=== PATIENT | female | born 1940 | race Caucasian/White ===

== ENCOUNTER 2019-06-26 13:52 | Outpatient (CLI) | payer MEDICARE, SELFPAY ==
--- NOTE | 2019-06-16 14:58 | CONS_ITS ---
DATE OF CONSULTATION: 06/16/2019 REASON FOR CONSULTATION: Fever. HISTORY OF PRESENT ILLNESS: The patient is a 79-year-old female with rheumatoid arthritis. She is on methotrexate and prednisone with upcoming plans for a biologic, but not currently. She was in her usual state of health until early on the morning of admission when she woke at about 2 a.m. with right scapular chest pain that was persistent and increasing in severity over the course of the day. She then presented to the emergency room in the evening of the and was admitted. She was started on ceftriaxone and azithromycin. Consultation requested. After awakening, she was up in a recliner, but with minimal relief in her pain. There was some radiation into the lower thoracic spine but not elsewhere. Pain was not worse with deep breath. She did have a cough as well that was minimally productive. During the course today, she also had a fever up to 38.3 orally without rigors or sweats. She has been on no recent antibiotics. One day before admission, she did have several skin lesions removed from her face, is applying Vaseline to the same areas. 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 Here she has been continued on her home acyclovir, has been given a single dose methylprednisolone. Her prednisone dose has also been increased from 10 up to 40. She now feels back to normal. She had vomiting on the day of admission, but this has resolved. On arrival here, her saturation was 86% and was 87% the following morning, but now she has been weaned off with normal O2 saturation at 98% on room air. She has no shortness of breath nor did she have any on the day of admission. She has not required any surgical intervention. No events here. ALLERGIES: METRONIDAZOLE. OTHERS NOT PERTINENT. HABITS: No tobacco. No alcohol to excess. PRESENT MEDICATIONS: No other immunosuppressants. PAST MEDICAL AND SURGICAL HISTORY: Anemia, rheumatoid arthritis, B12 deficiency, previous complicated UTI in April/May for which I saw her, degenerative disk disease, CAD with angina, chronic renal insufficiency, T5 compression fracture in the past, esophageal diverticulum, GERD, hypertension, hyperlipidemia, hypothyroidism, nephrolithiasis in the past, osteoarthritis, PAF, peripheral neuropathy, colostomy after diverticulitis, not reversed; lumbar diskectomy, ovary removal, appendectomy, cholecystectomy, tonsillectomy. FAMILY HISTORY: Heart disease, throat cancer. SOCIAL HISTORY: She is . Lives locally. Does not work outside the home. REVIEW OF SYSTEMS: 14-point review otherwise negative. PHYSICAL EXAMINATION: GENERAL: This is an elderly female, who appears her actual age. No distress on room air. VITAL SIGNS: Afebrile since arrival, 82, 20, 119/60. SKIN: Ecchymoses which appear acute and chronic, upper and lower extremities. No rashes. Warm and dry. EENT: Conjunctivae are normal. No petechiae. NECK: Without adenopathy, mass, meningismus. LUNGS: Diminished breath sounds at the right lung base. Breath sounds are vesicular. Otherwise, clear to auscultation and percussion. BACK: She has no CVAT, but there is right mid scapula tenderness. She has no spinal tenderness. She has no skin changes over the thorax such as vesicles. CARDIAC: Soft, S1, S2. Regular rate and rhythm. Pulses 1+. ABDOMEN: Colostomy in place. No organomegaly. No masses. Nontender. EXTREMITIES: Marvin wraps, both legs, which I did not remove. She has no lymphangitis evident. There is 3+ edema. LABORATORY DATA: White count 12.6 down from 16.4, hemoglobin 7.6, platelets are 249, 89% PMNs, 3% bands, 5% lymphocytes. Her prothrombin time 1.2. Electrolytes normal except for CO2 of 31, BUN 20, creatinine 1.1. Her
--- NOTE | ~2019-06-26 | DEXA_ITS ---
Bone Density Report Name: Yamini Muñoz Age: 79 Sex: Female Ethnicity: White Date of : 1940 Indication: postmenopausal; Referring Provider: PHYSICIAN NOT ON STAFF Study: Bone densitometry was performed. Exam Date: June 26, 2019 Accession number: [id number] Bone Density: Region BMD T-score Z-score Classification Total Forearm (Left) 0.256 -6.0 -2.9 1/3 Forearm (Left) 0.345 -5.8 -2.7 UD Forearm (Left) 0.171 -4.7 -2.4 World Health Organization criteria for BMD impression classify patients as: Normal (T-score at or above -1.0), Osteopenia (T-score between -1.0 and -2.5), or Osteoporosis (T-score at or below -2.5). Impression: The patient has osteoporosis, based on the Left Third Radius T-score. Discussion: HIGH RISK OF FRACTURE. BONE DENSITY IS UNDESIRABLY LOW AT ONE OR MORE SKELETAL SITES, CONSISTENT WITH OSTEOPOROSIS. ALSO, BONE DENSITY IS LOWER THAN EXPECTED FOR AGE AND SEX AT ONE OR MORE SKELETAL SITES; RECOMMEND A DILIGENT SEARCH FOR SECONDARY CAUSES OF BONE LOSS. This patient's lowest T-score meets the World Health Organization's (WHO) criteria for osteoporosis at one or more sites (T-score -2.5 or below). In untreated patients, the risk of osteoporotic fracture increases approximately two-fold for each 1.0 SD decrease in T-score. Low bone density is not the only risk factor for fracture; also consider factors such as patient's age, frailty or poor health, risk of falling, risk of injury, previous osteoporotic fracture, family history of osteoporosis, cigarette smoking, low body weight, etc. Not everyone with low bone mineral density has osteoporosis; osteomalacia and other metabolic bone disorders should also be considered. Patients who have osteoporosis should be evaluated for specific diseases and conditions (secondary causes) that may cause or contribute to bone loss. The [place] [employer] Clinical Endocrinologists (AACE) and National Osteoporosis Foundation (NOF) recommend pharmacologic intervention for all postmenopausal women whose T-score is in this range. Also, this patient's bone mineral density is below the range considered normal for healthy age-, sex-, and race-matched controls at least one site (Z-score -2.0 or below). This warrants careful evaluation for diseases and conditions that may contribute to accelerated bone loss. The patient should follow a healthful lifestyle (good nutrition with adequate calcium and vitamin D, and appropriate weight-bearing exercise). Follow-Up: Consider a repeat BMD and Vertebral Fracture Assessment (VFA) exam in 2 years or sooner if medically necessary, to reassess this patient's status. Reported by: DINORAH on 06/26/2019 3:44:00 PM. Reviewed, dictated and finalized at location AJules LEAL
--- NOTE | ~2019-06-26 | DEXA_ITS ---
Bone Density Report Name: Yamini Muñoz Age: 79 Sex: Female Ethnicity: White Date of : 1940 Indication: osteopenia; height loss; inflammatory bowel disease; history of glucocorticoids; prior fracture; rheumatoid arthritis; Referring Provider: PHYSICIAN NOT ON STAFF Study: Bone densitometry was performed. Exam Date: June 26, 2019 Accession number: [id number] Bone Density: Region BMD T-score Z-score Classification AP Spine (L1-L4) 1.036 -0.1 2.5 Normal Femoral Neck (Left) 0.373 -4.3 -2.0 Osteoporosis Total Hip (Left) 0.487 -3.7 -1.7 Osteoporosis Total Hip Bilateral Avg 0.465 -3.9 -1.9 Osteoporosis Femoral Neck (Right) 0.342 -4.6 -2.3 Osteoporosis Total Hip (Right) 0.441 -4.1 -2.1 Osteoporosis World Health Organization criteria for BMD impression classify patients as: Normal (T-score at or above -1.0), Osteopenia (T-score between -1.0 and -2.5), or Osteoporosis (T-score at or below -2.5). 10-year Fracture Risk: FRAX not reported because: Some T-score for Spine Total or Hip Total or Femoral Neck at or below -2.5 Prior hip or vertebral fracture Previous Exams: Region Exam Age BMD T-score BMD Change BMD Change Date g/cm2 vs Baseline vs Previous AP Spine(L1-L4) 06/26/2019 79 1.036 -0.1 0.064(6.6%)# 0.064(6.6%)# 03/01/2005 64 0.972 -0.7 Total Hip(Left) 06/26/2019 79 0.487 -3.7 -0.163(-25.1%) -0.163(-25.1%) 03/01/2005 64 0.650 -2.4 Total Hip(Right) 06/26/2019 79 0.441 -4.1 -0.218(-33.1%) -0.218(-33.1%) 03/01/2005 64 0.659 -2.3 *Denotes significance at 95% confidence level, LSC for AP Spine = 0.022 g/cm2, LSC for Total Hip = 0.027 g/cm2 Clinical Information Provided by Patient: Have had a previous hip or vertebral fracture Has had a low trauma fracture Has taken Glucocorticoids Has rheumatoid arthritis Has the following medical conditions: Inflammatory bowel diseases Patient maximum height was 63 Menopause Age: 45 No regular weight bearing exercise Onset of menses at age 12 Number of children 1 Impression: The patient has established osteoporosis, based on the Right Femoral Neck T-score and the existence of a prior fracture. The patient has risk factors, including: previous fracture, history of glucocorticoid therapy. No significant bone loss was observed. Discussion: HIGH RISK OF FRACTURE. BONE DENSITY IS UNDESIRABLY LOW AT ONE OR MORE SKELETAL SITES, CONSISTENT WITH POSTMENOPAUSAL OSTEOPOROSIS. This patient's lowest T-s
--- NOTE | ~2019-06-26 | DEXA_ITS ---
Bone Density Report Name: Yamini Muñoz Age: 79 Sex: Female Ethnicity: White Date of : 1940 Indication: postmenopausal; Referring Provider: PHYSICIAN NOT ON STAFF Study: Bone densitometry was performed. Exam Date: June 26, 2019 Accession number: [id number] Bone Density: Region BMD T-score Z-score Classification Total Forearm (Left) 0.256 -6.0 -2.9 1/3 Forearm (Left) 0.345 -5.8 -2.7 UD Forearm (Left) 0.171 -4.7 -2.4 World Health Organization criteria for BMD impression classify patients as: Normal (T-score at or above -1.0), Osteopenia (T-score between -1.0 and -2.5), or Osteoporosis (T-score at or below -2.5). Impression: The patient has osteoporosis, based on the Left Third Radius T-score. Discussion: HIGH RISK OF FRACTURE. BONE DENSITY IS UNDESIRABLY LOW AT ONE OR MORE SKELETAL SITES, CONSISTENT WITH OSTEOPOROSIS. ALSO, BONE DENSITY IS LOWER THAN EXPECTED FOR AGE AND SEX AT ONE OR MORE SKELETAL SITES; RECOMMEND A DILIGENT SEARCH FOR SECONDARY CAUSES OF BONE LOSS. This patient's lowest T-score meets the World Health Organization's (WHO) criteria for osteoporosis at one or more sites (T-score -2.5 or below). In untreated patients, the risk of osteoporotic fracture increases approximately two-fold for each 1.0 SD decrease in T-score. Low bone density is not the only risk factor for fracture; also consider factors such as patient's age, frailty or poor health, risk of falling, risk of injury, previous osteoporotic fracture, family history of osteoporosis, cigarette smoking, low body weight, etc. Not everyone with low bone mineral density has osteoporosis; osteomalacia and other metabolic bone disorders should also be considered. Patients who have osteoporosis should be evaluated for specific diseases and conditions (secondary causes) that may cause or contribute to bone loss. The [place] Association of Clinical Endocrinologists (AACE) and National Osteoporosis Foundation (NOF) recommend pharmacologic intervention for all postmenopausal women whose T-score is in this range. Also, this patient's bone mineral density is below the range considered normal for healthy age-, sex-, and race-matched controls at least one site (Z-score -2.0 or below). This warrants careful evaluation for diseases and conditions that may contribute to accelerated bone loss. The patient should follow a healthful lifestyle (good nutrition with adequate calcium and vitamin D, and appropriate weight-bearing exercise). Follow-Up: Consider a repeat BMD and Vertebral Fracture Assessment (VFA) exam in 2 years or sooner if medically necessary, to reassess this patient's status. Reported by: DINORAH on 06/26/2019 3:24:00 PM. Reviewed, dictated and finalized at location A.
== END 2019-06-26 13:53 | disposition home or self-care (01) ==
PROVIDERS: PCP Internal Medicine
DX: M81.0 Age-related osteoporosis without current pathological fracture (principal); M06.9 Rheumatoid arthritis, unspecified; Z51.81 Encounter for therapeutic drug level monitoring; Z79.899 Other long term (current) drug therapy; Z11.59 Encounter for screening for other viral diseases
CPT/HCPCS: 77080; 77081

== ENCOUNTER 2019-12-25 10:39 | Inpatient (IN) | payer MEDICARE, SELFPAY ==
[2019-12-25] VITALS (7 sets, daily range): BP systolic 112–185; BP diastolic 48–89; PULSE 63–75; RESP 13–22; TEMP 36.2–37.2; O2SAT 94–100; BMI 32.3
--- NOTE | ~2019-12-25 | US_ITS ---
EXAMINATION: US venous doppler [facility] DATE: 12/26/2019 10:57 INDICATION: Bilateral lower limb swelling TECHNIQUE: Us scale images without and with compression and Doppler images of the bilateral lower e xtremity veins were obtained. COMPARISON: 02/17/2019 FINDINGS: Evaluation of the calf veins is somewhat limited due to lower limb pain. The right common femoral vein, profunda femoral vein, femoral vein, popliteal vein, peroneal trunk, p osterior tibial veins, and greater saphenous vein are patent. The left common femoral vein, profunda femoral vein, femoral vein, popliteal vein, peroneal trunk, po sterior tibial veins, and greater saphenous vein are patent. IMPRESSION: 1. Patent bilateral lower extremity veins. No evidence of deep venous thrombosis. Reviewed, dictated and finalized at location A. IMPRESSION: 1. Patent bilateral lower extremity veins. No evidence of deep venous thrombosi s.
--- NOTE | ~2019-12-25 | XR_ITS ---
EXAMINATION: XR chest 1V portable DATE: 12/25/2019 11:20 INDICATION: Weakness. TECHNIQUE: A single frontal view of the chest was obtained. COMPARISON: Chest 2 views 06/14/2019, chest CT 06/15/2019, CT abdomen and pelvis 04/25/2019 FINDINGS: Again seen is elevation of right hemidiaphragm. Calcified right lung nodules are consistent with old granulomatous disease. There is chronic collapse of left lower lobe. No pleural effusion or pneumothorax. The heart size is normal. There is a prominent left paracardial fat pad. There are mathew nges of vertebroplasty in the spine. IMPRESSION: 1. 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 Reviewed, dictated and finalized at location A.
--- NOTE | 2019-12-25 10:42 | ECG_ITS ---
Measurements Intervals [place] Rate: 74 P: -23 RI: 311 QRS: 10 QRSD: 86 T: 80 QT: 299 QTc: 332 Interpretive Statements SINUS RHYTHM BORDERLINE ST-T WAVE ABNORMALITY- HIGH LATERAL LEADS BASELINE ARTIFACT- I, II, III, AVR, AVL, AVF, V4-V6 BORDERLINE ECG Electronically Signed On 12-25-2019 11:02:40 CDT by Odilon Swift D.O.
[2019-12-25 10:52] LABS: Glucose Point of Care 129 (65-105)
--- NOTE | 2019-12-25 10:53 | ED.WEAKNESS ---
HPI - Weakness General Chief complaint: Weakness Stated complaint: weakness History of Present Illness HPI Narrative: Patient presents via EMS for generalized weakness. She has severe rheumatoid arthritis, and congestive heart failure, and still lives at home with her . Usually she can get around with a motorized wheelchair, and a walker. Now she is too weak to walk. She complains of pain everywhere . She has a deep cough with productive sputum. She denies fever chills or sweats. MD Complaint: generalized weakness Onset (ago): hour(s) Duration: constant Location: generalized Severity: moderate Relieving factors: none Exacerbating factors: exertion Associated symptoms: easy bruising Related Data Home Medications Medication Instructions Recorded Confirmed Bystolic 10 mg PO DAILY 04/25/19 12/25/19 Pradaxa 150 mg PO BID 04/25/19 12/25/19 fluconazole 150 mg PO [id number] 04/25/19 12/25/19 ipratropium-albuterol 3 ml INHALATION Q4H PRN 04/25/19 12/25/19 mesalamine with cleansing wipe 4 g CO HS 04/25/19 12/25/19 methotrexate sodium 10 mg PO WEEKLY 04/25/19 12/25/19 promethazine 25 mg PO QID PRN 04/25/19 12/25/19 vitamin X50-smfua acid 2 tablet PO DAILY 04/25/19 12/25/19 acetaminophen 500 mg PO TID PRN 04/26/19 12/25/19 acyclovir 400 mg PO DAILY 04/26/19 12/25/19 folic acid 1 mg PO BID 04/26/19 12/25/19 gabapentin 100 mg PO BID 04/26/19 12/25/19 pantoprazole 40 mg PO QAM 04/26/19 12/25/19 prednisone 10 mg PO DAILY 04/26/19 12/25/19 bumetanide 0.5 mg PO DAILY 05/02/19 12/25/19 Xtampza ER 18 mg PO Q12H 06/14/19 12/25/19 lidocaine [Lidoderm] 1 patch TRANSDERMAL DAILY 06/14/19 12/25/19 duloxetine 30 mg PO DAILY 12/25/19 12/25/19 Allergies Allergy/AdvReac Type Severity Reaction Status Date / Time codeine Allergy Unknown Nausea Verified 12/25/19 13:11 enalapril Allergy Unknown Nausea Verified 12/25/19 13:11 ezetimibe Allergy Unknown Dizziness Verified 12/25/19 13:11 metronidazole Allergy Unknown Unknown Verified 12/25/19 11:08 Iimjyhq-Wrw-Ndd Reductase Allergy Unknown Nausea Verified 12/25/19 13:11 Inhibitor Review of Systems Review of Systems: Narrative: CONSTITUTIONAL: Denies fever, chills, or sweats. EYES: Denies visual changes, redness, or discharge. ENT: Denies rhinorrhea, congestion, sore throat, or otalgia. CARDIOVASCULAR: Denies chest pain, palpitations, or edema. RESPIRATORY: She has a deep cough. GASTROINTESTINAL: Denies abdominal pain, nausea, vomiting, or diarrhea. GENITOURINARY: Denies dysuria or hematuria. SKIN: Denies rash or itching. MUSCULOSKELETAL: She has chronic back pain, joint pain, and myalgia. NEUROLOGIC: Denies headache, numbness, but presents for generalized weakness. [facility] Past Medical History Medical History (Updated 12/25/19 @ 17:03 by Sandi Macedo PA-C) Arthritis B12 deficiency Bacteremia Citrobacter and Enterococcus bacteremia in April 2019. Bulging disc Chronic anemia Chronic kidney disease, stage 3 Baseline creatinine between 1.0 and 1.20. Chronic pain syndrome Secondary to rheumatoid arthritis. 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 Coronary artery disease Diverticulitis Perforated diverticulitis status post colostomy in 2014. Esophageal diverticulum Essential hypertension Gastroesophageal reflux disease Hyperlipidemia Hypothyroidism Immunosuppression due to drug therapy Kidney stones Osteoarthritis Osteoporosis Paroxysmal atrial fibrillation Rheumatoid arthritis Seasonal allergies Vertebral compression fracture T5 and lumbar vertebral compression fractures. Surgical History Surgical History (Updated 12/25/19 @ 16:48 by Sandi Macedo PA-C) History of appendectomy History of bowel resection (~2014) With colostomy, secondary to perforated diverticulitis. History of cardiac catheterization History of cataract extraction History of cholecystectomy History of lumbar discectomy (~10/2003) L3-L4 microdiskectomy with decom
[2019-12-25 11:02] LABS: Basophils Percent Auto 0.1 % (0.2-1.2); Eosinophils Percent Auto 0.4 % (0-4.4); Hematocrit 34.1 % (37.0-47.0); Immature Granulocyte Absolute 0.07 K/mm3 (0.00-0.031); Immature Granulocyte Percent A 0.8 % (0-0.5); Lymphocytes Absolute Auto 1.64 K/mm3 (0.9-3.2); Lymphocytes Percent Auto 19.7 % (18.3-44.2); Mean Corpuscular HGB Conc 29.3 g/dl (32-36); Mean Corpuscular Hemoglobin 28.2 pg (26-34); Mean Corpuscular Volume 96.1 fl (80-100); Mean Platelet Volume 10.6 fl (7.4-10.4); Monocytes Absolute Auto 0.6 K/mm3 (0.1-0.6); Monocytes Percent Auto 6.7 % (2.6-8.5); Neutrophils Percent Auto 72.3 % (45.5-73.1); Nucleated Red Blood Cells Perc 0.4 % (0.0-0.2); Platelet Count Result 264 k/mm3 (150-375); Red Blood Count 3.55 M/mm3 (4.2-5.4); Red Cell Distribution Width 20.6 % (11.5-14.5); White Blood Count 8.3 K/mm3 (4.5-10.0)
[2019-12-25 11:11] LABS: Anisocytosis 1+ (NORMAL); Hypochromasia 1+ (NORMAL); Platelet Estimate Adequate (Adequate)
[2019-12-25 11:17] LABS: Add Urine Microscopic? YES; Appearance Urine Turbid (Clear); Bacteria Urine Trace /hpf; Bilirubin Urine Negative (Negative); Blood Urine 1+ (Negative); Budding Yeast Urine Present /hpf; Color Urine Yellow (Yellow); Glucose Urine UA Negative (Negative); Ketones Urine Negative (Negative); Leukocyte Esterase Ur 3+ LEU/UL (Negative); Nitrate Urine Negative (Negative); Protein Urine 2+ mg/dL (Negative); RBC Urine 21-50 /hpf (0-2); Specific Grav Ur 1.014 (1.001-1.035); Urobilinogen Urine Negative mg/dL (<2.0); WBC Urine >75 /hpf
[2019-12-25 11:26] LABS: Alanine Aminotransferase 30 U/L (4-35); Albumin Level 3.5 g/dL (3.5-5.1); Alkaline Phosphatase 77 U/L (38-126); Anion Gap 8.9 mmol/L (7-16); Aspartate Amino Transferase 39 U/L (14-36); Bilirubin,Total 0.9 mg/dL (0.2-1.3); Blood Urea Nitrogen 26 mg/dL (7-17); Calcium 8.8 mg/dL (8.4-10.2); Carbon Dioxide 36 mmol/L (22-30); Chloride 95 mmol/L (98-107); Estimated Glomerular Filt Rate 43; Glucose 120 mg/dL (65-105); Potassium 3.9 mmol/L (3.4-5.0); Sodium 136 mmol/L (137-145)
[2019-12-25 11:30] LABS: NT Pro B Type Natriuretic Pept 671 PG/ML (5-100); Troponin I < 0.012 ng/mL (0.000-0.034)
[2019-12-25 11:33] LABS: Amphetamine Screen Urine Negative (Negative); Barbiturate Screen Urine Negative (Negative); Benzodiazepines Screen Urine Negative (Negative); Cannabinoid Screen Urine Negative (Negative); Cocaine Screen Urine Negative (Negative); Methadone Screen Urine Negative (Negative); Opiate Screen Urine Negative (Negative); Phencyclidine Screen Urine Negative (Negative)
--- NOTE | 2019-12-25 12:49 | ADMGEN ---
This patient, Yamini Muñoz, was admitted to 2 Medical Room 252-01. Patient/family oriented to hospital policies and general routines including ID bracelet, bed and alarms, visiting hours, pain management, procedures, bathroom and other care routines, personal items, smoking policy, room service/diet, and visiting hours. Valuables list has been completed. Information on how to activate the Rapid Response Team has been discussed. Patient/Family are encouraged to report perceived risks to care and to ask questions if they do not understand what they are told or what they should do. Report received from MISSY Martin.
--- NOTE | 2019-12-25 16:00 | PM.IMHP ---
H&P: HPI History of Present Illness Chief complaint: Generalized weakness. Narrative: Yamini Muñoz is a 79-year-old female with rheumatoid arthritis on immunosuppressants, chronic partial collapse of the left lower lobe, chronic kidney disease stage 3, chronic anemia, hypertension, hyperlipidemia, and chronic pain syndrome secondary to RA who presented to the emergency department earlier today via EMS from home for evaluation of generalized weakness. Her chronic lower extremity edema has been worse recently, and in fact she has been doubling up on her diuretic for the last 2 weeks, at the direction of her primary care provider. The edema is much improved and she has lost about 10 pounds, however she has felt dry over the past 4 days or so. Over the past 3 or 4 days, she has noticed a decrease in appetite with poor oral intake, lightheadedness/dizziness, and progressive weakness. She also reports dysuria and a change in sputum production. With further questioning, she reports a chronic cough that is occasionally productive, however over the past several days she has been coughing up light green phlegm. She denies fever, chills, sweats, dysphagia, recent travel, sick contacts, and exposure to those positive for COVID-19. Review of Systems Review of Systems: Narrative: Twelve systems were reviewed with pertinent positives and negatives as per HPI. No headache. She has slight sinus congestion and rhinorrhea. No otalgia or odynophagia. She denies dysphagia and concerns for aspiration. No chest pain, pleuritic pain, or shortness of breath. She denies overt calf pain. Reportedly she had a DVT many years ago. Except as documented, all other systems were reviewed and are negative. [facility] Past Medical History Medical History (Updated 12/25/19 @ 17:03 by Sandi Macedo PA-C) Arthritis B12 deficiency Bacteremia Citrobacter and Enterococcus bacteremia in April 2019. Bulging disc Chronic anemia Chronic kidney disease, stage 3 Baseline creatinine between 1.0 and 1.20. Chronic pain syndrome Secondary to rheumatoid arthritis. 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 Coronary artery disease Diverticulitis Perforated diverticulitis status post colostomy in 2014. Esophageal diverticulum Essential hypertension Gastroesophageal reflux disease Hyperlipidemia Hypothyroidism Immunosuppression due to drug therapy Kidney stones Osteoarthritis Osteoporosis Paroxysmal atrial fibrillation Rheumatoid arthritis Seasonal allergies Vertebral compression fracture T5 and lumbar vertebral compression fractures. Surgical History Surgical History (Updated 12/25/19 @ 16:48 by Sandi Macedo PA-C) History of appendectomy History of bowel resection (~2014) With colostomy, secondary to perforated diverticulitis. History of cardiac catheterization History of cataract extraction History of cholecystectomy History of lumbar discectomy (~10/2003) L3-L4 microdiskectomy with decompression of L4-L5. History of oophorectomy (~1963) History of sinus surgery X2 History of tonsillectomy Family History Family History Father Family history of throat cancer Heart disease Sibling Kidney stones High cholesterol Sibling High cholesterol Kidney stones Sibling High cholesterol Kidney stones Social History Social History (Updated 12/25/19 @ 16:49 by Sandi Macedo PA-C) Social History: The patient lives in [place] with her . She is a lifelong nonsmoker and denies alcohol and illicit substance use. She designates her son Alex as her surrogate decision maker and she wishes to be a do not resuscitate. Spiritual care concerns: No Agree to blood products: Yes Meds Home Medications and Allergies Home Medications Medication Instructions Recorded Confirmed Type Bystolic 10 mg PO DAILY 04/25/19 12/25/19 History Pradaxa 150 mg PO
[2019-12-25] MEDS: SODIUM CHLORIDE 0.9% IV 1,000 ML 100 ML IV CONT (17:35)
[2019-12-25] MEDS: guaiFENesin 12 HR 600 MG TABCR PO (20:57)
[2019-12-25] MEDS: ACETAMINOPHEN 325 MG TABLET 650 MG PO (20:59)
[2019-12-26 05:28] VITALS: BP 146/55; PULSE 66; RESP 20; TEMP 36.3; O2SAT 96
[2019-12-26] MEDS: ACETAMINOPHEN 325 MG TABLET 650 MG PO ×2 (05:36→18:33)
[2019-12-26 05:53] LABS: Hematocrit 31.4 % (37.0-47.0); Hemoglobin 9.1 g/dL (12.0-15.0); Mean Corpuscular Hemoglobin 27.6 pg (26-34); Mean Corpuscular Volume 95.2 fl (80-100); Mean Platelet Volume 9.4 fl (7.4-10.4); Platelet Count Result 263 k/mm3 (150-375); Red Cell Distribution Width 20.5 % (11.5-14.5); White Blood Count 7.3 K/mm3 (4.5-10.0)
[2019-12-26 06:10] LABS: Anion Gap 7.2 mmol/L (7-16); Blood Urea Nitrogen 20 mg/dL (7-17); Calcium 7.8 mg/dL (8.4-10.2); Carbon Dioxide 33 mmol/L (22-30); Chloride 100 mmol/L (98-107); Estimated Glomerular Filt Rate 43; Glucose 89 mg/dL (65-105); Magnesium 2.1 mg/dL (1.6-2.3); Phosphorus 3.2 mg/dL (2.5-4.5); Potassium 3.2 mmol/L (3.4-5.0); Sodium 137 mmol/L (137-145)
[2019-12-26] MEDS: LIDOCAINE 5% PATCH 1 PATCH TRANSDERM (08:34)
[2019-12-26] MEDS: BUMETANIDE 0.5 MG TABLET PO (09:13)
[2019-12-26] MEDS: FOLIC ACID 1 MG TABLET PO ×2 (09:13→16:20)
[2019-12-26] MEDS: CYANOCOBALAMIN 1,000 MCG TABLET 1000 MCG PO (09:13)
[2019-12-26] MEDS: DULoxetine HCL 30 MG CAPSULE.DR PO (09:13)
[2019-12-26] MEDS: PANTOPRAZOLE 40 MG TABLET PO (09:13)
[2019-12-26] MEDS: predniSONE 10 MG TABLET PO (09:13)
[2019-12-26 09:14] VITALS: PULSE 80
[2019-12-26] MEDS: POTASSIUM CHLORIDE 20 MEQ TABLET 40 MEQ PO (09:14)
[2019-12-26] MEDS: GABAPENTIN 100 MG CAPSULE PO ×2 (09:14→16:20)
[2019-12-26] MEDS: guaiFENesin 12 HR 600 MG TABCR PO ×2 (09:14→21:25)
[2019-12-26] MEDS: ACYCLOVIR 400 MG TABLET PO (09:14)
[2019-12-26] MEDS: DABIGATRAN ETEXILATE 150 MG CAPSULE PO ×2 (09:14→16:20)
[2019-12-26] MEDS: NEBIVOLOL HCL 5 MG TABLET 10 MG PO (09:14)
--- NOTE | 2019-12-26 09:57 | PHAR ---
Home med verified: Xtampza ER 18mg take 1 capsule PO Q12h with food
--- NOTE | 2019-12-26 13:09 | P.PNIM_ITS ---
Progress Note: A&P Assessment and Plan (1) Urinary tract infection: Code(s): N39.0 - Urinary tract infection, site not specified Status: Acute Assessment and Plan: With history of asymptomatic bacteriuria, however she has had dysuria for the past several days. * She has been started on empiric ceftriaxone, pending urine culture. * Patient says her dysuria is much improved today she is not having any fevers or chills. continue monitoring symptoms and given IV ceftriaxone. Still pending urine culture results. (2) Generalized weakness: Code(s): R53.1 - Weakness Status: Acute Assessment and Plan: Likely multifactorial in etiology to include mild dehydration due to over diuresis in addition to possible underlying urinary tract infection +/- bronchitis in the setting of chronic medical conditions. * Fall precautions initiated. PT / OT consulted. * She is feeling better today and walked well with therapy in the room. * It is recommended that she go home with home health after discharge. (3) Collapse of left lung: Code(s): J98.11 - Atelectasis Status: Acute Assessment and Plan: With increase in sputum production and change in sputum color, thus will add azithromycin to the ceftriaxone to cover possible underlying bronchitis. * Mucinex and Cornet to help mobilize secretions. * She reports her sputum is getting better today. will continue monitoring her symptoms and continue azithromycin and ceftriaxone. (4) Immunosuppression due to drug therapy: Code(s): Z79.899 - Other detention (current) drug therapy Status: Acute Assessment and Plan: * On methotrexate and prednisone. (5) Rheumatoid arthritis: Qualifiers: Rheumatoid arthritis location: unspecified site Rheumatoid factor presence: unspecified presence Qualified Code(s): M06.9 - Rheumatoid arthritis, unspecified Code(s): M06.9 - Rheumatoid arthritis, unspecified Status: Acute Assessment and Plan: * On immunosuppressants including methotrexate and prednisone as detailed above. * No acute issues. (6) Chronic kidney disease, stage 3: Code(s): N18.3 - Chronic kidney disease, stage 3 (moderate) Status: Acute Assessment and Plan: * Creatinine is stable on review of previous labs, however she Did look a bit dry and received 1 L of IV fluids overnight. * Creatinine is stable at 1.2. Which is her baseline. Will continue monitoring creatinine, I&Os and fluid status. (7) Chronic anemia: Code(s): D64.9 - Anemia, unspecified Status: Acute Assessment and Plan: * Hemoglobin and hematocrit are stable on review of previous labs. (8) Lower extremity edema: Code(s): R60.0 - Localized edema Status: Acute Assessment and Plan: Patient has chronic lymphedema of her legs and states they are slightly more swollen than normal. She does normally wear compression stockings daily. * Venous Doppler ultrasounds Was negative for DVT. * Encourage elevation of lower extremities as much as possible. * Will order compression stockings to be placed. * Otherwise will olivier
--- NOTE | 2019-12-26 13:09 | PM.IMPN ---
Progress Note: A&P Assessment and Plan (1) Urinary tract infection: Code(s): N39.0 - Urinary tract infection, site not specified Status: Acute Assessment and Plan: With history of asymptomatic bacteriuria, however she has had dysuria for the past several days. She has been started on empiric ceftriaxone, pending urine culture. Patient says her dysuria is much improved today she is not having any fevers or chills. continue monitoring symptoms and given IV ceftriaxone. Still pending urine culture results. (2) Generalized weakness: Code(s): R53.1 - Weakness Status: Acute Assessment and Plan: Likely multifactorial in etiology to include mild dehydration due to over diuresis in addition to possible underlying urinary tract infection +/- bronchitis in the setting of chronic medical conditions. Fall precautions initiated. PT / OT consulted. She is feeling better today and walked well with therapy in the room. It is recommended that she go home with home health after discharge. (3) Collapse of left lung: Code(s): J98.11 - Atelectasis Status: Acute Assessment and Plan: With increase in sputum production and change in sputum color, thus will add azithromycin to the ceftriaxone to cover possible underlying bronchitis. Mucinex and Cornet to help mobilize secretions. She reports her sputum is getting better today. will continue monitoring her symptoms and continue azithromycin and ceftriaxone. (4) Immunosuppression due to drug therapy: Code(s): Z79.899 - Other care home (current) drug therapy Status: Acute Assessment and Plan: On methotrexate and prednisone. (5) Rheumatoid arthritis: Qualifiers: Rheumatoid arthritis location: unspecified site Rheumatoid factor presence: unspecified presence Qualified Code(s): M06.9 - Rheumatoid arthritis, unspecified Code(s): M06.9 - Rheumatoid arthritis, unspecified Status: Acute Assessment and Plan: On immunosuppressants including methotrexate and prednisone as detailed above. No acute issues. (6) Chronic kidney disease, stage 3: Code(s): N18.3 - Chronic kidney disease, stage 3 (moderate) Status: Acute Assessment and Plan: Creatinine is stable on review of previous labs, however she Did look a bit dry and received 1 L of IV fluids overnight. Creatinine is stable at 1.2. Which is her baseline. Will continue monitoring creatinine, I&Os and fluid status. (7) Chronic anemia: Code(s): D64.9 - Anemia, unspecified Status: Acute Assessment and Plan: Hemoglobin and hematocrit are stable on review of previous labs. (8) Lower extremity edema: Code(s): R60.0 - Localized edema Status: Acute Assessment and Plan: Patient has chronic lymphedema of her legs and states they are slightly more swollen than normal. She does normally wear compression stockings daily. Venous Doppler ultrasounds Was negative for DVT. Encourage elevation of lower extremities as much as possible. Will order compression stockings to be placed. Otherwise will keep her on her home dose of diuretics there is no need for further diuresis at this time continue monitoring. (9) Essential hypertension: Code(s): I10 - Essential (primary) hypertension Status: Acute Assessment and Plan: Blood pressure was 185/89 on arrival to the emergency department but has improved. Blood pressure
[2019-12-26 14:00] VITALS: BP 120/57; PULSE 70; RESP 16; TEMP 36.7; O2SAT 100
[2019-12-26] MEDS: SACCHAROMYCES BOULARDII 250 MG CAPSULE PO (16:20)
[2019-12-26 20:00] VITALS: BP 136/73; PULSE 74; RESP 20; TEMP 36; O2SAT 97
[2019-12-26] MEDS: MESALAMINE ENEMA 4 GM/60 ML BOTTLE RECTAL (21:25)
[2019-12-27 05:21] LABS: Hematocrit 30.8 % (37.0-47.0); Hemoglobin 9.1 g/dL (12.0-15.0)
[2019-12-27 06:00] VITALS: BP 153/88; PULSE 67; RESP 20; TEMP 36; O2SAT 99
[2019-12-27 07:11] LABS: Anion Gap 5.9 mmol/L (7-16); Blood Urea Nitrogen 15 mg/dL (7-17); Calcium 8.2 mg/dL (8.4-10.2); Carbon Dioxide 32 mmol/L (22-30); Chloride 99 mmol/L (98-107); Estimated Glomerular Filt Rate 48; Glucose 87 mg/dL (65-105); Magnesium 2.1 mg/dL (1.6-2.3); Potassium 3.9 mmol/L (3.4-5.0); Sodium 133 mmol/L (137-145)
[2019-12-27 08:40] VITALS: PULSE 80
[2019-12-27] MEDS: predniSONE 10 MG TABLET PO (08:40)
[2019-12-27] MEDS: FOLIC ACID 1 MG TABLET PO ×2 (08:40→17:53)
[2019-12-27] MEDS: NEBIVOLOL HCL 5 MG TABLET 10 MG PO (08:40)
[2019-12-27] MEDS: guaiFENesin 12 HR 600 MG TABCR PO ×2 (08:40→20:48)
[2019-12-27] MEDS: DABIGATRAN ETEXILATE 150 MG CAPSULE PO ×2 (08:40→17:53)
[2019-12-27] MEDS: SACCHAROMYCES BOULARDII 250 MG CAPSULE PO ×2 (08:40→17:54)
[2019-12-27] MEDS: GABAPENTIN 100 MG CAPSULE PO ×2 (08:40→17:53)
[2019-12-27] MEDS: ACYCLOVIR 400 MG TABLET PO (08:42)
[2019-12-27] MEDS: LIDOCAINE 5% PATCH 1 PATCH TRANSDERM (08:42)
[2019-12-27] MEDS: BUMETANIDE 0.5 MG TABLET PO (08:42)
[2019-12-27] MEDS: DULoxetine HCL 30 MG CAPSULE.DR PO (08:42)
[2019-12-27] MEDS: CYANOCOBALAMIN 1,000 MCG TABLET 1000 MCG PO (08:42)
[2019-12-27] MEDS: PANTOPRAZOLE 40 MG TABLET PO (08:42)
--- NOTE | 2019-12-27 10:12 | PM.IMPN ---
Progress Note: A&P Assessment and Plan (1) Urinary tract infection: Code(s): N39.0 - Urinary tract infection, site not specified Status: Acute Assessment and Plan: With history of asymptomatic bacteriuria, however she has had dysuria for the past several days. Patient was on empiric ceftriaxone for the last few days but her culture came back positive for ESBL which is only sensitive to ertapenem, imipenem and gentamicin. Last time she was here in June she had similar results and at that time Dr. miller did not treat her for ESBL UTI because he believed was a colonization. During this admission she was having urinary symptoms of dysuria and frequent urination so I will start IV ertapenem and will consult Dr. miller for further evaluation and treatment. continue monitoring symptoms. I appreciate ID input. (2) Generalized weakness: Code(s): R53.1 - Weakness Status: Acute Assessment and Plan: Likely multifactorial in etiology to include mild dehydration due to over diuresis in addition to possible underlying urinary tract infection +/- bronchitis in the setting of chronic medical conditions. Fall precautions initiated. PT / OT consulted. She is feeling better today and walked well with therapy [place]. It is recommended that she go home with home health after discharge. The patient states that she was possibly exposed to COVID on 12/17/2019 by her family. I talked to the patient's son Cristhian who is a neurologist at [facility] and inform me of his concerns. I informed him that he she does not have any acute symptoms that I believe is related to COVID virus, no fevers, tachycardia, normal oxygenation, improving symptoms with her current treatment of her underlying infection. He would like the patient tested if possible. (3) Collapse of left lung: Code(s): J98.11 - Atelectasis Status: Acute Assessment and Plan: With increase in sputum production and change in sputum color, thus will add azithromycin to the ceftriaxone to cover possible underlying bronchitis. Mucinex and Cornet to help mobilize secretions. She reports her sputum is getting better today Denies any shortness of breath or dyspnea on exertion will continue monitoring her symptoms and continue azithromycin. (4) Immunosuppression due to drug therapy: Code(s): Z79.899 - Other residential (current) drug therapy Status: Acute Assessment and Plan: On methotrexate and prednisone. (5) Rheumatoid arthritis: Qualifiers: Rheumatoid arthritis location: unspecified site Rheumatoid factor presence: unspecified presence Qualified Code(s): M06.9 - Rheumatoid arthritis, unspecified Code(s): M06.9 - Rheumatoid arthritis, unspecified Status: Acute Assessment and Plan: On immunosuppressants including methotrexate and prednisone as detailed above. No acute issues. (6) Chronic kidney disease, stage 3: Code(s): N18.3 - Chronic kidney disease, stage 3 (moderate) Status: Acute Assessment and Plan: Creatinine is stable on review of previous labs, however she Did look a bit dry and received 1 L of IV fluids overnight. Creatinine is stable at 1.1. Which is her baseline. Will continue monitoring creatinine, I&Os and fluid status. (7) Chronic anemia: Code(s): D64.9 - Anemia, unspecified Status: Acute Assessment and Plan: Hemoglobin and hematocrit are stable on review of previous labs. (8) Lower extremity edema: CodeLouies
--- NOTE | 2019-12-27 10:59 | PC.NURSE ---
I left a message for pharmacy that I am still missing the 0950 dose of Invanz. I will call again if the medication is not sent up or I do not hear from pharmacy.
[2019-12-27] MEDS: ERTAPENEM 1 GM/NS 50 ML 1 GM/50 ML BAG IVPB (11:17)
[2019-12-27 14:00] VITALS: BP 137/74; PULSE 68; RESP 16; TEMP 36.4; O2SAT 96
[2019-12-27] MEDS: MESALAMINE ENEMA 4 GM/60 ML BOTTLE RECTAL (20:50)
[2019-12-27 22:00] VITALS: BP 133/69; PULSE 69; RESP 20; TEMP 36.2; O2SAT 97
[2019-12-28 06:00] VITALS: BP 157/63; PULSE 63; RESP 20; TEMP 36.3; O2SAT 92
[2019-12-28 06:14] LABS: Blood Urea Nitrogen 16 mg/dL (7-17); Carbon Dioxide 28 mmol/L (22-30); Chloride 101 mmol/L (98-107); Estimated Glomerular Filt Rate 48; Glucose 83 mg/dL (65-105); Sodium 134 mmol/L (137-145)
[2019-12-28] MEDS: BUMETANIDE 0.5 MG TABLET PO (09:01)
[2019-12-28] MEDS: guaiFENesin 12 HR 600 MG TABCR PO ×2 (09:01→20:53)
[2019-12-28] MEDS: DABIGATRAN ETEXILATE 150 MG CAPSULE PO ×2 (09:01→16:42)
[2019-12-28] MEDS: FOLIC ACID 1 MG TABLET PO ×2 (09:01→16:42)
[2019-12-28] MEDS: CYANOCOBALAMIN 1,000 MCG TABLET 1000 MCG PO (09:01)
[2019-12-28 09:04] VITALS: PULSE 68
[2019-12-28] MEDS: DULoxetine HCL 30 MG CAPSULE.DR PO (09:04)
[2019-12-28] MEDS: PANTOPRAZOLE 40 MG TABLET PO (09:04)
[2019-12-28] MEDS: predniSONE 10 MG TABLET PO (09:04)
[2019-12-28] MEDS: ERTAPENEM 1 GM/NS 50 ML 1 GM/50 ML BAG IVPB (09:04)
[2019-12-28] MEDS: NEBIVOLOL HCL 5 MG TABLET 10 MG PO (09:04)
[2019-12-28] MEDS: ACYCLOVIR 400 MG TABLET PO (09:04)
[2019-12-28] MEDS: LIDOCAINE 5% PATCH 1 PATCH TRANSDERM (09:05)
[2019-12-28] MEDS: GABAPENTIN 100 MG CAPSULE PO ×2 (09:05→16:42)
[2019-12-28] MEDS: SACCHAROMYCES BOULARDII 250 MG CAPSULE PO ×2 (09:06→16:42)
--- NOTE | 2019-12-28 10:20 | PC.NURSE ---
I informed ANKIT Quinteros that the machine that they use to test Covid swabs is out of commission. I notified her that the Nursing supervisor production will test the patient tonight in preparation for the machine to be fixed tomorrow.
--- NOTE | 2019-12-28 14:07 | PM.IMPN ---
Progress Note: A&P Assessment and Plan (1) Urinary tract infection: Code(s): N39.0 - Urinary tract infection, site not specified Status: Acute Assessment and Plan: With history of asymptomatic bacteriuria, however she has had dysuria for the past several days. Patient was on empiric ceftriaxone for the last few days but her culture came back positive for ESBL which is only sensitive to ertapenem, imipenem and gentamicin. Last time she was here in June she had similar results and at that time Dr. juan did not treat her for ESBL UTI because he believed was a colonization. During this admission she was having urinary symptoms of dysuria and frequent urination so I will start IV ertapenem (Day #2) and will consult Dr. Juan for further evaluation and treatment. continue monitoring symptoms. I appreciate ID input. (2) Generalized weakness: Code(s): R53.1 - Weakness Status: Acute Assessment and Plan: Likely multifactorial in etiology to include mild dehydration due to over diuresis in addition to possible underlying urinary tract infection +/- bronchitis in the setting of chronic medical conditions. Fall precautions initiated. PT / OT consulted. She is feeling better today and walked well with therapy [place]. It is recommended that she go home with home health after discharge. The patient states that she was possibly exposed to COVID on 12/17/2019 by her family. I talked to the patient's son Cristhian who is a neurologist at [facility] [employer] and inform me of his concerns. I informed him that he she does not have any acute symptoms that I believe is related to COVID virus, no fevers, tachycardia, normal oxygenation, improving symptoms with her current treatment of her underlying infection. He would like the patient tested if possible. (3) Collapse of left lung: Code(s): J98.11 - Atelectasis Status: Acute Assessment and Plan: With increase in sputum production and change in sputum color, thus will add azithromycin to the ceftriaxone to cover possible underlying bronchitis. Mucinex and Cornet to help mobilize secretions. She reports her sputum is getting better today Denies any shortness of breath or dyspnea on exertion will continue monitoring her symptoms and continue azithromycin. (4) Immunosuppression due to drug therapy: Code(s): Z79.899 - Other intermediate (current) drug therapy Status: Acute Assessment and Plan: On methotrexate and prednisone. (5) Rheumatoid arthritis: Qualifiers: Rheumatoid arthritis location: unspecified site Rheumatoid factor presence: unspecified presence Qualified Code(s): M06.9 - Rheumatoid arthritis, unspecified Code(s): M06.9 - Rheumatoid arthritis, unspecified Status: Acute Assessment and Plan: On immunosuppressants including methotrexate and prednisone as detailed above. No acute issues. (6) Chronic kidney disease, stage 3: Code(s): N18.3 - Chronic kidney disease, stage 3 (moderate) Status: Acute Assessment and Plan: Creatinine is stable on review of previous labs. On admission she did look a bit dry and received 1 L of IV fluids overnight. Creatinine is stable at 1.1. Which is her baseline. Will continue monitoring creatinine, I&Os and fluid status. (7) Chronic anemia: Code(s): D64.9 - Anemia, unspecified Status: Acute Assessment and Plan: Hemoglobin and hematocrit are stable on review of previous labs. (8) Lower extremity edema:
[2019-12-28 14:17] VITALS: BP 141/79; PULSE 66; RESP 18; TEMP 35.8; O2SAT 97
--- NOTE | 2019-12-28 20:57 | PC.NURSE ---
patient refuses rowasa enema, states she does not take it daily at home. dr. groves aware.
[2019-12-28 22:00] VITALS: BP 126/71; PULSE 72; RESP 16; TEMP 36.4; O2SAT 95
[2019-12-29 06:00] VITALS: BP 144/69; PULSE 69; RESP 20; TEMP 36; O2SAT 98
[2019-12-29 06:10] LABS: Anion Gap 8.3 mmol/L (7-16); Blood Urea Nitrogen 17 mg/dL (7-17); Calcium 8.2 mg/dL (8.4-10.2); Carbon Dioxide 33 mmol/L (22-30); Chloride 97 mmol/L (98-107); Estimated Glomerular Filt Rate 48; Glucose 86 mg/dL (65-105); Potassium 4.3 mmol/L (3.4-5.0); Sodium 134 mmol/L (137-145)
--- NOTE | 2019-12-29 07:50 | WPDINFPN2 ---
Progress Note: A&P Assessment and Plan (1) Urinary tract infection: Code(s): N39.0 - Urinary tract infection, site not specified Status: Acute Assessment and Plan: UTI REC Ertapenem through 01/01. She is not a candidate for home IV therapy due to RA / very limited use of hands and arms. Subjective Date/time seen: 12/29/19 07:50 Objective Data Vital Signs Vital Signs: Vital Signs - 24 hr 12/28/19 09:04 12/28/19 14:17 12/28/19 22:00 Temperature 35.8 C L 36.4 C L Pulse Rate 68 66 72 Respiratory Rate 18 16 Blood Pressure 141/79 H 126/71 Pulse Oximetry 97 95 12/29/19 06:00 Temperature 36.0 C L Pulse Rate 69 Respiratory Rate 20 Blood Pressure 144/69 H Pulse Oximetry 98 Intake/Output Intake/Output: Intake & Output 12/26/19 12/27/19 12/28/19 12/29/19 23:59 23:59 23:59 23:59 Intake Total 2140 2270 1330 500 Output Total 450 525 175 Balance 1690 1745 1155 500 Meds/Results Medications: Active Medications Generic Name Dose Route Start Last Admin Trade Name Freq PRN Reason Stop Dose Admin Acetaminophen 650 mg 12/25/19 11:42 12/26/19 18:33 Tylenol Tablet PO 650 mg Q4H PRN Administration Mild Pain (1-3) or Fever Acetaminophen 500 mg 12/25/19 23:26 Tylenol Tablet PO TID PRN Pain Rated 1-3 Acyclovir 400 mg 12/26/19 09:00 12/28/19 09:04 Zovirax Po PO 400 mg DAILY ANNA Administration Albuterol 2.5 mg 12/26/19 00:23 Albuterol Sulf Neb 2.5mg/0.5ml INHALATION Q4H PRN Shortness Of Breath Bumetanide 0.5 mg 12/26/19 09:00 12/28/19 09:01 Bumex Po PO 0.5 mg DAILY ANNA Administration Cyanocobalamin 1,000 mcg 12/26/19 09:00 12/28/19 09:01 Vitamin B-12 Tab PO 1,000 mcg QAM ANNA Administration Dabigatran 150 mg 12/26/19 09:00 12/28/19 16:42 Pradaxa PO 150 mg BID ANNA Administration Duloxetine HCl 30 mg 12/26/19 09:00 12/28/19 09:04 Cymbalta PO 30 mg DAILY ANNA Administration Fluconazole 150 mg 12/31/19 09:00 Fluconazole Tablet PO [id number] ANNA Folic Acid 1 mg 12/26/19 09:00 12/28/19 16:42 Folic Acid PO 1 mg BID ANNA Administration Gabapentin 100 mg 12/26/19 09:00 12/28/19 16:42 Neurontin PO 100 mg BID ANNA Administration Guaifenesin 600 mg 12/25/19 21:00 12/28/19 20:53 Mucinex 12 Hr Tab PO 600 mg Q12HR ANNA Administration Ertapenem 1 gm in 50 mls @ 100 mls/hr 12/27/19 09:50 12/28/19 10:49 Invanz 1 Gm/Ns 50 Ml IVPB 01/02/20 09:51 Infused DAILY [facility] Infusion Ipratropium [place] 0.5 mg 12/25/19 23:26 Atrovent Neb INHALATION Q4H PRN Shortness Of Breath Lidocaine 1 patch 12/26/19 09:00 12/28/19 09:05 Lidoderm TRANSDERM 1 patch DAILY [facility] Administration Meclizine HCl 12.5 mg 12/26/19 14:11 Antivert PO QID PRN dizziness Mesalamine 4 gm 12/26/19 21:00 12/28/19 20:55 Rowasa RECTAL Not Given HS [facility] Nebivolol 10 mg 12/26/19 09:00 12/28/19 09:04 Bystolic PO 10 mg DAILY [facility] Administration Ondansetron HCl 4 mg 12/25/19 11:42 Zofran Inj IV PUSH Q4H PRN Nausea Pantoprazole Sodium 40 mg 12/26/19 09:00 12/28/19 09:04 Protonix PO 40 mg QAM [facility] Administration Prednisone 10 mg 12/26/19 08:00 12/28/19 09:04 Prednisone PO 10 mg DAILY@0800 [facility] Administration Saccharomyces Boulardii 250 mg 12/26/19 17:00 12/28/19 16:42 Florastor PO 250 mg BID ANNA Administration Radiology Results: ITS Impressions Chest X-Ray 12/25/19 11:20 IMPRESSION: 1. 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 Venous Doppler Study 12/26/19 11:03 IMPRESSION: 1. Patent bilateral lower extremity veins. No evidence of deep venous thrombosis. Labs Labs: Laboratory Results - last 24 hr 12/29/19 05:16 Sodium 134 L Potassium 4.3 Chloride 97 L Carbon Dioxide 33 H Anion Gap 8.3 BUN 17 Creatinine 1.10 H Estim Creat Clear Ca
[2019-12-29 08:00] VITALS: PULSE 69; RESP 20; O2SAT 98
[2019-12-29] MEDS: LIDOCAINE 5% PATCH 1 PATCH TRANSDERM (08:52)
[2019-12-29] MEDS: BUMETANIDE 0.5 MG TABLET PO (08:56)
[2019-12-29] MEDS: SACCHAROMYCES BOULARDII 250 MG CAPSULE PO ×2 (08:56→17:18)
[2019-12-29] MEDS: DABIGATRAN ETEXILATE 150 MG CAPSULE PO ×2 (08:56→17:18)
[2019-12-29] MEDS: DULoxetine HCL 30 MG CAPSULE.DR PO (08:57)
[2019-12-29] MEDS: FOLIC ACID 1 MG TABLET PO ×2 (08:57→17:18)
[2019-12-29] MEDS: GABAPENTIN 100 MG CAPSULE PO ×2 (08:57→17:18)
[2019-12-29] MEDS: CYANOCOBALAMIN 1,000 MCG TABLET 1000 MCG PO (08:57)
[2019-12-29] MEDS: ACYCLOVIR 400 MG TABLET PO (08:57)
[2019-12-29] MEDS: NEBIVOLOL HCL 5 MG TABLET 10 MG PO (08:57)
[2019-12-29] MEDS: guaiFENesin 12 HR 600 MG TABCR PO ×2 (08:57→20:43)
[2019-12-29] MEDS: PANTOPRAZOLE 40 MG TABLET PO (08:57)
[2019-12-29] MEDS: predniSONE 10 MG TABLET PO (08:58)
[2019-12-29] MEDS: ERTAPENEM 1 GM/NS 50 ML 1 GM/50 ML BAG IVPB (08:58)
--- NOTE | 2019-12-29 11:34 | CONS_ITS ---
DATE OF CONSULTATION: 12/29/2019 REASON FOR CONSULTATION: UTI. HISTORY OF PRESENT ILLNESS: The patient is a 79-year-old female who is known to me from June of this year. She had asymptomatic bacteriuria at this time. She was admitted to the hospital on December 24 with generalized weakness. She also had noted about a week of urinary incontinence, urethral burning, vaginal burning with initial urination. She had an abnormal UA when she arrived. She has been on ertapenem since December 26. Consultation requested. The patient is on Orencia at home for some 6 months with satisfactory results so far by her description. She also is on prednisone 10 mg daily and methotrexate. She has had no fever or chills, sweats, abdominal pain, nausea, or vomiting. She has had some back pain in the CVA region. HABITS: No tobacco. No alcohol. PRESENT MEDICATIONS: List reviewed, above immunosuppressants. ALLERGIES: METRONIDAZOLE, UNKNOWN REACTION. OTHERS NOT PERTINENT. PAST MEDICAL HISTORY: In addition to the above, oophorectomy, sinus surgery, tonsillectomy, lumbar diskectomy, cholecystectomy, cataract extractions, colostomy chronically for diverticulitis in 2014, appendectomy, compression fractures, PAF, osteoporosis, kidney stones, hypothyroidism, hyperlipidemia, GERD, hypertension, left lower lobe collapse, stage 3 chronic renal insufficiency, B12 deficiency, disk disease. REVIEW OF SYSTEMS: Chronic obesity. She denies any weight loss to me. 14-point review otherwise negative. FAMILY HISTORY: Not pertinent to her present illness. SOCIAL HISTORY: Retired, , lives locally. PHYSICAL EXAMINATION: GENERAL: This is an elderly female, appears her actual age. No acute distress. VITAL SIGNS: She has been afebrile since arrival 144/69, 69, 20, 98% on room air. SKIN: No generalized rashes. Warm and dry. NODES: No cervical adenopathy. EENT: The pupils are miotic. No conjunctival injection. No petechiae. Oropharynx, oral mucosa normal. No thrush. No paranasal sinus inflammation. NECK: Without meningismus, tenderness, thyromegaly, mass. LUNGS: Clear to auscultation and percussion. BACK: She has mild left CVAT. CARDIAC: Regular rate and rhythm. No murmurs or gallops. Pulses are 2+. ABDOMEN: Morbidly obese, nontender. No mass. No organomegaly. Left lower quadrant ostomy bag with light brown stool. Bowel sounds are normal. She has no hernias. EXTREMITIES: 2+ nonpitting edema, both lower extremities distally. No evidence of cellulitis. LABORATORY DATA: Urine culture, ESBL-producing Klebsiella. No blood cultures collected. Her white blood cell count 7.3, hemoglobin 9.1, platelets are 263. Differential with no left shift. Her chemistry panel with mild hyponatremia, hypochloremia, CO2 33, BUN 17, creatinine 1.1, estimated GFR 48. Her AST 39. Liver function tests otherwise normal. Urinalysis: Yellow, turbid, 6.0, 1.014, positive for protein, blood, leukocyte esterase, 21 to 50 red cells, greater than 75 white cells. Drug screen negative. RADIOLOGY: Abdomen and pelvic CT performed 04/25/2019 without urinary abnormalities. Current chest x-ray on 12/24, chronic lung collapse, otherwise normal. ASSESSMENT: 1. Symptomatic urinary tract infection, improved on therapy. She is on ertapenem, now day #3. 2. Generalized weakness. 3. Rheumatoid arthritis and immunocompromised, also immunosuppressed. 4. Metronidazole intolerance or allergy. RECOMMENDATIONS: 1. From my standpoint, no need to adjust her immunosuppressants. 2. Ertapenem appropriate. She will need a therapy until her a.m. dose 01/01. 3. She is a poor candidate for home IV antibiotics due to her rheumatoid arthritis and very limited use of her upper extremities. 4. She decline
--- NOTE | 2019-12-29 11:53 | PM.IMPN ---
Progress Note: A&P Assessment and Plan (1) Urinary tract infection: Code(s): N39.0 - Urinary tract infection, site not specified Status: Acute Assessment and Plan: With history of asymptomatic bacteriuria, however she has had dysuria for the past several days. Patient was on empiric ceftriaxone for the last few days but her culture came back positive for ESBL which is only sensitive to ertapenem, imipenem and gentamicin. Last time she was here in June she had similar results and at that time Dr. juan did not treat her for ESBL UTI because he believed was a colonization. During this admission she was having urinary symptoms of dysuria and frequent urination so I will start IV ertapenem (Day #3) Dr. Juan was consulted for further evaluation and treatment and recommended IV Ertapemen until 01/02/2020 and recommended her continue to be hospitalizated due to her chronic RA. Discussed with the patient about hospitalization and she is not happy she has to be here until Sunday continue monitoring symptoms. I appreciate ID input. (2) Generalized weakness: Code(s): R53.1 - Weakness Status: Acute Assessment and Plan: Likely multifactorial in etiology to include mild dehydration due to over diuresis in addition to possible underlying urinary tract infection +/- bronchitis in the setting of chronic medical conditions. Fall precautions initiated. PT / OT consulted. She is feeling better today and continuing to work well with therapy It is recommended that she go home with home health after discharge. The patient states that she was possibly exposed to COVID on 12/17/2019 by her family. I talked to the patient's son Cristhian who is a neurologist at [facility] [employer] and inform me of his concerns. I informed him that he she does not have any acute symptoms that I believe is related to COVID virus, no fevers, tachycardia, normal oxygenation, improving symptoms with her current treatment of her underlying infection. He would like the patient tested if possible. (3) Collapse of left lung: Code(s): J98.11 - Atelectasis Status: Acute Assessment and Plan: With increase in sputum production and change in sputum color, thus will add azithromycin to the ceftriaxone to cover possible underlying bronchitis. Mucinex and [place] to help mobilize secretions. She was continued on Azithromycin for 5 doses and it was discontinued today. She reports her sputum is getting better today. Denies any shortness of breath or dyspnea on exertion will continue monitoring her symptoms and continue azithromycin. (4) Immunosuppression due to drug therapy: Code(s): Z79.899 - Other senior care (current) drug therapy Status: Acute Assessment and Plan: On methotrexate, Orencia and prednisone. Methotrexate and Orencia is on hold. Continuing Prednisone. (5) Rheumatoid arthritis: Qualifiers: Rheumatoid arthritis location: unspecified site Rheumatoid factor presence: unspecified presence Qualified Code(s): M06.9 - Rheumatoid arthritis, unspecified Code(s): M06.9 - Rheumatoid arthritis, unspecified Status: Acute Assessment and Plan: On immunosuppressants including methotrexate and prednisone as detailed above. No acute issues. (6) Chronic kidney disease, stage 3: Code(s): N18.3 - Chronic kidney disease, stage 3 (moderate) Status: Acute Assessment and Plan: Creatinine is stable on review of previous labs. On admission she did look a bit dry and received 1 L of IV fluids overnight. Creatinine is stable at 1.1 which is her baseline. Will continue
[2019-12-29 14:00] VITALS: BP 148/89; PULSE 71; RESP 20; TEMP 35.8; O2SAT 98
--- NOTE | 2019-12-29 20:44 | PC.NURSE ---
pt. refuses rowasa enema, states she does not take them daily at home. dr. groves aware of refusal.+
[2019-12-29 22:00] VITALS: BP 147/90; PULSE 65; RESP 21; TEMP 36.6; O2SAT 100
[2019-12-30 05:41] LABS: Hematocrit 31.2 % (37.0-47.0); Hemoglobin 9.1 g/dL (12.0-15.0); Mean Corpuscular HGB Conc 29.2 g/dl (32-36); Mean Corpuscular Hemoglobin 27.9 pg (26-34); Mean Corpuscular Volume 95.7 fl (80-100); Mean Platelet Volume 10.2 fl (7.4-10.4); Platelet Count Result 264 k/mm3 (150-375); Red Blood Count 3.26 M/mm3 (4.2-5.4); Red Cell Distribution Width 19.6 % (11.5-14.5); White Blood Count 11.3 K/mm3 (4.5-10.0)
[2019-12-30 06:00] VITALS: BP 154/89; PULSE 67; RESP 18; TEMP 36.7; O2SAT 97
[2019-12-30 06:02] LABS: Blood Urea Nitrogen 22 mg/dL (7-17); Calcium 8.2 mg/dL (8.4-10.2); Carbon Dioxide 30 mmol/L (22-30); Chloride 98 mmol/L (98-107); Estimated Glomerular Filt Rate 43; Glucose 85 mg/dL (65-105); Sodium 134 mmol/L (137-145)
[2019-12-30 08:00] VITALS: PULSE 67; RESP 18; O2SAT 97
[2019-12-30] MEDS: CYANOCOBALAMIN 1,000 MCG TABLET 1000 MCG PO (08:40)
[2019-12-30] MEDS: guaiFENesin 12 HR 600 MG TABCR PO ×2 (08:40→21:16)
[2019-12-30] MEDS: LIDOCAINE 5% PATCH 1 PATCH TRANSDERM (08:40)
[2019-12-30] MEDS: NEBIVOLOL HCL 5 MG TABLET 10 MG PO (08:40)
[2019-12-30] MEDS: FOLIC ACID 1 MG TABLET PO ×2 (08:41→16:42)
[2019-12-30] MEDS: GABAPENTIN 100 MG CAPSULE PO ×2 (08:41→16:42)
[2019-12-30] MEDS: BUMETANIDE 0.5 MG TABLET PO (08:41)
[2019-12-30] MEDS: DABIGATRAN ETEXILATE 150 MG CAPSULE PO ×2 (08:41→16:42)
[2019-12-30] MEDS: predniSONE 10 MG TABLET PO (08:41)
[2019-12-30] MEDS: SACCHAROMYCES BOULARDII 250 MG CAPSULE PO ×2 (08:41→16:42)
[2019-12-30] MEDS: PANTOPRAZOLE 40 MG TABLET PO (08:41)
[2019-12-30] MEDS: ERTAPENEM 1 GM/NS 50 ML 1 GM/50 ML BAG IVPB (08:41)
[2019-12-30] MEDS: DULoxetine HCL 30 MG CAPSULE.DR PO (08:41)
[2019-12-30] MEDS: ACYCLOVIR 400 MG TABLET PO (08:41)
--- NOTE | 2019-12-30 10:44 | PM.IMPN ---
Progress Note: A&P Assessment and Plan (1) Urinary tract infection: Code(s): N39.0 - Urinary tract infection, site not specified Status: Acute Assessment and Plan: pt not having any symptoms presently Dr. Juan was consulted for further evaluation and treatment and recommended IV Ertapemen until 01/02/2020 and recommended her continue to be hospitalizated due to her chronic RA. (2) Generalized weakness: Code(s): R53.1 - Weakness Status: Acute Assessment and Plan: Likely multifactorial likley secondary to urinary tract infection +/- bronchitis in the setting of chronic medical conditions. (3) Collapse of left lung: Code(s): J98.11 - Atelectasis Status: Acute Assessment and Plan: With increase in sputum production and change in sputum color, thus will add azithromycin to the ceftriaxone to cover possible underlying bronchitis. (4) Immunosuppression due to drug therapy: Code(s): Z79.899 - Other middle or intermediate school principal (current) drug therapy Status: Acute Assessment and Plan: On methotrexate, Orencia and prednisone. Methotrexate and Orencia is on hold. Continuing Prednisone. (5) Rheumatoid arthritis: Qualifiers: Rheumatoid arthritis location: unspecified site Rheumatoid factor presence: unspecified presence Qualified Code(s): M06.9 - Rheumatoid arthritis, unspecified Code(s): M06.9 - Rheumatoid arthritis, unspecified Status: Acute Assessment and Plan: On immunosuppressants including methotrexate and prednisone as detailed above. No acute issues. (6) Chronic kidney disease, stage 3: Code(s): N18.3 - Chronic kidney disease, stage 3 (moderate) Status: Acute Assessment and Plan: Creatinine is stable on review of previous labs. creat is 1.2 (7) Chronic anemia: Code(s): D64.9 - Anemia, unspecified Status: Acute Assessment and Plan: Hemoglobin and hematocrit are stable on review of previous labs. (8) Lower extremity edema: Code(s): R60.0 - Localized edema Status: Acute Assessment and Plan: Patient has chronic lymphedema of her legs and states they are slightly more swollen than normal. She does normally wear compression stockings daily. (9) Essential hypertension: Code(s): I10 - Essential (primary) hypertension Status: Acute Assessment and Plan: Stable. Continue antihypertensives and monitor daily. 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 pt is doing better states she has some pain in her joints otherwise is well. Review of Systems Review of Systems: All systems reviewed & are unremarkable except as noted in HPI and below Exam Const: General: cooperative and healthy appearing; No in distress Nutritional Appearance: overweight Orientation/consciousness: oriented to person HENMT: Head: normal to inspection Resp: Effort & Inspection: no respiratory distress Auscultation: no rhonchi and no wheezes
--- NOTE | 2019-12-30 13:18 | WPDINFPN2 ---
Progress Note: A&P Assessment and Plan (1) Urinary tract infection: Code(s): N39.0 - Urinary tract infection, site not specified Status: Acute Assessment and Plan: 1. UTI, stable. 2. RA and immunosuppressed REC Ertapenem #4, through 01/01. She is not a candidate for home IV therapy due to RA / very limited use of hands and arms. Subjective Date/time seen: 12/30/19 13:18 Interval history: no complaints Exam Narrative: Exam Narrative: afebrile, temps on low side Const: General: no acute distress Resp: Effort & Inspection: normal respiratory effort Auscultation: clear to auscultation bilaterally Cardio: Rate: regular rate Rhythm: regular rhythm Heart sounds: no gallops and no murmurs GI: GI Palp: Yes Soft to palpation and No Tenderness to palpation present (GI) Objective Data Vital Signs Vital Signs: Vital Signs - 24 hr 12/29/19 14:00 12/29/19 22:00 12/30/19 06:00 Temperature 35.8 C L 36.6 C 36.7 C Pulse Rate 71 65 67 Respiratory Rate 20 21 H 18 Blood Pressure 148/89 H 147/90 H 154/89 H Pulse Oximetry 98 100 97 12/30/19 08:00 Temperature Pulse Rate 67 Respiratory Rate 18 Blood Pressure Pulse Oximetry 97 Intake/Output Intake/Output: Intake & Output 12/27/19 12/28/19 12/29/19 12/30/19 23:59 23:59 23:59 23:59 Intake Total 2270 1330 1770 660 Output Total 525 175 325 Balance 1745 1155 1445 660 Meds/Results Medications: Active Medications Generic Name Dose Route Start Last Admin Trade Name Freq PRN Reason Stop Dose Admin Acetaminophen 650 mg 12/25/19 11:42 12/26/19 18:33 Tylenol Tablet PO 650 mg Q4H PRN Administration Mild Pain (1-3) or Fever Acetaminophen 500 mg 12/25/19 23:26 Tylenol Tablet PO TID PRN Pain Rated 1-3 Acyclovir 400 mg 12/26/19 09:00 12/30/19 08:41 Zovirax Po PO 400 mg DAILY ANNA Administration Albuterol 2.5 mg 12/26/19 00:23 Albuterol Sulf Neb 2.5mg/0.5ml INHALATION Q4H PRN Shortness Of Breath Bumetanide 0.5 mg 12/26/19 09:00 12/30/19 08:41 Bumex Po PO 0.5 mg DAILY [facility] Administration Cyanocobalamin 1,000 mcg 12/26/19 09:00 12/30/19 08:40 Vitamin B-12 Tab PO 1,000 mcg QAM ANNA Administration Dabigatran 150 mg 12/26/19 09:00 12/30/19 08:41 Pradaxa PO 150 mg BID [facility] Administration Duloxetine HCl 30 mg 12/26/19 09:00 12/30/19 08:41 Cymbalta PO 30 mg DAILY [facility] Administration Fluconazole 150 mg 12/31/19 09:00 Fluconazole Tablet PO [id number] [facility] Folic Acid 1 mg 12/26/19 09:00 12/30/19 08:41 Folic Acid PO 1 mg BID [facility] Administration Gabapentin 100 mg 12/26/19 09:00 12/30/19 08:41 Neurontin PO 100 mg BID [facility] Administration Guaifenesin 600 mg 12/25/19 21:00 12/30/19 08:40 Mucinex 12 Hr Tab PO 600 mg Q12HR [facility] Administration Ertapenem 1 gm in 50 mls @ 100 mls/hr 12/27/19 09:50 12/30/19 08:41 Invanz 1 Gm/Ns 50 Ml IVPB 01/02/20 09:51 100 mls/hr DAILY [facility] Administration Ipratropium [place] 0.5 mg 12/25/19 23:26 Atrovent Neb INHALATION Q4H PRN Shortness Of Breath Lidocaine 1 patch 12/26/19 09:00 12/30/19 08:40 Lidoderm TRANSDERM 1 patch DAILY [facility] Administration Meclizine HCl 12.5 mg 12/26/19 14:11 Antivert PO QID PRN dizziness Mesalamine 4 gm 12/26/19 21:00 12/29/19 20:43 Rowasa RECTAL Not Given HS [facility] Nebivolol 10 mg 12/26/19 09:00 12/30/19 08:40 Bystolic PO 10 mg DAILY [facility] Administration Ondansetron HCl 4 mg 12/25/19 11:42 Zofran Inj IV PUSH Q4H PRN Nausea Pantoprazole Sodium 40 mg 12/26/19 09:00 12/30/19 08:41 Protonix PO 40 mg QAM ANNA Administration Prednisone 10 mg 12/26/19 08:00 12/30/19 08:41 Prednisone PO 10 mg DAILY@0800 ANNA Administration Saccharomyces Boulardii 250 mg 12/26/19 17:00 12/30/19 08:41 Florastor PO 250 mg BID ANNA Administration Radiology Re
[2019-12-30 14:00] VITALS: BP 165/93; PULSE 72; RESP 20; TEMP 36.3; O2SAT 100
[2019-12-30 20:00] VITALS: PULSE 70; RESP 20; O2SAT 97
[2019-12-30 21:47] VITALS: BP 174/99; PULSE 70; RESP 20; TEMP 35.6; O2SAT 97
[2019-12-31 03:14] LABS: SARS-CoV-2 RNA PCR Negative
[2019-12-31 06:00] VITALS: BP 170/90; PULSE 66; RESP 18; TEMP 36.4; O2SAT 94
[2019-12-31 06:29] LABS: Hematocrit 31.1 % (37.0-47.0); Mean Corpuscular HGB Conc 28.9 g/dl (32-36); Mean Corpuscular Hemoglobin 27.5 pg (26-34); Mean Corpuscular Volume 95.1 fl (80-100); Mean Platelet Volume 10.4 fl (7.4-10.4); Platelet Count Result 277 k/mm3 (150-375); Red Blood Count 3.27 M/mm3 (4.2-5.4); Red Cell Distribution Width 19.5 % (11.5-14.5); White Blood Count 10.4 K/mm3 (4.5-10.0)
[2019-12-31 06:51] LABS: Anion Gap 10.1 mmol/L (7-16); Blood Urea Nitrogen 26 mg/dL (7-17); Calcium 8.2 mg/dL (8.4-10.2); Carbon Dioxide 32 mmol/L (22-30); Chloride 98 mmol/L (98-107); Estimated Glomerular Filt Rate 36; Glucose 80 mg/dL (65-105); Potassium 4.1 mmol/L (3.4-5.0); Sodium 136 mmol/L (137-145)
--- NOTE | 2019-12-31 08:20 | PCOTNOTE ---
Attempted to see patient this AM, patient declined as patient is having pain from fall overnight. Patient asked therapist to attempt later, will if time permits.
[2019-12-31] MEDS: GABAPENTIN 100 MG CAPSULE PO ×2 (08:32→16:11)
[2019-12-31] MEDS: BUMETANIDE 0.5 MG TABLET PO (08:32)
[2019-12-31] MEDS: PANTOPRAZOLE 40 MG TABLET PO (08:32)
[2019-12-31] MEDS: guaiFENesin 12 HR 600 MG TABCR PO ×2 (08:32→21:11)
[2019-12-31 08:33] VITALS: PULSE 64
[2019-12-31] MEDS: DABIGATRAN ETEXILATE 150 MG CAPSULE PO ×2 (08:33→16:11)
[2019-12-31] MEDS: NEBIVOLOL HCL 5 MG TABLET 10 MG PO (08:33)
[2019-12-31] MEDS: FOLIC ACID 1 MG TABLET PO ×2 (08:33→16:11)
[2019-12-31] MEDS: DULoxetine HCL 30 MG CAPSULE.DR PO (08:34)
[2019-12-31] MEDS: LIDOCAINE 5% PATCH 1 PATCH TRANSDERM (08:34)
[2019-12-31] MEDS: ACYCLOVIR 400 MG TABLET PO (08:34)
[2019-12-31] MEDS: SACCHAROMYCES BOULARDII 250 MG CAPSULE PO ×2 (08:34→16:11)
[2019-12-31] MEDS: ERTAPENEM 1 GM/NS 50 ML 1 GM/50 ML BAG IVPB (08:34)
[2019-12-31] MEDS: predniSONE 10 MG TABLET PO (08:34)
[2019-12-31] MEDS: CYANOCOBALAMIN 1,000 MCG TABLET 1000 MCG PO (08:34)
[2019-12-31] MEDS: FLUCONAZOLE 150 MG TABLET PO (08:35)
--- NOTE | 2019-12-31 11:06 | PM.IMPN ---
Progress Note: A&P Assessment and Plan (1) Urinary tract infection: Code(s): N39.0 - Urinary tract infection, site not specified Status: Acute Assessment and Plan: pt not having any symptoms presently Dr. Juan was consulted for further evaluation and treatment and recommended IV Ertapemen until 01/02/2020 and recommended her continue to be hospitalizated due to her chronic RA. wcc is 10, 000 today (2) Generalized weakness: Code(s): R53.1 - Weakness Status: Acute Assessment and Plan: Likely multifactorial likley secondary to urinary tract infection +/- bronchitis in the setting of chronic medical conditions. (3) Collapse of left lung: Code(s): J98.11 - Atelectasis Status: Resolved Assessment and Plan: (4) Immunosuppression due to drug therapy: Code(s): Z79.899 - Other skilled nursing (current) drug therapy Status: Acute Assessment and Plan: On methotrexate, Orencia and prednisone. Methotrexate and Orencia is on hold. Continuing Prednisone. (5) Rheumatoid arthritis: Qualifiers: Rheumatoid arthritis location: unspecified site Rheumatoid factor presence: unspecified presence Qualified Code(s): M06.9 - Rheumatoid arthritis, unspecified Code(s): M06.9 - Rheumatoid arthritis, unspecified Status: Acute Assessment and Plan: On immunosuppressants including methotrexate and prednisone as detailed above. No acute issues. (6) Chronic kidney disease, stage 3: Code(s): N18.3 - Chronic kidney disease, stage 3 (moderate) Status: Acute Assessment and Plan: Creatinine is stable on review of previous labs. creat is 1.2 (7) Chronic anemia: Code(s): D64.9 - Anemia, unspecified Status: Acute Assessment and Plan: Hemoglobin and hematocrit are stable on review of previous labs. (8) Lower extremity edema: Code(s): R60.0 - Localized edema Status: Acute Assessment and Plan: Patient has chronic lymphedema of her legs and states they are slightly more swollen than normal. She does normally wear compression stockings daily. (9) Essential hypertension: Code(s): I10 - Essential (primary) hypertension Status: Acute Assessment and Plan: Stable. Continue antihypertensives and monitor daily. 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 pt is doing better states she has some pain in her joints otherwise is well. pt had a fall today grazed her left arm and has a small hematoma on her left foot Review of Systems Review of Systems: All systems reviewed & are unremarkable except as noted in HPI and below Exam Const: General: cooperative and healthy appearing; No in distress Nutritional Appearance: overweight Orientation/consciousness: oriented to person Resp: Effort & Inspection: no respiratory distress Auscultation: no rhonchi and no wheezes Cardio: Rate: regular rate Rhythm: regular rhythm GI: Inspection: normal
--- NOTE | 2019-12-31 12:20 | PC.NURSE ---
I notified Dr. Belcher that the patient's IV access was lost due to the IV infiltrating. We had [facility] attempt to place an IV, but he was unsuccessful. I called and left a message for Myla Otto to request she place an IV in the morning for the patient's antibiotics. Dr. Belcher is aware that the patient does not currently have an IV access.
[2019-12-31 13:30] VITALS: BP 126/60; PULSE 71; RESP 16; TEMP 36.1; O2SAT 95
[2019-12-31 14:00] VITALS: BP 133/71; PULSE 70; RESP 20; TEMP 36; O2SAT 98
--- NOTE | 2019-12-31 15:37 | WPDINFPN2 ---
Progress Note: A&P Assessment and Plan (1) Urinary tract infection: Code(s): N39.0 - Urinary tract infection, site not specified Status: Acute Assessment and Plan: 1. UTI, stable. 2. RA and immunosuppressed 3. Mild leukocytosis, physiologic and due to steroid 4. Poor IV access REC Ertapenem #5 / , through 01/01. She is not a candidate for home IV therapy due to RA / very limited use of hands and arms. Ok to leave IV out for today, retry peripheral tomorrow. Subjective Date/time seen: 12/31/19 15:37 Interval history: lost iV access. Discussed with RN. Patient had weakness this am when up to [facility], aide helped slide to floor thus no fall. Exam Narrative: Exam Narrative: afebrile Const: General: no acute distress Resp: Effort & Inspection: normal respiratory effort Auscultation: clear to auscultation bilaterally Cardio: Rate: regular rate Rhythm: regular rhythm Heart sounds: no gallops and no murmurs GI: Inspection: non-distended GI Palp: Yes Soft to palpation and No Tenderness to palpation present (GI) Objective Data Vital Signs Vital Signs: Vital Signs - 24 hr 12/30/19 20:00 12/30/19 21:47 12/31/19 06:00 Temperature 35.6 C L 36.4 C Pulse Rate 70 70 66 Respiratory Rate 20 20 18 Blood Pressure 174/99 H 170/90 H Pulse Oximetry 97 97 94 12/31/19 08:33 Temperature Pulse Rate 64 Respiratory Rate Blood Pressure Pulse Oximetry Intake/Output Intake/Output: Intake & Output 12/28/19 12/29/19 12/30/19 12/31/19 23:59 23:59 23:59 23:59 Intake Total 1330 1770 1310 680 Output Total 175 325 500 Balance 1155 1445 810 680 Meds/Results Medications: Active Medications Generic Name Dose Route Start Last Admin Trade Name Freq PRN Reason Stop Dose Admin Acetaminophen 650 mg 12/25/19 11:42 12/26/19 18:33 Tylenol Tablet PO 650 mg Q4H PRN Administration Mild Pain (1-3) or Fever Acetaminophen 500 mg 12/25/19 23:26 Tylenol Tablet PO TID PRN Pain Rated 1-3 Acyclovir 400 mg 12/26/19 09:00 12/31/19 08:34 Zovirax Po PO 400 mg DAILY ANNA Administration Albuterol 2.5 mg 12/26/19 00:23 Albuterol Sulf Neb 2.5mg/0.5ml INHALATION Q4H PRN Shortness Of Breath Bumetanide 0.5 mg 12/26/19 09:00 12/31/19 08:32 Bumex Po PO 0.5 mg DAILY ANNA Administration Cyanocobalamin 1,000 mcg 12/26/19 09:00 12/31/19 08:34 Vitamin B-12 Tab PO 1,000 mcg QAM ANNA Administration Dabigatran 150 mg 12/26/19 09:00 12/31/19 08:33 Pradaxa PO 150 mg BID ANNA Administration Duloxetine HCl 30 mg 12/26/19 09:00 12/31/19 08:34 Cymbalta PO 30 mg DAILY ANNA Administration Fluconazole 150 mg 12/31/19 09:00 12/31/19 08:35 Fluconazole Tablet PO 150 mg [id number] ANNA Administration Folic Acid 1 mg 12/26/19 09:00 12/31/19 08:33 Folic Acid PO 1 mg BID ANNA Administration Gabapentin 100 mg 12/26/19 09:00 12/31/19 08:32 Neurontin PO 100 mg BID ANNA Administration Guaifenesin 600 mg 12/25/19 21:00 12/31/19 08:32 Mucinex 12 Hr Tab PO 600 mg Q12HR ANNA Administration Ertapenem 1 gm in 50 mls @ 100 mls/hr 12/27/19 09:50 12/31/19 09:04 Invanz 1 Gm/Ns 50 Ml IVPB 01/02/20 09:51 Infused DAILY [facility] Infusion Ipratropium [place] 0.5 mg 12/25/19 23:26 Atrovent Neb INHALATION Q4H PRN Shortness Of Breath Lidocaine 1 patch 12/26/19 09:00 12/31/19 08:34 Lidoderm TRANSDERM 1 patch DAILY ANNA Administration Meclizine HCl 12.5 mg 12/26/19 14:11 Antivert PO QID PRN dizziness Mesalamine 4 gm 12/26/19 21:00 12/30/19 21:17 Rowasa RECTAL Not Given HS ANNA Nebivolol 10 mg 12/26/19 09:00 12/31/19 08:33 Bystolic PO 10 mg DAILY ANNA Administration Ondansetron HCl 4 mg 12/25/19 11:42 Zofran Inj IV PUSH Q4H PRN Nausea Pantoprazole Sodium 40 mg 12/26/19 09:00 12/31/19 08:32 Protonix PO 40 mg QAM ANNA Adminis
[2019-12-31 20:00] VITALS: BP 158/83; PULSE 73; RESP 20; TEMP 36.5; O2SAT 96
[2020-01-01 05:51] LABS: Hematocrit 32.6 % (37.0-47.0); Hemoglobin 9.2 g/dL (12.0-15.0); Mean Corpuscular HGB Conc 28.2 g/dl (32-36); Mean Corpuscular Hemoglobin 27.3 pg (26-34); Mean Corpuscular Volume 96.7 fl (80-100); Mean Platelet Volume 10.3 fl (7.4-10.4); Platelet Count Result 288 k/mm3 (150-375); Red Blood Count 3.37 M/mm3 (4.2-5.4); Red Cell Distribution Width 19.6 % (11.5-14.5); White Blood Count 11.6 K/mm3 (4.5-10.0)
[2020-01-01 06:00] VITALS: BP 157/82; PULSE 66; RESP 12; TEMP 36.4; O2SAT 98
[2020-01-01 06:07] LABS: Anion Gap 8.7 mmol/L (7-16); Blood Urea Nitrogen 25 mg/dL (7-17); Calcium 8.3 mg/dL (8.4-10.2); Carbon Dioxide 34 mmol/L (22-30); Chloride 97 mmol/L (98-107); Estimated Glomerular Filt Rate 48; Glucose 83 mg/dL (65-105); Potassium 4.7 mmol/L (3.4-5.0); Sodium 135 mmol/L (137-145)
[2020-01-01] MEDS: predniSONE 10 MG TABLET PO (09:06)
[2020-01-01 09:07] VITALS: PULSE 86
[2020-01-01] MEDS: BUMETANIDE 0.5 MG TABLET PO (09:07)
[2020-01-01] MEDS: CYANOCOBALAMIN 1,000 MCG TABLET 1000 MCG PO (09:07)
[2020-01-01] MEDS: PANTOPRAZOLE 40 MG TABLET PO (09:07)
[2020-01-01] MEDS: guaiFENesin 12 HR 600 MG TABCR PO ×2 (09:07→21:12)
[2020-01-01] MEDS: ACYCLOVIR 400 MG TABLET PO (09:07)
[2020-01-01] MEDS: DULoxetine HCL 30 MG CAPSULE.DR PO (09:07)
[2020-01-01] MEDS: FOLIC ACID 1 MG TABLET PO ×2 (09:07→17:48)
[2020-01-01] MEDS: LIDOCAINE 5% PATCH 1 PATCH TRANSDERM (09:07)
[2020-01-01] MEDS: GABAPENTIN 100 MG CAPSULE PO ×2 (09:07→17:48)
[2020-01-01] MEDS: NEBIVOLOL HCL 5 MG TABLET 10 MG PO (09:07)
[2020-01-01] MEDS: SACCHAROMYCES BOULARDII 250 MG CAPSULE PO ×2 (09:07→17:48)
[2020-01-01] MEDS: DABIGATRAN ETEXILATE 150 MG CAPSULE PO ×2 (09:07→17:48)
[2020-01-01] MEDS: ERTAPENEM 1 GM/NS 50 ML 1 GM/50 ML BAG IVPB (10:34)
[2020-01-01 13:57] VITALS: BP 151/87; PULSE 66; RESP 20; TEMP 36; O2SAT 95
--- NOTE | 2020-01-01 14:06 | WPDINFPN2 ---
Progress Note: A&P Assessment and Plan (1) Urinary tract infection: Code(s): N39.0 - Urinary tract infection, site not specified Status: Acute Assessment and Plan: 1. UTI, stable. 2. RA and immunosuppressed 3. Mild leukocytosis, physiologic and due to steroid 4. Poor IV access, peripheral iV back in REC Ertapenem #6 / 7, through 01/01 dose, then stop, no oral. Ok home thereafter. Will sign off. Subjective Date/time seen: 01/01/20 14:06 Interval history: iv back in Exam Narrative: Exam Narrative: afebrile Const: General: no acute distress GI: Inspection: non-distended GI Palp: Yes Soft to palpation and No Tenderness to palpation present (GI) Objective Data Vital Signs Vital Signs: Vital Signs - 24 hr 12/31/19 20:00 01/01/20 06:00 01/01/20 09:07 Temperature 36.5 C 36.4 C Pulse Rate 73 66 86 Respiratory Rate 20 12 Blood Pressure 158/83 H 157/82 H Pulse Oximetry 96 98 01/01/20 13:57 Temperature 36.0 C L Pulse Rate 66 Respiratory Rate 20 Blood Pressure 151/87 H Pulse Oximetry 95 Intake/Output Intake/Output: Intake & Output 12/29/19 12/30/19 12/31/19 01/01/20 23:59 23:59 23:59 23:59 Intake Total 1770 1310 1520 490 Output Total 325 500 500 Balance 2708 758 5284 490 Meds/Results Medications: Active Medications Generic Name Dose Route Start Last Admin Trade Name Freq PRN Reason Stop Dose Admin Acetaminophen 650 mg 12/25/19 11:42 12/26/19 18:33 Tylenol Tablet PO 650 mg Q4H PRN Administration Mild Pain (1-3) or Fever Acetaminophen 500 mg 12/25/19 23:26 Tylenol Tablet PO TID PRN Pain Rated 1-3 Acyclovir 400 mg 12/26/19 09:00 01/01/20 09:07 Zovirax Po PO 400 mg DAILY ANNA Administration Albuterol 2.5 mg 12/26/19 00:23 Albuterol Sulf Neb 2.5mg/0.5ml INHALATION Q4H PRN Shortness Of Breath Bumetanide 0.5 mg 12/26/19 09:00 01/01/20 09:07 Bumex Po PO 0.5 mg DAILY ANNA Administration Cyanocobalamin 1,000 mcg 12/26/19 09:00 01/01/20 09:07 Vitamin B-12 Tab PO 1,000 mcg QAM ANNA Administration Dabigatran 150 mg 12/26/19 09:00 01/01/20 09:07 Pradaxa PO 150 mg BID ANNA Administration Duloxetine HCl 30 mg 12/26/19 09:00 01/01/20 09:07 Cymbalta PO 30 mg DAILY ANNA Administration Fluconazole 150 mg 12/31/19 09:00 12/31/19 08:35 Fluconazole Tablet PO 150 mg [id number] ANNA Administration Folic Acid 1 mg 12/26/19 09:00 01/01/20 09:07 Folic Acid PO 1 mg BID ANNA Administration Gabapentin 100 mg 12/26/19 09:00 01/01/20 09:07 Neurontin PO 100 mg BID ANNA Administration Guaifenesin 600 mg 12/25/19 21:00 01/01/20 09:07 Mucinex 12 Hr Tab PO 600 mg Q12HR ANNA Administration Ertapenem 1 gm in 50 mls @ 100 mls/hr 12/27/19 09:50 01/01/20 11:33 Invanz 1 Gm/Ns 50 Ml IVPB 01/02/20 09:51 Infused DAILY ANNA Infusion Ipratropium [place] 0.5 mg 12/25/19 23:26 Atrovent Neb INHALATION Q4H PRN Shortness Of Breath Lidocaine 1 patch 12/26/19 09:00 01/01/20 09:07 Lidoderm TRANSDERM 1 patch DAILY ANNA Administration Meclizine HCl 12.5 mg 12/26/19 14:11 Antivert PO QID PRN dizziness Mesalamine 4 gm 12/26/19 21:00 12/31/19 21:18 Rowasa RECTAL Not Given HS ANNA Nebivolol 10 mg 12/26/19 09:00 01/01/20 09:07 Bystolic PO 10 mg DAILY ANNA Administration Ondansetron HCl 4 mg 12/25/19 11:42 Zofran Inj IV PUSH Q4H PRN Nausea Pantoprazole Sodium 40 mg 12/26/19 09:00 01/01/20 09:07 Protonix PO 40 mg QAM ANNA Administration Prednisone 10 mg 12/26/19 08:00 01/01/20 09:06 Prednisone PO 10 mg DAILY@[facility]00 [facility] Administration Saccharomyces Boulardii 250 mg 12/26/19 17:00 01/01/20 09:07 Florastor PO 250 mg BID [facility] Administration Radiology Results: ITS Impressions Chest X-Ray 12/25/19 11:20 IMPRESSION: 1. Chronic collapse of left lung lower
--- NOTE | 2020-01-01 16:46 | PM.IMPN ---
Progress Note: A&P Assessment and Plan (1) Urinary tract infection: Code(s): N39.0 - Urinary tract infection, site not specified Status: Acute Assessment and Plan: pt not having any symptoms presently Dr. Juan was consulted for further evaluation and treatment and recommended IV Ertapemen until 01/02/2020 and recommended her continue to be hospitalizated due to her chronic RA. [facility] is 11, 000 today (2) Generalized weakness: Code(s): R53.1 - Weakness Status: Acute Assessment and Plan: Likely multifactorial likley secondary to urinary tract infection +/- bronchitis in the setting of chronic medical conditions. (3) Collapse of left lung: Code(s): J98.11 - Atelectasis Status: Resolved Assessment and Plan: (4) Immunosuppression due to drug therapy: Code(s): Z79.899 - Other correction (current) drug therapy Status: Acute Assessment and Plan: On methotrexate, Orencia and prednisone. Methotrexate and Orencia is on hold. Continuing Prednisone. (5) Rheumatoid arthritis: Qualifiers: Rheumatoid arthritis location: unspecified site Rheumatoid factor presence: unspecified presence Qualified Code(s): M06.9 - Rheumatoid arthritis, unspecified Code(s): M06.9 - Rheumatoid arthritis, unspecified Status: Acute Assessment and Plan: On immunosuppressants including methotrexate and prednisone as detailed above. No acute issues. (6) Chronic kidney disease, stage 3: Code(s): N18.3 - Chronic kidney disease, stage 3 (moderate) Status: Chronic Assessment and Plan: Creat is 1.1 (7) Chronic anemia: Code(s): D64.9 - Anemia, unspecified Status: Acute Assessment and Plan: Hemoglobin and hematocrit are stable on review of previous labs. (8) Lower extremity edema: Code(s): R60.0 - Localized edema Status: Acute Assessment and Plan: Patient has chronic lymphedema of her legs and states they are slightly more swollen than normal. She does normally wear compression stockings daily. (9) Essential hypertension: Code(s): I10 - Essential (primary) hypertension Status: Acute Assessment and Plan: Stable. Continue antihypertensives and monitor daily. 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 pt is doing better states she has some pain in her joints otherwise is well. Pt to continue ertepanam for more day and then can be discharged Review of Systems Review of Systems: All systems reviewed & are unremarkable except as noted in HPI and below Exam Const: General: cooperative and healthy appearing; No in distress Nutritional Appearance: overweight Orientation/consciousness: oriented to person Resp: Effort & Inspection: no respiratory distress Auscultation: no rhonchi and no wheezes Cardio: Rate: regular rate Rhythm: regular rhythm GI: Inspection: normal to inspection Auscultation: normal bowel sounds Neuro: Gene
--- NOTE | 2020-01-01 18:12 | PC.NURSE ---
Spoke with pharmacy regarding patient home medication xtampza. Patient has one pill left in bottle that will be administered tonight. Patient states that she will need to take a pill in the AM before DC. Patient informs nurse that she may have a pill in her daily separation pack in her belongings. Nurse found 1 pill in belongings. Called pharmacy to clarify procedure for sending medication to pharmacy for verification and/or adding to the count. Per Amanda in pharmacy, because medication has already been verified by pharmacy, there is no need to send pill down just administer medication on AUG in the AM. Verified with miguelangel Cobos RN that pill from belongings was xtampza and added 1 pill to counter sheet totaling to 2 pills left in bottle at this time.
--- NOTE | 2020-01-01 18:37 | PC.NURSE ---
On 01/01/20, the license-pending RN, Catherine Blankenship, provided care and completed [employer] documentation on this patient. I have reviewed the license-pending RN's documentation and agree with the findings.
[2020-01-01 21:46] VITALS: BP 148/82; PULSE 70; RESP 20; TEMP 36.2; O2SAT 95
[2020-01-02 05:24] LABS: Hematocrit 31.1 % (37.0-47.0); Hemoglobin 9.1 g/dL (12.0-15.0); Mean Corpuscular HGB Conc 29.3 g/dl (32-36); Mean Corpuscular Hemoglobin 27.6 pg (26-34); Mean Corpuscular Volume 94.2 fl (80-100); Mean Platelet Volume 9.9 fl (7.4-10.4); Platelet Count Result 309 k/mm3 (150-375); Red Cell Distribution Width 19.5 % (11.5-14.5); White Blood Count 10.9 K/mm3 (4.5-10.0)
[2020-01-02 06:00] VITALS: BP 160/90; PULSE 68; RESP 20; TEMP 36.1; O2SAT 94
[2020-01-02] MEDS: ACETAMINOPHEN 325 MG TABLET 650 MG PO (06:28)
[2020-01-02 08:16] VITALS: PULSE 72
[2020-01-02] MEDS: NEBIVOLOL HCL 5 MG TABLET 10 MG PO (08:16)
[2020-01-02] MEDS: DULoxetine HCL 30 MG CAPSULE.DR PO (08:16)
[2020-01-02] MEDS: FOLIC ACID 1 MG TABLET PO (08:17)
[2020-01-02] MEDS: DABIGATRAN ETEXILATE 150 MG CAPSULE PO (08:17)
[2020-01-02] MEDS: PANTOPRAZOLE 40 MG TABLET PO (08:17)
[2020-01-02] MEDS: LIDOCAINE 5% PATCH 1 PATCH TRANSDERM (08:17)
[2020-01-02] MEDS: GABAPENTIN 100 MG CAPSULE PO (08:17)
[2020-01-02] MEDS: guaiFENesin 12 HR 600 MG TABCR PO (08:17)
[2020-01-02] MEDS: predniSONE 10 MG TABLET PO (08:17)
[2020-01-02] MEDS: CYANOCOBALAMIN 1,000 MCG TABLET 1000 MCG PO (08:17)
[2020-01-02] MEDS: BUMETANIDE 0.5 MG TABLET PO (08:17)
[2020-01-02] MEDS: SACCHAROMYCES BOULARDII 250 MG CAPSULE PO (08:17)
[2020-01-02] MEDS: ACYCLOVIR 400 MG TABLET PO (08:17)
[2020-01-02] MEDS: ERTAPENEM 1 GM/NS 50 ML 1 GM/50 ML BAG IVPB (08:21)
--- NOTE | 2020-01-02 09:27 | PC.NURSE ---
Administered patients last dose of home medication Xt[place] this morning. Patient notified of zero capsules left and verbalized understanding.
--- NOTE | 2020-01-02 12:50 | PM.DS ---
DS: Admitting Diagnosis Admitting Diagnosis Admitting Diagnosis: Weakness DS: Discharge Diagnosis Discharge Diagnosis (1) Urinary tract infection: Code(s): N39.0 - Urinary tract infection, site not specified Status: Acute Assessment and Plan: Pt not having any symptoms presently pt has completed her ertapemen as recommended. Stable for discharge today no urinary symptoms. Dr. Juan was consulted for treatment and recommended IV Ertapemen until 01/02/2020 and recommended her continue to be hospitalizated due to her chronic RA. Pt treated for ESBL UTI in the hospital (2) Generalized weakness: Code(s): R53.1 - Weakness Status: Acute Assessment and Plan: Likely multifactorial likley secondary to urinary tract infection +/- bronchitis in the setting of Ra. pt had a small fall while she was in the hospital, knocked her left foot and left arm (3) Collapse of left lung: Code(s): J98.11 - Atelectasis Status: Resolved Assessment and Plan: (4) Immunosuppression due to drug therapy: Code(s): Z79.899 - Other manager long term care (current) drug therapy Status: Acute Assessment and Plan: On methotrexate, Orencia and prednisone. Methotrexate and Orencia is on hold. Continuing Prednisone. (5) Rheumatoid arthritis: Qualifiers: Rheumatoid arthritis location: unspecified site Rheumatoid factor presence: unspecified presence Qualified Code(s): M06.9 - Rheumatoid arthritis, unspecified Code(s): M06.9 - Rheumatoid arthritis, unspecified Status: Acute Assessment and Plan: On immunosuppressants including methotrexate and prednisone as detailed above. No acute issues. (6) Chronic kidney disease, stage 3: Code(s): N18.3 - Chronic kidney disease, stage 3 (moderate) Status: Chronic Assessment and Plan: Creat is 1.1 (7) Chronic anemia: Code(s): D64.9 - Anemia, unspecified Status: Acute Assessment and Plan: Hemoglobin and hematocrit are stable on review of previous labs. (8) Lower extremity edema: Code(s): R60.0 - Localized edema Status: Acute Assessment and Plan: Patient has chronic lymphedema of her legs and states they are slightly more swollen than normal. She does normally wear compression stockings daily. (9) Essential hypertension: Code(s): I10 - Essential (primary) hypertension Status: Acute Assessment and Plan: Stable. Continue antihypertensives and monitor daily. (10) Hypokalemia: Code(s): E87.6 - Hypokalemia Status: Resolved Assessment and Plan: Potassium is nl now Resolved now DS: Summary Time Spent with Patient Time attestation: Total time spent providing and/or coordinating discharge services:40 minutes on the day of discharge Exam Const: General: cooperative and healthy appearing; No in distress Nutritional Appearance: overweight Orientation/consciousness: oriented to person HENMT: Head: normal to inspection Resp: Effort & Inspection: no respiratory distress Auscultation: no rhonchi and no wheezes Cardio: Rate: regular rate Rhythm: regular rhythm GI: Inspection: normal to inspection Auscultation: normal bowel sounds Neuro: General: oriented to person Extrem: Other: decreased mobility in arms ra in hands DS: Data Data Completed and Pending
== END 2020-01-02 14:15 | disposition home health service (06) | DRG 690 ==
LOC: ANHED 11:44 → ANH2MED 12:27
PROVIDERS: Physician Assistant; Admitting Provider Family Medicine; Emergency Provider Emergency Medicine; PCP Internal Medicine; Visit Provider Family Medicine
DX: N39.0 Urinary tract infection, site not specified (principal); J98.11 Atelectasis; B96.89 Other specified bacterial agents as the cause of diseases classified elsewhere; N18.3 Chronic kidney disease, stage 3 (moderate); I12.9 Hypertensive chronic kidney disease with stage 1 through stage 4 chronic kidney disease, or unspecified chronic kidney disease; R53.1 Weakness; S90.32XA Contusion of left foot, initial encounter; W19.XXXA Unspecified fall, initial encounter; Z11.59 Encounter for screening for other viral diseases; M06.9 Rheumatoid arthritis, unspecified; G89.4 Chronic pain syndrome; I25.10 Atherosclerotic heart disease of native coronary artery without angina pectoris; E78.5 Hyperlipidemia, unspecified; D64.9 Anemia, unspecified; R60.0 Localized edema; I89.0 Lymphedema, not elsewhere classified; E87.6 Hypokalemia; Z79.899 Other long term (current) drug therapy; Z93.3 Colostomy status
CPT/HCPCS: 36415; 51701; 71045; 80048; 80053; 80307; 81001; 82948; 83735; 83880; 84100; 84443; 84484; 85014; 85018; 85025; 85027; 87077; 87086; 87088; 87186; 87635; 93005; 93970; 94667; 94668; 96361; 96365; 96367; 97110; 97116; 97161; 97165; 97530; 97535; 99285; A9270; C9803; G0378; J0456; J0696; J1335; J7030; J7512; U0003

== ENCOUNTER 2020-01-04 16:57 | Emergency (ER) | payer MEDICARE, SELFPAY ==
--- NOTE | ~2020-01-04 | CT_ITS ---
EXAMINATION: CT cervical spine wo con DATE: 01/04/2020 18:15 INDICATION: Neck pain after fall TECHNIQUE: Computed tomography (CT) of the cervical spine was performed without intravenous contrast. The dose-length product was 257 mGy-cm. Automated exposure control and iterative reconstruction technique were employed. COMPARISON: MRI dated 10/07/2007 and 12/17/2015 FINDINGS: There is anterolisthesis at C4-5, C5-6 with no significant change to alignment compared wit h MRI dated 12/17/2015. There is disc narrowing and endplate degenerative change at all cervical spine levels. There is advanced multilevel facet and uncinate degenerative change. Odontoid process within normal limits. No acute fracture or traumatic malalignment is seen. IMPRESSION: 1. No acute fracture. Severe cervical spondylosis. Reviewed, dictated and finalized at location A.
--- NOTE | ~2020-01-04 | XR_ITS ---
XR lumbar spine 2-3V 01/04/2020 18:57 Indication: Status post fall. Back pain. Procedure: 3 views lumbar spine Comparison: CT abdomen dated 04/25/2019 Findings: There is a chronic burst fracture of T12. Chronic endplate compression fractures of T10 and T11. There are vertebroplasty changes at T12. There is dextroscoliosis of the lumbar spine. There is an L2 hemangioma. There is severe disc narrowing and endplate degenerative change at most lumbar lev els. There is multilevel facet hypertrophy. No acute fracture or traumatic malalignment is identified . Impression: 1: No acute abnormality of the lumbar spine. Reviewed, dictated and finalized at location A. Impression: 1: No acute abnormality of the lumbar spine.
--- NOTE | ~2020-01-04 | CT_ITS ---
EXAMINATION: CT brain wo con DATE: 01/04/2020 18:15 INDICATION: Status post fall. Mental status changes. TECHNIQUE: Computed tomography (CT) of the head was performed without intravenous contrast. The dose- length product was 605.33 mGy-cm. The mA was adjusted according to patient size. Iterative reconstruc tion technique was employed. COMPARISON: CT dated 02/17/2019 FINDINGS: Chronic left occipital lobe infarction. Generalized atrophy. There are scattered moderate p eriventricular and subcortical white matter changes, most likely related to small vessel ischemic dis ease (microangiopathy). No ventriculomegaly or midline shift. Basilar cisterns are patent. There is i ntracranial atherosclerosis. Midline sagittal images demonstrate a normal corpus callosum. There is m ucosal thickening of the paranasal sinuses with mucoperiosteal reaction, consistent with chronic sinu sitis. Mastoids are pneumatized. No depressed skull fractures. There is a small calcified extra-axial mass left frontal lobe measuring 7 mm, compatible with meningioma. IMPRESSION: 1. No acute intracranial abnormality. Reviewed, dictated and finalized at location A.
--- NOTE | ~2020-01-04 | XR_ITS ---
XR thoracic spine 3V 01/04/2020 18:57 Indication: Back pain after fall Procedure: 3 views thoracic spine Comparison: 12/10/2015 Findings: There are multiple compression fractures of the thoracic spine including burst fractures at T5 and T12. There are additional compression fractures of T7, T10 and T11. No acute fracture is iden tified. No paraspinal soft tissue abnormality. Osteopenia. Impression: 1: No acute abnormality of the thoracic spine. No significant change. Reviewed, dictated and finalized at location A. Impression: 1: No acute abnormality of the thoracic spine. No significant change.
[2020-01-04 16:55] VITALS: BP 159/82; PULSE 90; RESP 20; TEMP 36.8; O2SAT 92
[2020-01-04 17:13] VITALS: BP 159/82; PULSE 87; RESP 18; O2SAT 96
[2020-01-04 19:20] LABS: Basophils Percent Auto 0.3 % (0.2-1.2); Hematocrit 33.8 % (37.0-47.0); Hemoglobin 9.8 g/dL (12.0-15.0); Immature Granulocyte Absolute 0.13 K/mm3 (0.00-0.031); Immature Granulocyte Percent A 1.1 % (0-0.5); Lymphocytes Absolute Auto 1.68 K/mm3 (0.9-3.2); Lymphocytes Percent Auto 13.6 % (18.3-44.2); Mean Corpuscular Hemoglobin 27.2 pg (26-34); Mean Corpuscular Volume 93.9 fl (80-100); Mean Platelet Volume 9.8 fl (7.4-10.4); Monocytes Absolute Auto 0.6 K/mm3 (0.1-0.6); Monocytes Percent Auto 5.1 % (2.6-8.5); Neutrophils Absolute Auto 9.9 K/mm3 (1.3-6.7); Neutrophils Percent Auto 79.9 % (45.5-73.1); Nucleated Red Blood Cells Perc 0.2 % (0.0-0.2); Platelet Count Result 346 k/mm3 (150-375); Red Cell Distribution Width 19.6 % (11.5-14.5); White Blood Count 12.3 K/mm3 (4.5-10.0)
[2020-01-04 19:32] LABS: Alanine Aminotransferase 35 U/L (4-35); Albumin Level 3.7 g/dL (3.5-5.1); Alkaline Phosphatase 113 U/L (38-126); Anion Gap 9.3 mmol/L (7-16); Aspartate Amino Transferase 29 U/L (14-36); Bilirubin,Total 0.9 mg/dL (0.2-1.3); Blood Urea Nitrogen 23 mg/dL (7-17); Calcium 8.7 mg/dL (8.4-10.2); Carbon Dioxide 36 mmol/L (22-30); Chloride 96 mmol/L (98-107); Estimated Glomerular Filt Rate 40; Glucose 127 mg/dL (65-105); Potassium 4.3 mmol/L (3.4-5.0); Sodium 137 mmol/L (137-145)
[2020-01-04 19:37] LABS: Anisocytosis 1+ (NORMAL); Hypochromasia 1+ (NORMAL); Platelet Estimate Adequate (Adequate)
[2020-01-04 19:59] VITALS: BP 117/78; PULSE 81; RESP 9; TEMP 36.7; O2SAT 99
[2020-01-04 20:07] LABS: Add Urine Microscopic? NO; Appearance Urine Clear (Clear); Bilirubin Urine Negative (Negative); Blood Urine Negative (Negative); Color Urine Colorless (Yellow); Glucose Urine UA Negative (Negative); Ketones Urine Negative (Negative); Leukocyte Esterase Ur Negative LEU/UL (Negative); Nitrate Urine Negative (Negative); Protein Urine Negative (Negative); Specific Grav Ur 1.009 (1.001-1.035); Urobilinogen Urine Negative mg/dL (<2.0)
--- NOTE | 2020-01-04 20:46 | ED.FALL ---
HPI - Fall General Chief Complaint: Fall Stated Complaint: fall Time Seen by Provider: 01/04/20 17:35 Source: patient and family Mode of arrival: wheelchair Limitations: no limitations History of Present Illness HPI Narrative: Patient presents for evaluation after falling and hitting the posterior aspect of her head while trying to walk to the kitchen. Patient states that she has pain to the posterior head, neck, thoracic and low back. Patient reports that she already has a skin tear to her left arm but feels that it may have torn a bit more while they were trying to get her up. Patient has been states that she has not been as strong with ambulating since being discharged from the hospital last week. Patient states that she was treated for urinary tract infection and received IV antibiotics in the hospital. Patient denies any fevers, chills, nausea, vomiting, worsening confusion, urinary symptoms. Patient denies any loss of consciousness, changes in vision or hearing, chest pain or shortness of breath. Related Data Home Medications Medication Instructions Recorded Confirmed Bystolic 10 mg PO DAILY 04/25/19 12/25/19 Pradaxa 150 mg PO BID 04/25/19 12/25/19 fluconazole 150 mg PO [id number] 04/25/19 12/25/19 ipratropium-albuterol 3 ml INHALATION Q4H PRN 04/25/19 12/25/19 mesalamine with cleansing wipe 4 g [place] HS 04/25/19 12/25/19 methotrexate sodium 10 mg PO WEEKLY 04/25/19 12/25/19 promethazine 25 mg PO QID PRN 04/25/19 12/25/19 vitamin [id number] acid 2 tablet PO DAILY 04/25/19 12/25/19 acetaminophen 500 mg PO TID PRN 04/26/19 12/25/19 acyclovir 400 mg PO DAILY 04/26/19 12/25/19 folic acid 1 mg PO BID 04/26/19 12/25/19 gabapentin 100 mg PO BID 04/26/19 12/25/19 pantoprazole 40 mg PO QAM 04/26/19 12/25/19 prednisone 10 mg PO DAILY 04/26/19 12/25/19 bumetanide 0.5 mg PO DAILY 05/02/19 12/25/19 Xtampza ER 18 mg PO Q12H 06/14/19 12/25/19 lidocaine [Lidoderm] 1 patch TRANSDERMAL DAILY 06/14/19 12/25/19 duloxetine 30 mg PO DAILY 12/25/19 12/25/19 Orencia ClickJect 125 mg SUBCUT WEEKLY 12/26/19 12/26/19 Allergies Allergy/AdvReac Type Severity Reaction Status Date / Time codeine Allergy Unknown Nausea Verified 01/04/20 17:10 enalapril Allergy Unknown Nausea Verified 01/04/20 17:10 ezetimibe Allergy Unknown Dizziness Verified 01/04/20 17:10 metronidazole Allergy Unknown Unknown Verified 01/04/20 17:10 Iljfary-Cju-Pso Reductase Allergy Unknown Nausea Verified 01/04/20 17:10 Inhibitor Review of Systems Review of Systems: Narrative: CONSTITUTIONAL: Denies fever, chills, or sweats. EYES: Denies visual changes, redness, or discharge. ENT: Denies rhinorrhea, congestion, sore throat, or otalgia. CARDIOVASCULAR: Denies chest pain, palpitations, or edema. RESPIRATORY: Denies cough or dyspnea. GASTROINTESTINAL: Denies abdominal pain, nausea, vomiting, or diarrhea. GENITOURINARY: Denies dysuria or hematuria. SKIN: Denies rash or itching. MUSCULOSKELETAL: Reports neck and back pain, denies joint pain, or myalgia. NEUROLOGIC: Reports headache, denies numbness, dizziness, or weakness. PSYCHIATRIC: Denies anxiety or depression. [facility] Past Medical History Medical History (Updated 01/04/20 @ 20:54 by Eduardo Rivera PA-C) Arthritis B12 deficiency Bacteremia Citrobacter and Enterococcus bacteremia in April 2019. Bulging disc Chronic anemia Chronic kidney disease, stage 3 Baseline creatinine between 1.0 and 1.20. Chronic pain syndrome Secondary to rheumatoid arthritis. 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 Coronary artery disease Diverticulitis Perforated diverticulitis status post colostomy in 2014. Esophageal diverticulum Essential hypertension Gastroesophageal reflux disease Hyperlipidemia Hypothyroidism Immunosuppression due to drug therapy Kidney stones Osteoarthritis Osteoporosis Paroxysmal atrial fibrillation Rheumatoid arthritis Seasonal allergies Vertebral compression fracture T5 and lumbar verte
[2020-01-04 21:00] VITALS: BP 132/70; PULSE 81; RESP 15; O2SAT 96
[2020-01-04 21:59] VITALS: BP 147/98; PULSE 86; RESP 22; TEMP 37.3; O2SAT 97
== END 2020-01-04 22:15 | disposition home or self-care (01) ==
PROVIDERS: Physician Assistant; Emergency Provider Family Medicine; PCP Internal Medicine
DX: S09.90XA Unspecified injury of head, initial encounter (principal); S51.812A Laceration without foreign body of left forearm, initial encounter; M19.90 Unspecified osteoarthritis, unspecified site; I12.9 Hypertensive chronic kidney disease with stage 1 through stage 4 chronic kidney disease, or unspecified chronic kidney disease; N18.3 Chronic kidney disease, stage 3 (moderate); D63.1 Anemia in chronic kidney disease; M06.9 Rheumatoid arthritis, unspecified; K21.9 Gastro-esophageal reflux disease without esophagitis; E03.9 Hypothyroidism, unspecified; Z87.442 Personal history of urinary calculi; M81.0 Age-related osteoporosis without current pathological fracture; I48.0 Paroxysmal atrial fibrillation; Z98.49 Cataract extraction status, unspecified eye; W01.0XXA Fall on same level from slipping, tripping and stumbling without subsequent striking against object, initial encounter
CPT/HCPCS: 36415; 70450; 72072; 72100; 72125; 80053; 81003; 85025; 99284

== ENCOUNTER 2020-01-06 09:54 | Inpatient (IN) | payer MEDICARE, SELFPAY ==
[2020-01-06] VITALS (9 sets, daily range): BP systolic 106–157; BP diastolic 57–97; PULSE 69–89; RESP 18–22; TEMP 36.4–36.9; O2SAT 93–100
--- NOTE | ~2020-01-06 | XR_ITS ---
EXAMINATION: XR chest 1V portable DATE: 01/10/2020 08:26 INDICATION: Left lung collapse TECHNIQUE: frontal view of the chest was obtained. COMPARISON: Chest radiograph and CT dated 01/09/2020 FINDINGS: Reexpansion of the left lung with some residual airspace opacities in the left mid and lower lung zon es. Unchanged linear discoid atelectasis/scarring in the right mid to lower lung zone. No pneumothora x or right pleural effusion. Possible small left pleural effusion. Central venous catheter extending cephalad along the inferior vena cava with distal tip at the inferior cavoatrial junction. The cardio mediastinal silhouette is normal. Partially visualized lumbar dextroscoliosis with severe spondylosis . Bilateral rotator cuff arthropathy. IMPRESSION: 1. Reexpansion of the left lung with residual opacities in the mid and lower lung zones which could r epresent atelectasis and/or pneumonia. Reviewed, dictated and finalized at location A. IMPRESSION: 1. Reexpansion of the left lung with residual opacities in the mid and lower guero ng zones which could represent atelectasis and/or pneumonia.
--- NOTE | ~2020-01-06 | XR_ITS ---
EXAMINATION: XR chest 1V portable INDICATION: Shortness of breath and weakness TECHNIQUE: Portable AP chest at 01/07/2020 COMPARISON: 01/07/2020 FINDINGS: There are airspace opacities of the lung bases with slight worsening on the right. No pleur al effusion or pneumothorax is identified. The cardiomediastinal silhouette is stable. There is chron ic elevation of the right hemidiaphragm. Cranial migration of the humeral heads with respect to the g lenoids suggests chronic rotator cuff tears. There is lumbar dextroscoliosis. IMPRESSION: 1. Bibasilar airspace opacities, with slight worsening on the right, consistent with atelectasis vers us pneumonia. Reviewed, dictated and finalized at location B. IMPRESSION: 1. Bibasilar airspace opacities, with slight worsening on the right, consistent with atelectasis versus pneumonia.
--- NOTE | ~2020-01-06 | CT_ITS ---
EXAMINATION: CT cervical spine wo con DATE: 01/06/2020 11:04 INDICATION: Neck pain and increasing confusion post fall TECHNIQUE: Computed tomography (CT) of the cervical spine was performed without intravenous contrast. Automated exposure control and iterative reconstruction technique were employed. The dose-length pro duct was 201.77 mGy-cm. COMPARISON: 01/04/2020 FINDINGS: 3-4 mm chronic anterolisthesis of C4 on C5 and C5 on C6 was without significant change dating back to thoracic spine MRI dated 12/17/2015. Segmentation anomalies in the upper cervical spine with the righ t lateral masses C2 articulating with the right lateral mass of C3 and intervening hypoplastic C3 rig ht lateral mass. Lower cervical dextrocurvature. Vertebral body heights are normal. No fracture. Ashleigh re cervical spondylosis with moderate to severe disc height loss with degenerative endplate changes a nd severe bilateral uncovertebral osteoarthritis as well as severe bilateral facet osteoarthritis thr oughout the cervical spine. There is ankylosis across the left C5-C6 facet joint. This results in mod erate multilevel bilateral neural foraminal stenosis throughout the cervical spine. Posterior disc os teophyte complex resulting in mild central canal stenosis at multiple levels throughout the cervical spine. Prominent atherosclerotic calcification at the bilateral carotid bulbs. Cervical soft tissues are otherwise unremarkable. Visualized apices of the lungs are clear. IMPRESSION: 1. Severe cervical spondylosis with likely segmental segmentation abnormality in the upper cervical s pine. No evident acute osseous abnormality. Reviewed, dictated and finalized at location A. IMPRESSION: 1. Severe cervical spondylosis with likely segmental segmentation abnormality i n the upper cervical spine. No evident acute osseous abnormality.
--- NOTE | ~2020-01-06 | CT_ITS ---
EXAMINATION: CT brain wo con INDICATION: Transient alteration of awareness, hallucinations COMPARISON: 01/06/2020 TECHNIQUE: Standard unenhanced head CT. The dose-length product (DLP) was 681.00 mGy-cm. The mA was a djusted according to patient size. Iterative reconstruction technique was employed. FINDINGS: There is no acute intraparenchymal hemorrhage. Extra-axial calcification adjacent to the le ft frontal lobe could reflect a meningioma. No intraparenchymal mass is identified.. No evidence of a cute infarction. 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 There is mild periventricular and s ubcortical hypodensity probably related to small vessel ischemic disease. There is mild prominence of the sulci and ventricles related to cerebral atrophy. Intracranial calcified cerebral atherosclerosi s is noted. There are no extra-axial collections. There is no mass effect or midline shift. Changes i n the globes are likely from ocular lens surgery. There is mild mucosal thickening of the paranasal sinuses. IMPRESSION: 1. Prior left occipital infarction without acute intracranial abnormality. 2. Age related findings. Reviewed, dictated and finalized at location A.
--- NOTE | ~2020-01-06 | US_ITS ---
EXAMINATION: US abdomen complete DATE: 01/09/2020 10:11 INDICATION: Acute kidney disease, diffuse abdominal pain TECHNIQUE: Multiple grayscale and Doppler ultrasound images of the abdomen were obtained. COMPARISON: 04/26/2019 FINDINGS: The head, body, and tail of the pancreas are normal. The liver demonstrates increased echog enicity, heterogenous echotexture, and decreased through transmission. No surface nodularity. Normal hepatopetal flow in the main portal vein. There are stones or sludge in the gallbladder. There is no gallbladder wall thickening or pericholecystic fluid. The normal common bile duct measures 5 mm. Ther e was no sonographic Knapp sign. The visualized portions of the aorta and inferior vena cava are nor mal. The right kidney measures 9.8 x 4.0 x 3.6 cm. The left kidney measures 8.8 x 3.9 x 4.7 cm. The kidney s demonstrate increased parenchymal echogenicity. There is no hydronephrosis. The spleen is not well visualized. IMPRESSION: 1. No sonographic correlate for the patient's symptoms. 2. Medical renal disease with bilateral renal atrophy. 3. Stones or sludge of the gallbladder without findings of cholecystitis. Reviewed, dictated and finalized at location B.
--- NOTE | ~2020-01-06 | CT_ITS ---
EXAMINATION: CT brain wo con DATE: 01/06/2020 11:04 INDICATION: Fall. Increased confusion for several days. TECHNIQUE: Computed tomography (CT) of the head was performed without intravenous contrast. The mA wa s adjusted according to patient size. Iterative reconstruction technique was employed. Exam dose: 60 5.33 mGy-cm total exam DLP. COMPARISON: 01/04/2020 CT brain FINDINGS: There is prominent patchy diminished attenuation of the subcortical and periventricular cer ebral white matter, likely due to chronic small vessel ischemic changes. Prominent cerebral atheroscl erotic calcification is noted. Small probable calcified left frontal meningioma; otherwise no intracranial mass lesion or hemorrhage or recent cerebrovascular accident is evident. No subdural or epidural hematoma is detected. No fracture or bone destruction of the cranial vault. There is mild mucosal periosteal thickening of the sphenoid sinuses, left greater than right, as well as some soft tissue thickening of the ethmoid air cells. There is evidence of bilateral nasal antral windows. The mastoid air cells are normally de veloped and aerated. IMPRESSION: Cerebral atherosclerosis and chronic small vessel ischemic changes of cerebral white mat ter No acute intracranial finding or significant change since 01/04/2020 Reviewed, dictated and finalized at Location A. Reviewed, dictated and finalized at location B. IMPRESSION: Cerebral atherosclerosis and chronic small vessel ischemic changes of cerebral white matter No acute intracranial finding or significant change since 01/04/2020
--- NOTE | ~2020-01-06 | XR_ITS ---
EXAMINATION: XR chest 1V INDICATION: Shortness of breath TECHNIQUE: AP view of the chest is obtained. COMPARISON: 12/25/2019 FINDINGS: The lungs are free of acute opacities. There is chronic elevation of the right hemidiaphrag m. No pleural effusion or pneumothorax is identified. The heart size is normal. Vertebroplasty change s are noted. Findings in the left shoulder suggests chronic rotator cuff tears. IMPRESSION: 1. Minimal airspace opacities of the lung bases, likely atelectasis. Reviewed, dictated and finalized at location A.
--- NOTE | ~2020-01-06 | CT_ITS ---
EXAMINATION: CT lumbar spine wo con DATE: 01/06/2020 11:04 INDICATION: Back pain post fall TECHNIQUE: Computed tomography (CT) of the lumbar spine was performed without intravenous contrast. A utomated exposure control and iterative reconstruction technique were employed. The dose-length produ ct was 1129.25 mGy-cm. COMPARISON: Lumbar spine radiographs dated 01/04/2020 and MRI dated 11/30/2011 FINDINGS: 30 degrees lumbar dextroscoliosis. A millimeter anterolisthesis L4 on L5. Chronic T12 compression fra cture with 60% anterior and central vertebral body height loss and changes of prior vertebroplasty. L eft-sided L4 hemilaminectomy. There is linear sclerosis underlying the left side of the superior endp late of L1 consistent with a likely relatively recent compression fracture line but without associate d vertebral body height loss. No other lesions suspicious for fracture identified. Hemangioma with co arsened trabecular pattern throughout the L2 vertebral body. Severe disc height loss with degenerativ e endplate changes at L1-L2 through L4-L5. Diffuse hepatic steatosis. There is calcified atherosclero sis of the aorta and many of the other arteries. The following disc levels are specifically discussed : T11-T12: Disc is bulging. There is mild bilateral facet joint osteoarthritis. There is mild bilateral neural foraminal stenosis. There is mild central canal stenosis. T12-L1: Disc is mildly bulging. There is mild bilateral facet joint osteoarthritis. There is mild lef t and moderate right neural foraminal stenosis. There is mild central canal stenosis. L1-L2: No stricture disc osteophyte complex. There is mild bilateral facet joint osteoarthritis. Ther e is mild right neural foraminal stenosis. There is mild central canal stenosis. L2-L3: Posterior disc osteophyte complex. There is severe left and mild right facet joint osteoarthri tis. There is moderate left and mild right neural foraminal stenosis. There is moderate to severe natalie tral canal stenosis. L3-L4: Posterior disc osteophyte complex. There is severe left and mild right facet joint osteoarthri tis. There is moderate left and mild right neural foraminal stenosis. There is mild to moderate centr al canal stenosis. L4-L5: Disc is bulging eccentric to the left. There is severe left and moderate right facet joint ost eoarthritis. There is moderate left and mild right neural foraminal stenosis. There is mild central c anal stenosis with left-sided posterior decompression. L5-S1: Disc is bulging with vacuum phenomena within a superimposed right foraminal zone disc extrusio n. There is severe bilateral facet joint osteoarthritis. There is mild left and moderate to severe ri ght neural foraminal stenosis. There is moderate central canal stenosis. IMPRESSION: 1. Linear sclerosis underlying the left-sided the superior endplate of L1 suspicious for a relatively recent compression fracture without appreciable vertebral body height loss. 2. Chronic T12 compression fracture post vertebroplasty with 60% vertebral body height loss. 3. Moderate lumbar dextroscoliosis with severe spondylosis. 4. Diffuse hepatic steatosis. Reviewed, dictated and finalized at location A. IMPRESSION: 1. Linear sclerosis underlying the left-sided the superior endplate of L1 suspi cious for a relatively recent compression fracture without appreciable vertebra l body height loss. 2. Chronic T12 compression fracture post vertebroplasty with 60% vertebral body height loss. 3. Moderate lumbar dextroscoliosis with severe spondylosis. 4. Diffuse hepatic steatosis.
--- NOTE | ~2020-01-06 | XR_ITS ---
XR chest 1V portable DATE: 01/07/2020 11:28 INDICATION: Hypoxia TECHNIQUE: Portable AP chest on 01/07/2020 at 1130 hours COMPARISON: 01/06/2020 AP chest 06/15/2019 CT chest high resolution scan FINDINGS: There is left lower lobe atelectasis, with suggestion of occlusion of the left lower lobe b ronchus. There is leftward shift of the heart mediastinum. Obstructing left lower lobe mass cannot be excluded. There is infiltrate and/atelectasis in the medial right lower lung as well. Borderline heart size. Aortic calcification. Prominent diffuse osteopenia. There is vertebroplasty of the lower thoracic vertebra. Thoracic and pa rticularly lumbar scoliosis and degenerative change. Bilateral rotator cuff atrophy. Degenerative change at the glenohumeral joints. IMPRESSION: Prominent left lower lobe atelectasis; malignant obstruction of the left lower lobe bronc hus is not excluded. Patchy infiltrate or atelectasis, right lower lung Reviewed, dictated and finalized at location B. IMPRESSION: Prominent left lower lobe atelectasis; malignant obstruction of the left lower lobe bronchus is not excluded. Patchy infiltrate or atelectasis, right lower lung
--- NOTE | ~2020-01-06 | CT_ITS ---
EXAMINATION: CT chest abdomen pelvis wo con EXAM DATE: 01/09/2020 20:57 INDICATION: Abdominal pain. Abnormal chest x-ray. TECHNIQUE: Spiral CT of the chest, abdomen and pelvis was performed without contrast. Axial, page l and sagittal images were reviewed. Coronal maximum intensity pixel images of chest reviewed. The dose-length product (DLP) for this examination was 844.06 mGy-cm. The exposure was tailored accordin g to patient size (auto mA exposure control), and iterative reconstruction (ASIR) was used as additio nal dose reduction technique. Comparison is made to prior examination from 05/02/2019. FINDINGS: CHEST: Mid esophageal large diverticulum, traction diverticulum. There is mucus plugging, endobronchi al debris in the left mainstem bronchus, with nearly completely collapsed left lung, just lateral vol ume loss. Can't exclude solid endobronchial lesion as underlying etiology (there was no evidence of e ndobronchial lesion on the prior study). Can't exclude superimposed postobstructive pneumonia. There is also right basilar segmental atelectasis with volume loss. Trace bilateral pleural effusions. Tra cheobronchial tree is patent. There is no mediastinal, hilar or axillary lymphadenopathy. There i s no pneumothorax. The interventricular septum is perceptible, suggesting patient is anemic. Ther e is mild to moderate coronary arterial calcification, arterial sclerosis. ABDOMEN PELVIS: There is hepatic steatosis without suspicious focal lesion identified. Spleen, adrena l glands, pancreas are unremarkable. Gallbladder is unremarkable. No biliary obstruction. There is no nephrolithiasis or hydronephrosis. There is bilateral renal cortical thinning, atrophy. Possible punctate bilateral nephrolithiasis. The uterus is unremarkable. The bladder is collapsed with Fole y catheter balloon anchor inside. There is no retroperitoneal or pelvic lymphadenopathy. There is mild to moderate scattered arteriosclerotic disease. There is a right common femoral venous line. The appendix is normal. There is lipomatous hypertrophy of the ileocecal valve. There is intact small bowel anastomosis site. The stomach and small bowel are unremarkable. Surgical changes with Baldwin 's pouch, left lower quadrant colostomy. There is a parastomal hernia with loop of nonobstructed smal l bowel extending through. No free intraperitoneal gas. There are no osteoblastic or osteolytic l esions identified. Thoracolumbar spondylosis, mid thoracic compression fractures. L2 hemangioma. Old bilateral rib fractures. IMPRESSION: 1. Large diverticulum along the mid esophagus. 2. Extensive mucus impacted left tracheobronchial system with nearly complete left lung collapse. Ca n't exclude obstructing lesion or superimposed pneumonia. 3. Segmental right basilar atelectasis. 4. Parastomal hernia. 5. Hepatic steatosis. 6. No acute intra-abdominal findings. Reviewed, dictated and finalized at location A. IMPRESSION: 1. Large diverticulum along the mid esophagus. 2. Extensive mucus impacted left tracheobronchial system with nearly complete left lung collapse. Can't exclude obstructing lesion or superimposed pneumonia. 3. Segmental right basilar atelectasis. 4. Parastomal hernia. 5. Hepatic steatosis. 6. No acute intra-abdominal findings.
--- NOTE | ~2020-01-06 | XR_ITS ---
EXAMINATION: XR Abdomen PICC INDICATION: Right femoral vein PICC insertion TECHNIQUE: Supine view of the abdomen is obtained. COMPARISON: None available FINDINGS: There is a right-sided catheter following the expected course of the common iliac vein and inferior vena cava with its tip presumed to be in the intrahepatic portion of the inferior vena cava. The bowel gas pattern is normal. There is atelectasis of the left lower lobe. There is dextroscolios is and severe spondylosis of the lumbar spine. IMPRESSION: 1. Right-sided PICC with its tip presumed to be in the intrahepatic portion of the inferior vena cava . Reviewed, dictated and finalized at location A. IMPRESSION: 1. Right-sided PICC with its tip presumed to be in the intrahepatic portion of the inferior vena cava.
--- NOTE | 2020-01-06 10:25 | ECG_ITS ---
Measurements Intervals [place] Rate: 70 P: 31 FL: 138 QRS: 0 QRSD: 97 T: 142 QT: 379 QTc: 411 Interpretive Statements SINUS RHYTHM MINIMAL Q WAVES- INFERIOR LEADS ST-T WAVE ABNORMALITY IN HIGH LATERAL LEADS- CONSIDER ISCHEMIA BASELINE ARTIFACT- V2, V5 ABNORMAL ECG Electronically Signed On 01-06-2020 13:27:45 CDT by Odilon Swift D.O.
--- NOTE | 2020-01-06 10:33 | ED.AMS ---
HPI - Altered Mental Status General Chief Complaint: Altered Mental Status <Marito ChristieSIN - Last Filed: 01/06/20 13:51> Stated Complaint: AMS <Marito ChristieSIN Last Filed: 01/06/20 13:51> Time Seen by Provider: 01/06/20 10:12 <Marito ChristieSIN Last Filed: 01/06/20 13:51> Source: patient <Marito ChristieSIN Last Filed: 01/06/20 13:51> Mode of arrival: ambulatory <Marito ChristieSIN Last Filed: 01/06/20 13:51> Limitations: no limitations <Marito Salcido SIN Christie Ashutosh Last Filed: 01/06/20 13:51> History of Present Illness HPI narrative: Patient is a 79-year-old female who presents to emergency department per EMS for evaluation of weakness patient noting over the last 4 to 5 days has not felt well with fatigue no energy and is also had difficulty sleeping. Patient notes cough that is minimally productive with shortness of breath that is minimal at this time per patient. Patient notes that every once a while she can cough up some phlegm. Patient does note congestion and drainage. Patient denies any fever vomiting diarrhea melena or rectal bleeding. Patient notes she does have family members that were positive for COVID that she was around prior week. Patient lives at home with her . Patient fell twice over the last weekend and presents with bruising to the left neck right arm skin tear to the left deltoid bicep region. Patient notes cervical thoracic and lumbar back pain. Patient denies syncope loss of consciousness lightheadedness dizziness at this time. Patient notes that she is a DNR. Patient has not taken anything for her symptoms has not been seen for her falls <Marito ChristieSIN Ashutosh Last Filed: 01/06/20 13:51> Related Data Home Medications: Home Medications Medication Instructions Recorded Confirmed Bystolic 10 mg PO DAILY 04/25/19 01/06/20 Pradaxa 150 mg PO BID 04/25/19 01/06/20 fluconazole 150 mg PO [id number] 04/25/19 01/06/20 ipratropium-albuterol 3 ml INHALATION Q4H PRN 04/25/19 01/06/20 mesalamine with cleansing wipe 4 g [place] HS PRN 04/25/19 01/06/20 methotrexate sodium 5 mg PO WEEKLY 04/25/19 01/06/20 promethazine 25 mg PO QID PRN 04/25/19 01/06/20 vitamin V25-zdtte acid 2 tablet PO DAILY 04/25/19 01/06/20 acetaminophen 500 mg PO TID PRN 04/26/19 01/06/20 acyclovir 400 mg PO DAILY 04/26/19 01/06/20 folic acid 1 mg PO BID 04/26/19 01/06/20 gabapentin 100 mg PO BID 04/26/19 01/06/20 pantoprazole 40 mg PO QAM 04/26/19 01/06/20 prednisone 10 mg PO DAILY 04/26/19 01/06/20 bumetanide 0.5 mg PO DAILY 05/02/19 01/06/20 Xtampza ER 18 mg PO Q12H 06/14/19 01/06/20 lidocaine [Lidoderm] 1 patch TRANSDERMAL DAILY PRN 06/14/19 01/06/20 duloxetine 30 mg PO DAILY 12/25/19 01/06/20 Orencia ClickJect 125 mg SUBCUT WEEKLY 12/26/19 01/06/20 <Marito Christie PA-C - Last Filed: 01/06/20 13:51> Allergies/Adverse Reactions: Allergies Allergy/AdvReac Type Severity Reaction Status Date / Time codeine Allergy Unknown Nausea Verified 01/06/20 11:26 enalapril Allergy Unknown Nausea Verified 01/06/20 11:26 ezetimibe Allergy Unknown Dizziness Verified 01/06/20 11:26 metronidazole Allergy Unknown Unknown Verified 01/06/20 11:26 Jznlist-Lza-Wjz Reductase Allergy Unknown Nausea Verified 01/06/20 11:26 Inhibitor <Marito Christie PA-C - Last Filed: 01/06/20 13:51> Review of Systems Review of Systems: All systems reviewed & are unremarkable except as noted in HPI and below <Marito Christie PA-C - Last Filed: 01/06/20 13:51> PMFSH Past Medical History Medical History: Medical History Arthritis B12 deficiency Bacteremia Citrobacter and Enterococcus bacteremia in April 2019. Bulging disc Chronic anemia Chronic kidney disease, stage 3 Baseline creatinine between 1.0 and 1.20. Chronic pain syndrome Secondary to rheumatoid arthritis. Collapse of left lung Chronic collapse o
[2020-01-06 10:49] LABS: Alveolar/Arterial O2 Gradient 95.3 mmHg; Base Excess ABG 8.4 mEq/l (+/-2.0); Carboxyhemoglobin 0.5 % THb (0-2.0); Device NASAL CANNULA; Fractional Inspired Oxygen 28 %; HCO3 ABG 32.4 mEq/l (22.0-26.0); Modified Allen's Test Pass; Oxygen Content ABG 12.5 %vol (16.0-22.0); Oxygen Saturation ABG 90.4 % (95.0-100.0); Oxyhemoglobin 85.9 % THb (90.0-100.0); PCO2 ABG 42.8 mmHg (35.0-45.0); PO2 ABG 53.8 mmHg (80.0-100.0); PO2 FiO2 Ratio Arterial Blood 1.92 %; Reduced Hemoglobin 13.6 %THb (0-5.0); Site Drawn RIGHT RADIAL; Total Hemoglobin 10.3 g/dL (12.0-18.0); pH ABG 7.497 (7.350-7.450)
[2020-01-06 11:01] LABS: Basophils Absolute Auto 0.1 K/mm3 (0.0-0.1); Basophils Percent Auto 0.4 % (0.2-1.2); Eosinophils Absolute Auto 0.1 K/mm3 (0-0.3); Eosinophils Percent Auto 0.7 % (0-4.4); Hematocrit 32.7 % (37.0-47.0); Hemoglobin 9.5 g/dL (12.0-15.0); Immature Granulocyte Absolute 0.08 K/mm3 (0.00-0.031); Immature Granulocyte Percent A 0.6 % (0-0.5); Lymphocytes Absolute Auto 4.71 K/mm3 (0.9-3.2); Lymphocytes Percent Auto 33.5 % (18.3-44.2); Mean Corpuscular HGB Conc 29.1 g/dl (32-36); Mean Corpuscular Hemoglobin 27.3 pg (26-34); Mean Platelet Volume 10.7 fl (7.4-10.4); Monocytes Absolute Auto 1.1 K/mm3 (0.1-0.6); Monocytes Percent Auto 7.6 % (2.6-8.5); Neutrophils Absolute Auto 8.1 K/mm3 (1.3-6.7); Neutrophils Percent Auto 57.2 % (45.5-73.1); Nucleated Red Blood Cells Perc 0.2 % (0.0-0.2); Platelet Count Result 366 k/mm3 (150-375); Red Blood Count 3.48 M/mm3 (4.2-5.4); Red Cell Distribution Width 20.2 % (11.5-14.5); White Blood Count 14.1 K/mm3 (4.5-10.0)
[2020-01-06 11:13] LABS: INR 1.4; Prothrombin Time 16.9 Seconds (11.1-14.7)
[2020-01-06 11:14] LABS: Partial Thromboplastin Time 43.6 SECONDS (22.3-36.8)
[2020-01-06 11:16] LABS: Alanine Aminotransferase 36 U/L (4-35); Albumin Level 3.8 g/dL (3.5-5.1); Alkaline Phosphatase 99 U/L (38-126); Anion Gap 9.7 mmol/L (7-16); Aspartate Amino Transferase 33 U/L (14-36); Bilirubin,Total 1.4 mg/dL (0.2-1.3); Blood Urea Nitrogen 32 mg/dL (7-17); CRP 8.1 mg/dL (<1.0); Calcium 8.6 mg/dL (8.4-10.2); Carbon Dioxide 37 mmol/L (22-30); Chloride 96 mmol/L (98-107); Estimated Glomerular Filt Rate 29; Glucose 92 mg/dL (65-105); Lactic Acid Reflex 1.8 mmol/L (0.7-2.1); Lipase 103 U/L (23-300); Potassium 3.7 mmol/L (3.4-5.0); Sodium 139 mmol/L (137-145)
[2020-01-06] MEDS: SODIUM CHLORIDE 0.9% IV 500 ML 999 ML IV CONT (11:23)
[2020-01-06 12:47] LABS: Add Urine Microscopic? YES; Appearance Urine Clear (Clear); Bilirubin Urine Negative (Negative); Blood Urine 1+ (Negative); Color Urine Yellow (Yellow); Glucose Urine UA Negative (Negative); Ketones Urine Negative (Negative); Leukocyte Esterase Ur Negative LEU/UL (Negative); Mucus Urine Rare /lpf; Nitrate Urine Negative (Negative); Protein Urine Negative (Negative); Specific Grav Ur 1.014 (1.001-1.035); Transitional Epi Cells Urine Rare /hpf (None Seen); Urobilinogen Urine Negative mg/dL (<2.0); WBC Urine 0-3 /hpf
--- NOTE | 2020-01-06 14:48 | PC.NURSE ---
iv access infilitrated. multiple attempts at reestablishing access made. vascular access nurse called who stated she was unable to come down to reattempt access. patient refusing anymore attempts to get iv access
--- NOTE | 2020-01-06 15:06 | PC.NURSE ---
This patient, Yamini Muñoz, was admitted to [facility] Surg Room 329-01 on 01/06/2020 @ 5713. Patient/family oriented to hospital policies and general routines including ID bracelet, bed and alarms, visiting hours, pain management, procedures, bathroom and other care routines, personal items, smoking policy, room service/diet, and visiting hours. Valuables list has been completed. Information on how to activate the Rapid Response Team has been discussed. Patient/Family are encouraged to report perceived risks to care and to ask questions if they do not understand what they are told or what they should do.
[2020-01-06] MEDS: FAMOTIDINE 20 MG/2 ML VIAL IV PUSH (22:06)
[2020-01-06] MEDS: FUROSEMIDE INJ 40 MG/4 ML VIAL 20 MG IV PUSH (22:39)
[2020-01-07] VITALS (19 sets, daily range): BP systolic 130–144; BP diastolic 58–89; PULSE 95–111; RESP 18–28; TEMP 36.5–36.9; O2SAT 91–99; BMI 31.0; BMI 31.7
--- NOTE | 2020-01-07 | ECHO_ITS ---
Patient Info Name: Yamini Muñoz Age: 79 years : 1940 Gender: Female Ht: 57 in Wt: 143 lbs BSA: 1.64 m2 HR: 110 bpm BP: 143 / 58 mmHg Heart Rhythm: Tachycardia, Sinus Rhythm Technical Quality: Fair Exam Date: 01/07/2020 2:34 PM Exam Location: [facility] Patient Status: Inpatient Admit Date: 01/07/2020 Staff Ordering Physician: Santiago Nevarez MD Apprentice Cook: Sammy Ramachandran RDCS Attending Provider: Santiago Nevarez MD Exam Type: CA echo doppler color flow Study Info Indications R06.00 - Dyspnea, unspecified Complete two-dimensional, color flow and Doppler transthoracic echocardiogram is performed. History/Risk Factors Dyspnea, CKD3, CAD, HTN, pAfib. Summary 1. Left ventricular chamber size is normal with overall hyperdynamic function, with an estimated ejection fraction of >70%. Possible basal inferior wall hypokinesis (technically difficult study). Mild left ventricular hypertrophy. Grade 1 diastolic dysfunction. 2. There is mild tricuspid valve regurgitation. 3. No pulmonary hypertension, estimated pulmonary arterial systolic pressure is 35 mmHg. 4. Technically difficult study with limited views. No IV access for Definity Echo imaging at the time. 5. Rhythm appears to be sinus tachycardia. Left Ventricle Left ventricular chamber dimension is normal. Left ventricular systolic function is hyperdynamic, estimated at >70%. There is mildly increased left ventricular wall thickness. Left ventricular septal wall motion is normal. The left ventricular diastolic function is grade I diastolic dysfunction. Left ventricular chamber size is normal with overall hyperdynamic function, with an estimated ejection fraction of >70%. Possible basal inferior wall hypokinesis (technically difficult study). Mild left ventricular hypertrophy. Grade 1 diastolic dysfunction. Right Ventricle Right ventricular chamber dimension is normal. Right ventricular systolic function is normal. Left Atria Left atrial chamber dimension is normal. Right Atria Right atrial chamber dimension is normal. Aortic Valve The aortic valve is trileaflet. There is no aortic valve sclerosis. There is no aortic valve stenosis. There is no aortic valve regurgitation. Pulmonic Valve The pulmonic valve is normal. There is no pulmonic valve stenosis. There is no pulmonic regurgitation. Mitral Valve The mitral valve has normal leaflets. There is no mitral valve stenosis. There is trace mitral valve regurgitation. Tricuspid Valve The tricuspid valve leaflets are normal. There is no significant tricuspid valve stenosis. There is mild tricuspid valve regurgitation. No pulmonary hypertension, estimated pulmonary arterial systolic pressure is 35 mmHg. Pericardium/Pleural The pericardium appears normal. There is no pericardial effusion. Inferior Vena Cava Normal inferior vena cava with >50% collapse upon inspiration consistent with Empty right atrial pressure, 5 mmHg. Aorta The aortic root size at the sinus of Valsalva is normal. The prox ascending aorta size is normal. Left Ventricular Outflow Tract Name Value Normal LVOT 2D LVOT Diameter 1.9 cm LVOT Do
[2020-01-07 00:24] LABS: SARS-CoV-2 RNA PCR Negative
--- NOTE | 2020-01-07 07:40 | PC.NURSE ---
Called and notified Dr. Nevarez that patient COVID was negative.
--- NOTE | 2020-01-07 08:24 | PM.IMHP ---
H&P: HPI History of Present Illness Date/Time: 01/07/20 08:24 Chief complaint: PNEUMONIA,HYPOXEMIA,HALLUCINATIONS Narrative: Yamini Muñoz is a 79 year old female with RA on immunosuppressive agents, pAFib and CKD here for SOB and altered mental status. Patient awakens but is confused and unable to provide hx. Most of the hx obtained from the chart and from . Patient was hospitalized here from 12/24-01/02/20 for ESBL UTI. Patient worked with PT/OT. She was discharged home with HH. Patient returned to ER on 01/04/20 after a fall. Fell on buttock and hit the back of her head and came into the ER on 01/04/20. No LOC. Head CT, c-spine CT, lumbar+thoracic spine xray all shoed no acute findings. She was discharged back home. According to her : She has chronic weakness like she is going to fall when she walks but this is long standing (worse since last admission). Patient is hallucinating with confusion past 2-3 days. Dtrs are managing the patient's medications and place them in a pill box. states patient has been missing some medication past few days. Patient has pain all over from fall and from RA. Patient has trouble getting out of chair. has to walk her to the BR. She has incontinence as well as most of the time does not make it to the BR. states 'I can't leave her'. She can only feed herself. She uses walker or WC mostly. Complained of chest pain yesterday but felt related to fall. has to wrap her legs daily due to the edema. Patient has been eating okay. Eats small amounts but able to tolerate without n/v. No increase stool output. Not on O2 at home but was at one time (3-4yrs ago) but insurance company took it away since patient not willing to do the sleep study. Patient snoring but no evidence of apnea. Has chronic cough. No fevers or chills but always cold. Per ER notes: To ER for evaluation of weakness. Patient noting over the last 4 to 5 days has not felt well with fatigue no energy and is also had difficulty sleeping. Patient notes cough that is minimally productive with shortness of breath that is minimal at this time per patient. Patient notes that every once a while she can cough up some phlegm. Patient does note congestion and drainage. Patient denies any fever vomiting diarrhea melena or rectal bleeding. Patient notes she does have family members that were positive for COVID that she was around prior week. Patient lives at home with her . Patient fell twice over the last weekend and presents with bruising to the left neck right arm skin tear to the left deltoid bicep region. Patient notes cervical thoracic and lumbar back pain. Patient denies syncope loss of consciousness lightheadedness dizziness at this time. Patient notes that she is a DNR. Patient has not taken anything for her symptoms has not been seen for her falls Review of Systems Review of Systems: ROS unobtainable: Yes unobtainable due to mental status PMFSH Past Medical History Medical History Arthritis B12 deficiency Bacteremia Citrobacter and Enterococcus bacteremia in April 2019. Bulging disc Chronic anemia Chronic kidney disease, stage 3 Baseline creatinine between 1.0 and 1.20. Chronic pain syndrome Secondary to rheumatoid arthritis. 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 Coronary artery disease Diverticulitis Perforated diverticulitis status post colostomy in 2014. Esophageal diverticulum Essential hypertension Gastroesophageal reflux disease Hyperlipidemia Hypothyroidism Immunosuppression due to drug therapy Kidney stones Osteoarthritis Osteoporosis Paroxysmal atrial fibrillation Rheumatoid arthritis Seasonal allergies Vertebral compression fracture T5 and lumbar vertebral compression fractures. Surgical History Surgical History Hi
[2020-01-07] MEDS: FAMOTIDINE 20 MG/2 ML VIAL IV PUSH (09:27)
[2020-01-07 09:50] LABS: Alveolar/Arterial O2 Gradient 98.5 mmHg; Base Excess ABG 6.2 mEq/l (+/-2.0); Fractional Inspired Oxygen 26 %; HCO3 ABG 29.1 mEq/l (22.0-26.0); Oxygen Content ABG 12.7 %vol (16.0-22.0); PCO2 ABG 35.6 mmHg (35.0-45.0); PO2 FiO2 Ratio Arterial Blood 1.72 %
[2020-01-07 09:52] LABS: PO2 ABG 44.7 mmHg (80.0-100.0)
[2020-01-07 09:53] LABS: Device NASAL CANNULA; Liters per Minute 1.5 LPM; Modified Allen's Test Pass; Oxygen Saturation ABG 85.9 % (95.0-100.0); Site Drawn LEFT RADIAL
[2020-01-07 09:57] LABS: Basophils Absolute Auto 0.1 K/mm3 (0.0-0.1); Basophils Percent Auto 0.4 % (0.2-1.2); Eosinophils Percent Auto 0.1 % (0-4.4); Hematocrit 35.1 % (37.0-47.0); Hemoglobin 10.1 g/dL (12.0-15.0); Immature Granulocyte Absolute 0.21 K/mm3 (0.00-0.031); Immature Granulocyte Percent A 0.7 % (0-0.5); Lymphocytes Absolute Auto 4.48 K/mm3 (0.9-3.2); Mean Corpuscular HGB Conc 28.8 g/dl (32-36); Mean Corpuscular Hemoglobin 26.9 pg (26-34); Mean Corpuscular Volume 93.6 fl (80-100); Mean Platelet Volume 10.6 fl (7.4-10.4); Monocytes Absolute Auto 1.1 K/mm3 (0.1-0.6); Monocytes Percent Auto 3.7 % (2.6-8.5); Neutrophils Percent Auto 80.1 % (45.5-73.1); Nucleated Red Blood Cells Perc 0.1 % (0.0-0.2); Platelet Count Result 373 k/mm3 (150-375); Red Blood Count 3.75 M/mm3 (4.2-5.4); Red Cell Distribution Width 20.2 % (11.5-14.5); White Blood Count 29.9 K/mm3 (4.5-10.0)
[2020-01-07 10:04] LABS: Alanine Aminotransferase 32 U/L (4-35); Albumin Level 3.7 g/dL (3.5-5.1); Alkaline Phosphatase 112 U/L (38-126); Aspartate Amino Transferase 31 U/L (14-36); Bilirubin,Total 1.5 mg/dL (0.2-1.3); Blood Urea Nitrogen 29 mg/dL (7-17); Calcium 8.5 mg/dL (8.4-10.2); Carbon Dioxide 32 mmol/L (22-30); Chloride 97 mmol/L (98-107); Estimated Glomerular Filt Rate 31; Glucose 115 mg/dL (65-105); Magnesium 2.1 mg/dL (1.6-2.3); Phosphorus 4.5 mg/dL (2.5-4.5); Sodium 139 mmol/L (137-145)
[2020-01-07 10:08] LABS: Anisocytosis 2+ (NORMAL); Platelet Estimate Adequate (Adequate); Stomatocytes 1+ (NORMAL)
[2020-01-07 10:15] LABS: Troponin I 0.023 ng/mL (0.000-0.034)
[2020-01-07 11:10] LABS: Folic Acid > 20.0 ng/mL (2.76->20)
[2020-01-07 12:32] LABS: Lactic Acid Reflex 2.1 mmol/L (0.7-2.1)
[2020-01-07 12:44] LABS: Troponin I 0.028 ng/mL (0.000-0.034)
[2020-01-07] MEDS: WATER FOR IRRIGATION, STERILE 1,000 ML BOTTLE 1000 ML (13:43)
[2020-01-07] MEDS: ALBUTEROL SULFATE NEB 2.5 MG/0.5 ML INH 5 MG INHALATION ×2 (14:23→20:13)
[2020-01-07 15:16] LABS: Reflex Lactic Acid Yes or No Add Lactic
[2020-01-07 16:12] LABS: Troponin I 0.042 ng/mL (0.000-0.034)
[2020-01-07 16:18] LABS: Lactic Acid 1.9 mmol/L (0.7-2.1)
[2020-01-07] MEDS: LIDOCAINE 5% PATCH 1 PATCH TRANSDERM (19:29)
[2020-01-08] VITALS (26 sets, daily range): BP systolic 103–121; BP diastolic 56–87; PULSE 80–108; RESP 16–28; TEMP 36.1–36.5; O2SAT 91–100
[2020-01-08] MEDS: ALBUTEROL SULFATE NEB 2.5 MG/0.5 ML INH 5 MG INHALATION ×4 (02:33→21:05)
[2020-01-08 09:38] LABS: Alveolar/Arterial O2 Gradient 597.9 mmHg; Base Excess ABG 3.3 mEq/l (+/-2.0); Fractional Inspired Oxygen 100 %; HCO3 ABG 26.9 mEq/l (22.0-26.0); Oxygen Content ABG 13.4 %vol (16.0-22.0); Oxygen Saturation ABG 96.4 % (95.0-100.0); PO2 ABG 78.1 mmHg (80.0-100.0); PO2 FiO2 Ratio Arterial Blood 0.78 %; Total Hemoglobin 10.1 g/dL (12.0-18.0); pH ABG 7.479 (7.350-7.450)
[2020-01-08 09:39] LABS: Device BIPAP; Expiratory Pressure 6 cmH2O; Inspiratory Pressure 12 cmH2O; Modified Allen's Test Pass; Site Drawn LEFT RADIAL
[2020-01-08] MEDS: LIDOCAINE HCL 1% PF INJ 5 ML VIAL INFILTRATE (11:45)
--- NOTE | 2020-01-08 13:14 | PM.IMPN ---
Progress Note: A&P Assessment and Plan (1) Severe sepsis: Code(s): A41.9 - Sepsis, unspecified organism; R65.20 - Severe sepsis without septic shock Status: Acute Assessment and Plan: Patient with severe sepsis with acute kidney injury, altered mental status and leukocytosis. White count increased at 38,000. hemoglobin has dropped to 8.2 but no evidence of acute blood loss. 40 minutes spent on critical care time (2) Acute respiratory failure with hypoxia: Code(s): J96.01 - Acute respiratory failure with hypoxia Status: Acute Assessment and Plan: Patient states that she was minimally short of breath on admissin. She is not on oxygen chronically but has a history of requiring oxygen few years ago. Unclear if this is still an issue; may have undiagnosed sleep apnea. Currently on BiPAP and had difficulty weaning to room air. ABG stable on BiPAP. Needs CT of the chest/abd/pelvis when able given the CXR findings and due to the abd pain. CT scan when patient more stable. Patient does have immune deficiency a very low IgG and IgM levels in February 2019. Will repeat the lab values. She may benefit from immunoglobulin therapy. Pulmonary consult. (3) Pneumonia: Code(s): J18.9 - Pneumonia, unspecified organism Status: Acute Assessment and Plan: CXR on admission showing minimal airspace opacities of the lung bases, likely atelectasis. CXR repeated yesterday and showing patchy RLL airspace disease and prominent LLL findings concerning for possible obstructive lesion. Abx started yesterday with Cefepime and Vanco. Was going to change to promaxin today given her hx of ESBL UTI but renal function too poor for the use of Primaxin. COVID negative. BCx NGTD. Consider aspiration. EKG reviewed showing T-wave inversions in the lateral and high lateral leads but Trop essentially negative. Echo showing possible basal inferior wall HK with EF 70% and Grade I diastolic dysfunction. Move to IMU. continue albuterol nebs. Continue IV abx. (4) Hallucination: Code(s): R44.3 - Hallucinations, unspecified Status: Acute Assessment and Plan: Symptoms present prior to admission. Etiology unclear. CT brain showing no acute findings. Patient has tenderness to her neck but felt is more musculoskeletal. She has been off her narcotics which could also result in hallucinations. More likely this is related to infectious process from PNA. (5) MAGGIE (acute kidney injury): Code(s): N17.9 - Acute kidney failure, unspecified Status: Acute Assessment and Plan: Cr 1.7 on admission but improved to 1.6 yestreday. Suspect intially related to Bumex and poor oral intake. Cr today however now 3.5 (unclear if the 2.8 is accurate). Do not feel she has UTI given the relatively normal UA on admission. Probably related to ATN from the severe sepsis. Contineu IV fluids. IV fluids started. Continue to monitor. Renal consult. Spears secured but with poor UOP. Check renal US. Check urine eos. (6) Rheumatoid arthritis: Qualifiers: Rheumatoid arthritis location: unspecified site Rheumatoid factor presence: unspecified presence Qualified Code(s): M06.9 - Rheumatoid arthritis, unspecified Code(s): M06.9 - Rheumatoid arthritis, unspecified Status: Acute Assessment and Plan: Patient on immunosuppressive agents with Orencia, methotrexate and prednisone. Blood pressure stable. Resume Predinose today if possible. (7) Closed L1 vertebral fracture: Code(s): S32.019A - Unspecified fracture of first lumbar vertebra, initial encounter for closed fracture Status: Acute Assessment and Plan: Lumbar CT showing linear sclerosis underlying the left-sided the superior endplate of L1 suspicious for a relatively recent compression fracture without appreciable vertebral body height loss. this could be related to her recent fall
[2020-01-08] MEDS: SODIUM CHLORIDE 0.9% IV 1,000 ML 100 ML IV CONT ×2 (13:24→23:07)
[2020-01-08] MEDS: LIDOCAINE 5% PATCH 1 PATCH TRANSDERM (13:25)
[2020-01-08] MEDS: FAMOTIDINE 20 MG/2 ML VIAL IV PUSH ×2 (13:27→19:52)
[2020-01-08 14:42] LABS: Hematocrit 24.8 % (37.0-47.0); Hemoglobin 7.2 g/dL (12.0-15.0); Mean Corpuscular Hemoglobin 27.6 pg (26-34); Mean Platelet Volume 11.3 fl (7.4-10.4); Platelet Count Result 271 k/mm3 (150-375); Red Blood Count 2.61 M/mm3 (4.2-5.4); Red Cell Distribution Width 20.7 % (11.5-14.5); White Blood Count 32.7 K/mm3 (4.5-10.0)
[2020-01-08 14:53] LABS: Lipase 42 U/L (23-300)
[2020-01-08 15:08] LABS: Albumin Level 2.5 g/dL (3.5-5.1); Anion Gap 15.3 mmol/L (7-16); Blood Urea Nitrogen 42 mg/dL (7-17); Calcium 6.5 mg/dL (8.4-10.2); Carbon Dioxide 25 mmol/L (22-30); Chloride 83 mmol/L (98-107); Estimated Glomerular Filt Rate 16; Magnesium 1.8 mg/dL (1.6-2.3); Phosphorus 4.7 mg/dL (2.5-4.5); Potassium 3.3 mmol/L (3.4-5.0); Sodium 120 mmol/L (137-145)
[2020-01-08 15:15] LABS: Glucose 734 mg/dL (65-105)
[2020-01-08 15:26] LABS: Band Neutrophils Percent 3 % (0-6); Hypochromasia 1+ (NORMAL); Lymphocytes Absolute Manual 2.61 K/mm3 (1.1-4.5); Monocytes Absolute Manual 0.32 K/mm3 (0.1-0.90); Monocytes Percent Manual 1 % (3-9); Neutrophils Absolute Manual 29.75 K/mm3 (1.7-7.2); Neutrophils Percent Manual 88 % (46-73); Platelet Estimate Adequate (Adequate); Polychromasia 1+ (NORMAL); Total Cells Counted 100
[2020-01-08 15:42] LABS: Glucose Point of Care 143 (65-105)
[2020-01-08 15:58] LABS: Hematocrit 27.6 % (37.0-47.0); Hemoglobin 8.2 g/dL (12.0-15.0); Mean Corpuscular HGB Conc 29.7 g/dl (32-36); Mean Corpuscular Hemoglobin 27.6 pg (26-34); Mean Corpuscular Volume 92.9 fl (80-100); Mean Platelet Volume 10.9 fl (7.4-10.4); Platelet Count Result 309 k/mm3 (150-375); Red Blood Count 2.97 M/mm3 (4.2-5.4); Red Cell Distribution Width 20.4 % (11.5-14.5); White Blood Count 38.7 K/mm3 (4.5-10.0)
[2020-01-08 16:18] LABS: Anion Gap 11.6 mmol/L (7-16); Blood Urea Nitrogen 50 mg/dL (7-17); Calcium 7.8 mg/dL (8.4-10.2); Carbon Dioxide 32 mmol/L (22-30); Chloride 97 mmol/L (98-107); Estimated Glomerular Filt Rate 13; Glucose 173 mg/dL (65-105); Potassium 3.6 mmol/L (3.4-5.0); Sodium 137 mmol/L (137-145)
--- NOTE | 2020-01-08 18:58 | PC.NURSE ---
This patient, Yamini Muñoz, was received from [3rd medical room 313 ] on 01/08/20 at 1859. Personal belongings list checked and signed. Patient/family oriented to unit policies and routines. Patient alert and oriented X3. Vital signs stable. Received report from Sarah
[2020-01-08] MEDS: CENTRAL LINE FLUSH 10 ML IV PUSH (19:52)
--- NOTE | 2020-01-08 19:53 | PC.NURSE ---
This patient, Yamini Muñoz, was transferred to [[facility] ] on 01/08/20 at 1954. Personal belongings sent with patient. Belongings list checked and signed with receiving [ ]. Report given to [ shekhar]. Appropriate documentation sent with patient. [facility]
[2020-01-08] MEDS: SODIUM CHLORIDE 0.9% IV 250 ML 999 ML IV CONT (20:22)
[2020-01-09] VITALS (31 sets, daily range): BP systolic 112–147; BP diastolic 52–73; PULSE 56–116; RESP 14–32; TEMP 36–37.3; O2SAT 92–100
[2020-01-09] MEDS: ALBUTEROL SULFATE NEB 2.5 MG/0.5 ML INH 5 MG INHALATION ×4 (02:10→20:49)
[2020-01-09] MEDS: CENTRAL LINE FLUSH 10 ML IV PUSH ×3 (05:09→21:08)
[2020-01-09 05:38] LABS: Alveolar/Arterial O2 Gradient 503.4 mmHg; Base Excess ABG 0.3 mEq/l (+/-2.0); Fractional Inspired Oxygen 90 %; HCO3 ABG 24.5 mEq/l (22.0-26.0); Oxygen Content ABG 12.3 %vol (16.0-22.0); Oxygen Saturation ABG 97.7 % (95.0-100.0); PCO2 ABG 37.8 mmHg (35.0-45.0); PO2 ABG 99.6 mmHg (80.0-100.0); PO2 FiO2 Ratio Arterial Blood 1.11 %
[2020-01-09 05:39] LABS: Device NON-INVASIVE VENT; Modified Allen's Test Pass; Non-Invasive Expiratory Pressure 6 CMH2O; Non-Invasive Inspiratory Pressure 12 CMH2O; Non-Invasive Vent Rate 10 /MIN; Site Drawn RIGHT RADIAL
[2020-01-09 08:23] LABS: Basophils Absolute Auto 0.1 K/mm3 (0.0-0.1); Basophils Percent Auto 0.2 % (0.2-1.2); Eosinophils Absolute Auto 0.2 K/mm3 (0-0.3); Eosinophils Percent Auto 0.7 % (0-4.4); Hematocrit 26.4 % (37.0-47.0); Hemoglobin 7.6 g/dL (12.0-15.0); Immature Granulocyte Absolute 0.17 K/mm3 (0.00-0.031); Immature Granulocyte Percent A 0.7 % (0-0.5); Lymphocytes Absolute Auto 2.01 K/mm3 (0.9-3.2); Lymphocytes Percent Auto 8.2 % (18.3-44.2); Mean Corpuscular HGB Conc 28.8 g/dl (32-36); Mean Platelet Volume 10.9 fl (7.4-10.4); Monocytes Absolute Auto 0.8 K/mm3 (0.1-0.6); Monocytes Percent Auto 3.2 % (2.6-8.5); Neutrophils Absolute Auto 21.2 K/mm3 (1.3-6.7); Platelet Count Result 278 k/mm3 (150-375); Red Blood Count 2.81 M/mm3 (4.2-5.4); Red Cell Distribution Width 20.3 % (11.5-14.5); White Blood Count 24.4 K/mm3 (4.5-10.0)
[2020-01-09 08:26] LABS: Lactic Acid 1.6 mmol/L (0.7-2.1)
[2020-01-09 08:32] LABS: Alanine Aminotransferase 17 U/L (4-35); Albumin Level 2.8 g/dL (3.5-5.1); Alkaline Phosphatase 104 U/L (38-126); Anion Gap 14.8 mmol/L (7-16); Aspartate Amino Transferase 18 U/L (14-36); Blood Urea Nitrogen 48 mg/dL (7-17); Calcium 7.8 mg/dL (8.4-10.2); Carbon Dioxide 27 mmol/L (22-30); Chloride 105 mmol/L (98-107); Estimated Glomerular Filt Rate 15; Glucose 89 mg/dL (65-105); Magnesium 2.3 mg/dL (1.6-2.3); Phosphorus 5.5 mg/dL (2.5-4.5); Potassium 3.8 mmol/L (3.4-5.0); Sodium 143 mmol/L (137-145)
[2020-01-09 08:34] LABS: Immunoglobulin A 140 mg/dL (70-400); Immunoglobulin G 361 mg/dL (700-1600); Immunoglobulin M 108 mg/dL (40-230)
[2020-01-09 10:08] LABS: CRP > 45.0 mg/dL (<1.0)
[2020-01-09] MEDS: predniSONE 10 MG TABLET PO (10:13)
[2020-01-09] MEDS: DULoxetine HCL 30 MG CAPSULE.DR PO (10:14)
[2020-01-09] MEDS: FAMOTIDINE 20 MG/2 ML VIAL IV PUSH ×2 (10:28→21:08)
--- NOTE | 2020-01-09 11:42 | PM.IMPN ---
Progress Note: A&P Assessment and Plan (1) Severe sepsis: Code(s): A41.9 - Sepsis, unspecified organism; R65.20 - Severe sepsis without septic shock Status: Acute Assessment and Plan: Patient with severe sepsis with acute kidney injury, altered mental status and leukocytosis. White count increased at 38,000 but back down to 24K. Hemoglobin has dropped to 7.6 but no evidence of acute blood loss. Repeat HH tonight. (2) Acute respiratory failure with hypoxia: Code(s): J96.01 - Acute respiratory failure with hypoxia Status: Acute Assessment and Plan: Patient states that she was minimally short of breath on admission. She is not on oxygen chronically but has a history of requiring oxygen few years ago. Unclear if this is still an issue; may have undiagnosed sleep apnea. Currently on BiPAP but able to be weaned to NC. ABG stable on BiPAP. Needs CT of the chest/abd/pelvis when able given the CXR findings and due to the abd pain. Abd US showing no acute process. Patient does have immune deficiency a very low IgG and IgM levels in February 2019 but repeat only shows low IgG level. Speech therapy evaluation. Speech therapy states patient too tired to cooperate. (3) Pneumonia: Code(s): J18.9 - Pneumonia, unspecified organism Status: Acute Assessment and Plan: CXR on admission showing minimal airspace opacities of the lung bases, likely atelectasis. CXR repeated 01/06 showing patchy RLL airspace disease and prominent LLL findings concerning for possible obstructive lesion. Abx started with Cefepime and Vanco. Was going to change to primaxin (hx of ESBL) but renal function too poor for the use of Primaxin. COVID negative. BCx NGTD. Consider aspiration. EKG reviewed showing T-wave inversions in the lateral and high lateral leads but Trop essentially negative. Echo showing possible basal inferior wall HK with EF 70% and Grade I diastolic dysfunction. She'll need cardiac evaluation at some point. Continue abx and neb treatments. (4) Hallucination: Code(s): R44.3 - Hallucinations, unspecified Status: Acute Assessment and Plan: Symptoms present prior to admission. Etiology unclear. CT brain showing no acute findings. Patient has tenderness to her neck but felt is more musculoskeletal. She has been off her narcotics which could also result in hallucinations. More likely this is related to infectious process from PNA. Consider MRI brain to exclude CVA once she is more stable. (5) MAGGIE (acute kidney injury): Code(s): N17.9 - Acute kidney failure, unspecified Status: Acute Assessment and Plan: Cr 1.7 on admission but improved to 1.6 before climbing to 3.5 (unclear if the 2.8 is accurate). Do not feel she has UTI given the relatively normal UA on admission. Probably related to ATN from the severe sepsis. Started on IV fluids. Cr trending down now at 3.0. Renal US ordered. Renal US showing medical renal disease. Continue IV fluids. Appreciate Nephrolog input. Workup in process. (6) Rheumatoid arthritis: Qualifiers: Rheumatoid arthritis location: unspecified site Rheumatoid factor presence: unspecified presence Qualified Code(s): M06.9 - Rheumatoid arthritis, unspecified Code(s): M06.9 - Rheumatoid arthritis, unspecified Status: Acute Assessment and Plan: Patient on immunosuppressive agents with Orencia, methotrexate and prednisone. Predinose resumed. ESR>140 (7) Closed L1 vertebral fracture: Code(s): S32.019A - Unspecified fracture of first lumbar vertebra, initial encounter for closed fracture Status: Acute Assessment and Plan: Lumbar CT showing linear sclerosis underlying the left-sided the superior endplate of L1 suspicious for a relatively recent compression fracture without appreciable vertebral body height loss. this could be related to her recent fall a few da
[2020-01-09 12:42] LABS: Vancomycin Trough 17.9 ug/mL (10.0-20.0)
--- NOTE | 2020-01-09 13:07 | PCNFU ---
Nutrition Follow-Up Complete: Inadequate Oral Intake as related to pnumonia as evidenced by poor po intake and weight loss reported of 2-13 ibs in the past 3 months. Goal: Meet estimated nutritional needs Patient is currently NPO Pt current nutrition is NPO. Nutrition recommendation: advance diet as appropriate. Last recorded weight is 66.5 kg. Bowel Motility: 01/09/20 last reported bowel movement Labs Reviewed: Hgb (7.6) Hct (26.4) Alb (2.8) GFR (15) BUN (48) Cr (3) Meds Noted: albuterol, cymbalta, neurontnin, NS, Vanomycin Additional Notes: Patient reports feeling hungry and ready to eat. Nurse reports patient consumed applesauce with medicine this morning and did not exhibit any complications. Speech therapy is following patient. Follow up in 3 days
--- NOTE | 2020-01-09 13:14 | PCNSR ---
On 01/09/20, the student, Omari Knutson, provided care and completed [facility] documentation on this patient. I have reviewed the student's documentation and agree with the findings.
--- NOTE | 2020-01-09 14:29 | PM.CNNEP ---
Assessment and Plan Assessment and plan (1) Chronic kidney disease, stage 3: Code(s): N18.3 - Chronic kidney disease, stage 3 (moderate) Status: Chronic Assessment and Plan: Yamini has chronic kidney disease. This is most likely due to hypertension and vascular disease. (2) Acute kidney injury: Code(s): N17.9 - Acute kidney failure, unspecified Status: Acute Assessment and Plan: The patient has acute kidney injury. There are several possible reasons for this. Her blood pressure is a little lower than it usually runs. Possibly there is some dysautoregulation going on. The patient has had an infection. she grew E coli in the urine and has been getting appropriate antibiotics. However recently in the white cell count has risen. Further investigation is underway to see if there is another infection and if so this could contribute to a worsening creatinine. The patient had a Spears catheter placed because she was retaining urine. She has never had this problem before. She is not on any anticholinergics. I do not think duloxetine and has much of an anticholinergic action but this is a chronic medicine anyway. The patient had a renal ultrasound ruling out obstruction of 1 kidney or the other. The patient has rheumatoid arthritis and so could have other autoimmune diseases including nose which might cause glomerulonephritis. This would be unusual in this setting but I will do some testing for these. She is not eating very well and so she could be a little bit dehydrated. She is getting some IV fluid. At this point we will continue to follow the patient. Since her creatinine is improved will check another 1 tomorrow. Will check serology and immunofixation (3) Essential hypertension: Code(s): I10 - Essential (primary) hypertension Status: Acute Assessment and Plan: patient's blood pressure is well controlled. She is on Bystolic right now. I will cut the dose down to let her blood pressure rise a little bit higher in the setting of acute kidney injury. (4) Urinary tract infection: Code(s): N39.0 - Urinary tract infection, site not specified Status: Acute Assessment and Plan: Her urinalysis did show bladder infection on admission. We can repeat this to make sure there is nothing new going on. 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 (6) Chronic anemia: Code(s): D64.9 - Anemia, unspecified Status: Acute Assessment and Plan: She has multiple reasons to be anemic including chronic kidney disease and chronic disease in general with her rheumatoid arthritis. History of Present Illness Reason for Consult Consult date: 01/09/20 Chief Complaint Chief complaint: PNEUMONIA,HYPOXEMIA,HALLUCINATIONS History of Present Illness Narrative: Yamini is a very pleasant 79-year-old lady who has multiple medical problems including rheumatoid arthritis, chronic edema, hypertension, chronic anemia, chronic pain, coronary disease, diverticulosis, GERD, hyperlipidemia, hypothyroidism, kidney stones in the past but none recently, osteoporosis, paroxysmal atrial fibrillation, and chronic kidney disease. Her chronic kidney disease is been going on for year or two. her baseline creatinine seems to have been running somewhere between 1.1 and 1.4 . She has not seen a oriental medicine practitioner before and so we have no certain diagnosis however the patient does have per hypertension hyperlipidemia and coronary disease so most likely this is due to hypertension and vascular disease. On admission her creatinine was stable. She was felt to have some dehydration so she was given some IV fluids early on. On about the the patient's creatinine was higher and gradually katherine to 3.5 yesterday. A catheter was placed an
[2020-01-09 15:38] LABS: Creatine Kinase 29 U/L (30-135)
[2020-01-09 15:46] LABS: Complement C3 104 mg/dL (88-165)
[2020-01-09 15:49] LABS: Erythrocyte Sedimentation Rate > 140 mm/hr (0-20)
[2020-01-09 21:03] LABS: Hematocrit 23.8 % (37.0-47.0); Hemoglobin 7.1 g/dL (12.0-15.0)
[2020-01-09] MEDS: SODIUM CHLORIDE 0.9% IV 1,000 ML 100 ML IV CONT (21:05)
[2020-01-09] MEDS: DORNASE ALFA INH SOLN 1 MG/ML 2.5 ML AMP 2.5 MG INHALATION (22:11)
[2020-01-10] VITALS (28 sets, daily range): BP systolic 105–127; BP diastolic 26–71; PULSE 69–114; RESP 14–33; TEMP 36.1–36.9; O2SAT 96–100
[2020-01-10] MEDS: IPRATROPIUM BR 0.02% INH SOLN 0.5 MG/2.5 ML VIAL INHALATION ×4 (03:16→19:24)
[2020-01-10] MEDS: ALBUTEROL SULFATE NEB 2.5 MG/0.5 ML INH 5 MG INHALATION ×4 (03:16→19:24)
[2020-01-10 04:56] LABS: Basophils Percent Auto 0.1 % (0.2-1.2); Eosinophils Percent Auto 0.1 % (0-4.4); Hematocrit 24.4 % (37.0-47.0); Hemoglobin 7.1 g/dL (12.0-15.0); Immature Granulocyte Percent A 0.6 % (0-0.5); Lymphocytes Absolute Auto 2.02 K/mm3 (0.9-3.2); Mean Corpuscular HGB Conc 29.1 g/dl (32-36); Mean Corpuscular Hemoglobin 27.1 pg (26-34); Mean Corpuscular Volume 93.1 fl (80-100); Mean Platelet Volume 11.3 fl (7.4-10.4); Monocytes Absolute Auto 0.7 K/mm3 (0.1-0.6); Monocytes Percent Auto 3.9 % (2.6-8.5); Neutrophils Percent Auto 83.3 % (45.5-73.1); Platelet Count Result 263 k/mm3 (150-375); Red Blood Count 2.62 M/mm3 (4.2-5.4); Red Cell Distribution Width 20.1 % (11.5-14.5); White Blood Count 16.8 K/mm3 (4.5-10.0)
[2020-01-10 05:05] LABS: INR 1.2; Prothrombin Time 14.6 Seconds (11.1-14.7)
[2020-01-10 05:06] LABS: Partial Thromboplastin Time 36.8 SECONDS (22.3-36.8)
[2020-01-10 05:20] LABS: Alanine Aminotransferase 14 U/L (4-35); Albumin Level 2.6 g/dL (3.5-5.1); Alkaline Phosphatase 92 U/L (38-126); Anion Gap 7 mmol/L (8-16); Aspartate Amino Transferase 16 U/L (14-36); Bilirubin,Total 0.7 mg/dL (0.2-1.3); Blood Urea Nitrogen 35 mg/dL (7-17); Calcium 7.9 mg/dL (8.4-10.2); Carbon Dioxide 25 mmol/L (22-30); Chloride 113 mmol/L (98-107); Estimated Glomerular Filt Rate 33; Glucose 100 mg/dL (65-105); Phosphorus 3.5 mg/dL (2.5-4.5); Potassium 3.4 mmol/L (3.4-5.0); Sodium 145 mmol/L (137-145)
[2020-01-10 05:25] LABS: Hypochromasia 1+ (NORMAL); Platelet Estimate Adequate (Adequate)
--- NOTE | 2020-01-10 05:55 | PC.NURSE ---
0540 24 hour urine collection started. Spears emptied, recorded, and placed on ice.
[2020-01-10 05:59] LABS: Add Urine Microscopic? YES; Amorphous Sediment Urine Few; Appearance Urine Clear (Clear); Bacteria Urine Trace /hpf; Bilirubin Urine Negative (Negative); Blood Urine 1+ (Negative); Color Urine Yellow (Yellow); Glucose Urine UA Negative (Negative); Ketones Urine Trace mg/dL (Negative); Leukocyte Esterase Ur 2+ LEU/UL (NEGATIVE); Mucus Urine Rare /lpf; Nitrate Urine Negative (Negative); Protein Urine 1+ mg/dL (Negative); Specific Grav Ur 1.013 (1.001-1.035); Transitional Epi Cells Urine Rare /hpf (None Seen); Urobilinogen Urine Negative mg/dL (<2.0); WBC Urine 21-30 /hpf (0-3)
[2020-01-10 06:01] LABS: CRP 37.3 mg/dL (<1.0)
[2020-01-10 06:13] LABS: Sodium Urine Random 76 meq/L
[2020-01-10] MEDS: CENTRAL LINE FLUSH 10 ML IV PUSH ×3 (06:21→22:12)
[2020-01-10] MEDS: SODIUM CHLORIDE 0.9% IV 1,000 ML 100 ML IV CONT ×2 (06:40→17:44)
[2020-01-10] MEDS: DORNASE ALFA INH SOLN 1 MG/ML 2.5 ML AMP 2.5 MG INHALATION ×2 (08:02→19:23)
[2020-01-10] MEDS: DULoxetine HCL 30 MG CAPSULE.DR PO (08:27)
[2020-01-10] MEDS: predniSONE 10 MG TABLET PO (08:27)
[2020-01-10] MEDS: FAMOTIDINE 20 MG/2 ML VIAL IV PUSH ×2 (08:27→22:12)
--- NOTE | 2020-01-10 11:08 | PM.IMPN ---
Progress Note: A&P Assessment and Plan (1) Severe sepsis: Code(s): A41.9 - Sepsis, unspecified organism; R65.20 - Severe sepsis without septic shock Status: Acute Assessment and Plan: Patient with severe sepsis with acute kidney injury, altered mental status and leukocytosis. White count increased at 38,000 but back down to 17K. Hemoglobin has dropped to 7.1 but stable. No evidence of acute blood loss. 38 minutes spent on critical care time. (2) Acute respiratory failure with hypoxia: Code(s): J96.01 - Acute respiratory failure with hypoxia Status: Acute Assessment and Plan: Patient states that she was minimally short of breath on admission. She is not on oxygen chronically but has a history of requiring oxygen few years ago. Unclear if this is still an issue; may have undiagnosed sleep apnea. Currently on BiPAP but able to be weaned to NC. Abd US showing no acute process. CT Chest as mentioned below. CT A/P showing no acute process. Patient does have immune deficiency with a very low IgG and IgM levels in February 2019 but repeat here only shows low IgG level. Speech therapy to evaluate again today in hopes she can eat. May need IVIg. (3) Pneumonia: Code(s): J18.9 - Pneumonia, unspecified organism Status: Acute Assessment and Plan: Patient is immunosuppressed. CXR on admission showing minimal airspace opacities of the lung bases, likely atelectasis. CXR repeated 01/06 showing patchy RLL airspace disease and prominent LLL findings concerning for possible obstructive lesion. Abx started with Cefepime and Vanco. Was going to change to primaxin (hx of ESBL) but renal function too poor for the use of Primaxin. COVID negative. BCx NGTD. Consider aspiration. EKG reviewed showing T-wave inversions in the lateral and high lateral leads but Trop essentially negative. Echo showing possible basal inferior wall HK with EF 70% and Grade I diastolic dysfunction. She'll need cardiac evaluation at some point. Obtained CT of the chest last night (that I preliminarily reviewed) showing whiteout of the left lung. BiPAP resumed and RN called to have patietn right side down. Pulmozyme added. Pulm consult given the concern for obstructing mass. Pulmonary consult. CPT ordered. Continue abx and neb treatments. (4) Hallucination: Code(s): R44.3 - Hallucinations, unspecified Status: Acute Assessment and Plan: Symptoms present prior to admission. Etiology unclear but felt related to the sepsis from the PNA. CT brain showing no acute findings. Patient has tenderness to her neck but felt is more musculoskeletal. She has been off her narcotics which could also result in hallucinations. More likely this is related to infectious process from PNA. Contineu to follow (5) MAGGIE (acute kidney injury): Code(s): N17.9 - Acute kidney failure, unspecified Status: Acute Assessment and Plan: Cr 1.7 on admission but improved to 1.6 before climbing to 3.5 (unclear if the 2.8 is accurate). Do not feel she has UTI given the relatively normal UA on admission. Renal US showing medical renal disease. Probably related to ATN from the severe sepsis. Started on IV fluids and Cr trending down to 1.5 today. Appreciate Nephrology input. (6) Rheumatoid arthritis: Qualifiers: Rheumatoid arthritis location: unspecified site Rheumatoid factor presence: unspecified presence Qualified Code(s): M06.9 - Rheumatoid arthritis, unspecified Code(s): M06.9 - Rheumatoid arthritis, unspecified Status: Acute Assessment and Plan: Patient on immunosuppressive agents with Orencia, methotrexate and prednisone. Prednisone resumed. ESR>140 (7) Closed L1 vertebral fracture: Code(s): S32.019A - Unspecified fracture of first lumbar vertebra, initial encounter for closed fracture Status: Acute Assessment and Plan: Lumb
--- NOTE | 2020-01-10 11:37 | PM.PNNEP ---
Progress Note: A&P Assessment and Plan (1) Acute kidney injury: Code(s): N17.9 - Acute kidney failure, unspecified Status: Acute Assessment and Plan: suspect etiology due to ATN from infection/sepsis of admission, urine retention, and possible volume depletion creatinine has improved remarkably in the last 24 hours continue supportive therapy (2) Chronic kidney disease, stage 3: Code(s): N18.3 - Chronic kidney disease, stage 3 (moderate) Status: Chronic Assessment and Plan: baseline creatinine seems to run ~ 1.2 - 1.4mg/dl due to hypertension, vascular disease, and age related change (3) Essential hypertension: Code(s): I10 - Essential (primary) hypertension Status: Acute Assessment and Plan: reasonabel control at this time follow hemodynamics (4) Urinary tract infection: Code(s): N39.0 - Urinary tract infection, site not specified Status: Acute Assessment and Plan: urine culture with Klebsiella on antibiotics (5) Chronic anemia: Code(s): D64.9 - Anemia, unspecified Status: Acute Assessment and Plan: likely due to MAGGIE, CKD, and acute illness consider checking iron studies however, if iron deficient, hesitant to give IV iron unless infection is cleared Will continue to follow. Subjective Date/time seen: 01/10/20 11:37 Appears to be doing significantly better at this time; no new issues or complaints voiced; no apparent distress during my visit; no events overnight or earlier this AM. Exam Narrative: Exam Narrative: General: WD/WN female in NAD Heart: normal S1 and S2; no rub Lungs: clear anteriorly but decreased at bases Abdomen: soft, nontender, nondistended, positive bowel sounds Extremities: no cyanosis or clubbing; trace edema Skin: warm and dry Objective Data Vital Signs Vital Signs: Vital Signs Temp Pulse Resp BP Pulse Ox 01/10/20 10:24 100 01/10/20 10:00 97 01/10/20 08:19 36.1 C L 105 H 33 H 127/71 100 01/10/20 08:06 87 26 H 01/10/20 08:04 87 26 H 98 01/10/20 08:00 79 01/10/20 06:00 96 01/10/20 04:00 36.1 C L 97 24 H 107/48 L 100 01/10/20 03:24 82 24 H 01/10/20 03:20 83 22 H 98 01/10/20 03:19 83 22 H 01/10/20 02:00 83 01/10/20 00:00 36.1 C L 90 25 H 121/48 L 100 01/09/20 22:17 94 27 H 01/09/20 22:12 98 26 H 01/09/20 22:00 92 01/09/20 21:07 92 32 H 94 01/09/20 21:06 90 24 H 01/09/20 20:49 82 18 01/09/20 20:00 58 L 01/09/20 19:46 36.0 C L 82 26 H 112/56 L 100 01/09/20 18:00 83 01/09/20 16:00 36.8 C 81 26 H 119/52 L 95 01/09/20 14:11 85 18 01/09/20 14:01 82 18 92 01/09/20 14:00 88 01/09/20 13:44 84 18 98 01/09/20 12:00 36.3 C L 79 28 H 133/57 L 100 Intake/Output Intake/Output: Intake & Output 01/07/20 01/08/20 01/09/20 01/10/20 23:59 23:59 23:59 23:59 Intake Total 340 1500 1000 1000 Output Total 350 15 950 975 Balance -10 1485 50 25 Meds/Results Medications: Active Medications Generic Name Dose Route Start Last Admin Trade Name Freq PRN Reason Stop Dose Admin Hydrocodone Bitart/Acetaminophen 1 tab 01/10/20 11:29 [place] 5-325 Mg PO Q6H PRN Pain Rated 4-6 Albuterol 5 mg 01/07/20 14:00 01/10/20 08:02 Albuterol Sulf Neb 2.5mg/0.5ml INHALATION 5 mg Q6HRT ANNA Administration Dornase [place] 2.5 mg 01/09/20 20:55 01/10/20 08:02 Pulmozyme INHALATION 2.5 mg Q12HRT ANNA Administration Duloxetine HCl 30 mg 01/09/20 09:00 01/10/20 08:27 Cymbalta PO 30 mg DAILY ANNA Administration Famotidine 20 mg 01/06/20 21:00 01/10/20 08:27 Pepcid Iv IV PUSH 20 mg Q12HR ANNA Administration Gabapentin 100 mg 01/08/20 17:21 01/08/20 19:49 Neurontin PO Not Given BID ANNA Sodium Chloride 1,000 mls @ 100 mls/hr 01/07/20 09:45 01/10/20 06:40 [place]
[2020-01-10 12:17] LABS: Creatinine Urine 54.7 mg/dL; Total Protein Urine Random 67 mg/dL
--- NOTE | 2020-01-10 15:41 | PCSTNOTE ---
Repeat bedside swallow evaluation completed. Please see ST evaluation for details and diet recommendations.
--- NOTE | 2020-01-10 16:17 | PCSTNOTE ---
Bedside swallow evaluation completed. Please refer to ST evaluation for details and diet recommendations.
[2020-01-11] VITALS (30 sets, daily range): BP systolic 115–154; BP diastolic 52–84; PULSE 77–107; RESP 14–28; TEMP 36–37.1; O2SAT 94–100
[2020-01-11] MEDS: IPRATROPIUM BR 0.02% INH SOLN 0.5 MG/2.5 ML VIAL INHALATION ×4 (01:08→20:13)
[2020-01-11] MEDS: ALBUTEROL SULFATE NEB 2.5 MG/0.5 ML INH 5 MG INHALATION ×4 (01:08→20:13)
[2020-01-11] MEDS: SODIUM CHLORIDE 0.9% IV 1,000 ML 100 ML IV CONT ×2 (03:49→13:51)
[2020-01-11 04:55] LABS: Basophils Percent Auto 0.1 % (0.2-1.2); Eosinophils Absolute Auto 0.1 K/mm3 (0-0.3); Eosinophils Percent Auto 0.6 % (0-4.4); Hematocrit 21.2 % (37.0-47.0); Immature Granulocyte Absolute 0.07 K/mm3 (0.00-0.031); Immature Granulocyte Percent A 0.7 % (0-0.5); Lymphocytes Absolute Auto 1.55 K/mm3 (0.9-3.2); Lymphocytes Percent Auto 16.2 % (18.3-44.2); Mean Corpuscular HGB Conc 28.8 g/dl (32-36); Mean Corpuscular Volume 93.8 fl (80-100); Mean Platelet Volume 10.5 fl (7.4-10.4); Monocytes Absolute Auto 0.7 K/mm3 (0.1-0.6); Monocytes Percent Auto 7.4 % (2.6-8.5); Neutrophils Absolute Auto 7.2 K/mm3 (1.3-6.7); Platelet Count Result 213 k/mm3 (150-375); Red Blood Count 2.26 M/mm3 (4.2-5.4); White Blood Count 9.6 K/mm3 (4.5-10.0)
[2020-01-11 05:07] LABS: Hemoglobin 6.1 g/dL (12.0-15.0); Hypochromasia 2+ (NORMAL); Platelet Estimate Adequate (Adequate)
[2020-01-11 05:14] LABS: Albumin Level 2.3 g/dL (3.5-5.1); Anion Gap 2 mmol/L (8-16); Blood Urea Nitrogen 20 mg/dL (7-17); Calcium 7.7 mg/dL (8.4-10.2); Carbon Dioxide 24 mmol/L (22-30); Chloride 115 mmol/L (98-107); Estimated Glomerular Filt Rate 53; Glucose 81 mg/dL (65-105); Magnesium 2.1 mg/dL (1.6-2.3); Sodium 141 mmol/L (137-145)
[2020-01-11 05:33] LABS: Iron 19 ug/dL (37-170)
[2020-01-11] MEDS: CENTRAL LINE FLUSH 10 ML IV PUSH ×3 (05:39→21:03)
[2020-01-11 05:42] LABS: Percent Iron Saturation 8 % (20-50)
--- NOTE | 2020-01-11 06:40 | PC.NURSE ---
24 hour urine collection ended at 0540 on 01/11/20. [place] sent to lab.
[2020-01-11] MEDS: DORNASE ALFA INH SOLN 1 MG/ML 2.5 ML AMP 2.5 MG INHALATION ×2 (08:18→20:14)
[2020-01-11] MEDS: FAMOTIDINE 20 MG/2 ML VIAL IV PUSH (08:45)
[2020-01-11] MEDS: predniSONE 10 MG TABLET PO (08:45)
[2020-01-11] MEDS: DULoxetine HCL 30 MG CAPSULE.DR PO (08:45)
[2020-01-11] MEDS: TUBING, BLOOD PLUM PUMP TUBING 1 EACH XX (10:45)
[2020-01-11] MEDS: SODIUM CHLORIDE 0.9% IV 250 ML 30 ML IV CONT (10:45)
[2020-01-11 13:11] LABS: IFOB Positive Control Positive; Immunochemical Fecal Occult Bl Negative (N)
--- NOTE | 2020-01-11 14:42 | PM.IMPN ---
Progress Note: A&P Assessment and Plan (1) Severe sepsis: Code(s): A41.9 - Sepsis, unspecified organism; R65.20 - Severe sepsis without septic shock Status: Acute Assessment and Plan: Patient with severe sepsis with acute kidney injury, altered mental status and leukocytosis. White count increased at 38,000 but back to normal. Hemoglobin has dropped to 6.1. No evidence of acute blood loss. Transfuse today. Follow HH. Stool guaiac negative. (2) Anemia: Code(s): D64.9 - Anemia, unspecified Status: Acute Assessment and Plan: Hemoglobin has dropped to 6.1. No evidence of acute blood loss. Stool guaiac negative. Hgb chronically low in mostly the 7-9 range. B12 and folate levels normal. Iron studies consistent with anemia of chronic disease related to her RA and possibly medications. Transfuse today. Follow HH. (3) Acute respiratory failure with hypoxia: Code(s): J96.01 - Acute respiratory failure with hypoxia Status: Acute Assessment and Plan: Patient states that she was minimally short of breath on admission. She is not on oxygen chronically but has a history of requiring oxygen few years ago. Unclear if this is still an issue; may have undiagnosed sleep apnea. Currently on BiPAP but able to be weaned to NC. Abd US showing no acute process. CT Chest as mentioned below. CT A/P showing no acute process. Patient does have immune deficiency with a very low IgG and IgM levels in February 2019 but repeat here only shows low IgG level. Speech therapy evaluated her again yesterday and she was started Level 6 diet. (4) Pneumonia: Code(s): J18.9 - Pneumonia, unspecified organism Status: Acute Assessment and Plan: Patient is immunosuppressed. CXR on admission showing minimal airspace opacities of the lung bases, likely atelectasis. CXR repeated 01/06 showing patchy RLL airspace disease and prominent LLL findings concerning for possible obstructive lesion. Abx started with Cefepime and Vanco. Was going to change to primaxin (hx of ESBL) but renal function too poor for the use of Primaxin. COVID negative. BCx NGTD. EKG reviewed showing T-wave inversions in the lateral and high lateral leads but Trop essentially negative. Echo showing possible basal inferior wall HK with EF 70% and Grade I diastolic dysfunction. She'll need cardiac evaluation at some point. Obtained CT of the chest which showed extensive mucus impacted left tracheobronchial system with nearly complete left lung collapse. BiPAP resumed and RN called to have patietn right side down. Pulmozyme added. Pulm consulted. CXR yesterday showing improved aeration of the left lung. Continue CPT. Continue abx and neb treatments. (5) Hallucination: Code(s): R44.3 - Hallucinations, unspecified Status: Acute Assessment and Plan: Symptoms present prior to admission. Etiology unclear but felt related to the sepsis from the PNA. CT brain showing no acute findings. Patient has tenderness to her neck but felt is more musculoskeletal. She has been off her narcotics which could also result in hallucinations. More likely this is toxic encephalopathy related to infectious process from PNA. She is having persistent hallucinations past 2 days. Will continue to follow. Reluctant to add back too many narcotics but she does have Norce available as neede (6) MAGGIE (acute kidney injury): Code(s): N17.9 - Acute kidney failure, unspecified Status: Acute Assessment and Plan: Cr 1.7 on admission but improved to 1.6 before climbing to 3.5 (unclear if the 2.8 is accurate). Do not feel she has UTI given the relatively normal UA on admission. Renal US showing medical renal disease. Probably related to ATN from the severe sepsis. Started on IV fluids and Cr trending down to 1.0 today. Appreciate Nephrology input. (7) Rheumatoid arthritis: Qualifiers:
[2020-01-11 15:15] LABS: Hematocrit 28.8 % (37.0-47.0); Hemoglobin 8.5 g/dL (12.0-15.0)
--- NOTE | 2020-01-11 16:00 | PM.PNNEP ---
Progress Note: A&P Assessment and Plan (1) Acute kidney injury: Code(s): N17.9 - Acute kidney failure, unspecified Status: Acute Assessment and Plan: suspect etiology due to ATN from infection/sepsis of admission, urine retention, and possible volume depletion creatinine has improved to bettter than baseline continue supportive therapy (2) Chronic kidney disease, stage 3: Code(s): N18.3 - Chronic kidney disease, stage 3 (moderate) Status: Chronic Assessment and Plan: baseline creatinine seems to run ~ 1.2 - 1.4mg/dl due to hypertension, vascular disease, and age related change (3) Essential hypertension: Code(s): I10 - Essential (primary) hypertension Status: Acute Assessment and Plan: reasonabel control at this time follow hemodynamics (4) Urinary tract infection: Code(s): N39.0 - Urinary tract infection, site not specified Status: Acute Assessment and Plan: urine culture with Klebsiella on antibiotics (5) Chronic anemia: Code(s): D64.9 - Anemia, unspecified Status: Acute Assessment and Plan: likely due to MAGGIE, CKD, and acute illness consider checking iron studies however, if iron deficient, hesitant to give IV iron unless infection is cleared Will continue to follow. Subjective Date/time seen: 01/11/20 16:00 Major complaint was that of back pain and poor sleep overnight; no apparent distress voiced; no events overnight or earlier this AM. Exam Narrative: Exam Narrative: General: WD/WN female in NAD Heart: normal S1 and S2; no rub Lungs: clear anteriorly but decreased at bases Abdomen: soft, nontender, nondistended, positive bowel sounds Extremities: no cyanosis or clubbing; trace edema Skin: warm and intact Objective Data Intake/Output Intake/Output: Intake & Output 01/08/20 01/09/20 01/10/20 01/11/20 23:59 23:59 23:59 23:59 Intake Total 1500 1000 3080 3140 Output Total 15 950 1150 1050 Balance 1485 50 1930 2090 Meds/Results Medications: Active Medications Generic Name Dose Route Start Last Admin Trade Name Freq PRN Reason Stop Dose Admin Hydrocodone Bitart/Acetaminophen 1 tab 01/10/20 11:29 01/11/20 02:06 [place] 5-325 Mg PO 1 tab Q6H PRN Administration Pain Rated 4-6 Albuterol 5 mg 01/07/20 14:00 01/11/20 13:40 Albuterol Sulf Neb 2.5mg/0.5ml INHALATION 5 mg Q6HRT ANNA Administration Cyanocobalamin 1,000 mcg 01/12/20 09:00 Vitamin B-12 Tab PO QAM ANNA Dornase [place] 2.5 mg 01/09/20 20:55 01/11/20 08:18 Pulmozyme INHALATION 2.5 mg Q12HRT ANNA Administration Duloxetine HCl 30 mg 01/09/20 09:00 01/11/20 08:45 Cymbalta PO 30 mg DAILY ANNA Administration Folic Acid 2 mg 01/12/20 09:00 Folic Acid PO 02/11/20 09:01 DAILY [facility] Gabapentin 100 mg 01/08/20 17:21 01/08/20 19:49 Neurontin PO Not Given BID [facility] Sodium Chloride 1,000 mls @ 100 mls/hr 01/07/20 09:45 01/11/20 13:51 Normal Saline Iv IV CONT 100 mls/hr .Q10H ANNA Administration Vancomycin HCl 1,000 mg in 250 mls @ 250 mls/hr 01/07/20 13:00 01/11/20 13:49 Vancomycin 1,000 Mg/D5w 250 Ml IVPB 250 mls/hr Q24H ANNA Administration Cefepime HCl 2 gm in 50 mls @ 100 mls/hr 01/09/20 12:00 01/11/20 11:54 Maxipime 2 Gm/D5w 50 Ml IVPB 100 mls/hr Q24H ANNA Administration Ipratropium [place] 0.5 mg 01/10/20 02:00 01/11/20 13:40 Atrovent Neb INHALATION 0.5 mg Q6HRT ANNA Administration Lidocaine 1 patch 01/07/20 09:00 01/11/20 08:45 Lidoderm TRANSDERM Not Given DAILY [facility] Lidocaine 1 patch 01/11/20 14:47 Lidoderm TRANSDERM DAILY PRN Pain Nebivolol 5 mg 01/10/20 09:00 Bystolic PO DAILY [facility] Pantoprazole Sodium 40 mg 01/12/20 09:00 Protonix PO QAM [facility] Prednisone 10 mg 01/09/20 09:00 01/11/20 08:45 Prednisone PO 10 mg DAILY ANNA Administration Saccha
[2020-01-11] MEDS: GABAPENTIN 100 MG CAPSULE PO (16:43)
[2020-01-11] MEDS: SACCHAROMYCES BOULARDII 250 MG CAPSULE PO (16:43)
--- NOTE | 2020-01-11 18:47 | PM.CNPUL ---
Assessment and Plan Assessment and plan (1) Pneumonia: Code(s): J18.9 - Pneumonia, unspecified organism Status: Acute (2) Collapse of left lung: Code(s): J98.11 - Atelectasis Status: Resolved Assessment and Plan: improved with Pulmozyme, antibiotics, positioning with good lung down, and efforts to re-inflate the collapsed left lung can attempt expiratory valve to mobilize secretions in the airways, prevent repeat collapse. She has immuncompromised state, RA, multiple med conditions History of Present Illness History of Present Illness Consult date: 01/12/20 Requesting physician: Santiago Nevarez MD Chief complaint: PNEUMONIA,HYPOXEMIA,HALLUCINATIONS Narrative: Thank you for the consult. This 79 yo female has several medical co-morbidities - RA, CKD -Stage 3, PAF, recent E coli UTI treated in the hospital December 24-, back in the ED after a fall without loss of consciousness, then admitted 01/06 with severe sepsis, hallicinations and hypoxemia. She had an infiltrate L>R, was on antibiotics and O2. Her WBC started climbing, up to 38.7K on Jan 07. CXR 01/06 = Prominent left lower lobe atelectasis; malignant obstruction of the left lower lobe bronchus is not excluded. Patchy infiltrate or atelectasis, right lower lung Chest / Abd / Pelvis CT 01/08 = complete opacification of the left lung IMPRESSION: 1. Large diverticulum along the mid esophagus. 2. Extensive mucus impacted left tracheobronchial system with nearly complete left lung collapse. Can't exclude obstructing lesion or superimposed pneumonia. 3. Segmental right basilar atelectasis. 4. Parastomal hernia. 5. Hepatic steatosis. 6. No acute intra-abdominal findings. [facility] Past Medical History Medical History (Updated 01/10/20 @ 11:25 by Santiago Nevarez MD) Acute kidney injury Arthritis B12 deficiency Bacteremia Citrobacter and Enterococcus bacteremia in April 2019. Bulging disc Chronic anemia Chronic kidney disease, stage 3 Baseline creatinine between 1.0 and 1.20. Chronic pain syndrome Secondary to rheumatoid arthritis. 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 Coronary artery disease Diverticulitis Perforated diverticulitis status post colostomy in 2014. Esophageal diverticulum Essential hypertension Gastroesophageal reflux disease Hyperlipidemia Hypothyroidism Immunosuppression due to drug therapy Kidney stones Osteoarthritis Osteoporosis Paroxysmal atrial fibrillation Rheumatoid arthritis Seasonal allergies Vertebral compression fracture T5 and lumbar vertebral compression fractures. Surgical History Surgical History History of appendectomy History of bowel resection (~2014) With colostomy, secondary to perforated diverticulitis. History of cardiac catheterization History of cataract extraction History of cholecystectomy History of lumbar discectomy (~10/2003) L3-L4 microdiskectomy with decompression of L4-L5. History of oophorectomy (~1963) History of sinus surgery X2 History of tonsillectomy Family History Family History Father Family history of throat cancer Heart disease Sibling Kidney stones High cholesterol Sibling High cholesterol Kidney stones Sibling High cholesterol Kidney stones Social History Social History Social History: The patient lives in [place] with her . She is a lifelong nonsmoker and denies alcohol and illicit substance use. She designates her son Alex as her surrogate decision maker and she wishes to be a do not resuscitate. Smoking status: Never smoker Alcohol intake: never Substance use: never Substance use type: does not use Spiritual care concerns: No Agree to blood products: Yes Meds Home Medications and Allergies Home Medications Medication Ins
[2020-01-11 22:19] LABS: Hematocrit 29.6 % (37.0-47.0); Hemoglobin 8.9 g/dL (12.0-15.0)
[2020-01-12] VITALS (24 sets, daily range): BP systolic 131–168; BP diastolic 68–98; PULSE 68–130; RESP 18–27; TEMP 36.1–36.7; O2SAT 94–100
[2020-01-12] MEDS: SODIUM CHLORIDE 0.9% IV 1,000 ML 100 ML IV CONT (01:07)
[2020-01-12] MEDS: ALBUTEROL SULFATE NEB 2.5 MG/0.5 ML INH 5 MG INHALATION ×4 (01:35→21:01)
[2020-01-12] MEDS: IPRATROPIUM BR 0.02% INH SOLN 0.5 MG/2.5 ML VIAL INHALATION ×4 (01:36→21:01)
[2020-01-12 05:11] LABS: Basophils Percent Auto 0.3 % (0.2-1.2); Eosinophils Absolute Auto 0.1 K/mm3 (0-0.3); Eosinophils Percent Auto 1.1 % (0-4.4); Hematocrit 23.7 % (37.0-47.0); Hemoglobin 7.1 g/dL (12.0-15.0); Immature Granulocyte Absolute 0.11 K/mm3 (0.00-0.031); Immature Granulocyte Percent A 1.5 % (0-0.5); Lymphocytes Absolute Auto 1.57 K/mm3 (0.9-3.2); Lymphocytes Percent Auto 21.1 % (18.3-44.2); Mean Corpuscular Hemoglobin 27.7 pg (26-34); Mean Corpuscular Volume 92.6 fl (80-100); Mean Platelet Volume 10.3 fl (7.4-10.4); Monocytes Absolute Auto 0.6 K/mm3 (0.1-0.6); Monocytes Percent Auto 7.5 % (2.6-8.5); Neutrophils Absolute Auto 5.1 K/mm3 (1.3-6.7); Neutrophils Percent Auto 68.5 % (45.5-73.1); Platelet Count Result 172 k/mm3 (150-375); Red Blood Count 2.56 M/mm3 (4.2-5.4); Red Cell Distribution Width 18.8 % (11.5-14.5); White Blood Count 7.5 K/mm3 (4.5-10.0)
[2020-01-12] MEDS: CENTRAL LINE FLUSH 10 ML IV PUSH ×3 (05:36→23:13)
[2020-01-12 05:37] LABS: Alanine Aminotransferase 9 U/L (4-35); Albumin Level 1.9 g/dL (3.5-5.1); Alkaline Phosphatase 61 U/L (38-126); Anion Gap 1 mmol/L (8-16); Aspartate Amino Transferase 14 U/L (14-36); Bilirubin,Total 0.5 mg/dL (0.2-1.3); Blood Urea Nitrogen 11 mg/dL (7-17); Calcium 6.5 mg/dL (8.4-10.2); Carbon Dioxide 20 mmol/L (22-30); Chloride 120 mmol/L (98-107); Estimated Glomerular Filt Rate > 60; Glucose 67 mg/dL (65-105); Magnesium 1.6 mg/dL (1.6-2.3); Phosphorus 1.9 mg/dL (2.5-4.5); Potassium 2.4 mmol/L (3.4-5.0); Sodium 141 mmol/L (137-145)
[2020-01-12 06:19] LABS: Anion Gap 3 mmol/L (8-16); Blood Urea Nitrogen 12 mg/dL (7-17); Calcium 7.7 mg/dL (8.4-10.2); Carbon Dioxide 22 mmol/L (22-30); Chloride 116 mmol/L (98-107); Estimated Glomerular Filt Rate 60; Glucose 77 mg/dL (65-105); Potassium 2.9 mmol/L (3.4-5.0); Sodium 141 mmol/L (137-145)
[2020-01-12] MEDS: DORNASE ALFA INH SOLN 1 MG/ML 2.5 ML AMP 2.5 MG INHALATION ×2 (07:54→21:02)
[2020-01-12] MEDS: MAGNESIUM SULF 2 GM/WATER 50ML 2 GM/50 ML BAG IVPB (10:07)
[2020-01-12] MEDS: POTASSIUM CHLORIDE 20 MEQ TABLET 40 MEQ PO (12:28)
[2020-01-12] MEDS: predniSONE 10 MG TABLET PO (12:28)
[2020-01-12] MEDS: POTASSIUM PHOS,M-BASIC-D-BASIC 20 MMOL in SODIUM CHLORIDE 0.9% IV 250 ML 64 MMOL IVPB (12:28)
[2020-01-12] MEDS: FOLIC ACID 1 MG TABLET 2 MG PO (12:29)
[2020-01-12] MEDS: CYANOCOBALAMIN 1,000 MCG TABLET 1000 MCG PO (12:29)
[2020-01-12] MEDS: DULoxetine HCL 30 MG CAPSULE.DR PO (12:29)
[2020-01-12] MEDS: PANTOPRAZOLE 40 MG TABLET PO (12:30)
[2020-01-12] MEDS: SACCHAROMYCES BOULARDII 250 MG CAPSULE PO ×2 (12:30→17:37)
[2020-01-12] MEDS: NEBIVOLOL HCL 5 MG TABLET PO (13:24)
[2020-01-12] MEDS: GABAPENTIN 100 MG CAPSULE PO ×2 (13:25→17:37)
--- NOTE | 2020-01-12 13:34 | PCDIET ---
Nutrition Follow-Up Complete: Nutrition Diagnosis: Inadequate oral intake related to pnumonia as evidenced by poor po intake and weight loss reported of 2-13 lbs in the past 3 months. Nutrition Goal: Meet estimated nutritional needs Goal not met. Diet advanced to heart healthy, pureed (per [employer] recommendation). Patient only consuming around 30% of meals, on average. Ensure Compact (220kcal, 9g protein) added today. Recommend increasing Ensure Compact from BID to TID with all meals. Last recorded weight is 66.5kg which is increased from last review. Bowel Motility: +BM today. Labs Reviewed: Hgb (7.1), Hct (23.7), Alb (1.9), PO4 (1.9) Meds Noted: Vancomycin, Atrovent, Protonix, Prednisone, Florastor, [place], Albuterol, Cefepime, Folic Acid, Vitamin B12, MgSO4, K-Phos Additional Notes: Large diverticulum along mid-esophagus. Left upper arm with skin tear. No documented pressure ulcers. Will continue to monitor with same goal. Nutrition Monitoring and Evaluation: Follow up every 3 days.
[2020-01-12 13:41] LABS: Vancomycin Trough 15.7 ug/mL (10.0-20.0)
--- NOTE | 2020-01-12 14:43 | PM.IMPN ---
Progress Note: A&P Assessment and Plan (1) Severe sepsis: Code(s): A41.9 - Sepsis, unspecified organism; R65.20 - Severe sepsis without septic shock Status: Acute Assessment and Plan: Patient with severe sepsis with acute kidney injury, altered mental status and leukocytosis. White count increased at 38,000 but back to normal now. Relatd to PNA. Symptoms slowly improving. (2) Anemia: Code(s): D64.9 - Anemia, unspecified Status: Acute Assessment and Plan: Hemoglobin has dropped to 6.1 on 01/11/20 and transfused. No evidence of acute blood loss. Stool guaiac negative. Hgb chronically low in mostly the 7-9 range. B12 and folate levels normal. Iron studies consistent with anemia of chronic disease related to her RA and possibly medications. Hgb 7.1 today. Continue to follow HH. Stop IVF. (3) Acute respiratory failure with hypoxia: Code(s): J96.01 - Acute respiratory failure with hypoxia Status: Acute Assessment and Plan: Patient states that she was minimally short of breath on admission. She is not on oxygen chronically but has a history of requiring oxygen few years ago. Unclear if this is still an issue; may have undiagnosed sleep apnea. Currently on BiPAP but able to be weaned to NC. CT Chest as mentioned below. CT A/P showing no acute process. Patient does have immune deficiency with a very low IgG and IgM levels in February 2019 but repeat here only shows low IgG level. Speech therapy has evaluated patient and diet started. Pulmonary folllowing and appreciate their input. (4) Pneumonia: Code(s): J18.9 - Pneumonia, unspecified organism Status: Acute Assessment and Plan: Patient is immunosuppressed. CXR on admission showing minimal airspace opacities of the lung bases, likely atelectasis. CXR repeated 01/06 showing patchy RLL airspace disease and prominent LLL findings concerning for possible obstructive lesion. Abx started with Cefepime and Vanco. Was going to change to primaxin (hx of ESBL) but renal function too poor for the use of Primaxin. COVID negative. BCx negative. EKG reviewed showing T-wave inversions in the lateral and high lateral leads but Trop essentially negative. Echo showing possible basal inferior wall HK with EF 70% and Grade I diastolic dysfunction. She'll need cardiac evaluation at some point. Obtained CT of the chest which showed extensive mucus impacted left tracheobronchial system with nearly complete left lung collapse. BiPAP resumed. Pulmozyme and CPT added. Sputum cx growing yeast probably not significant. Pulmonary following. Continue current IV abx. PT/OT started (5) Hallucination: Code(s): R44.3 - Hallucinations, unspecified Status: Acute Assessment and Plan: Symptoms present prior to admission. Etiology unclear but felt related to the sepsis from the PNA. CT brain showing no acute findings. She has been off her narcotics which could also result in hallucinations. More likely this is toxic encephalopathy related to infectious process from PNA. She is having intermittent hallucinations. Will continue to follow. Continue [place] prn. Pain still well controlled. Reluctant to add back long-acting narcotics at this time. (6) MAGGIE (acute kidney injury): Code(s): N17.9 - Acute kidney failure, unspecified Status: Acute Assessment and Plan: Cr 1.7 on admission but improved to 1.6 before climbing to 3.5. Do not feel she has UTI given the relatively normal UA on admission. Renal US showing medical renal disease. Probably related to ATN from the severe sepsis. Started on IV fluids and Cr trending down to 0.9 today. Appreciate Nephrology input. Stop IV fluids. (7) Rheumatoid arthritis: Qualifiers: Rheumatoid arthritis location: unspecified site Rheumatoid factor presence: unspecified presence Qualified Code(s): M06.9 - Rheumatoid arthritis, un
[2020-01-12 15:47] LABS: Hematocrit 32.2 % (37.0-47.0); Hemoglobin 9.5 g/dL (12.0-15.0)
--- NOTE | 2020-01-12 18:11 | PM.PNNEP ---
Progress Note: A&P Assessment and Plan (1) Acute kidney injury: Code(s): N17.9 - Acute kidney failure, unspecified Status: Acute Assessment and Plan: suspect etiology due to ATN from infection/sepsis of admission, urine retention, and possible volume depletion creatinine has improved to bettter than baseline continue supportive therapy (2) Chronic kidney disease, stage 3: Code(s): N18.3 - Chronic kidney disease, stage 3 (moderate) Status: Chronic Assessment and Plan: baseline creatinine seems to run ~ 1.2 - 1.4mg/dl due to hypertension, vascular disease, and age related change (3) Essential hypertension: Code(s): I10 - Essential (primary) hypertension Status: Acute Assessment and Plan: reasonabel control at this time follow hemodynamics (4) Urinary tract infection: Code(s): N39.0 - Urinary tract infection, site not specified Status: Acute Assessment and Plan: urine culture with Klebsiella on antibiotics (5) Chronic anemia: Code(s): D64.9 - Anemia, unspecified Status: Acute Assessment and Plan: likely due to MAGGIE, CKD, and acute illness consider checking iron studies however, if iron deficient, hesitant to give IV iron unless infection is cleared Will continue to follow. Subjective Date/time seen: 01/12/20 18:11 Continues to do reasonably well; no apparent distress voiced at this time; no events overnight or earlier this AM. Exam Narrative: Exam Narrative: General: WD/WN female in NAD Heart: normal S1 and S2; no rub Lungs: clear anteriorly but decreased at bases Abdomen: soft, nontender, nondistended, positive bowel sounds Extremities: no cyanosis or clubbing; trace edema Skin: warm and intact Objective Data Vital Signs Vital Signs: Vital Signs Temp Pulse Resp BP Pulse Ox 01/12/20 18:00 95 01/12/20 16:00 36.5 C 97 20 142/79 H 94 01/12/20 15:02 97 18 01/12/20 14:52 99 18 01/12/20 14:00 87 01/12/20 13:24 90 01/12/20 12:00 87 01/12/20 11:50 36.4 C L 88 18 143/77 H 99 01/12/20 10:00 95 01/12/20 08:05 77 24 H 01/12/20 08:00 36.5 C 85 20 168/88 H 98 01/12/20 07:55 75 23 H 100 01/12/20 06:00 103 H 01/12/20 04:00 36.1 C L 82 22 H 131/98 H 100 01/12/20 02:05 130 H 01/12/20 01:53 82 01/12/20 01:36 84 27 H 100 01/12/20 00:00 36.2 C L 68 20 141/68 H 99 01/11/20 23:43 95 21 H 100 01/11/20 22:00 103 H 01/11/20 20:32 92 01/11/20 20:14 91 20 96 01/11/20 20:00 94 28 H 97 01/11/20 18:59 37.1 C 99 22 H 154/84 H 95 Intake/Output Intake/Output: Intake & Output 01/09/20 01/10/20 01/11/20 01/12/20 23:59 23:59 23:59 23:59 Intake Total 1000 3080 4680 1140 Output Total 950 1150 1600 1350 Balance 50 1930 3080 -210 Meds/Results Medications: Active Medications Generic Name Dose Route Start Last Admin Trade Name Freq PRN Reason Stop Dose Admin Hydrocodone Bitart/Acetaminophen 1 tab 01/10/20 11:29 01/11/20 02:06 [place] 5-325 Mg PO 1 tab Q6H PRN Administration Pain Rated 4-6 Albuterol 5 mg 01/07/20 14:00 01/12/20 14:52 Albuterol Sulf Neb 2.5mg/0.5ml INHALATION 5 mg Q6HRT ANNA Administration Cyanocobalamin 1,000 mcg 01/12/20 09:00 01/12/20 12:29 Vitamin B-12 Tab PO 1,000 mcg QAM ANNA Administration Dornase [place] 2.5 mg 01/09/20 20:55 01/12/20 07:54 Pulmozyme INHALATION 2.5 mg Q12HRT ANNA Administration Duloxetine HCl 30 mg 01/09/20 09:00 01/12/20 12:29 Cymbalta PO 30 mg DAILY ANNA Administration Folic Acid 2 mg 01/12/20 09:00 01/12/20 12:29 Folic Acid PO 02/11/20 09:01 2 mg DAILY ANNA Administration Gabapentin 100 mg 01/08/20 17:21 01/12/20 17:37 Neurontin PO 100 mg BID ANNA Administration Vancomycin HCl 1,000 mg in 250 mls @ 250 mls/hr 01/07/20 13:00 01/12/20 12:5
--- NOTE | 2020-01-12 19:54 | PM.PNPUL ---
Progress Note: A&P Assessment and Plan (1) Pneumonia: Code(s): J18.9 - Pneumonia, unspecified organism Status: Acute (2) Collapse of left lung: Code(s): J98.11 - Atelectasis Status: Resolved Assessment and Plan: improved with Pulmozyme, antibiotics, positioning with good lung down, and efforts to re-inflate the collapsed left lung can attempt expiratory valve to mobilize secretions in the airways, prevent repeat collapse. 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 exposure Exam Narrative: Exam Narrative: General: WD/WN female in NAD Heart: normal S1 and S2; no rub Lungs: clear anteriorly but decreased at bases Abdomen: soft, nontender, nondistended, positive bowel sounds Extremities: crippling arthritis; 3 + edema, hands, legs, with erythemano cyanosis or clubbing; trace edema Skin: thin skin, pale; mwarm and intact Mouth; dry mouth, crowded tetth, like a bunny, Mallampti 4 Objective Data Vital Signs Vital Signs: Vital Signs - 24 hr 01/11/20 20:00 01/11/20 20:14 01/11/20 20:32 Temperature Pulse Rate 94 91 92 Respiratory Rate 28 H 20 Blood Pressure Pulse Oximetry 97 96 01/11/20 22:00 01/11/20 23:43 01/12/20 00:00 Temperature 36.2 C L Pulse Rate 103 H 95 68 Respiratory Rate 21 H 20 Blood Pressure 141/68 H Pulse Oximetry 100 99 01/12/20 01:36 01/12/20 01:53 01/12/20 02:05 Temperature Pulse Rate 84 82 130 H Respiratory Rate 27 H Blood Pressure Pulse Oximetry 100 01/12/20 04:00 01/12/20 06:00 01/12/20 07:55 Temperature 36.1 C L Pulse Rate 82 103 H 75 Respiratory Rate 22 H 23 H Blood Pressure 131/98 H Pulse Oximetry 100 100 01/12/20 08:00 01/12/20 08:05 01/12/20 10:00 Temperature 36.5 C Pulse Rate 85 77 95 Respiratory Rate 20 24 H Blood Pressure 168/88 H Pulse Oximetry 98 01/12/20 11:50 01/12/20 12:00 01/12/20 13:24 Temperature 36.4 C L Pulse Rate 88 87 90 Respiratory Rate 18 Blood Pressure 143/77 H Pulse Oximetry 99 01/12/20 14:00 01/12/20 14:52 01/12/20 15:02 Temperature Pulse Rate 87 99 97 Respiratory Rate 18 18 Blood Pressure Pulse Oximetry 01/12/20 16:00 01/12/20 18:00 Temperature 36.5 C Pulse Rate 97 95 Respiratory Rate 20 Blood Pressure 142/79 H Pulse Oximetry 94 Intake/Output Intake/Output: Intake & Output 01/09/20 01/10/20 01/11/20 01/12/20 23:59 23:59 23:59 23:59 Intake Total 1000 3080 4680 1260 Output Total 950 1150 1600 1350 Balance 50 1930 3080 -90 Meds/Results Medications: Active Medications Generic Name Dose Route Start Last Admin Trade Name Freq PRN Reason Stop Dose Admin Hydrocodone Bitart/Acetaminophen 1 tab 01/10/20 11:29 01/11/20 02:06 [place] 5-325 Mg PO 1 tab Q6H PRN Administration Pain Rated 4-6 Albuterol 5 mg 01/07/20 14:00 01/12/20 14:52 Albuterol Sulf Neb 2.5mg/0.5ml INHALATION 5 mg Q6HRT ANNA Administration Cyanocobalamin 1,000 mcg 01/12/20 09:00 01/12/20 12:29 Vitamin B-12 Tab PO 1,000 mcg QAM ANNA Administration Dornase [place] 2.5 mg 01/09/20 20:55 01/12/20 07:54 Pulmozyme INHALATION 2.5 mg Q12HRT ANNA Administration Duloxetine HCl 30 mg 01/09/20 09:00 01/12/20 12:29 Cymbalta PO 30 mg DAILY ANNA Administration Folic Acid 2 mg 01/12/20 09:00 01/12/20 12:29 Folic Acid PO 02/11/20 09:01 2 mg DAILY ANNA Administration Gabapentin 100 mg 01/08/20 17:21 01/12/20 17:37 Neurontin PO 100 mg BID ANNA Administration Vancomycin HCl 1,000 mg in 250
[2020-01-12 22:28] LABS: Hematocrit 30.8 % (37.0-47.0); Hemoglobin 9.3 g/dL (12.0-15.0)
[2020-01-13] VITALS (21 sets, daily range): BP systolic 107–147; BP diastolic 26–84; PULSE 72–100; RESP 16–26; TEMP 35.9–37.2; O2SAT 96–100
[2020-01-13] MEDS: ALBUTEROL SULFATE NEB 2.5 MG/0.5 ML INH 5 MG INHALATION ×4 (03:38→20:15)
[2020-01-13] MEDS: IPRATROPIUM BR 0.02% INH SOLN 0.5 MG/2.5 ML VIAL INHALATION ×4 (03:38→20:15)
[2020-01-13 03:46] LABS: Hematocrit 29.7 % (37.0-47.0); Hemoglobin 8.8 g/dL (12.0-15.0); Mean Corpuscular HGB Conc 29.6 g/dl (32-36); Mean Corpuscular Hemoglobin 27.4 pg (26-34); Mean Corpuscular Volume 92.5 fl (80-100); Mean Platelet Volume 10.4 fl (7.4-10.4); Platelet Count Result 207 k/mm3 (150-375); Red Blood Count 3.21 M/mm3 (4.2-5.4); White Blood Count 10.8 K/mm3 (4.5-10.0)
[2020-01-13 03:59] LABS: Albumin Level 2.5 g/dL (3.5-5.1); Anion Gap 4 mmol/L (8-16); Blood Urea Nitrogen 11 mg/dL (7-17); Calcium 7.8 mg/dL (8.4-10.2); Carbon Dioxide 22 mmol/L (22-30); Chloride 115 mmol/L (98-107); Estimated Glomerular Filt Rate 60; Glucose 92 mg/dL (65-105); Magnesium 2.3 mg/dL (1.6-2.3); Phosphorus 3.1 mg/dL (2.5-4.5); Potassium 4.4 mmol/L (3.4-5.0); Sodium 141 mmol/L (137-145)
[2020-01-13] MEDS: CENTRAL LINE FLUSH 10 ML IV PUSH ×3 (05:15→20:59)
[2020-01-13] MEDS: DORNASE ALFA INH SOLN 1 MG/ML 2.5 ML AMP 2.5 MG INHALATION ×2 (08:41→20:15)
--- NOTE | 2020-01-13 09:37 | PM.PNNEP ---
Progress Note: A&P Assessment and Plan (1) Acute kidney injury: Code(s): N17.9 - Acute kidney failure, unspecified Status: Acute Assessment and Plan: suspect etiology due to ATN from infection/sepsis of admission, urine retention, and possible volume depletion creatinine has improved to bettter than baseline continue supportive therapy (2) Chronic kidney disease, stage 3: Code(s): N18.3 - Chronic kidney disease, stage 3 (moderate) Status: Chronic Assessment and Plan: baseline creatinine seems to run ~ 1.2 - 1.4mg/dl due to hypertension, vascular disease, and age related change (3) Essential hypertension: Code(s): I10 - Essential (primary) hypertension Status: Acute Assessment and Plan: reasonabel control at this time follow hemodynamics (4) Urinary tract infection: Code(s): N39.0 - Urinary tract infection, site not specified Status: Acute Assessment and Plan: urine culture with Klebsiella on antibiotics (5) Chronic anemia: Code(s): D64.9 - Anemia, unspecified Status: Acute Assessment and Plan: likely due to MAGGIE, CKD, and acute illness consider checking iron studies however, if iron deficient, hesitant to give IV iron unless infection is cleared Not much else to add from renal perspective -- will continue to follow intermittently. Subjective Date/time seen: 01/13/20 09:37 Appears to be doing fairly well -- respiratory status seems stable; no acute issues or problems overnight or earlier this AM; pain control satisfactory; no apparent distress voiced at the time of my visit. Exam Narrative: Exam Narrative: General: WD/WN female in NAD Heart: normal S1 and S2; no rub Lungs: clear anteriorly but decreased at bases Abdomen: soft, nontender, nondistended, positive bowel sounds Extremities: no cyanosis or clubbing; trace edema in LEs; prominent edema in hands/UEs Skin: no rash Objective Data Vital Signs Vital Signs: Vital Signs Temp Pulse Resp BP Pulse Ox 01/13/20 08:53 85 18 01/13/20 08:45 85 98 01/13/20 08:44 85 18 01/13/20 08:39 36.7 C 90 26 H 127/26 L 99 01/13/20 06:00 83 01/13/20 04:00 36.6 C 100 18 147/80 H 97 01/13/20 03:39 72 21 H 100 01/13/20 02:00 72 01/13/20 00:00 75 22 H 97 01/12/20 23:44 36.7 C 75 22 H 162/80 H 97 01/12/20 22:00 85 01/12/20 21:16 80 18 01/12/20 21:02 93 18 95 01/12/20 20:00 91 20 96 01/12/20 19:57 36.6 C 91 20 158/89 H 96 01/12/20 18:00 95 01/12/20 16:00 36.5 C 97 20 142/79 H 94 01/12/20 15:02 97 18 01/12/20 14:52 99 18 01/12/20 14:00 87 01/12/20 13:24 90 01/12/20 12:00 87 01/12/20 11:50 36.4 C L 88 18 143/77 H 99 01/12/20 10:00 95 Intake/Output Intake/Output: Intake & Output 01/10/20 01/11/20 01/12/20 01/13/20 23:59 23:59 23:59 23:59 Intake Total 3080 4680 1260 100 Output Total 1150 1600 1350 600 Balance 1930 3080 -90 -500 Meds/Results Medications: Active Medications Generic Name Dose Route Start Last Admin Trade Name Freq PRN Reason Stop Dose Admin Hydrocodone Bitart/Acetaminophen 1 tab 01/10/20 11:29 01/11/20 02:06 [place] 5-325 Mg PO 1 tab Q6H PRN Administration Pain Rated 4-6 Albuterol 5 mg 01/07/20 14:00 01/13/20 08:41 Albuterol Sulf Neb 2.5mg/0.5ml INHALATION 5 mg Q6HRT ANNA Administration Cyanocobalamin 1,000 mcg 01/12/20 09:00 01/12/20 12:29 Vitamin B-12 Tab PO 1,000 mcg QAM ANNA Administration Dornase [place] 2.5 mg 01/09/20 20:55 01/13/20 08:41 Pulmozyme INHALATION 2.5 mg Q12HRT ANNA Administration Duloxetine HCl 30 mg 01/09/20 09:00 01/12/20 12:29 Cymbalta PO 30 mg DAILY ANNA Administration Folic Acid 2 mg 01/12/20 09:00 01/12/20 12:29 Folic Acid PO 02/11/20 09:01 2 mg DAILY ANNA Administration Gabapentin 100 mg 0
[2020-01-13] MEDS: CYANOCOBALAMIN 1,000 MCG TABLET 1000 MCG PO (10:22)
[2020-01-13] MEDS: FOLIC ACID 1 MG TABLET 2 MG PO (10:22)
[2020-01-13] MEDS: DULoxetine HCL 30 MG CAPSULE.DR PO (10:22)
[2020-01-13] MEDS: LIDOCAINE 5% PATCH 1 PATCH TRANSDERM (10:23)
[2020-01-13] MEDS: GABAPENTIN 100 MG CAPSULE PO ×2 (10:23→16:26)
[2020-01-13] MEDS: PANTOPRAZOLE 40 MG TABLET PO (10:23)
[2020-01-13] MEDS: NEBIVOLOL HCL 5 MG TABLET 10 MG PO (10:23)
[2020-01-13] MEDS: predniSONE 10 MG TABLET PO (10:23)
[2020-01-13] MEDS: SACCHAROMYCES BOULARDII 250 MG CAPSULE PO ×2 (10:23→16:26)
--- NOTE | 2020-01-13 14:41 | PC.NURSE ---
This patient, Yamini Muñoz, was transferred to [[id number]] on 01/13/20 at 1441. Personal belongings sent with patient. Belongings list checked and signed with receiving [ ]. Report given to [STEPHANIE LOUIS]. Appropriate documentation sent with patient.
--- NOTE | 2020-01-13 14:43 | PCPTNOTE ---
Attempted therapy session, Pt was in transferring rooms. Will attempt again.
--- NOTE | 2020-01-13 15:02 | PC.NURSE ---
This patient, Yamini Muñoz, was received from IMU on 01/13/20 at 1450. Personal belongings list checked and signed. Patient oriented to unit policies and routines
--- NOTE | 2020-01-13 15:25 | PM.IMPN ---
Progress Note: A&P Assessment and Plan (1) Severe sepsis: Code(s): A41.9 - Sepsis, unspecified organism; R65.20 - Severe sepsis without septic shock Status: Acute Assessment and Plan: Patient with severe sepsis with acute kidney injury, altered mental status and leukocytosis. White count increased at 38,000 but back to normal. Hemoglobin has dropped to 6.1. No evidence of acute blood loss. Transfused . Stool guaiac negative. Hgb stable at 8.8 (2) Anemia: Code(s): D64.9 - Anemia, unspecified Status: Acute Assessment and Plan: Hemoglobin has dropped to 6.1. No evidence of acute blood loss. Stool guaiac negative. Hgb chronically low in mostly the 7-9 range. B12 and folate levels normal. Iron studies consistent with anemia of chronic disease related to her RA and possibly medications. Transfused and hgb today 8.8 (3) Acute respiratory failure with hypoxia: Code(s): J96.01 - Acute respiratory failure with hypoxia Status: Acute Assessment and Plan: Patient states that she was minimally short of breath on admission. She is not on oxygen chronically but has a history of requiring oxygen few years ago. Unclear if this is still an issue; may have undiagnosed sleep apnea. was on BiPAP but able to be weaned to NC. Abd US showing no acute process. CT Chest as mentioned below. CT A/P showing no acute process. Patient does have immune deficiency with a very low IgG and IgM levels in February 2019 but repeat here only shows low IgG level. Speech therapy evaluated her again yesterday and today and advanced to 4 gm sodium (4) Pneumonia: Code(s): J18.9 - Pneumonia, unspecified organism Status: Acute Assessment and Plan: Patient is immunosuppressed. CXR on admission showing minimal airspace opacities of the lung bases, likely atelectasis. CXR repeated 01/06 showing patchy RLL airspace disease and prominent LLL findings concerning for possible obstructive lesion. Abx started with Cefepime and Vanco. Was going to change to primaxin (hx of ESBL) but renal function too poor for the use of Primaxin. COVID negative. BCx NGTD. EKG reviewed showing T-wave inversions in the lateral and high lateral leads but Trop essentially negative. Echo showing possible basal inferior wall HK with EF 70% and Grade I diastolic dysfunction. She'll need cardiac evaluation at some point. Obtained CT of the chest which showed extensive mucus impacted left tracheobronchial system with nearly complete left lung collapse. BiPAP resumed and RN called to have patietn right side down. Pulmozyme added. Pulm seeing CXR yesterday showing improved aeration of the left lung. Continue CPT. Continue abx(D#8) and neb treatments. (5) Hallucination: Code(s): R44.3 - Hallucinations, unspecified Status: Acute Assessment and Plan: Symptoms present prior to admission. Etiology unclear but felt related to the sepsis from the PNA. CT brain showing no acute findings. Patient has tenderness to her neck but felt is more musculoskeletal. She has been off her narcotics which could also result in hallucinations. More likely this is toxic encephalopathy related to infectious process from PNA. She is having persistent hallucinations past 2 days. Will continue to follow. Reluctant to add back too many narcotics but she does have Norce available as neede (6) MAGGIE (acute kidney injury): Code(s): N17.9 - Acute kidney failure, unspecified Status: Acute Assessment and Plan: Cr 1.7 on admission but improved to 1.6 before climbing to 3.5 (unclear if the 2.8 is accurate). Do not feel she has UTI given the relatively normal UA on admission. Renal US showing medical renal disease. Probably related to ATN from the severe sepsis. Started on IV fluids and Cr trending down to 0,9 today. (7) Rheumatoid arthritis: Qualifiers: Rheumatoid arthritis loc
[2020-01-13 20:03] LABS: Complement Total CH50 >60 U/mL (31-60)
[2020-01-13] MEDS: DABIGATRAN ETEXILATE 150 MG CAPSULE PO (20:59)
[2020-01-14] VITALS (18 sets, daily range): BP systolic 121–142; BP diastolic 60–70; PULSE 71–96; RESP 16–20; TEMP 36.1–37.2; O2SAT 94–99
[2020-01-14] MEDS: IPRATROPIUM BR 0.02% INH SOLN 0.5 MG/2.5 ML VIAL INHALATION ×4 (03:21→20:33)
[2020-01-14] MEDS: ALBUTEROL SULFATE NEB 2.5 MG/0.5 ML INH 5 MG INHALATION ×4 (03:21→20:33)
[2020-01-14 05:13] LABS: Basophils Percent Auto 0.3 % (0.2-1.2); Eosinophils Absolute Auto 0.1 K/mm3 (0-0.3); Eosinophils Percent Auto 1.3 % (0-4.4); Hematocrit 28.1 % (37.0-47.0); Hemoglobin 8.5 g/dL (12.0-15.0); Immature Granulocyte Absolute 0.15 K/mm3 (0.00-0.031); Immature Granulocyte Percent A 1.3 % (0-0.5); Lymphocytes Absolute Auto 3.13 K/mm3 (0.9-3.2); Mean Corpuscular HGB Conc 30.2 g/dl (32-36); Mean Corpuscular Hemoglobin 27.7 pg (26-34); Mean Corpuscular Volume 91.5 fl (80-100); Mean Platelet Volume 10.4 fl (7.4-10.4); Monocytes Absolute Auto 0.7 K/mm3 (0.1-0.6); Monocytes Percent Auto 6.3 % (2.6-8.5); Neutrophils Percent Auto 62.8 % (45.5-73.1); Platelet Count Result 212 k/mm3 (150-375); Red Blood Count 3.07 M/mm3 (4.2-5.4); Red Cell Distribution Width 19.1 % (11.5-14.5); White Blood Count 11.2 K/mm3 (4.5-10.0)
[2020-01-14 05:38] LABS: Anion Gap 2 mmol/L (8-16); Blood Urea Nitrogen 11 mg/dL (7-17); Calcium 7.7 mg/dL (8.4-10.2); Carbon Dioxide 24 mmol/L (22-30); Chloride 111 mmol/L (98-107); Estimated Glomerular Filt Rate 60; Glucose 83 mg/dL (65-105); Potassium 4.2 mmol/L (3.4-5.0); Sodium 137 mmol/L (137-145)
[2020-01-14] MEDS: CENTRAL LINE FLUSH 10 ML IV PUSH ×3 (08:16→20:55)
[2020-01-14] MEDS: PANTOPRAZOLE 40 MG TABLET PO (08:16)
[2020-01-14] MEDS: NEBIVOLOL HCL 5 MG TABLET 10 MG PO (08:17)
[2020-01-14] MEDS: LIDOCAINE 5% PATCH 1 PATCH TRANSDERM (08:17)
[2020-01-14] MEDS: SACCHAROMYCES BOULARDII 250 MG CAPSULE PO ×2 (08:18→17:38)
[2020-01-14] MEDS: GABAPENTIN 100 MG CAPSULE PO ×2 (08:18→17:38)
[2020-01-14] MEDS: predniSONE 10 MG TABLET PO (08:19)
[2020-01-14] MEDS: DABIGATRAN ETEXILATE 150 MG CAPSULE PO ×2 (08:19→20:56)
[2020-01-14] MEDS: FOLIC ACID 1 MG TABLET 2 MG PO (08:19)
[2020-01-14] MEDS: DULoxetine HCL 30 MG CAPSULE.DR PO (08:19)
[2020-01-14] MEDS: CYANOCOBALAMIN 1,000 MCG TABLET 1000 MCG PO (08:19)
[2020-01-14] MEDS: DORNASE ALFA INH SOLN 1 MG/ML 2.5 ML AMP 2.5 MG INHALATION ×2 (09:38→20:42)
[2020-01-14 14:11] LABS: SARS-CoV-2 RNA PCR Negative
--- NOTE | 2020-01-14 15:24 | PM.IMPN ---
Progress Note: A&P Assessment and Plan (1) Severe sepsis: Code(s): A41.9 - Sepsis, unspecified organism; R65.20 - Severe sepsis without septic shock Status: Acute Assessment and Plan: Patient with severe sepsis with acute kidney injury, altered mental status and leukocytosis. White count increased at 38,000 but back to normal. Hemoglobin has dropped to 6.1. No evidence of acute blood loss. Transfused . Stool guaiac negative. Hgb stable at 8.5 (2) Anemia: Code(s): D64.9 - Anemia, unspecified Status: Acute Assessment and Plan: Hemoglobin has dropped to 6.1. No evidence of acute blood loss. Stool guaiac negative. Hgb chronically low in mostly the 7-9 range. B12 and folate levels normal. Iron studies consistent with anemia of chronic disease related to her RA and possibly medications. Transfused and hgb today 8.5 (3) Acute respiratory failure with hypoxia: Code(s): J96.01 - Acute respiratory failure with hypoxia Status: Acute Assessment and Plan: Patient states that she was minimally short of breath on admission. She is not on oxygen chronically but has a history of requiring oxygen few years ago. Unclear if this is still an issue; may have undiagnosed sleep apnea. was on BiPAP but able to be weaned to NC. Abd US showing no acute process. CT Chest as mentioned below. CT A/P showing no acute process. Patient does have immune deficiency with a very low IgG and IgM levels in February 2019 but repeat here only shows low IgG level. Speech therapy evaluated her again 01/11 and 01/12 and advanced to 4 gm sodium (4) Pneumonia: Code(s): J18.9 - Pneumonia, unspecified organism Status: Acute Assessment and Plan: Patient is immunosuppressed. CXR on admission showing minimal airspace opacities of the lung bases, likely atelectasis. CXR repeated 01/06 showing patchy RLL airspace disease and prominent LLL findings concerning for possible obstructive lesion. Abx started with Cefepime and Vanco. Was going to change to primaxin (hx of ESBL) but renal function too poor for the use of Primaxin. COVID negative. BCx NGTD. EKG reviewed showing T-wave inversions in the lateral and high lateral leads but Trop essentially negative. Echo showing possible basal inferior wall HK with EF 70% and Grade I diastolic dysfunction. She'll need cardiac evaluation at some point. Obtained CT of the chest which showed extensive mucus impacted left tracheobronchial system with nearly complete left lung collapse. BiPAP resumed and RN called to have patietn right side down. Pulmozyme added. Pulm seeing CXR yesterday showing improved aeration of the left lung. Continue CPT. Continue abx(D#9) and neb treatments. (5) Hallucination: Code(s): R44.3 - Hallucinations, unspecified Status: Acute Assessment and Plan: Symptoms present prior to admission. Etiology unclear but felt related to the sepsis from the PNA. CT brain showing no acute findings. Patient has tenderness to her neck but felt is more musculoskeletal. She has been off her narcotics which could also result in hallucinations. More likely this is toxic encephalopathy related to infectious process from PNA. Much more lucent today. Will continue to follow. Reluctant to add back too many narcotics but she does have Norce available as neede (6) MAGGIE (acute kidney injury): Code(s): N17.9 - Acute kidney failure, unspecified Status: Acute Assessment and Plan: Cr 1.7 on admission but improved to 1.6 before climbing to 3.5 (unclear if the 2.8 is accurate). Do not feel she has UTI given the relatively normal UA on admission. Renal US showing medical renal disease. Probably related to ATN from the severe sepsis. Started on IV fluids and Cr trending down to 0.9 again today. (7) Rheumatoid arthritis: Qualifiers: Rheumatoid arthritis location: unspecified site [facility]
[2020-01-14 15:27] LABS: Kappa\\Lambda Light Chains 1.49 (0.26-1.65); Lambda Light Chain 25.3 mg/L (5.7-26.3)
--- NOTE | 2020-01-14 15:58 | PCDIET ---
Nutrition Follow-Up Complete: Inadequate Oral Intake as related to pneumonia as evidenced by poor po intake and weight loss reported of 2-13 ibs in the past 3 months. Meet estimated nutritional needs Goal: Progressing towards goal. Continue current goal Pt current nutrition is 4gm Na +Ensure compact Nutrition recommendation: Agree Last recorded weight is 66.5 kg (up from admit wt of 65kg) Bowel Motility:colostomy + 11 Labs Reviewed: WBC 11.2 Meds Noted:Cefepime, Folic Acid, B12, Prednisone, Vanc, S Boulardi Additional Notes: Pt states appetite is getting better. Her intake was 30% over last five meals, but 45% average over the last two meals. She is drinking her Ensure and liking it. One Ensure compact provides 220 kcal, 9 g protein, 32g CHO, 26 essential vitamins and minerals, and is an excellent source of plant based omega 3 fatty acids ALA. Weight is remaining stable. We will continue to monitor PO intake and wt every five days.
--- NOTE | 2020-01-14 21:11 | PM.PNPUL ---
Subjective Date/time seen: 01/14/20 21:11 This 79 yo female is seen in Room 241 in follow up for hallucinations and coughing, still has small amounts of clear sputum. She is using the Cornet valve, still has a wet cough. Has a PICC in her thigh, so is not able to walk while it is in. Room air. Review of Systems Review of Systems: All systems reviewed & are unremarkable except as noted in HPI and below Exam Narrative: Exam Narrative: General: THis 79 yo female is alert, not in distress, on room air, moist cough. Heart: normal S1 and S2; no rub no murmur Lungs: moist rhonchi in the central airways; clear anteriorly, decreased at bases Abdomen: soft, nontender, nondistended, positive bowel sounds Extremities: crippling arthritis; 3 + edema, hands, legs, with erythema; no cyanosis or clubbing; trace edema Skin: thin skin, pale; warm. She has a blister on the left dorsum of the foot with old blood. This is new. She says that this happened when she fell at home. Mouth; dry mouth, crowded teeth, like a bunny, Mallampati 4 Objective Data Vital Signs Vital Signs: Vital Signs - 24 hr 01/14/20 02:17 01/14/20 03:03 01/14/20 03:21 Temperature 36.1 C L Pulse Rate 82 71 71 Respiratory Rate 16 17 17 Blood Pressure 137/69 Pulse Oximetry 96 98 01/14/20 03:28 01/14/20 05:27 01/14/20 08:17 Temperature 36.4 C L Pulse Rate 73 96 96 Respiratory Rate 16 16 Blood Pressure 142/64 H Pulse Oximetry 94 01/14/20 08:19 01/14/20 09:41 01/14/20 09:43 Temperature Pulse Rate 73 79 Respiratory Rate 16 16 Blood Pressure Pulse Oximetry 98 96 01/14/20 09:46 01/14/20 10:00 01/14/20 14:05 Temperature 37.2 C 36.6 C Pulse Rate 72 84 77 Respiratory Rate 16 18 18 Blood Pressure 132/64 127/60 Pulse Oximetry 98 98 01/14/20 15:06 01/14/20 18:00 01/14/20 20:33 Temperature 36.9 C Pulse Rate 78 75 73 Respiratory Rate 16 16 20 Blood Pressure 121/64 Pulse Oximetry 99 08/12/20 20:36 01/14/20 20:46 Temperature Pulse Rate 73 73 Respiratory Rate 20 Blood Pressure Pulse Oximetry 94 Intake/Output Intake/Output: Intake & Output 01/11/20 01/12/20 01/13/20 01/14/20 23:59 23:59 23:59 23:59 Intake Total 4680 1620 747 6497 Output Total 1600 4992 430 5820 Balance 3080 210 45 230 Meds/Results Medications: Active Medications Generic Name Dose Route Start Last Admin Trade Name Freq PRN Reason Stop Dose Admin Hydrocodone Bitart/Acetaminophen 1 tab 01/10/20 11:29 01/14/20 19:36 [place] 5-325 Mg PO 1 tab Q6H PRN Administration Pain Rated 4-6 Albuterol 5 mg 01/07/20 14:00 01/14/20 20:33 Albuterol Sulf Neb 2.5mg/0.5ml INHALATION 5 mg Q6HRT ANNA Administration Cyanocobalamin 1,000 mcg 01/12/20 09:00 01/14/20 08:19 Vitamin B-12 Tab PO 1,000 mcg QAM ANNA Administration Dabigatran 150 mg 01/13/20 21:00 01/14/20 20:56 Pradaxa PO 150 mg Q12HR ANNA Administration Dornase [place] 2.5 mg 01/09/20 20:55 01/14/20 20:42 Pulmozyme INHALATION 2.5 mg Q12HRT ANNA Administration Duloxetine HCl 30 mg 01/09/20 09:00 01/14/20 08:19 Cymbalta PO 30 mg DAILY ANNA Administration Folic Acid 2 mg 01/12/20 09:00 01/14/20 08:19 Folic Acid PO 02/11/20 09:01 2 mg DAILY ANNA Administration Gabapentin 100 mg 01/08/20 17:21 01/14/20 17:38 Neurontin PO 100 mg BID ANNA Administration Vancomycin HCl 1,000 mg in 250 mls @ 250 mls/hr 01/07/20 13:00 01/14/20 13:40 Vancomycin 1,000 Mg/D5w 250 Ml IVPB Infused Q24H ANNA Infusion Cefepime HCl 2 gm in 50 mls @ 100 mls/hr 01/09/20 12:00 01/14/20 12:25 Maxipime 2 Gm/D5w 50 Ml IVPB Infused Q24H ANNA Infusion Ipratropium [place] 0.5 mg 01/10/20 02:00 01/14/20 20:33 Atrovent Neb INHALATION 0.5 mg Q6HRT ANNA Administration Lidocaine 1 patch 01/07/20 09:00 01/14/20 08:17 Lidoderm TRANSDERM 1 patch DAILY ANNA Administration Lidocaine 1 patch 01/11/20 14:47
[2020-01-15] VITALS (11 sets, daily range): BP systolic 106–155; BP diastolic 63–93; PULSE 73–83; RESP 16–22; TEMP 36.1–36.8; O2SAT 95–98
[2020-01-15] MEDS: ALBUTEROL SULFATE NEB 2.5 MG/0.5 ML INH 5 MG INHALATION ×3 (02:21→13:34)
[2020-01-15] MEDS: IPRATROPIUM BR 0.02% INH SOLN 0.5 MG/2.5 ML VIAL INHALATION ×3 (02:21→13:34)
[2020-01-15] MEDS: CENTRAL LINE FLUSH 20 ML IV PUSH (05:10)
[2020-01-15] MEDS: CENTRAL LINE FLUSH 10 ML IV PUSH ×2 (05:10→14:00)
[2020-01-15 05:34] LABS: Estimated Glomerular Filt Rate > 60
[2020-01-15] MEDS: DORNASE ALFA INH SOLN 1 MG/ML 2.5 ML AMP 2.5 MG INHALATION (07:50)
[2020-01-15] MEDS: PANTOPRAZOLE 40 MG TABLET PO (08:23)
[2020-01-15] MEDS: SACCHAROMYCES BOULARDII 250 MG CAPSULE PO ×2 (08:23→16:16)
[2020-01-15] MEDS: LIDOCAINE 5% PATCH 1 PATCH TRANSDERM (08:24)
[2020-01-15] MEDS: NEBIVOLOL HCL 5 MG TABLET 10 MG PO (08:24)
[2020-01-15] MEDS: FOLIC ACID 1 MG TABLET 2 MG PO (08:24)
[2020-01-15] MEDS: CYANOCOBALAMIN 1,000 MCG TABLET 1000 MCG PO (08:25)
[2020-01-15] MEDS: predniSONE 10 MG TABLET PO (08:25)
[2020-01-15] MEDS: GABAPENTIN 100 MG CAPSULE PO ×2 (08:25→16:16)
[2020-01-15] MEDS: DULoxetine HCL 30 MG CAPSULE.DR PO (08:25)
[2020-01-15] MEDS: DABIGATRAN ETEXILATE 150 MG CAPSULE PO (08:25)
[2020-01-15] MEDS: NEOMYCIN/POLYMYXIN/BACITRACIN OINTMENT PACKET 1 PACKET TOPICAL (14:00)
--- NOTE | 2020-01-16 18:25 | PM.DS ---
DS: Admitting Diagnosis Admitting Diagnosis Admitting Diagnosis: PNEUMONIA,HYPOXEMIA,HALLUCINATIONS DS: Discharge Diagnosis Discharge Diagnosis (1) Severe sepsis: Code(s): A41.9 - Sepsis, unspecified organism; R65.20 - Severe sepsis without septic shock Status: Acute Assessment and Plan: Patient with severe sepsis with acute kidney injury, altered mental status and leukocytosis. White count increased at 38,000 but back to normal. Hemoglobin has dropped to 6.1. No evidence of acute blood loss. Transfused . Stool guaiac negative. Hgb stable at 8.5 day before discharge (2) Anemia: Code(s): D64.9 - Anemia, unspecified Status: Acute Assessment and Plan: Hemoglobin has dropped to 6.1. No evidence of acute blood loss. Stool guaiac negative. Hgb chronically low in mostly the 7-9 range. B12 and folate levels normal. Iron studies consistent with anemia of chronic disease related to her RA and possibly medications. Transfused and hgb 8.5 day before discharge (3) Acute respiratory failure with hypoxia: Code(s): J96.01 - Acute respiratory failure with hypoxia Status: Acute Assessment and Plan: Patient states that she was minimally short of breath on admission. She is not on oxygen chronically but has a history of requiring oxygen few years ago. Unclear if this is still an issue; may have undiagnosed sleep apnea. was on BiPAP but able to be weaned to [place]. Abd US showing no acute process. CT Chest as mentioned below. CT A/P showing no acute process. Patient does have immune deficiency with a very low IgG and IgM levels in February 2019 but repeat here only shows low IgG level. Speech therapy evaluated her again 01/11 and 01/12 and advanced to 4 gm sodium saturating 96% on room air at discharge (4) Pneumonia: Code(s): J18.9 - Pneumonia, unspecified organism Status: Acute Assessment and Plan: Patient is immunosuppressed. CXR on admission showing minimal airspace opacities of the lung bases, likely atelectasis. CXR repeated 01/06 showing patchy RLL airspace disease and prominent LLL findings concerning for possible obstructive lesion. Abx started with Cefepime and Vanco. Was going to change to primaxin (hx of ESBL) but renal function too poor for the use of Primaxin. COVID negative. BCx NGTD. EKG reviewed showing T-wave inversions in the lateral and high lateral leads but Trop essentially negative. Echo showing possible basal inferior wall HK with EF 70% and Grade I diastolic dysfunction. She'll need cardiac evaluation at some point. Obtained CT of the chest which showed extensive mucus impacted left tracheobronchial system with nearly complete left lung collapse. BiPAP resumed and RN called to have patient right side down. Pulmozyme added. Pulm seeing CXR before discharge showing improved aeration of the left lung. . finished antibiotics abx(D#9) while here . (5) Hallucination: Code(s): R44.3 - Hallucinations, unspecified Status: Acute Assessment and Plan: Symptoms present prior to admission. Etiology unclear but felt related to the sepsis from the PNA. CT brain showing no acute findings. . She has been off her narcotics which could also result in hallucinations. More likely this is toxic encephalopathy related to infectious process from PNA. Much more lucent 48 hours to 72 hours prior to discharge (6) MAGGIE (acute kidney injury): Code(s): N17.9 - Acute kidney failure, unspecified Status: Acute Assessment and Plan: Cr 1.7 on admission but improved to 1.6 before climbing to 3.5 (unclear if the 2.8 is accurate). Do not feel she has UTI given the relatively normal UA on admission. Renal US showing medical renal disease. Probably related to ATN from the severe sepsis. Started on IV fluids and Cr trending down to 0.9 day before discharge. (7) Rheumatoid arthritis: Qualifiers:
== END 2020-01-15 16:45 | DRG 871 ==
LOC: ANHED 13:51 → ANH3MEDSUR 13:58 → ANHIMU 01-12 07:57 → ANH2MED 01-14 07:33 → ANH3MEDSUR 01-16 09:02 → ANHIMU 01-16 09:02
PROVIDERS: Emergency Medicine Emergency Medical Services; Internal Medicine; Internal Medicine Nephrology; Admitting Provider Internal Medicine; Emergency Provider General Practice; PCP Internal Medicine; Visit Provider Internal Medicine
DX: A41.9 Sepsis, unspecified organism (principal); J96.01 Acute respiratory failure with hypoxia; J18.9 Pneumonia, unspecified organism; N17.0 Acute kidney failure with tubular necrosis; S32.019A Unspecified fracture of first lumbar vertebra, initial encounter for closed fracture; R44.3 Hallucinations, unspecified; J98.11 Atelectasis; R65.20 Severe sepsis without septic shock; Z20.828 Contact with and (suspected) exposure to other viral communicable diseases; I48.0 Paroxysmal atrial fibrillation; I12.9 Hypertensive chronic kidney disease with stage 1 through stage 4 chronic kidney disease, or unspecified chronic kidney disease; M06.9 Rheumatoid arthritis, unspecified; N18.3 Chronic kidney disease, stage 3 (moderate); D63.8 Anemia in other chronic diseases classified elsewhere; D63.1 Anemia in chronic kidney disease; G89.4 Chronic pain syndrome; K21.9 Gastro-esophageal reflux disease without esophagitis; M19.90 Unspecified osteoarthritis, unspecified site; M81.0 Age-related osteoporosis without current pathological fracture; E03.9 Hypothyroidism, unspecified; I25.10 Atherosclerotic heart disease of native coronary artery without angina pectoris; E78.5 Hyperlipidemia, unspecified; D72.829 Elevated white blood cell count, unspecified; E53.8 Deficiency of other specified B group vitamins; K57.90 Diverticulosis of intestine, part unspecified, without perforation or abscess without bleeding; Z66 Do not resuscitate; Z91.81 History of falling; Z98.42 Cataract extraction status, left eye; Z98.41 Cataract extraction status, right eye; Z90.49 Acquired absence of other specified parts of digestive tract; Z79.01 Long term (current) use of anticoagulants; W19.XXXA Unspecified fall, initial encounter; R33.9 Retention of urine, unspecified
CPT/HCPCS: 36415; 36430; 36569; 36600; 51701; 70450; 71045; 71250; 72072; 72100; 72125; 72131; 74176; 76700; 80048; 80053; 80069; 80076; 80202; 81001; 81003; 82274; 82375; 82550; 82565; 82570; 82607; 82728; 82746; 82784; 82805; 83050; 83540; 83550; 83605; 83690; 83735; 83883; 84100; 84156; 84300; 84443; 84484; 85014; 85018; 85025; 85027; 85610; 85652; 85730; 85999; 86038; 86140; 86160; 86162; 86334; 86335; 86850; 86900; 86901; 86923; 87040; 87070; 87205; 87635; 92507; 92526; 92610; 93005; 93306; 94002; 94003; 94640; 94667; 94668; 94669; 96361; 96365; 96367; 96375; 96376; 97110; 97162; 97165; 97530; 97535; 99284; 99285; A9270; C1751; C9803; G0378; J0131; J0456; J0692; J0696; J1940; J3370; J3475; J7030; J7040; J7050; J7512; P9016; Q9957; U0003

== ENCOUNTER 2020-02-01 18:44 | Inpatient (IN) | payer MEDICARE, SELFPAY ==
[2020-02-01] VITALS (19 sets, daily range): BP systolic 117–144; BP diastolic 60–112; PULSE 72–82; RESP 11–22; TEMP 35.9–36.4; O2SAT 85–100; BMI 32.5
--- NOTE | ~2020-02-01 | XR_ITS ---
XR chest 1V 02/01/2020 20:13 Indication: Shortness of breath. Leg swelling. Procedure: AP portable chest Comparison: Comparison to multiple prior studies sequentially, with oldest reviewed study dated 09/2019. Findings: There is elevation of the right diaphragm. There is unchanged atelectasis/scarring right mi dlung. Left lung clear. No pleural effusion, edema or pneumothorax. There are degenerative changes of the shoulders with probable rotator cuff tears. Impression: 1: Linear atelectasis/scarring right mid lung unchanged. Reviewed, dictated and finalized at location A. Impression: 1: Linear atelectasis/scarring right mid lung unchanged.
--- NOTE | ~2020-02-01 | CT_ITS ---
EXAMINATION: CT brain wo con DATE: 02/01/2020 20:07 INDICATION: Altered mental status. Hallucinations. TECHNIQUE: Computed tomography (CT) of the head was performed without intravenous contrast. The dose- length product was 605.33 mGy-cm. The mA was adjusted according to patient size. Iterative reconstruc tion technique was employed. COMPARISON: CT dated 01/07/2020 FINDINGS: Chronic left occipital lobe infarction. Generalized atrophy. There are scattered moderate p eriventricular and subcortical white matter changes, most likely related to small vessel ischemic dis ease (microangiopathy). There is a small calcified left frontal extra-axial mass measuring 7 mm, comp atible with meningioma. No ventriculomegaly or midline shift. There is intracranial atherosclerosis. IMPRESSION: 1. No acute intracranial abnormality. No significant change. Reviewed, dictated and finalized at location A.
--- NOTE | 2020-02-01 18:54 | ECG_ITS ---
Measurements Intervals [place] Rate: 81 P: 33 [place]: 134 QRS: 24 QRSD: 94 T: 180 QT: 373 QTc: 435 Interpretive Statements SINUS RHYTHM BORDERLINE T WAVE ABNORMALITY- DIFFUSE LEADS BASELINE ARTIFACT- I, II, III, AVR, AVF, V1-V4 BORDERLINE ECG Electronically Signed On 02-02-2020 7:10:56 CDT by Odilon Swift D.O.
[2020-02-01 19:29] LABS: Add Urine Microscopic? YES; Appearance Urine Turbid (Clear); Bacteria Urine 2+ /hpf; Bilirubin Urine Negative (Negative); Blood Urine 1+ (Negative); Color Urine Yellow (Yellow); Glucose Urine UA Negative (Negative); Ketones Urine Negative (Negative); Leukocyte Esterase Ur 2+ LEU/UL (Negative); Mucus Urine Heavy /lpf; Nitrate Urine Negative (Negative); Protein Urine 2+ mg/dL (Negative); RBC Urine 21-50 /hpf (0-2); Specific Grav Ur 1.013 (1.001-1.035); Urobilinogen Urine Negative mg/dL (<2.0); WBC Clumps Urine Present /HPF; WBC Urine >75 /hpf
--- NOTE | 2020-02-01 19:39 | PC.NURSE ---
unable to draw blood at this time. RN X 2 attempts x 4; tech x 2 attempts x 2 ; phlebotomy unable to find anything at this time either. ERP made aware.
[2020-02-01 20:51] LABS: Basophils Percent Auto 0.2 % (0.2-1.2); Eosinophils Absolute Auto 0.3 K/mm3 (0-0.3); Eosinophils Percent Auto 2.3 % (0-4.4); Hematocrit 36.7 % (37.0-47.0); Hemoglobin 10.6 g/dL (12.0-15.0); Immature Granulocyte Absolute 0.09 K/mm3 (0.00-0.031); Immature Granulocyte Percent A 0.7 % (0-0.5); Lymphocytes Absolute Auto 3.96 K/mm3 (0.9-3.2); Mean Corpuscular HGB Conc 28.9 g/dl (32-36); Mean Corpuscular Hemoglobin 27.2 pg (26-34); Mean Corpuscular Volume 94.3 fl (80-100); Mean Platelet Volume 10.3 fl (7.4-10.4); Monocytes Absolute Auto 0.4 K/mm3 (0.1-0.6); Monocytes Percent Auto 3.2 % (2.6-8.5); Neutrophils Absolute Auto 8.8 K/mm3 (1.3-6.7); Neutrophils Percent Auto 64.6 % (45.5-73.1); Nucleated Red Blood Cells Perc 0.1 % (0.0-0.2); Platelet Count Result 216 k/mm3 (150-375); Red Blood Count 3.89 M/mm3 (4.2-5.4); Red Cell Distribution Width 18.8 % (11.5-14.5); White Blood Count 13.6 K/mm3 (4.5-10.0)
[2020-02-01 21:02] LABS: INR 1.4; Prothrombin Time 16.5 Seconds (11.1-14.7)
[2020-02-01 21:03] LABS: Lactic Acid Reflex 1.3 mmol/L (0.7-2.1)
[2020-02-01 21:04] LABS: Hypochromasia 2+ (NORMAL); Platelet Estimate Adequate (Adequate)
[2020-02-01 21:14] LABS: NT Pro B Type Natriuretic Pept 1110 PG/ML (5-100)
[2020-02-01 21:36] LABS: Alanine Aminotransferase 16 U/L (4-35); Albumin Level 3.4 g/dL (3.5-5.1); Alkaline Phosphatase 137 U/L (38-126); Anion Gap 8 mmol/L (8-16); Aspartate Amino Transferase 27 U/L (14-36); Bilirubin,Total 1.2 mg/dL (0.2-1.3); Blood Urea Nitrogen 40 mg/dL (7-17); Calcium 8.5 mg/dL (8.4-10.2); Carbon Dioxide 33 mmol/L (22-30); Chloride 97 mmol/L (98-107); Estimated Glomerular Filt Rate 19; Glucose 117 mg/dL (65-105); Potassium 3.3 mmol/L (3.4-5.0); Sodium 138 mmol/L (137-145)
--- NOTE | 2020-02-01 21:45 | ED.AMS ---
HPI - Altered Mental Status General Chief Complaint: Altered Mental Status Stated Complaint: ams Time Seen by Provider: 02/01/20 18:49 Source: family and EMS Mode of arrival: EMS Limitations: altered mental status History of Present Illness HPI narrative: 79-year-old shelter resident with a history of pneumonia MAGGIE diverticulitis who was sent from shelter with complaints of altered mental status, low oxygen levels since this afternoon. Upon EMS arrival patient was placed on 4 L of oxygen by nasal cannula. Not much of history can be obtained from the patient however the who is at the bedside states that patient has declined a lot the last 15 days. He states that he has not seen her for last 2 weeks because of the COVID. As per the shelter records no history of nausea or vomiting or cough or fever. MD complaint: altered mental status Timing confirmed by: family member Severity: moderate Associated symptoms: denies other symptoms Related Data Home Medications Medication Instructions Recorded Confirmed Bystolic 10 mg PO DAILY 04/25/19 01/06/20 Pradaxa 150 mg PO BID 04/25/19 01/06/20 fluconazole 150 mg PO [id number] 04/25/19 01/06/20 ipratropium-albuterol 3 ml INHALATION Q4H PRN 04/25/19 01/06/20 mesalamine with cleansing wipe 4 g ID HS PRN 04/25/19 01/06/20 methotrexate sodium 5 mg PO WEEKLY 04/25/19 01/06/20 promethazine 25 mg PO QID PRN 04/25/19 01/06/20 vitamin [id number] acid 2 tablet PO DAILY 04/25/19 01/06/20 acetaminophen 500 mg PO TID PRN 04/26/19 01/06/20 acyclovir 400 mg PO DAILY 04/26/19 01/06/20 folic acid 1 mg PO BID 04/26/19 01/06/20 gabapentin 100 mg PO BID 04/26/19 01/06/20 pantoprazole 40 mg PO QAM 04/26/19 01/06/20 prednisone 10 mg PO DAILY 04/26/19 01/06/20 bumetanide 0.5 mg PO DAILY 05/02/19 01/06/20 lidocaine [Lidoderm] 1 patch TRANSDERMAL DAILY PRN 06/14/19 01/06/20 duloxetine 30 mg PO DAILY 12/25/19 01/06/20 Orencia ClickJect 125 mg SUBCUT WEEKLY 12/26/19 01/06/20 Allergies Allergy/AdvReac Type Severity Reaction Status Date / Time codeine Allergy Unknown Nausea Verified 02/01/20 18:59 enalapril Allergy Unknown Nausea Verified 02/01/20 18:59 ezetimibe Allergy Unknown Dizziness Verified 02/01/20 18:59 metronidazole Allergy Unknown Unknown Verified 02/01/20 18:59 [id number]-Zrg-Bjd Reductase Allergy Unknown Nausea Verified 02/01/20 18:59 Inhibitor Review of Systems Review of Systems: ROS unobtainable: Yes unobtainable due to mental status [facility] Past Medical History Medical History Acute kidney injury Arthritis B12 deficiency Bacteremia Citrobacter and Enterococcus bacteremia in April 2019. Bulging disc Chronic anemia Chronic kidney disease, stage 3 Baseline creatinine between 1.0 and 1.20. Chronic pain syndrome Secondary to rheumatoid arthritis. 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 Coronary artery disease Diverticulitis Perforated diverticulitis status post colostomy in 2014. Esophageal diverticulum Essential hypertension Gastroesophageal reflux disease Hyperlipidemia Hypothyroidism Immunosuppression due to drug therapy Kidney stones Osteoarthritis Osteoporosis Paroxysmal atrial fibrillation Rheumatoid arthritis Seasonal allergies Vertebral compression fracture T5 and lumbar vertebral compression fractures. Surgical History Surgical History History of appendectomy History of bowel resection (~2014) With colostomy, secondary to perforated diverticulitis. History of cardiac catheterization History of cataract extraction History of cholecystectomy History of lumbar discectomy (~10/2003) L3-L4 microdiskectomy with decompression of L4-L5. History of oophorectomy (~1963) History of sinus surgery X2 History of tonsillectomy Family History Family History Father Family history o
[2020-02-01 21:48] LABS: Troponin I 0.032 ng/mL (0.000-0.034)
[2020-02-01] MEDS: SODIUM CHLORIDE 0.9% IV 1,000 ML 75 ML IV CONT (22:09)
--- NOTE | 2020-02-01 23:12 | ADMGEN ---
This patient, Yamini Muñoz, was admitted to [facility] Room 314-01. Patient/family oriented to hospital policies and general routines including ID bracelet, bed and alarms, visiting hours, pain management, procedures, bathroom and other care routines, personal items, smoking policy, room service/diet, and visiting hours. Valuables list has been completed. Information on how to activate the Rapid Response Team has been discussed. Patient/Family are encouraged to report perceived risks to care and to ask questions if they do not understand what they are told or what they should do.
--- NOTE | 2020-02-01 23:19 | PM.IMHP ---
H&P: HPI History of Present Illness Date/Time: 02/01/20 23:19 Chief complaint: Sent from [facility] secondary to low oxygen Narrative: This is a pleasant 79 year old female with known history of CKD stage 3, Colostomy, Rheumatoid arthritis, and paroxysmal atrial fibrillation on Pradaxa who was just discharged from our Hospitalist service this past week after she was treated for pneumonia presented to the hospital secondary to low oxygen saturations. The patient herself isn't sure why she was sent to the hospital and she denies any shortness of breath. She was placed on 4L of oxygen via [place] . She admits to me that she has had burning urination over the past few days and she attributes this to the nursing staff at the [facility] allowing her to sit in a wet diaper for hours and not cleaning her up even though she pleaded with them to change her depends. The patient does admit to having urinary incontinence. She denies any signfiicant fevers, chills, headache, vomiting, abdominal pain, hematuria, diarrhea, or rectal bleeding. She did feel nauseated earlier but this has now passed. Routine labs in the ER demonstrated that the patient is again in acute renal failure with an elevated WBC of 13,600. Urinalysis was grossly abnormal. We have been asked to admit the patient to the hospital for her acute renal failure and UTI. No other complaints at this time. Review of Systems Review of Systems: All systems reviewed & are unremarkable except as noted in HPI and below PMFSH Past Medical History Medical History Acute kidney injury Arthritis B12 deficiency Bacteremia Citrobacter and Enterococcus bacteremia in April 2019. Bulging disc Chronic anemia Chronic kidney disease, stage 3 Baseline creatinine between 1.0 and 1.20. Chronic pain syndrome Secondary to rheumatoid arthritis. 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 Coronary artery disease Diverticulitis Perforated diverticulitis status post colostomy in 2014. Esophageal diverticulum Essential hypertension Gastroesophageal reflux disease Hyperlipidemia Hypothyroidism Immunosuppression due to drug therapy Kidney stones Osteoarthritis Osteoporosis Paroxysmal atrial fibrillation Rheumatoid arthritis Seasonal allergies Vertebral compression fracture T5 and lumbar vertebral compression fractures. Surgical History Surgical History History of appendectomy History of bowel resection (~2014) With colostomy, secondary to perforated diverticulitis. History of cardiac catheterization History of cataract extraction History of cholecystectomy History of lumbar discectomy (~10/2003) L3-L4 microdiskectomy with decompression of L4-L5. History of oophorectomy (~1963) History of sinus surgery X2 History of tonsillectomy Family History Family History Father Family history of throat cancer Heart disease Sibling Kidney stones High cholesterol Sibling High cholesterol Kidney stones Sibling High cholesterol Kidney stones Social History Social History Social History: The patient lives in [place] with her . She is a lifelong nonsmoker and denies alcohol and illicit substance use. She designates her son Alex as her surrogate decision maker and she wishes to be a do not resuscitate. Smoking status: Never smoker Alcohol intake: never Substance use: never Substance use type: does not use Gender identity (if verbalized by the patient): Female Sexual Orientation (if Verbalized by the Patient): Straight or Heterosexual Spiritual care concerns: No Agree to blood products: Yes Meds Home Medications and Allergies Home Medications Medication Instructions Recorded Confirmed Type Bystolic 10 mg PO DAILY
[2020-02-01] MEDS: SODIUM CHLORIDE 0.9% IV 1,000 ML 100 ML IV CONT (23:40)
[2020-02-02] VITALS (20 sets, daily range): BP systolic 110–135; BP diastolic 41–83; PULSE 64–92; RESP 14–20; TEMP 36.6–37; O2SAT 84–100
[2020-02-02] MEDS: ALBUTEROL SULFATE NEB 2.5 MG/0.5 ML INH 5 MG INHALATION ×4 (02:18→20:10)
[2020-02-02] MEDS: SODIUM CHLORIDE 0.9% IV 1,000 ML 100 ML IV CONT ×2 (04:54→15:22)
[2020-02-02 08:28] LABS: Anion Gap 8 mmol/L (8-16); Blood Urea Nitrogen 34 mg/dL (7-17); Calcium 7.9 mg/dL (8.4-10.2); Carbon Dioxide 26 mmol/L (22-30); Chloride 103 mmol/L (98-107); Estimated Glomerular Filt Rate 27; Glucose 88 mg/dL (65-105); Potassium 3.2 mmol/L (3.4-5.0); Sodium 137 mmol/L (137-145)
[2020-02-02] MEDS: DABIGATRAN ETEXILATE 150 MG CAPSULE PO ×2 (08:53→20:34)
[2020-02-02] MEDS: SACCHAROMYCES BOULARDII 250 MG CAPSULE PO ×2 (08:53→18:14)
[2020-02-02] MEDS: GABAPENTIN 100 MG CAPSULE PO ×2 (08:55→18:13)
[2020-02-02] MEDS: ACYCLOVIR 400 MG TABLET PO (08:55)
[2020-02-02] MEDS: DULoxetine HCL 30 MG CAPSULE.DR PO (08:55)
[2020-02-02] MEDS: CYANOCOBALAMIN 1,000 MCG TABLET 1000 MCG PO (08:56)
[2020-02-02] MEDS: predniSONE 10 MG TABLET PO (08:56)
[2020-02-02] MEDS: BUMETANIDE 0.5 MG TABLET PO (08:56)
[2020-02-02] MEDS: NEBIVOLOL HCL 5 MG TABLET 10 MG PO (08:56)
[2020-02-02] MEDS: PANTOPRAZOLE 40 MG TABLET PO (08:57)
[2020-02-02] MEDS: FOLIC ACID 1 MG TABLET PO ×2 (10:28→18:13)
[2020-02-02] MEDS: POTASSIUM CHLORIDE 20 MEQ TABLET 40 MEQ PO (11:15)
--- NOTE | 2020-02-02 12:16 | PM.IMPN ---
Progress Note: A&P Assessment and Plan (1) Complicated UTI (urinary tract infection): Code(s): N39.0 - Urinary tract infection, site not specified Status: Acute Assessment and Plan: Abnormal urinalysis with dysuria. Continue IV ceftriaxone while awaiting urine and blood cultures. (2) MAGGIE (acute kidney injury): Code(s): N17.9 - Acute kidney failure, unspecified Status: Acute Assessment and Plan: Cr 2.4 on arrival, improved to 1.8 today with IV hydration. Suspect dehydration and UTI may have contributed. Cr was recently 0.7 when discharged 2 weeks ago. Continue IV hydration and monitor fluid status. Trend renal function. (3) Acute respiratory failure with hypoxia: Code(s): J96.01 - Acute respiratory failure with hypoxia Status: Acute Assessment and Plan: Recently hospitalized for pneumonia a few weeks ago. Was tolerating room air day of last discharge. Imaging is stable and patient notes no shortness of breath; cough is unchanged per patient. Chronic collapse left lung. Seen by pulm here a few weeks ago. She is on oxygen but with high saturations - continue to wean O2 as tolerated to keep O2 saturations > 90%. Encourage incentive spirometer. (4) Anemia: Qualifiers: Anemia type: unspecified type Qualified Code(s): D64.9 - Anemia, unspecified Code(s): D64.9 - Anemia, unspecified Status: Chronic Assessment and Plan: H&H low but higher than they were day of last discharge. No evidence of acute bleeding. Monitor CBC and transfuse PRN. (5) Essential hypertension: Code(s): I10 - Essential (primary) hypertension Status: Chronic Assessment and Plan: Monitor blood pressure. Continue Bystolic. (6) Paroxysmal atrial fibrillation: Code(s): I48.0 - Paroxysmal atrial fibrillation Status: Chronic Assessment and Plan: Rate controlled. Continue bystolic and pradaxa. (7) Rheumatoid arthritis: Qualifiers: Rheumatoid arthritis location: unspecified site Rheumatoid factor presence: unspecified presence Qualified Code(s): M06.9 - Rheumatoid arthritis, unspecified Code(s): M06.9 - Rheumatoid arthritis, unspecified Status: Chronic Assessment and Plan: Follows with pain management for chronic pain syndrome. Continued on home pain regimen. Immunosuppressed due to RA and treatment with methotrexate and prednisone. MTX held in light of acute infection. (8) Lower extremity edema: Code(s): R60.0 - Localized edema Status: Chronic Assessment and Plan: Continue her home Bumex. Subjective Date/time seen: 02/02/20 1130 Interval history: Ms. Muñoz is a 79yo F admitted for UTI and acute kidney injury. She also describes she was brought into the ER for low oxygen saturations at the group home. She denies feeling short of breath or having chest pain. She has a cough that she describes is unchanged from the last time she was recently discharged when she was treated for pneumonia. She tells me she used to use oxygen at home in the past. Denies nausea or vomiting. She reports normal output from her colostomy and nursing changed colostomy bag this morning. Review of Systems Review of Systems: Narrative: Twelve systems were reviewed with pertinent positives and negatives as per HPI. Exam Narrative: Exam Narrative: General: Female resting supine in bed in no acute distress. HEENT: Normocephalic, EOMI, oral mucosa moist. Cardiovascular: Rate and rhythm are regular. Respiratory: Decreased breath sounds UDAY, some coarse breath sound
[2020-02-02] MEDS: IPRATROPIUM BR 0.02% INH SOLN 0.5 MG/2.5 ML VIAL INHALATION (20:10)
[2020-02-03] VITALS (12 sets, daily range): BP systolic 123–185; BP diastolic 58–76; PULSE 60–87; RESP 14–20; TEMP 36.3–36.8; O2SAT 91–100
[2020-02-03] MEDS: ALBUTEROL SULFATE NEB 2.5 MG/0.5 ML INH 5 MG INHALATION ×3 (01:56→20:26)
[2020-02-03] MEDS: IPRATROPIUM BR 0.02% INH SOLN 0.5 MG/2.5 ML VIAL INHALATION ×2 (01:56→09:15)
[2020-02-03] MEDS: SODIUM CHLORIDE 0.9% IV 1,000 ML 100 ML IV CONT (02:38)
[2020-02-03] MEDS: GABAPENTIN 100 MG CAPSULE PO ×2 (08:31→17:06)
[2020-02-03] MEDS: BUMETANIDE 0.5 MG TABLET PO (08:31)
[2020-02-03] MEDS: ACYCLOVIR 400 MG TABLET PO (08:31)
[2020-02-03] MEDS: predniSONE 10 MG TABLET PO (08:31)
[2020-02-03] MEDS: NEBIVOLOL HCL 5 MG TABLET 10 MG PO (08:32)
[2020-02-03] MEDS: FOLIC ACID 1 MG TABLET PO ×2 (08:32→17:06)
[2020-02-03] MEDS: DULoxetine HCL 30 MG CAPSULE.DR PO (08:32)
[2020-02-03] MEDS: DABIGATRAN ETEXILATE 150 MG CAPSULE PO ×2 (08:32→20:43)
[2020-02-03] MEDS: CYANOCOBALAMIN 1,000 MCG TABLET 1000 MCG PO (08:32)
[2020-02-03] MEDS: PANTOPRAZOLE 40 MG TABLET PO (08:33)
[2020-02-03] MEDS: SACCHAROMYCES BOULARDII 250 MG CAPSULE PO ×2 (08:33→17:07)
--- NOTE | 2020-02-03 10:42 | PCPTNOTE ---
Attempted PT evaluation x 2 this AM however pt declined both times stating that she was too tired. Will attempt at a later day/time.
[2020-02-03 11:27] LABS: Basophils Percent Auto 0.1 % (0.2-1.2); Eosinophils Absolute Auto 0.1 K/mm3 (0-0.3); Eosinophils Percent Auto 0.8 % (0-4.4); Hematocrit 30.3 % (37.0-47.0); Hemoglobin 8.8 g/dL (12.0-15.0); Immature Granulocyte Absolute 0.04 K/mm3 (0.00-0.031); Immature Granulocyte Percent A 0.5 % (0-0.5); Lymphocytes Absolute Auto 0.75 K/mm3 (0.9-3.2); Mean Corpuscular Hemoglobin 27.4 pg (26-34); Mean Corpuscular Volume 94.4 fl (80-100); Mean Platelet Volume 10.8 fl (7.4-10.4); Monocytes Absolute Auto 0.3 K/mm3 (0.1-0.6); Monocytes Percent Auto 3.7 % (2.6-8.5); Neutrophils Absolute Auto 6.3 K/mm3 (1.3-6.7); Neutrophils Percent Auto 84.9 % (45.5-73.1); Platelet Count Result 192 k/mm3 (150-375); Red Blood Count 3.21 M/mm3 (4.2-5.4); Red Cell Distribution Width 18.9 % (11.5-14.5); White Blood Count 7.5 K/mm3 (4.5-10.0)
[2020-02-03 11:43] LABS: Alanine Aminotransferase 17 U/L (4-35); Albumin Level 2.8 g/dL (3.5-5.1); Alkaline Phosphatase 111 U/L (38-126); Anion Gap 7 mmol/L (8-16); Aspartate Amino Transferase 20 U/L (14-36); Bilirubin,Total 0.4 mg/dL (0.2-1.3); Blood Urea Nitrogen 27 mg/dL (7-17); Calcium 7.9 mg/dL (8.4-10.2); Carbon Dioxide 28 mmol/L (22-30); Chloride 102 mmol/L (98-107); Estimated Glomerular Filt Rate 31; Glucose 172 mg/dL (65-105); Magnesium 1.5 mg/dL (1.6-2.3); Potassium 3.5 mmol/L (3.4-5.0); Sodium 137 mmol/L (137-145)
--- NOTE | 2020-02-03 14:38 | PCPTNOTE ---
Attempted PT eval. Pt was eating lunch. Will try again at later time.
--- NOTE | 2020-02-03 14:56 | PM.IMPN ---
Progress Note: A&P Assessment and Plan (1) Complicated UTI (urinary tract infection): Code(s): N39.0 - Urinary tract infection, site not specified Status: Acute Assessment and Plan: -----Urine culture growing Klebsiella pneumonia. she was started on ceftriaxone on admission although she had been hospitalized a few weeks prior. Since she is improving, no need to change to broad-spectrum antibiotics at this time although she might have resistant pathogens due to being in the hospital earlier this month and she is immunocompromised. Await sensitivities (2) MAGGIE (acute kidney injury): Code(s): N17.9 - Acute kidney failure, unspecified Status: Acute Assessment and Plan: -----Cr 2.4 on arrival and now 1.6. IV fluids have been stopped since she appears fluid overloaded. She may need diuretics tomorrow if she is still swollen. She has no SOB and is now off o2. Monitor closely. Cr was recently 0.7 when discharged 2 weeks ago. (3) Acute respiratory failure with hypoxia: Code(s): J96.01 - Acute respiratory failure with hypoxia Status: Acute Assessment and Plan: -----Off o2. She was recently hospitalized for pneumonia a few weeks ago. Imaging is stable and patient notes no shortness of breath; cough is unchanged per patient. Chronic collapse left lung. Seen by pulm here a few weeks ago. Encourage incentive spirometer. (4) Anemia: Qualifiers: Anemia type: unspecified type Qualified Code(s): D64.9 - Anemia, unspecified Code(s): D64.9 - Anemia, unspecified Status: Chronic Assessment and Plan: Chronic. She dropped compared to yesterday but was likely hemoconcentrated yesterday due to dehydration and was incorrectly elevated. No signs of blood loss. Monitor. (5) Essential hypertension: Code(s): I10 - Essential (primary) hypertension Status: Chronic Assessment and Plan: -----Last bp 133/76. Continue Bystolic. (6) Paroxysmal atrial fibrillation: Code(s): I48.0 - Paroxysmal atrial fibrillation Status: Chronic Assessment and Plan: ----Rate controlled. Continue bystolic and pradaxa. (7) Rheumatoid arthritis: Qualifiers: Rheumatoid arthritis location: unspecified site Rheumatoid factor presence: unspecified presence Qualified Code(s): M06.9 - Rheumatoid arthritis, unspecified Code(s): M06.9 - Rheumatoid arthritis, unspecified Status: Chronic Assessment and Plan: -----Follows with pain management for chronic pain syndrome. Continued on home pain regimen. Immunosuppressed due to RA and treatment with methotrexate and prednisone. MTX held in light of acute infection. (8) Lower extremity edema: Code(s): R60.0 - Localized edema Status: Chronic Assessment and Plan: ------Continue her home Bumex. Time Spent With Patient Time with patient: 25 - 35 minutes Subjective Date/time seen: 02/03/20 14:56 Interval history: Pt is a Immunocompromised 79-year-old female here for UTI and MAGGIE. Patient was seen today and states she feels very swollen. She states the swelling started yesterday in her arms and her legs. She has no complaints of dysuria. She denies chest pain, shortness of breath, fevers, chills, diarrhea, constipation. She is eating and drinking well. Review of Systems Review of Systems: All systems reviewed & are unremarkable except as noted in HPI and below Exam Narrative: Exam Narrative: General: Well developed well nourished patient in NAD HEENT: normocephalic Neck: supple Neuro: Alert and oriented x4 CV:RRR Resp:CTA, no crackles Abd: Soft, non distended. No pain to palpation. Positive bowel sounds Extremities: +++ swelling in RUE. + LUE. ++ in LE Objective Data Vital Signs Vital Signs: Vital Signs - 24 hr 02/02/20 18:00 02/02/20 20:00 02/02/20 20:15 Temperature 98.0 F Pulse Rate 81 64 86 R
--- NOTE | 2020-02-03 15:28 | PCRCNOTE ---
Window of time for administration has passed. See next scheduled administration.
[2020-02-03] MEDS: MAGNESIUM OXIDE 400 MG TABLET PO (17:06)
[2020-02-03 18:38] LABS: SARS-CoV-2 RNA PCR Negative
[2020-02-04] VITALS (13 sets, daily range): BP systolic 121–130; BP diastolic 55–74; PULSE 68–86; RESP 16–20; TEMP 36.2–36.7; O2SAT 91–98
[2020-02-04] MEDS: ALBUTEROL SULFATE NEB 2.5 MG/0.5 ML INH 5 MG INHALATION ×4 (02:31→21:29)
[2020-02-04] MEDS: PANTOPRAZOLE 40 MG TABLET PO (10:02)
[2020-02-04] MEDS: DULoxetine HCL 30 MG CAPSULE.DR PO (10:02)
[2020-02-04] MEDS: MAGNESIUM OXIDE 400 MG TABLET PO (10:02)
[2020-02-04] MEDS: BUMETANIDE 0.5 MG TABLET PO (10:02)
[2020-02-04] MEDS: GABAPENTIN 100 MG CAPSULE PO ×2 (10:02→17:02)
[2020-02-04] MEDS: DABIGATRAN ETEXILATE 150 MG CAPSULE PO ×2 (10:02→21:58)
[2020-02-04] MEDS: NEBIVOLOL HCL 5 MG TABLET 10 MG PO (10:03)
[2020-02-04] MEDS: FOLIC ACID 1 MG TABLET PO ×2 (10:03→17:03)
[2020-02-04] MEDS: CYANOCOBALAMIN 1,000 MCG TABLET 1000 MCG PO (10:03)
[2020-02-04] MEDS: SACCHAROMYCES BOULARDII 250 MG CAPSULE PO ×2 (10:04→17:02)
[2020-02-04] MEDS: ACYCLOVIR 400 MG TABLET PO (10:05)
[2020-02-04] MEDS: predniSONE 10 MG TABLET PO (10:05)
--- NOTE | 2020-02-04 13:32 | PM.IMPN ---
Progress Note: A&P Assessment and Plan (1) Complicated UTI (urinary tract infection): Code(s): N39.0 - Urinary tract infection, site not specified Status: Acute Assessment and Plan: -----Pt urine cx growing ESBL klebsiella pnemonia. She has had this in the past multiple times. Her WBC was up on admission with AMS--symptomatic? Will draw a CRP and ask Dr. miller to see her. Blood cultures NGTD. Pt on MTX (2) MAGGIE (acute kidney injury): Code(s): N17.9 - Acute kidney failure, unspecified Status: Acute Assessment and Plan: -----Cr 2.4 on arrival and yesterday was 1.6 but repeat labs for today still pending. IV fluids have been stopped 02/02 since she appeared fluid overloaded. Today she is still swollen so I will give her a small dose of lasix and have her elevate her extremities. abdominal u/s from jan shows atrophy of the kidneys. Nephrotic syndrome less likely. May consider nephrology consult if she is still hypervolemic tomorrow with abnormal kidney function. (3) Acute respiratory failure with hypoxia: Code(s): J96.01 - Acute respiratory failure with hypoxia Status: Acute Assessment and Plan: -----Off o2. She was recently hospitalized for pneumonia a few weeks ago. Imaging is stable and patient notes no shortness of breath; cough is unchanged per patient. Chronic collapse left lung. Seen by pulm here a few weeks ago. Encourage incentive spirometer. (4) Anemia: Qualifiers: Anemia type: unspecified type Qualified Code(s): D64.9 - Anemia, unspecified Code(s): D64.9 - Anemia, unspecified Status: Chronic Assessment and Plan: Chronic. labs still pending for today. Awaiting midline. (5) Essential hypertension: Code(s): I10 - Essential (primary) hypertension Status: Chronic Assessment and Plan: -----Last bp 130/57. Continue Bystolic. (6) Paroxysmal atrial fibrillation: Code(s): I48.0 - Paroxysmal atrial fibrillation Status: Chronic Assessment and Plan: ----Rate controlled. Continue bystolic and pradaxa. (7) Rheumatoid arthritis: Qualifiers: Rheumatoid arthritis location: unspecified site Rheumatoid factor presence: unspecified presence Qualified Code(s): M06.9 - Rheumatoid arthritis, unspecified Code(s): M06.9 - Rheumatoid arthritis, unspecified Status: Chronic Assessment and Plan: -----Follows with pain management for chronic pain syndrome. Continued on home pain regimen. Immunosuppressed due to RA and treatment with methotrexate and prednisone. MTX held in light of acute infection. (8) Lower extremity edema: Code(s): R60.0 - Localized edema Status: Chronic Assessment and Plan: ------Continue her home Bumex. Small dose of lasix started today Subjective Date/time seen: 02/04/20 13:32 Interval history: Pt is a Immunocompromised 79-year-old female here for UTI and MAGGIE. patient was seen today and states she still feels swollen and it has not gotten any better. Her right arm is worse than the left. No complaints of dysuria or pain in her abdomen. She denies chest pain, shortness of breath, fevers, chills, diarrhea, constipation. She is eating and drinking well. She states she has not seen a urologist for her repeated UTIs. Exam Narrative: Exam Narrative: General: Well developed well nourished patient in NAD HEENT: normocephalic Neck: supple Neuro: Alert and oriented x4 CV:RRR Resp:CTA, no crackles Abd: Soft, non distended. No pain to palpation. Positive bowel sounds Extremities: +++ swelling in RUE. + LUE. ++ in LE Objective Data Vital Signs Vital Signs: Vital Signs - 24 hr 02/03/20 14:00 02/03/20 18:00 02/03/20 20:00 Temperature 98.0 F 98.0 F 98.3 F Pulse Rate 70 76 87 Respiratory Rate 18 18 18 Blood Pressure 133/76 134/67 139/67 Pulse Oximetry 98 97 97 02/03/20 20:26 02/03/20 2
[2020-02-04] MEDS: LIDOCAINE HCL 1% LOCAL INJ 20 ML VIAL 5 ML INFILTRATE (14:00)
[2020-02-04 15:15] LABS: Hematocrit 30.7 % (37.0-47.0); Hemoglobin 9.1 g/dL (12.0-15.0); Mean Corpuscular HGB Conc 29.6 g/dl (32-36); Mean Corpuscular Hemoglobin 27.7 pg (26-34); Mean Corpuscular Volume 93.3 fl (80-100); Mean Platelet Volume 10.6 fl (7.4-10.4); Platelet Count Result 236 k/mm3 (150-375); Red Blood Count 3.29 M/mm3 (4.2-5.4); Red Cell Distribution Width 18.9 % (11.5-14.5); White Blood Count 11.1 K/mm3 (4.5-10.0)
[2020-02-04 15:25] LABS: Anion Gap 7 mmol/L (8-16); Blood Urea Nitrogen 23 mg/dL (7-17); Carbon Dioxide 32 mmol/L (22-30); Chloride 97 mmol/L (98-107); Estimated Glomerular Filt Rate 40; Glucose 174 mg/dL (65-105); Potassium 3.5 mmol/L (3.4-5.0); Sodium 136 mmol/L (137-145)
[2020-02-04 15:29] LABS: CRP 5.8 mg/dL (<1.0)
[2020-02-04 15:39] LABS: Hemoglobin A1C 5.4 % (<5.7)
[2020-02-04] MEDS: FUROSEMIDE INJ 40 MG/4 ML VIAL 20 MG IM (17:01)
[2020-02-04] MEDS: ERTAPENEM SODIUM 0.5 GM in SODIUM CHLORIDE 0.9% IV 50 ML 100 ML IVPB (17:03)
[2020-02-04] MEDS: IPRATROPIUM BR 0.02% INH SOLN 0.5 MG/2.5 ML VIAL INHALATION (21:30)
[2020-02-04] MEDS: SALINE LOCK FLUSH 10 ML IV PUSH (21:59)
[2020-02-05] VITALS (10 sets, daily range): BP systolic 125–140; BP diastolic 54–75; PULSE 70–89; RESP 18–20; TEMP 36.3–36.6; O2SAT 95–99
[2020-02-05] MEDS: ALBUTEROL SULFATE NEB 2.5 MG/0.5 ML INH 5 MG INHALATION ×3 (01:48→13:54)
[2020-02-05] MEDS: SALINE LOCK FLUSH 10 ML IV PUSH ×3 (06:33→21:15)
[2020-02-05 07:39] LABS: Hematocrit 29.3 % (37.0-47.0); Hemoglobin 8.7 g/dL (12.0-15.0); Mean Corpuscular HGB Conc 29.7 g/dl (32-36); Mean Corpuscular Hemoglobin 27.2 pg (26-34); Mean Corpuscular Volume 91.6 fl (80-100); Mean Platelet Volume 10.1 fl (7.4-10.4); Platelet Count Result 228 k/mm3 (150-375); Red Cell Distribution Width 18.8 % (11.5-14.5); White Blood Count 9.4 K/mm3 (4.5-10.0)
[2020-02-05 07:51] LABS: Anion Gap 3 mmol/L (8-16); Blood Urea Nitrogen 21 mg/dL (7-17); Calcium 7.9 mg/dL (8.4-10.2); Carbon Dioxide 37 mmol/L (22-30); Chloride 95 mmol/L (98-107); Estimated Glomerular Filt Rate 48; Glucose 87 mg/dL (65-105); Potassium 2.9 mmol/L (3.4-5.0); Sodium 135 mmol/L (137-145)
[2020-02-05] MEDS: MAGNESIUM SULF 2 GM/WATER 50ML 2 GM/50 ML BAG IVPB (10:30)
[2020-02-05] MEDS: ERTAPENEM SODIUM 0.5 GM in SODIUM CHLORIDE 0.9% IV 50 ML 100 ML IVPB (10:53)
[2020-02-05] MEDS: MAGNESIUM OXIDE 400 MG TABLET PO (11:09)
[2020-02-05] MEDS: DULoxetine HCL 30 MG CAPSULE.DR PO (11:10)
[2020-02-05] MEDS: FOLIC ACID 1 MG TABLET PO ×2 (11:10→18:23)
[2020-02-05] MEDS: GABAPENTIN 100 MG CAPSULE PO ×2 (11:10→18:23)
[2020-02-05] MEDS: predniSONE 10 MG TABLET PO (11:11)
[2020-02-05] MEDS: SACCHAROMYCES BOULARDII 250 MG CAPSULE PO ×2 (11:11→18:24)
[2020-02-05] MEDS: PANTOPRAZOLE 40 MG TABLET PO (11:11)
[2020-02-05] MEDS: ACYCLOVIR 400 MG TABLET PO (11:12)
[2020-02-05] MEDS: BUMETANIDE 0.5 MG TABLET PO (11:12)
[2020-02-05] MEDS: DABIGATRAN ETEXILATE 150 MG CAPSULE PO ×2 (11:13→21:13)
[2020-02-05] MEDS: NEBIVOLOL HCL 5 MG TABLET 10 MG PO (11:14)
[2020-02-05] MEDS: CYANOCOBALAMIN 1,000 MCG TABLET 1000 MCG PO (11:15)
[2020-02-05] MEDS: POTASSIUM CHLORIDE 20 MEQ TABLET 40 MEQ PO ×2 (12:05→18:25)
--- NOTE | 2020-02-05 13:53 | WPDINFPN2 ---
Progress Note: A&P Assessment and Plan (1) Complicated UTI (urinary tract infection): Code(s): N39.0 - Urinary tract infection, site not specified Status: Acute Assessment and Plan: Symptomatic uti REC Ertapenem 7 days course. Immunosuppressants per prescribing MD. Call if Qs Subjective Date/time seen: 02/05/20 13:53 Objective Data Vital Signs Vital Signs: Vital Signs - 24 hr 02/04/20 14:00 02/04/20 14:59 02/04/20 15:09 Temperature 36.6 C Pulse Rate 78 74 75 Respiratory Rate 18 16 16 Blood Pressure 127/55 L Pulse Oximetry 98 02/04/20 21:30 02/04/20 21:32 02/04/20 21:35 Temperature Pulse Rate 76 74 Respiratory Rate 16 16 Blood Pressure Pulse Oximetry 91 02/04/20 22:00 02/05/20 01:50 02/05/20 01:58 Temperature 36.2 C L Pulse Rate 79 70 71 Respiratory Rate 20 18 18 Blood Pressure 121/74 Pulse Oximetry 94 02/05/20 06:00 02/05/20 08:00 02/05/20 08:59 Temperature 36.6 C Pulse Rate 78 77 71 Respiratory Rate 20 18 18 Blood Pressure 125/63 Pulse Oximetry 97 97 02/05/20 09:07 Temperature Pulse Rate 77 Respiratory Rate 18 Blood Pressure Pulse Oximetry Intake/Output Intake/Output: Intake & Output 02/02/20 02/03/20 02/04/20 02/05/20 23:59 23:59 23:59 23:59 Intake Total 3820 2200 1130 340 Output Total 300 Balance 3820 2200 830 340 Meds/Results Medications: Active Medications Generic Name Dose Route Start Last Admin Trade Name Freq PRN Reason Stop Dose Admin Acetaminophen 500 mg 02/02/20 02:34 Tylenol Tablet PO TID PRN Pain Acyclovir 400 mg 02/02/20 09:00 02/05/20 11:12 Zovirax Po PO 400 mg DAILY ANNA Administration Albuterol 5 mg 02/02/20 02:00 02/05/20 08:58 Albuterol Sulf Neb 2.5mg/0.5ml INHALATION 5 mg Q6HRT ANNA Administration Albuterol 2.5 mg 02/02/20 03:08 Albuterol Sulf Neb 2.5 Mg/3 Ml INHALATION Q4H PRN Shortness Of Breath Bumetanide 0.5 mg 02/02/20 09:00 02/05/20 11:12 Bumex Po PO 0.5 mg DAILY ANNA Administration Cyanocobalamin 1,000 mcg 02/02/20 09:00 02/05/20 11:15 Vitamin B-12 Tab PO 1,000 mcg QAM ANNA Administration Dabigatran 150 mg 02/02/20 09:00 02/05/20 11:13 Pradaxa PO 150 mg Q12HR ANNA Administration Duloxetine HCl 30 mg 02/02/20 09:00 02/05/20 11:10 Cymbalta PO 30 mg DAILY ANNA Administration Folic Acid 1 mg 02/02/20 09:00 02/05/20 11:10 Folic Acid PO 1 mg BID ANNA Administration Gabapentin 100 mg 02/02/20 09:00 02/05/20 11:10 Neurontin PO 100 mg BID ANNA Administration Hydralazine HCl 10 mg 02/03/20 13:39 Apresoline Hcl Inj IV PUSH Q8H PRN systolic >170 Ertapenem 0.5 gm/ Sodium 50 mls @ 100 mls/hr 02/04/20 09:25 02/04/20 17:33 Chloride IVPB Infused Q24H ANNA Infusion Ipratropium Telferner 0.5 mg 02/02/20 03:06 02/04/20 21:30 Atrovent Neb INHALATION 03/03/20 03:07 0.5 mg Q4H PRN Administration Shortness Of Breath Lidocaine 1 patch 02/02/20 02:34 Lidoderm TRANSDERM DAILY PRN Pain Magnesium Oxide 400 mg 02/03/20 13:40 02/05/20 11:09 Mag-Ox PO 400 mg QAM ANNA Administration Methotrexate 5 mg 02/04/20 08:00 Methotrexate Tab (*Chemo) PO We@0800 ANNA Nebivolol 10 mg 02/02/20 09:00 02/05/20 11:14 Bystolic PO 10 mg DAILY ANNA Administration Ondansetron HCl 4 mg 02/01/20 22:09 Zofran Inj IV PUSH Q4H PRN Nausea Oxycodone HCl 10 mg 02/02/20 09:00 02/05/20 12:05 Oxycontin Sr 12hr PO 10 mg Q12HR ANNA Administration Pantoprazole Sodium 40 mg 02/02/20 09:00 02/05/20 11:11 Protonix PO 40 mg QAM ANNA Administration Potassium Chloride 40 meq 02/05/20 18:00 Kcl Tablet PO 02/05/20 18:01 ONCE ONE Prednisone 10 mg 02/02/20 08:00 02/05/20 11:11 Prednisone PO 10 mg DAILY@0800 ANNA Administration Saccharomyces Wudii 250 mg 02/02/20 09:00
[2020-02-05] MEDS: POTASSIUM CHLORIDE 20 MEQ TABLET 40 MEQ (14:52)
--- NOTE | 2020-02-05 15:47 | PM.IMPN ---
Progress Note: A&P Assessment and Plan (1) Complicated UTI (urinary tract infection): Code(s): N39.0 - Urinary tract infection, site not specified Status: Acute Assessment and Plan: -----Pt urine cx growing ESBL klebsiella pnemonia. She has had this in the past multiple times. Her WBC was up on admission with AMS--symptomatic. CRP elevated. Dr. miller's note reviewed, plan for 7 full days of abx. Will d/c to [facility] likely tomorrow. Will call her RA doctor at discharge to see how long they want immunosupprants to be held for. (2) MAGGIE (acute kidney injury): Code(s): N17.9 - Acute kidney failure, unspecified Status: Acute Assessment and Plan: -----Cr 2.4 on arrival and 1.1 today. IV fluids have been stopped 02/02 since she appeared fluid overloaded. Swelling better have dose of lasix. Her LE are back to baseline according to patient. Continue bumex. abdominal u/s from jan shows atrophy of the kidneys. Nephrotic syndrome less likely (3) Acute respiratory failure with hypoxia: Code(s): J96.01 - Acute respiratory failure with hypoxia Status: Acute Assessment and Plan: -----Off o2. She was recently hospitalized for pneumonia a few weeks ago. Imaging is stable and patient notes no shortness of breath; cough is unchanged per patient. Chronic collapse left lung. Seen by pulm here a few weeks ago. Encourage incentive spirometer. (4) Anemia: Qualifiers: Anemia type: unspecified type Qualified Code(s): D64.9 - Anemia, unspecified Code(s): D64.9 - Anemia, unspecified Status: Chronic Assessment and Plan: Chronic. labs still pending for today. Awaiting midline. (5) Essential hypertension: Code(s): I10 - Essential (primary) hypertension Status: Chronic Assessment and Plan: -----Last bp 140/75. Continue Bystolic. (6) Paroxysmal atrial fibrillation: Code(s): I48.0 - Paroxysmal atrial fibrillation Status: Chronic Assessment and Plan: ----Rate controlled. Continue bystolic and pradaxa. (7) Rheumatoid arthritis: Qualifiers: Rheumatoid arthritis location: unspecified site Rheumatoid factor presence: unspecified presence Qualified Code(s): M06.9 - Rheumatoid arthritis, unspecified Code(s): M06.9 - Rheumatoid arthritis, unspecified Status: Chronic Assessment and Plan: -----Follows with pain management for chronic pain syndrome. Continued on home pain regimen. Immunosuppressed due to RA and treatment with methotrexate and prednisone. MTX held in light of acute infection. (8) Lower extremity edema: Code(s): R60.0 - Localized edema Status: Chronic Assessment and Plan: ------Continue her home Bumex. Small dose of lasix given 02/04/20. Additional Plan Subjective Date/time seen: 02/05/20 15:47 Interval history: Pt is a Immunocompromised 79-year-old female here for UTI and MAGGIE. patient was seen today and states she feels much better. Her swelling in her upper extremities is gone and her LE are back to her baseline. She is not having dysuria at this time. she is eating and drinking well Exam Narrative: Exam Narrative: General: Well developed well nourished patient in NAD HEENT: normocephalic Neck: supple Neuro: Alert and oriented x4 CV:RRR Resp:CTA, no crackles Abd: Soft, non distended. No pain to palpation. Positive bowel sounds Extremities: no swelling in the RUE today. + in LE Objective Data Vital Signs Vital Signs: Vital Signs - 24 hr 02/04/20 21:30 02/04/20 21:32 02/04/20 21:35 Temperature Pulse Rate 76 74 Respiratory Rate 16 16 Blood Pressure Pulse Oximetry 91 02/04/20 22:00 02/05/20 01:50 02/05/20 01:58 Temperature 97.2 F L Pulse Rate 79 70 71 Respiratory Rate 20 18 18 Blood Pressure 121/74 Pulse Oximetry 94 02/05/20 06:00 02/05/20 08:00 02/05/20 08:59 Te
--- NOTE | 2020-02-05 16:15 | CONS_ITS ---
DATE OF CONSULTATION: 02/05/2020 REASON FOR CONSULTATION: UTI. HISTORY OF PRESENT ILLNESS: The patient is a 79-year-old female who was seen in the hospital in late December or early January and had symptomatic UTI. At that time, she was treated with carbapenem with clinical success. She returned to this hospital several days ago with hypoxemia and alleged altered mental status. Both these have now resolved. The patient has been given ceftriaxone now changed to ertapenem day #2. Consultation requested. The patient did have some right-sided suprapubic pain several days ago, exact timing not available from the patient, but this too has now resolved. No other voiding complaints. She denies fever, chills, or sweats. MEDICATIONS: Her present medications are Orencia, methotrexate and prednisone at the noted doses. ALLERGIES: METRONIDAZOLE. OTHERS NOT PERTINENT. HABITS: No tobacco. No alcohol. PAST MEDICAL HISTORY: Rheumatoid arthritis and multiple other medical illnesses as detailed in her chart and her previous notes no update since her last hospital admission in terms of inter current illnesses. REVIEW OF SYSTEMS: Constitutional, GI, respiratory, , skin otherwise negative. FAMILY HISTORY: See chart. SOCIAL HISTORY: See chart. PHYSICAL EXAMINATION: GENERAL: This is an elderly female, appears her actual age, in no respiratory distress. VITAL SIGNS: Normal O2 sats, 77, 18, 125/63. SKIN: Warm and dry. EENT: Conjunctivae are normal. The oral mucosa is well hydrated. No thrush. LUNGS: Clear to auscultation. BACK: No CVAT. CARDIAC: Regular rate and rhythm. No murmurs or gallops. 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 She has no abdominal tenderness. Abdomen is obese, but not distended. EXTREMITIES: 2+ edema, arms and legs, which is pitting. LABORATORY DATA: She had transient leukocytosis on arrival at 9.4, hemoglobin 8.7, platelets are 228. Creatinine also was high, now back down to 1.1 with a BUN 21. CRP is 5.8 from yesterday. UA reviewed and her urine culture has an ESBL-producing Klebsiella pneumoniae, similar to her culture on 12/25/2027. Blood cultures once again, no growth so far. RADIOLOGY: Most recent urologic imaging from 01/09/2020 showed no urologic abnormalities. ASSESSMENT: 1. Transient hypoxemia, her chief complaint, resolved. Her COVID assay was nonreactive. 2. Symptomatic urinary tract infection. 3. Immunosuppressed. RECOMMENDATIONS: 1. Ertapenem for 7-day course. No dose adjustments needed. 2. Immunosuppressants per her prescribing MD. She is at risk for future infections on this basis of marked immunosuppression. Thank you very much for asking me to see her. NASIR MCCORD M.D. COIL MACHINE OPERATOR COIL MACHINE OPERATOR D I MT: Brittany
[2020-02-06] VITALS (12 sets, daily range): BP systolic 125–135; BP diastolic 63–75; PULSE 69–88; RESP 16–18; TEMP 36.4–36.6; O2SAT 92–99
[2020-02-06] MEDS: ALBUTEROL SULFATE NEB 2.5 MG/0.5 ML INH 5 MG INHALATION ×4 (03:41→21:09)
[2020-02-06] MEDS: SALINE LOCK FLUSH 10 ML IV PUSH ×3 (06:21→20:29)
[2020-02-06 06:48] LABS: Anion Gap 3 mmol/L (8-16); Blood Urea Nitrogen 17 mg/dL (7-17); Calcium 8.1 mg/dL (8.4-10.2); Carbon Dioxide 36 mmol/L (22-30); Chloride 97 mmol/L (98-107); Estimated Glomerular Filt Rate 43; Glucose 92 mg/dL (65-105); Magnesium 2.1 mg/dL (1.6-2.3); Potassium 4.8 mmol/L (3.4-5.0); Sodium 136 mmol/L (137-145)
[2020-02-06] MEDS: predniSONE 10 MG TABLET PO (07:54)
[2020-02-06] MEDS: MAGNESIUM OXIDE 400 MG TABLET PO (07:54)
[2020-02-06] MEDS: CYANOCOBALAMIN 1,000 MCG TABLET 1000 MCG PO (07:55)
[2020-02-06] MEDS: PANTOPRAZOLE 40 MG TABLET PO (07:55)
[2020-02-06] MEDS: FOLIC ACID 1 MG TABLET PO ×2 (07:55→15:54)
[2020-02-06] MEDS: GABAPENTIN 100 MG CAPSULE PO ×2 (07:55→15:55)
[2020-02-06] MEDS: DABIGATRAN ETEXILATE 150 MG CAPSULE PO ×2 (07:56→20:29)
[2020-02-06] MEDS: DULoxetine HCL 30 MG CAPSULE.DR PO (07:56)
[2020-02-06] MEDS: NEBIVOLOL HCL 5 MG TABLET 10 MG PO (07:57)
[2020-02-06] MEDS: SACCHAROMYCES BOULARDII 250 MG CAPSULE PO ×2 (07:57→15:56)
[2020-02-06] MEDS: BUMETANIDE 0.5 MG TABLET PO (07:57)
[2020-02-06] MEDS: ACYCLOVIR 400 MG TABLET PO (07:58)
[2020-02-06] MEDS: ERTAPENEM SODIUM 0.5 GM in SODIUM CHLORIDE 0.9% IV 50 ML 100 ML IVPB (08:06)
--- NOTE | 2020-02-06 10:57 | PM.IMPN ---
Progress Note: A&P Assessment and Plan (1) Discharge planning issues: Code(s): Z02.9 - Encounter for administrative examinations, unspecified Status: Acute Assessment and Plan: -----Pt was discharged 02/05 but unable to go back to the longterm d/t pending covid and NH intake issues. (2) Complicated UTI (urinary tract infection): Code(s): N39.0 - Urinary tract infection, site not specified Status: Acute Assessment and Plan: -----Pt urine cx growing ESBL klebsiella pnemonia. She has had this in the past multiple times. Her WBC was up on admission with AMS--symptomatic. CRP elevated. Dr. miller's note reviewed, plan for 7 full days of abx. Will d/c to [facility]. I talked to Dr. Diana Lua and spoke to her about case and she recommends restarting in one week (after tx finished). (3) MAGGIE (acute kidney injury): Code(s): N17.9 - Acute kidney failure, unspecified Status: Acute Assessment and Plan: -----Cr 2.4 on arrival and 1.2 today. IV fluids have been stopped 02/02 since she appeared fluid overloaded. Swelling better have dose of lasix. Her LE are back to baseline according to patient. Continue bumex. abdominal u/s from jan shows atrophy of the kidneys. Nephrotic syndrome less likely (4) Acute respiratory failure with hypoxia: Code(s): J96.01 - Acute respiratory failure with hypoxia Status: Acute Assessment and Plan: -----Off o2. She was recently hospitalized for pneumonia a few weeks ago. Imaging is stable and patient notes no shortness of breath; cough is unchanged per patient. Chronic collapse left lung. Seen by pulm here a few weeks ago. Encourage incentive spirometer. (5) Anemia: Qualifiers: Anemia type: unspecified type Qualified Code(s): D64.9 - Anemia, unspecified Code(s): D64.9 - Anemia, unspecified Status: Chronic Assessment and Plan: Chronic. labs still pending for today. Awaiting midline. (6) Essential hypertension: Code(s): I10 - Essential (primary) hypertension Status: Chronic Assessment and Plan: -----Last bp 124/71. Continue Bystolic. (7) Paroxysmal atrial fibrillation: Code(s): I48.0 - Paroxysmal atrial fibrillation Status: Chronic Assessment and Plan: ----Rate controlled. Continue bystolic and pradaxa. (8) Rheumatoid arthritis: Qualifiers: Rheumatoid arthritis location: unspecified site Rheumatoid factor presence: unspecified presence Qualified Code(s): M06.9 - Rheumatoid arthritis, unspecified Code(s): M06.9 - Rheumatoid arthritis, unspecified Status: Chronic Assessment and Plan: -----Follows with pain management for chronic pain syndrome. Continued on home pain regimen. Immunosuppressed due to RA and treatment with methotrexate and prednisone. MTX held in light of acute infection. (9) Lower extremity edema: Code(s): R60.0 - Localized edema Status: Chronic Assessment and Plan: ------Continue her home Bumex. Small dose of lasix given 02/04/20. Additional Plan Subjective Date/time seen: 02/07/20 06:57 Interval history: Pt is a Immunocompromised 79-year-old female here for UTI and MAGGIE. patient was seen today and states she feels much better and feels back to baseline. Her swelling in her upper extremities is gone and her LE are back to her baseline. She is not having dysuria at this time. she is eating and drinking well Exam Narrative: Exam Narrative: General: Well developed well nourished patient in NAD HEENT: normocephalic Neck: supple Neuro: Alert and oriented x4 CV:RRR Resp:CTA, no crackles Abd: Soft, non distended. No pain to palpation. Positive bowel sounds Extremities: no swelling in the RUE today. + in LE Objective Data Vital Signs Vital Signs: Vital Signs - 24 hr 02/06/20 08:00 02/06/20 08:17 02/06/20 08:31 T
--- NOTE | 2020-02-06 11:09 | PC.NURSE ---
0800 ASSESSMENT CHARTED UNDER THE WRONG NAME, [id number] ASSESSMENT DONE BY ART DOTSON
[2020-02-06 18:21] LABS: SARS-CoV-2 RNA PCR Negative
--- NOTE | 2020-02-06 22:43 | PC.NURSE ---
Called [facility] at [phone]. Spoke with an DIFFERENTIAL REPAIRER who said that they had no room information on the patient and that they would have to accept the patient for admission in the morning.
[2020-02-07 02:30] VITALS: PULSE 75; RESP 18
[2020-02-07] MEDS: ALBUTEROL SULFATE NEB 2.5 MG/0.5 ML INH 5 MG INHALATION ×2 (02:30→09:16)
[2020-02-07] MEDS: IPRATROPIUM BR 0.02% INH SOLN 0.5 MG/2.5 ML VIAL INHALATION (02:30)
[2020-02-07 02:36] VITALS: PULSE 72; RESP 18
[2020-02-07 06:00] VITALS: BP 124/71; PULSE 83; RESP 18; TEMP 36.6; O2SAT 99
[2020-02-07] MEDS: SALINE LOCK FLUSH 10 ML IV PUSH (06:44)
--- NOTE | 2020-02-07 07:52 | PC.NURSE ---
Called [facility] at [phone], spoke with Juanpablo LOUIS who will be taking care of the patient. The patient will be placed into room 404 upon arrival. Report given.
[2020-02-07 08:18] VITALS: PULSE 79
[2020-02-07] MEDS: DABIGATRAN ETEXILATE 150 MG CAPSULE PO (08:18)
[2020-02-07] MEDS: NEBIVOLOL HCL 5 MG TABLET 10 MG PO (08:18)
[2020-02-07] MEDS: BUMETANIDE 0.5 MG TABLET PO (08:21)
[2020-02-07] MEDS: MAGNESIUM OXIDE 400 MG TABLET PO (08:21)
[2020-02-07] MEDS: predniSONE 10 MG TABLET PO (08:21)
[2020-02-07] MEDS: GABAPENTIN 100 MG CAPSULE PO (08:21)
[2020-02-07] MEDS: DULoxetine HCL 30 MG CAPSULE.DR PO (08:21)
[2020-02-07] MEDS: SACCHAROMYCES BOULARDII 250 MG CAPSULE PO (08:21)
[2020-02-07] MEDS: FOLIC ACID 1 MG TABLET PO (08:21)
[2020-02-07] MEDS: CYANOCOBALAMIN 1,000 MCG TABLET 1000 MCG PO (08:21)
[2020-02-07] MEDS: ACYCLOVIR 400 MG TABLET PO (08:22)
[2020-02-07] MEDS: PANTOPRAZOLE 40 MG TABLET PO (08:22)
[2020-02-07] MEDS: ERTAPENEM SODIUM 0.5 GM in SODIUM CHLORIDE 0.9% IV 50 ML 100 ML IVPB (08:26)
[2020-02-07 09:17] VITALS: PULSE 71; RESP 18; O2SAT 94
[2020-02-07 09:29] VITALS: PULSE 72; RESP 18
--- NOTE | 2020-02-07 13:38 | PM.DS ---
DS: Admitting Diagnosis Admitting Diagnosis Admitting Diagnosis: Sent from residential secondary to low oxygen DS: Discharge Diagnosis Discharge Diagnosis (1) Discharge planning issues: Code(s): Z02.9 - Encounter for administrative examinations, unspecified Status: Acute Assessment and Plan: -----Pt was discharged 02/05 but unable to go back to the residential d/t pending covid and NH intake issues. 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 (2) Complicated UTI (urinary tract infection): Code(s): N39.0 - Urinary tract infection, site not specified Status: Acute Assessment and Plan: -----Pt urine cx growing ESBL klebsiella pnemonia. She has had this in the past multiple times. Her WBC was up on admission with AMS--symptomatic. CRP elevated. Dr. miller's note reviewed, plan for 7 full days of abx. Will d/c to [facility]. I talked to Dr. Diana Lua and spoke to her about case and she recommends restarting in one week (after tx finished). (3) MAGGIE (acute kidney injury): Code(s): N17.9 - Acute kidney failure, unspecified Status: Acute Assessment and Plan: -----Cr 2.4 on arrival and now down to 1.2 IV fluids have been stopped 02/02 since she appeared fluid overloaded. Swelling better have dose of lasix. Her LE are back to baseline according to patient. Continue bumex. abdominal u/s from jan shows atrophy of the kidneys. Nephrotic syndrome less likely (4) Acute respiratory failure with hypoxia: Code(s): J96.01 - Acute respiratory failure with hypoxia Status: Acute Assessment and Plan: -----Off o2. She was recently hospitalized for pneumonia a few weeks ago. Imaging is stable and patient notes no shortness of breath; cough is unchanged per patient. Chronic collapse left lung. Seen by pulm here a few weeks ago. E (5) Anemia: Qualifiers: Anemia type: unspecified type Qualified Code(s): D64.9 - Anemia, unspecified Code(s): D64.9 - Anemia, unspecified Status: Chronic Assessment and Plan: Chronic (6) Essential hypertension: Code(s): I10 - Essential (primary) hypertension Status: Chronic Assessment and Plan: -----Last bp 124/71. Continue Bystolic. (7) Paroxysmal atrial fibrillation: Code(s): I48.0 - Paroxysmal atrial fibrillation Status: Chronic Assessment and Plan: ----Rate controlled. Continue bystolic and pradaxa. (8) Rheumatoid arthritis: Qualifiers: Rheumatoid arthritis location: unspecified site Rheumatoid factor presence: unspecified presence Qualified Code(s): M06.9 - Rheumatoid arthritis, unspecified Code(s): M06.9 - Rheumatoid arthritis, unspecified Status: Chronic Assessment and Plan: -----Follows with pain management for chronic pain syndrome. Continued on home pain regimen. Immunosuppressed due to RA and treatment with methotrexate and prednisone. MTX held in light of acute infection. (9) Lower extremity edema: Code(s): R60.0 - Localized edema Status: Chronic Assessment and Plan: ------Continue her home Bumex. Small dose of lasix given 02/04/20. DS: Summary Hospital Course Reason for hospitalization: UTI altered mental status Hospital Course: Patient is a 79-year-old female recently admitted for pneumonia with MAGGIE who presented emergency room for altered mental status and hypoxia found have a UTI. Vitals in the ER were temperature 35.9? C, pulse 82, respiratory rate 16, blood pressure 144/70, pulse ox 92. Initial white blood cell count 13.6, hemoglobin 10.6, hematocrit 36.7, platelets 216. Sodium 138, potassium 3.3, chloride 97, carbon dioxide 33, BUN 40, creatinine 2.4, glucose 117. UA suspicious for UTI. CT of the brain with no acute abnormalities. Patient was admitted to the hospitalist service and was started on ceftriaxone for her UTI. Ended up
--- NOTE | 2020-02-12 14:02 | PC.NURSE ---
Bood cx are negative
== END 2020-02-07 11:30 | DRG 689 ==
LOC: ANHED 22:15 → ANH3MEDSUR 23:26
PROVIDERS: Physician Assistant; Admitting Provider Family Medicine; Emergency Provider Family Medicine; PCP Internal Medicine; Visit Provider Physician Assistant
DX: N39.0 Urinary tract infection, site not specified (principal); J96.01 Acute respiratory failure with hypoxia; N17.9 Acute kidney failure, unspecified; J98.19 Other pulmonary collapse; B96.1 Klebsiella pneumoniae [K. pneumoniae] as the cause of diseases classified elsewhere; D64.9 Anemia, unspecified; I10 Essential (primary) hypertension; I48.0 Paroxysmal atrial fibrillation; M06.9 Rheumatoid arthritis, unspecified; G89.4 Chronic pain syndrome; R60.0 Localized edema; I25.10 Atherosclerotic heart disease of native coronary artery without angina pectoris; I12.9 Hypertensive chronic kidney disease with stage 1 through stage 4 chronic kidney disease, or unspecified chronic kidney disease; N18.3 Chronic kidney disease, stage 3 (moderate); E03.9 Hypothyroidism, unspecified; R41.82 Altered mental status, unspecified; Z66 Do not resuscitate; Z79.899 Other long term (current) drug therapy; Z90.49 Acquired absence of other specified parts of digestive tract; Z93.3 Colostomy status; Z98.49 Cataract extraction status, unspecified eye
CPT/HCPCS: 36415; 36569; 70450; 71045; 80048; 80053; 81001; 83036; 83605; 83735; 83880; 84484; 85025; 85027; 85610; 86140; 87040; 87077; 87086; 87088; 87186; 87635; 93005; 94640; 97110; 97161; 97165; 97530; 97535; 99285; A9270; C1751; C9803; J0696; J1335; J1940; J3475; J7030; J7512; U0003

== ENCOUNTER 2020-04-04 17:43 | Inpatient (IN) | payer MEDICARE, SELFPAY ==
[2020-04-04] VITALS (12 sets, daily range): BP systolic 125–157; BP diastolic 71–99; PULSE 90–104; RESP 17–26; TEMP 36.2–37.3; O2SAT 93–97; BMI 27.8; BMI 34.0
--- NOTE | ~2020-04-04 | CT_ITS ---
EXAMINATION: CT brain wo con DATE: 04/04/2020 19:27 INDICATION: Confusion TECHNIQUE: Computed tomography (CT) of the head was performed without intravenous contrast. The dose- length product was 605.33 mGy-cm. The mA was adjusted according to patient size. Iterative reconstruc tion technique was employed. COMPARISON: CT dated 02/01/2020 FINDINGS: Chronic left occipital lobe infarction. Generalized atrophy. There are scattered moderate p eriventricular and subcortical white matter changes, most likely related to small vessel ischemic dis ease (microangiopathy). No acute intracranial hemorrhage, infarction, mass or mass effect. No ventric ulomegaly or midline shift. Mild mucosal thickening of the ethmoid and sphenoid sinuses. Mastoids are pneumatized. No depressed skull fractures. IMPRESSION: 1. No acute intracranial abnormality. 2: Chronic left occipital lobe infarction. 3: Sinusitis. 4: Chronic age-related findings. Reviewed, dictated and finalized at location A. DINATOR OF REHABILITATION SERVICES
--- NOTE | ~2020-04-04 | XR_ITS ---
XR chest 1V portable 04/04/2020 19:41 Indication: Shortness of breath. Procedure: AP view of the chest Comparison: Comparison to multiple prior studies sequentially, with oldest reviewed study dated 10/2019. Findings: Stable infiltrates of the right mid lung, most likely atelectasis/scarring. Cardiomegaly. N o acute focal pneumonia, edema or effusion. There is atherosclerosis. There is scoliosis with vertebr oplasty changes in the lower thoracic spine. Advanced osteoarthritis of the shoulders with bilateral rotator cuff tears. Impression: 1: Chronic infiltrates right midlung zone, most likely atelectasis/scarring. Reviewed, dictated and finalized at location A. STRIAL CAFETERIA MANAGER Impression: 1: Chronic infiltrates right midlung zone, most likely atelectasis/scarring.
--- NOTE | ~2020-04-04 | CT_ITS ---
EXAMINATION: CT abdomen pelvis wo con DATE: 04/04/2020 21:19 INDICATION: Generalized abdominal TECHNIQUE: Computed tomography (CT) of the abdomen and pelvis was performed without intravenous contr ast. The dose-length product was 1079.93 mGy-cm. Automated exposure control and iterative reconstruct ion technique were employed. COMPARISON: CT dated 01/09/2020. FINDINGS: There is linear atelectasis/scarring in the right middle lobe and lower lobes. There is foc al consolidation in the posterior medial left lower lobe which is likely chronic. No significant pleu ral or pericardial effusion. There is a mid esophageal diverticulum. Fatty infiltration of the liver. The spleen, pancreas, adrenal glands are unremarkable. There are non obstructing bilateral renal stones. There are bilateral low-density lesions in the kidneys, most like ly cysts. There is atherosclerosis of the aorta without evidence for aneurysm. There is an ostomy in the left mid abdomen containing nonobstructed small bowel and colon. There is fat-containing ventral abdominal hernia.. Bladder is unremarkable. No abnormal pelvic masses or fluid collections. No obstru ction. Generalized osteopenia. Severe lumbar spondylosis. Multiple compression fractures including T1 1 and T12 with vertebroplasty changes at T12. Large hemangioma at L2. IMPRESSION: 1. Bilateral lower lung zone atelectasis. 2: Mid esophageal diverticulum. 3: Hepatic steatosis. 4: Nonobstructing bilateral nephrolithiasis. 5: Left peristomal hernia containing nonobstructed small bowel and colon. Reviewed, dictated and finalized at location A. UNTING AUDITOR
--- NOTE | 2020-04-04 17:50 | ECG_ITS ---
Measurements Intervals [place] Rate: 99 P: 9 MA: 130 QRS: 18 QRSD: 81 T: 114 QT: 304 QTc: 391 Interpretive Statements SINUS RHYTHM NONSPECIFIC ST & T-WAVE ABNORMALITY- LAT/HIGH LAT LEADS BASELINE ARTIFACT- I, II, III, AVR, AVL, AVF, V1-V6 BORDERLINE ECG Electronically Signed On 04-05-2020 7:19:50 TRANSCRIPT CLERK by Odilon Swift D.O.
--- NOTE | 2020-04-04 17:53 | ED.GENADULT ---
HPI - General Adult General Chief complaint: Weakness Stated complaint: ams/edema all over Source: RN notes reviewed History of Present Illness HPI narrative: Patient presents to emergency department from [facility] via EMS for edema and altered mental status. Per the ECF patient is had increased swelling in the bilateral lower extremities for the past several days patient is also been less alert and active. The patient is normally more talkative currently the patient is laying in bed with her eyes closed she will open her eyes to verbal stimuli and state her name but does not answer any other questions. Per ECF patient's had no recent fevers Related Data Home Medications Medication Instructions Recorded Confirmed Bystolic 10 mg PO DAILY 04/25/19 02/01/20 Pradaxa 150 mg PO BID 04/25/19 02/01/20 fluconazole DAILY 04/25/19 02/01/20 ipratropium-albuterol 3 ml INHALATION Q4H PRN 04/25/19 02/01/20 mesalamine with cleansing wipe 4 g MI HS 04/25/19 02/01/20 methotrexate sodium 5 mg PO WEEKLY 04/25/19 02/01/20 promethazine 25 mg PO QID PRN 04/25/19 02/01/20 acyclovir 400 mg PO DAILY 04/26/19 02/01/20 folic acid 1 mg PO DAILY 04/26/19 02/01/20 gabapentin 100 mg PO BID 04/26/19 02/01/20 pantoprazole 40 mg PO QAM 04/26/19 02/01/20 prednisone 10 mg PO DAILY 04/26/19 02/01/20 bumetanide 0.5 mg PO DAILY 05/02/19 02/01/20 lidocaine [Lidoderm] 1 patch TRANSDERMAL DAILY PRN 06/14/19 02/01/20 duloxetine 30 mg PO DAILY 12/25/19 02/01/20 Orencia ClickJect 125 mg SUBCUT WEEKLY 12/26/19 02/01/20 Al hyd-Mg tr-alg ac-sod bicarb tablet PO 04/04/20 [Gaviscon] Saccharomyces boulardii [Florastor] 250 mg PO BID 04/04/20 acetaminophen [Tylenol Extra 1,000 mg PO TID PRN 04/04/20 Strength] albuterol sulfate 2 puff INHALATION QID PRN 04/04/20 baclofen 5 mg PO BID 04/04/20 cyanocobalamin (vitamin B-12) 1,000 mcg PO DAILY 04/04/20 dextromethorphan-guaifenesin 1 tablet PO Q12H 04/04/20 [Mucinex DM] ferrous sulfate 325 mg PO BID 04/04/20 oxycodone myristate [Xtampza ER] 18 mg PO BID 04/04/20 potassium chloride 10 meq PO BID 04/04/20 sucralfate 1,000 mg PO QID 04/04/20 Allergies Allergy/AdvReac Type Severity Reaction Status Date / Time codeine Allergy Unknown Nausea Verified 04/04/20 18:21 enalapril Allergy Unknown Nausea Verified 04/04/20 18:21 ezetimibe Allergy Unknown Dizziness Verified 04/04/20 18:21 metronidazole Allergy Unknown Unknown Verified 04/04/20 18:21 Bbxgwdk-Fka-Ivx Reductase Allergy Unknown Nausea Verified 04/04/20 18:21 Inhibitor Review of Systems Review of Systems: ROS unobtainable: Yes unobtainable due to medical condition [facility] Past Medical History Medical History Acute kidney injury Altered mental state Arthritis B12 deficiency Bacteremia Citrobacter and Enterococcus bacteremia in April 2019. Bulging disc Chronic anemia Chronic kidney disease, stage 3 Baseline creatinine between 1.0 and 1.20. Chronic pain syndrome Secondary to rheumatoid arthritis. 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 Coronary artery disease Diverticulitis Perforated diverticulitis status post colostomy in 2014. Esophageal diverticulum Essential hypertension Gastroesophageal reflux disease GERD (gastroesophageal reflux disease) Hallucination Hyperlipidemia Hypokalemia Hypothyroidism Immunosuppression due to drug therapy Kidney stones Osteoarthritis Osteoporosis Paroxysmal atrial fibrillation Pneumonia Rheumatoid arthritis Seasonal allergies UTI (urinary tract infection) Vertebral compression fracture T5 and lumbar vertebral compression fractures. Surgical History Surgical History History of appendectomy History of bowel resection (~2014) With colostomy, secondary to perforated diverticulitis. History of cardiac catheterization History of cataract extraction History of cholecystectomy Histor
[2020-04-04 18:39] LABS: Add Urine Microscopic? NO; Appearance Urine Clear (Clear); Bilirubin Urine Negative (Negative); Blood Urine Negative (Negative); Color Urine Yellow (Yellow); Glucose Urine UA Negative (Negative); Ketones Urine Negative (Negative); Leukocyte Esterase Ur Negative LEU/UL (Negative); Nitrate Urine Negative (Negative); Protein Urine Negative (Negative); Specific Grav Ur 1.011 (1.001-1.035); Urobilinogen Urine Negative mg/dL (<2.0)
[2020-04-04 19:05] LABS: Basophils Absolute Auto 0.1 K/mm3 (0.0-0.1); Basophils Percent Auto 0.3 % (0.2-1.2); Eosinophils Absolute Auto 0.1 K/mm3 (0-0.3); Eosinophils Percent Auto 0.6 % (0-4.4); Hematocrit 36.3 % (37.0-47.0); Hemoglobin 10.3 g/dL (12.0-15.0); Immature Granulocyte Absolute 0.08 K/mm3 (0.00-0.031); Immature Granulocyte Percent A 0.5 % (0-0.5); Lymphocytes Percent Auto 20.3 % (18.3-44.2); Mean Corpuscular HGB Conc 28.4 g/dl (32-36); Mean Corpuscular Hemoglobin 27.7 pg (26-34); Mean Corpuscular Volume 97.6 fl (80-100); Mean Platelet Volume 9.7 fl (7.4-10.4); Monocytes Absolute Auto 0.7 K/mm3 (0.1-0.6); Monocytes Percent Auto 3.8 % (2.6-8.5); Neutrophils Absolute Auto 12.9 K/mm3 (1.3-6.7); Neutrophils Percent Auto 74.5 % (45.5-73.1); Nucleated Red Blood Cells Perc 0.2 % (0.0-0.2); Platelet Count Result 359 k/mm3 (150-375); Red Blood Count 3.72 M/mm3 (4.2-5.4); Red Cell Distribution Width 24.4 % (11.5-14.5); White Blood Count 17.3 K/mm3 (4.5-10.0)
[2020-04-04 19:15] LABS: INR 1.5; Prothrombin Time 17.7 Seconds (11.1-14.7)
[2020-04-04 19:16] LABS: Partial Thromboplastin Time 57.4 SECONDS (22.3-36.8)
[2020-04-04 19:17] LABS: Alanine Aminotransferase 17 U/L (4-35); Albumin Level 3.3 g/dL (3.5-5.1); Alkaline Phosphatase 204 U/L (38-126); Anion Gap 10 mmol/L (8-16); Aspartate Amino Transferase 27 U/L (14-36); Bilirubin,Total 0.9 mg/dL (0.2-1.3); Blood Urea Nitrogen 24 mg/dL (7-17); Calcium 9.3 mg/dL (8.4-10.2); Carbon Dioxide 29 mmol/L (22-30); Chloride 101 mmol/L (98-107); Estimated Glomerular Filt Rate 29; Glucose 113 mg/dL (65-105); Lactic Acid Reflex 1.5 mmol/L (0.7-2.1); Potassium 4.5 mmol/L (3.4-5.0); Sodium 140 mmol/L (137-145)
[2020-04-04 19:30] LABS: NT Pro B Type Natriuretic Pept 546 PG/ML (5-100); Troponin I < 0.012 ng/mL (0.000-0.034)
[2020-04-04 19:56] LABS: Alveolar/Arterial O2 Gradient 37.2 mmHg; Device ROOM AIR; Fractional Inspired Oxygen 21 %; HCO3 ABG 23.8 mEq/l (22.0-26.0); Modified Allen's Test Pass; Oxygen Content ABG 14.3 %vol (16.0-22.0); Oxygen Saturation ABG 92.6 % (95.0-100.0); Oxyhemoglobin 90.5 % THb (90.0-100.0); PO2 ABG 64.6 mmHg (80.0-100.0); PO2 FiO2 Ratio Arterial Blood 3.08 %; Site Drawn RIGHT RADIAL; Total Hemoglobin 11.2 g/dL (12.0-18.0); pH ABG 7.392 (7.350-7.450)
--- NOTE | 2020-04-04 20:54 | PC.NURSE ---
Patient noted to have edema & weeping to bilat lower extremities-no open wounds noted. Left and right arms swollen with multiple areas of bruising. reports that patient normally doesn't have swelling in her hands. unsure if her abdomen is distended because he hasn't been able to visit her at [facility] in 2 months. Colostomy stoma WNL, draining dark green secretions
--- NOTE | 2020-04-04 23:00 | ADMGEN ---
This patient, Yamini Muñoz, was admitted to [facility] Surg Room 305-01. Patient/family oriented to hospital policies and general routines including ID bracelet, bed and alarms, visiting hours, pain management, procedures, bathroom and other care routines, personal items, smoking policy, room service/diet, and visiting hours. Information on how to activate the Rapid Response Team has been discussed. Patient/Family are encouraged to report perceived risks to care and to ask questions if they do not understand what they are told or what they should do.
[2020-04-05] VITALS (8 sets, daily range): BP systolic 129–146; BP diastolic 58–76; PULSE 78–87; RESP 16–22; TEMP 36.4–36.5; O2SAT 97–99
[2020-04-05 06:21] LABS: Basophils Percent Auto 0.3 % (0.2-1.2); Eosinophils Absolute Auto 0.1 K/mm3 (0-0.3); Eosinophils Percent Auto 1.1 % (0-4.4); Hematocrit 31.6 % (37.0-47.0); Immature Granulocyte Absolute 0.04 K/mm3 (0.00-0.031); Immature Granulocyte Percent A 0.4 % (0-0.5); Lymphocytes Absolute Auto 2.89 K/mm3 (0.9-3.2); Lymphocytes Percent Auto 27.3 % (18.3-44.2); Mean Corpuscular HGB Conc 28.5 g/dl (32-36); Mean Corpuscular Hemoglobin 28.1 pg (26-34); Mean Corpuscular Volume 98.8 fl (80-100); Mean Platelet Volume 10.1 fl (7.4-10.4); Monocytes Absolute Auto 0.5 K/mm3 (0.1-0.6); Monocytes Percent Auto 4.2 % (2.6-8.5); Neutrophils Absolute Auto 7.1 K/mm3 (1.3-6.7); Neutrophils Percent Auto 66.7 % (45.5-73.1); Nucleated Red Blood Cells Perc 0.2 % (0.0-0.2); Platelet Count Result 272 k/mm3 (150-375); Red Cell Distribution Width 24.2 % (11.5-14.5); White Blood Count 10.6 K/mm3 (4.5-10.0)
[2020-04-05 06:33] LABS: Anion Gap 8 mmol/L (8-16); Blood Urea Nitrogen 24 mg/dL (7-17); Calcium 8.3 mg/dL (8.4-10.2); Carbon Dioxide 27 mmol/L (22-30); Chloride 104 mmol/L (98-107); Estimated Glomerular Filt Rate 33; Glucose 79 mg/dL (65-105); Potassium 4.2 mmol/L (3.4-5.0); Sodium 139 mmol/L (137-145)
[2020-04-05 07:11] LABS: Anisocytosis 1+ (NORMAL); Platelet Estimate Adequate (Adequate)
--- NOTE | 2020-04-05 07:26 | PM.IMHP ---
H&P: HPI History of Present Illness Date/Time: 04/05/20 06:15 Chief complaint: Altered mental status Narrative: Source of information: ER records and past medical records. 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 The patient is usually alert and oriented able to carry a conversation and interact with staff. Nursing staff found documentation from the intermediate that the patient had been vomiting for 2 days. The patient had evidence of dried emesis to her mouth and teeth. She had a CT scan performed in the ER which was unremarkable for acute process. On exam patient seems to be uncomfortable with movement but this is explained will with her history of rheumatoid arthritis. In the ER patient was noted to have leukocytosis and given her sudden onset of vomiting a CT of the abdomen was performed which was relatively unremarkable. She has good ostomy output at the time of my evaluation. She had a CT scan of the brain performed in the ER which did not demonstrate any acute process. She was not in any respiratory distress and chest x-ray was unremarkable and did not indicate evidence of infection beyond her chronic scarring. No source of infection was noted on evaluation in the ER. However a few hours after arriving on the medical floor at the time of my exam patient have new erythema to the right upper thigh and increased erythema to the right lower extremity. The patient does have chronic venous stasis changes of bilateral lower extremities but the right lower and upper extremity are warmer to touch than the left. Rate generalized anasarca which was noted on prior exams. According to the intermediate the patient's edema is increased from baseline. The patient was discharged to long term facility and after hospitalization in January. Her 's came to visit with the patient in the ER as he has not been able to see her since she was discharged to intermediate. He was tearful and distraught that he had not been able to see his . He is appropriately concerned. He plans to come back to visit in the morning per nursing report. Review of Systems Review of Systems: ROS unobtainable: Yes unobtainable due to mental status PMFSH Past Medical History Medical History Acute kidney injury Altered mental state Arthritis B12 deficiency Bacteremia Citrobacter and Enterococcus bacteremia in April 2019. Bulging disc Chronic anemia Chronic kidney disease, stage 3 Baseline creatinine between 1.0 and 1.20. Chronic pain syndrome Secondary to rheumatoid arthritis. 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 Coronary artery disease Diverticulitis Perforated diverticulitis status post colostomy in 2014. Esophageal diverticulum Essential hypertension Gastroesophageal reflux disease GERD (gastroesophageal reflux disease) Hallucination Hyperlipidemia Hypokalemia Hypothyroidism Immunosuppression due to drug therapy Kidney stones Osteoarthritis Osteoporosis Paroxysmal atrial fibrillation Pneumonia Rheumatoid arthritis Seasonal allergies UTI (urinary tract infection) Vertebral compression fracture T5 and lumbar vertebral compression fractures. Surgical History Surgical History History of appendectomy History of bowel resection (~2014) With colostomy, secondary to perforated diverticulitis. History of cardiac catheterization History of cataract extraction History of cholecystectomy History of lumbar discectomy (~10/2003) L3-L4 microdiskectomy with decompression of L4-L5. History of oophorectomy (~
[2020-04-05] MEDS: predniSONE 10 MG TABLET PO (09:50)
[2020-04-05] MEDS: ACYCLOVIR 400 MG TABLET PO (09:51)
[2020-04-05] MEDS: PANTOPRAZOLE SODIUM IV 40 MG VIAL IV PUSH (09:53)
[2020-04-05] MEDS: SODIUM CHLORIDE 0.9% IV 1,000 ML 70 ML IV CONT (09:53)
[2020-04-05] MEDS: ceFAZolin 500 MG in DEXTROSE 5% IN WATER 50 ML 100 MG IVPB ×2 (10:07→20:54)
[2020-04-05] MEDS: FLUCONAZOLE 100 MG/NACL 50 ML 100 MG/50 ML BTL 50 MG IVPB (13:36)
--- NOTE | 2020-04-05 14:34 | PM.IMPN ---
Progress Note: A&P Assessment and Plan (1) Cellulitis of right thigh: Code(s): L03.115 - Cellulitis of right lower limb Status: Acute Assessment and Plan: Blood cultures are pending. Will start the patient on empiric antibiotic therapy with Keflex. Will repeat CBC this a.m.. The patient is at high risk complications from infection as she is on immunosuppressive therapy with methotrexate and prednisone for her rheumatoid arthritis. 04/05/20 14:34 patient 80-year-old female a resident of [facility] recently admitted and treated for acute mental status change secondary to UTI, patient has history of rheumatoid arthritis chronically on prednisone, patient has a colostomy status post diverticulosis perforation, patient was sent to emergency department again with poor response acute mental status change there is a concern the patient may have cellulitis and lower extremity this may have resulted in her current condition is patient is not interactive, patient appears quite frail is states that her lower extremities a swallen red and painful patient is being treated with Ancef, patient also on fluconazole IV unable detail while patient is on antifungal however will continue until stop date of April 09. will have PT OT evaluate the patient, on a blood culture will continue to monitor. (2) Altered mental status: Qualifiers: Altered mental status type: delirium Qualified Code(s): R41.0 - Disorientation, unspecified Code(s): R41.82 - Altered mental status, unspecified Status: Acute Assessment and Plan: Delirium likely due to acute infection. However the patient also has polypharmacy which may not be helping this situation. Patient's pain meds and baclofen have been held at this time. Will continue monitor mental status closely and readdress medications when more aware and clinically appropriate. Patient is NPO until mentation is improved. (3) Anasarca: Code(s): R60.1 - Generalized edema Status: Acute Assessment and Plan: The patient does have chronic anasarca. Her anasarca does not appear to be grossly worse than when I have seen her in the past. She appears to be intravascularly volume depleted. She appears to be intravascularly volume depleted. Hydration with normal saline 70 mL an hour (4) Vomiting: Qualifiers: Vomiting type: unspecified Vomiting Intractability: non-intractable Nausea presence: unspecified Qualified Code(s): R11.10 - Vomiting, unspecified Code(s): R11.10 - Vomiting, unspecified Status: Acute Assessment and Plan: The patient's CT demonstrated no acute intra-abdominal process. Patient is currently NPO given altered mental status. Her ostomy has good output. Will place on aspiration precautions. Subjective Date/time seen: 04/05/20 14:34 patient 80-year-old female a resident of [facility] recently admitted and treated for acute mental status change secondary to UTI, patient has history of rheumatoid arthritis chronically on prednisone, patient has a colostomy status post diverticulosis perforation, patient was sent to emergency department again with poor response acute mental status change there is a concern the patient may have cellulitis and lower extremity this may have resulted in her current condition is patient is not interactive, patient appears quite frail is states that her lower extremities a swallen red and painful patient is being treated with Ancef, patient also on fluconazole IV unable detail while patient is on antifungal however will continue until stop date of April 09. will have PT OT evaluate the patient, on a blood culture will continue to monitor. Review of Systems Review of Systems: All systems reviewed & are unremarkable except as noted in HPI and below Exam Narrative: Exam Narrative: elderly frail Patient is comfortable, NAD HEENT: eyes are clear and none icteric
[2020-04-06] MEDS: SODIUM CHLORIDE 0.9% IV 1,000 ML 70 ML IV CONT ×2 (00:30→14:25)
[2020-04-06 06:00] VITALS: BP 142/65; PULSE 76; RESP 16; TEMP 36.5; O2SAT 100
[2020-04-06 06:15] LABS: Hematocrit 31.4 % (37.0-47.0); Hemoglobin 8.9 g/dL (12.0-15.0); Mean Corpuscular HGB Conc 28.3 g/dl (32-36); Mean Corpuscular Hemoglobin 27.7 pg (26-34); Mean Corpuscular Volume 97.8 fl (80-100); Mean Platelet Volume 9.7 fl (7.4-10.4); Platelet Count Result 279 k/mm3 (150-375); Red Blood Count 3.21 M/mm3 (4.2-5.4); Red Cell Distribution Width 24.4 % (11.5-14.5); White Blood Count 9.1 K/mm3 (4.5-10.0)
[2020-04-06 06:32] LABS: Anion Gap 11 mmol/L (8-16); Blood Urea Nitrogen 18 mg/dL (7-17); Calcium 8.2 mg/dL (8.4-10.2); Carbon Dioxide 26 mmol/L (22-30); Chloride 107 mmol/L (98-107); Estimated Glomerular Filt Rate 43; Glucose 75 mg/dL (65-105); Potassium 3.9 mmol/L (3.4-5.0); Sodium 144 mmol/L (137-145)
[2020-04-06] MEDS: PANTOPRAZOLE SODIUM IV 40 MG VIAL IV PUSH (08:51)
[2020-04-06] MEDS: ceFAZolin 500 MG in DEXTROSE 5% IN WATER 50 ML 100 MG IVPB ×2 (08:52→21:20)
[2020-04-06] MEDS: predniSONE 10 MG TABLET PO (10:30)
[2020-04-06] MEDS: ACYCLOVIR 400 MG TABLET PO (10:30)
[2020-04-06] MEDS: SUCRALFATE SUSP 100 MG/ML 10 ML UDC 1000 MG PO ×3 (12:59→21:21)
[2020-04-06] MEDS: FLUCONAZOLE 100 MG/NACL 50 ML 100 MG/50 ML BTL 50 MG IVPB (12:59)
[2020-04-06 14:00] VITALS: BP 150/70; PULSE 85; RESP 22; TEMP 36.8; O2SAT 100
[2020-04-06 14:01] VITALS: BMI 10.0
--- NOTE | 2020-04-06 14:07 | PM.IMPN ---
Progress Note: A&P Assessment and Plan (1) Cellulitis of right thigh: Code(s): L03.115 - Cellulitis of right lower limb Status: Acute Assessment and Plan: Blood cultures are pending. Will start the patient on empiric antibiotic therapy with Keflex. Will repeat CBC this a.m.. The patient is at high risk complications from infection as she is on immunosuppressive therapy with methotrexate and prednisone for her rheumatoid arthritis. 04/06/20 14:07 patient 80-year-old female a resident of [facility] recently admitted and treated for acute mental status change secondary to UTI, patient has history of rheumatoid arthritis chronically on prednisone, patient has a colostomy status post diverticulosis perforation, patient was sent to emergency department again with poor response acute mental status change there is found to have cellulitis of lower extremities this may have resulted in her current condition as patient is not interactive, patient appears quite frail is states that her lower extremities are swollen red and painful patient is being treated with Ancef, patient also appears quite swollen, CXR does not show any edema, will gently diurese the patient, also on fluconazole IV unable detail while patient is on antifungal however will continue until stop date of April 09. will have PT OT evaluate the patient, follow up on a blood culture will continue to monitor (2) Altered mental status: Qualifiers: Altered mental status type: delirium Qualified Code(s): R41.0 - Disorientation, unspecified Code(s): R41.82 - Altered mental status, unspecified Status: Acute Assessment and Plan: Delirium likely due to acute infection. However the patient also has polypharmacy which may not be helping this situation. Patient's pain meds and baclofen have been held at this time. Will continue monitor mental status closely and readdress medications when more aware and clinically appropriate. Patient is NPO until mentation is improved. (3) Anasarca: Code(s): R60.1 - Generalized edema Status: Acute Assessment and Plan: The patient does have chronic anasarca. most likely secondary to chronic prednisone however will gently diurese the patient with IV Lasix 20 mg and monitor. (4) Vomiting: Qualifiers: Vomiting type: unspecified Vomiting Intractability: non-intractable Nausea presence: unspecified Qualified Code(s): R11.10 - Vomiting, unspecified Code(s): R11.10 - Vomiting, unspecified Status: Acute Assessment and Plan: The patient's CT demonstrated no acute intra-abdominal process. Patient is currently NPO given altered mental status. Her ostomy has good output. Will place on aspiration precautions. Subjective Date/time seen: 04/06/20 14:07 patient 80-year-old female a resident of [facility] recently admitted and treated for acute mental status change secondary to UTI, patient has history of rheumatoid arthritis chronically on prednisone, patient has a colostomy status post diverticulosis perforation, patient was sent to emergency department again with poor response acute mental status change there is found to have cellulitis of lower extremities this may have resulted in her current condition as patient is not interactive, patient appears quite frail is states that her lower extremities are swollen red and painful patient is being treated with Ancef, patient also appears quite swollen, CXR does not show any edema, will gently diurese the patient, also on fluconazole IV unable detail while patient is on antifungal however will continue until stop date of April 09. will have PT OT evaluate the patient, follow up on a blood culture will continue to monitor. Review of Systems Review of Systems: All systems reviewed & are unremarkable except as noted in HPI and below Exam Narrative: Exam Narrative: elderly frail Patient is comfortabl
[2020-04-06] MEDS: ACETAMINOPHEN 500 MG TABLET 1000 MG PO ×3 (14:25→23:10)
[2020-04-06] MEDS: FUROSEMIDE INJ 40 MG/4 ML VIAL 20 MG IV PUSH (14:26)
[2020-04-06 22:00] VITALS: BP 159/79; PULSE 90; RESP 20; TEMP 36.9; O2SAT 98
[2020-04-07] VITALS (11 sets, daily range): BP systolic 130–184; BP diastolic 65–84; PULSE 62–80; RESP 16–20; TEMP 36.5–36.6; O2SAT 95–99
[2020-04-07] MEDS: SODIUM CHLORIDE 0.9% IV 1,000 ML 70 ML IV CONT (04:29)
[2020-04-07 06:33] LABS: Hematocrit 28.1 % (37.0-47.0); Hemoglobin 8.4 g/dL (12.0-15.0); Mean Corpuscular HGB Conc 29.9 g/dl (32-36); Mean Corpuscular Volume 93.7 fl (80-100); Mean Platelet Volume 10.3 fl (7.4-10.4); Platelet Count Result 253 k/mm3 (150-375); Red Cell Distribution Width 23.9 % (11.5-14.5); White Blood Count 8.1 K/mm3 (4.5-10.0)
[2020-04-07] MEDS: SUCRALFATE SUSP 100 MG/ML 10 ML UDC 1000 MG PO ×4 (06:56→20:07)
[2020-04-07 07:07] LABS: Anion Gap 4 mmol/L (8-16); Blood Urea Nitrogen 13 mg/dL (7-17); Calcium 7.6 mg/dL (8.4-10.2); Carbon Dioxide 28 mmol/L (22-30); Chloride 108 mmol/L (98-107); Estimated Glomerular Filt Rate 60; Glucose 85 mg/dL (65-105); Potassium 3.5 mmol/L (3.4-5.0); Sodium 140 mmol/L (137-145)
[2020-04-07] MEDS: ceFAZolin 500 MG in DEXTROSE 5% IN WATER 50 ML 100 MG IVPB (09:29)
[2020-04-07] MEDS: NEBIVOLOL HCL 5 MG TABLET 10 MG PO (09:29)
[2020-04-07] MEDS: ACYCLOVIR 400 MG TABLET PO (09:29)
[2020-04-07] MEDS: METHOTREXATE 2.5 MG TAB (*CHEMO) 5 MG PO (09:29)
[2020-04-07] MEDS: predniSONE 10 MG TABLET PO (09:30)
[2020-04-07] MEDS: PANTOPRAZOLE SODIUM IV 40 MG VIAL IV PUSH (09:30)
[2020-04-07] MEDS: ACETAMINOPHEN 500 MG TABLET 1000 MG PO (09:37)
[2020-04-07] MEDS: FUROSEMIDE INJ 40 MG/4 ML VIAL 20 MG IV PUSH (09:42)
--- NOTE | 2020-04-07 10:44 | PM.IMPN ---
Progress Note: A&P Assessment and Plan (1) Cellulitis of right thigh: Code(s): L03.115 - Cellulitis of right lower limb Status: Acute Assessment and Plan: Patient appears to have been improving clinically. Afebrile. WBC WNL today. PAtient high risk of complications from infection as she is on immunosuppressive therapy with methotrexate and prednisone for RA. Blood cultures show no growth to date. Will transition to PO Keflex today. Anticipate continuing this through 04/11 to complete 7 days total of antibiotics. Monitor CBC Monitor for clincal improvement (2) Altered mental status: Qualifiers: Altered mental status type: delirium Qualified Code(s): R41.0 - Disorientation, unspecified Code(s): R41.82 - Altered mental status, unspecified Status: Acute Assessment and Plan: Delirium likely due to acute infection. However the patient also has polypharmacy which may not be helping this situation. She is much more oriented today, it appears. Patient's pain meds and baclofen had been held on admission however patient now in severe pain and requesting her pain medication. Resume her Xtempza for now; continue to hold baclofen Will continue monitor mental status closely and readdress medications daily and resume whne clinically appropriate. ST recommends level 6 diet with thin liquids after eval Monitor (3) Anasarca: Code(s): R60.1 - Generalized edema Status: Acute Assessment and Plan: The patient does have chronic anasarca. Most likely secondary to chronic prednisone however possibly a bit fluid overloaded given new UE swelling which she says is new fo her. Continue to gently diurese the patient with IV Lasix 20 mg monitor (4) Vomiting: Qualifiers: Vomiting type: unspecified Vomiting Intractability: non-intractable Nausea presence: unspecified Qualified Code(s): R11.10 - Vomiting, unspecified Code(s): R11.10 - Vomiting, unspecified Status: Acute Assessment and Plan: Appears to have resolved. The patient's CT demonstrated no acute intra-abdominal process. Her ostomy has good output. ST cole recommends level 6 diet with thin liquids; continue Monitor (5) Chronic anemia: Code(s): D64.9 - Anemia, unspecified Status: Acute Assessment and Plan: Hgb relatively stable although trending a bit down to 8.4 today. Monitor daily Transfuse prn (6) Rheumatoid arthritis: Qualifiers: Rheumatoid arthritis location: unspecified site Rheumatoid factor presence: unspecified presence Qualified Code(s): M06.9 - Rheumatoid arthritis, unspecified Code(s): M06.9 - Rheumatoid arthritis, unspecified Status: Chronic Assessment and Plan: Patient in severe pain today requesting her home medication xtempza Continue Methotrexate and prednisone for now REsume xtempza and monitor mental status closely Consider resuming baclofen if appropriate Monitor Subjective Date/time seen: 04/07/20 10:44 Interval history: Patient is a chronically ill 80 yo F with history of 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 Patient states her main complaint today is her RA pain; no area specifically. She is requesting her home Xtempza. She feels slightly short of breath now and felt wheezy this morning; noted that she has not gotten a breathing treatment which she usually gets three times a day at the . She has no other complaints at the moment. Noted brief dizziness when standing up with therapy but did not f
[2020-04-07] MEDS: IPRATROPIUM BR 0.02% INH SOLN 0.5 MG/2.5 ML VIAL INHALATION ×3 (11:26→23:18)
[2020-04-07] MEDS: ALBUTEROL SULFATE NEB 2.5 MG/0.5 ML INH INHALATION ×3 (11:26→23:19)
[2020-04-07] MEDS: FLUCONAZOLE 100 MG/NACL 50 ML 100 MG/50 ML BTL 50 MG IVPB (12:44)
[2020-04-07] MEDS: CEPHALEXIN 500 MG CAPSULE PO ×3 (12:44→23:42)
--- NOTE | 2020-04-07 13:36 | PHAR ---
Drug Name: Xtampza ER Ingredients: Oxycodone -- 18 MG Color: Yellow , White Shape: Capsule-shape Imprint: XTAMPZA ER , 18 mg Route: Oral route Form: Capsule, Extended Release
[2020-04-08] VITALS (7 sets, daily range): BP systolic 140–170; BP diastolic 63–80; PULSE 74–96; RESP 16–20; TEMP 36.2–36.9; O2SAT 95–98
[2020-04-08] MEDS: CEPHALEXIN 500 MG CAPSULE PO ×4 (05:31→23:13)
[2020-04-08] MEDS: SUCRALFATE SUSP 100 MG/ML 10 ML UDC 1000 MG PO ×4 (05:31→20:52)
[2020-04-08 06:24] LABS: Hematocrit 27.6 % (37.0-47.0); Hemoglobin 8.2 g/dL (12.0-15.0); Mean Corpuscular HGB Conc 29.7 g/dl (32-36); Mean Corpuscular Hemoglobin 27.7 pg (26-34); Mean Corpuscular Volume 93.2 fl (80-100); Mean Platelet Volume 9.9 fl (7.4-10.4); Platelet Count Result 272 k/mm3 (150-375); Red Blood Count 2.96 M/mm3 (4.2-5.4); Red Cell Distribution Width 23.3 % (11.5-14.5); White Blood Count 9.7 K/mm3 (4.5-10.0)
[2020-04-08 06:38] LABS: Anion Gap 3 mmol/L (8-16); Blood Urea Nitrogen 11 mg/dL (7-17); Calcium 7.9 mg/dL (8.4-10.2); Carbon Dioxide 32 mmol/L (22-30); Chloride 105 mmol/L (98-107); Estimated Glomerular Filt Rate 60; Glucose 79 mg/dL (65-105); Magnesium 1.7 mg/dL (1.6-2.3); Potassium 3.1 mmol/L (3.4-5.0); Sodium 140 mmol/L (137-145)
[2020-04-08] MEDS: POTASSIUM CHLORIDE 20 MEQ PACKET (FOR LIQUID) 40 MEQ PO (08:11)
[2020-04-08] MEDS: ACYCLOVIR 400 MG TABLET PO (08:13)
[2020-04-08] MEDS: NEBIVOLOL HCL 5 MG TABLET 10 MG PO (08:14)
[2020-04-08] MEDS: FUROSEMIDE INJ 40 MG/4 ML VIAL 20 MG IV PUSH (08:14)
[2020-04-08] MEDS: PANTOPRAZOLE SODIUM IV 40 MG VIAL IV PUSH (08:17)
[2020-04-08] MEDS: predniSONE 10 MG TABLET PO (08:17)
[2020-04-08] MEDS: FLUCONAZOLE 100 MG/NACL 50 ML 100 MG/50 ML BTL 50 MG IVPB (11:54)
--- NOTE | 2020-04-08 12:07 | PM.IMPN ---
Progress Note: A&P Assessment and Plan (1) Cellulitis of right thigh: Code(s): L03.115 - Cellulitis of right lower limb Status: Acute Assessment and Plan: Patient appears to have been improving clinically. Afebrile. WBC WNL today. Patient high risk of complications from infection as she is on immunosuppressive therapy with methotrexate and prednisone for RA. Blood cultures show no growth to date. Will continue PO Keflex. Anticipate continuing this through 04/11 to complete 7 days total of antibiotics. Monitor CBC Monitor for clinical improvement If continued improvement, will likely discharge 1-2 days; COVID testing pending for placement. Patient will return to [facility] for further therapy after discharge (2) Altered mental status: Qualifiers: Altered mental status type: delirium Qualified Code(s): R41.0 - Disorientation, unspecified Code(s): R41.82 - Altered mental status, unspecified Status: Acute Assessment and Plan: Delirium likely due to acute infection. However the patient also has polypharmacy which may not be helping this situation. She is oriented today; answering questions appropriately. Patient's pain meds and baclofen had been held on admission; some have been resumed given improvement in mental status and increased pain yesterday Resume her Xtempza for now; continue to hold baclofen Will continue monitor mental status closely and readdress medications daily and resume when clinically appropriate. ST recommends level 6 diet with thin liquids after eval Monitor (3) Anasarca: Code(s): R60.1 - Generalized edema Status: Acute Assessment and Plan: The patient does have chronic anasarca. Most likely secondary to chronic prednisone however possibly a bit fluid overloaded given new UE swelling which she says is new for her; her swelling has significantly improved since yesterday. Fluid collection noted on left forearm during exam, fluctuant and likely serous fluid; hematoma less likely, although overlying ecchymosis noted. Continue to gently diurese the patient with IV Lasix 20 mg Draining fluid from forearm considered, although I fear this will likely cause further complications like risk of infection, prolonged bleeding/drainage from the area; will observe for now and see if there is improvement with diuresis. monitor (4) Vomiting: Qualifiers: Vomiting type: unspecified Vomiting Intractability: non-intractable Nausea presence: unspecified Qualified Code(s): R11.10 - Vomiting, unspecified Code(s): R11.10 - Vomiting, unspecified Status: Acute Assessment and Plan: Appears to have resolved. The patient's CT demonstrated no acute intra-abdominal process. Her ostomy has good output. ST eval recommends level 6 diet with thin liquids; continue Monitor (5) Chronic anemia: Code(s): D64.9 - Anemia, unspecified Status: Acute Assessment and Plan: Hgb relatively stable although trending a bit down to 8.2 today. No evidence of bleeding other than multiple ecchymoses on arms and legs. No evidence of GI blood loss at this time. Monitor daily Transfuse prn (6) Rheumatoid arthritis: Qualifiers: Rheumatoid arthritis location: unspecified site Rheumatoid factor presence: unspecified presence Qualified Code(s): M06.9 - Rheumatoid arthritis, unspecified Code(s): M06.9 - Rheumatoid arthritis, unspecified Status: Chronic Assessment and Plan: Patient's pain much more reasonable today Continue Methotrexate and prednisone for now Continue xtempza and monitor mental status closely Consider resuming baclofen if appropriate Monitor Subjective Date/ti
[2020-04-08 13:09] LABS: SARS-CoV-2 RNA PCR Negative
--- NOTE | 2020-04-08 13:35 | PCRCNOTE ---
Window of time for administration has passed. See next scheduled administration.
[2020-04-08] MEDS: IPRATROPIUM BR 0.02% INH SOLN 0.5 MG/2.5 ML VIAL INHALATION (16:25)
[2020-04-08] MEDS: ALBUTEROL SULFATE NEB 2.5 MG/0.5 ML INH INHALATION (16:25)
[2020-04-09] MEDS: IPRATROPIUM BR 0.02% INH SOLN 0.5 MG/2.5 ML VIAL INHALATION ×2 (01:17→07:08)
[2020-04-09] MEDS: ALBUTEROL SULFATE NEB 2.5 MG/0.5 ML INH INHALATION ×2 (01:17→07:08)
[2020-04-09 01:19] VITALS: PULSE 81; RESP 18; O2SAT 92
[2020-04-09 01:30] VITALS: PULSE 84; RESP 18
[2020-04-09] MEDS: SUCRALFATE SUSP 100 MG/ML 10 ML UDC 1000 MG PO ×2 (05:48→11:47)
[2020-04-09] MEDS: CEPHALEXIN 500 MG CAPSULE PO (05:48)
[2020-04-09 06:00] VITALS: BP 192/86; PULSE 102; RESP 20; TEMP 36.4; O2SAT 96
[2020-04-09 07:09] VITALS: PULSE 78; RESP 18
[2020-04-09 07:11] VITALS: PULSE 78; RESP 18; O2SAT 93
[2020-04-09 08:33] LABS: Hematocrit 30.1 % (37.0-47.0); Hemoglobin 8.6 g/dL (12.0-15.0); Mean Corpuscular HGB Conc 28.6 g/dl (32-36); Mean Corpuscular Hemoglobin 27.6 pg (26-34); Mean Corpuscular Volume 96.5 fl (80-100); Mean Platelet Volume 9.7 fl (7.4-10.4); Platelet Count Result 260 k/mm3 (150-375); Red Blood Count 3.12 M/mm3 (4.2-5.4); Red Cell Distribution Width 23.6 % (11.5-14.5)
[2020-04-09 08:44] LABS: Anion Gap 2 mmol/L (8-16); Blood Urea Nitrogen 15 mg/dL (7-17); Calcium 8.5 mg/dL (8.4-10.2); Carbon Dioxide 33 mmol/L (22-30); Chloride 104 mmol/L (98-107); Estimated Glomerular Filt Rate 53; Glucose 90 mg/dL (65-105); Magnesium 1.8 mg/dL (1.6-2.3); Potassium 4.1 mmol/L (3.4-5.0); Sodium 139 mmol/L (137-145)
--- NOTE | 2020-04-09 10:24 | PM.DS ---
DS: Admitting Diagnosis Admitting Diagnosis Admitting Diagnosis: Altered mental status DS: Discharge Diagnosis Discharge Diagnosis (1) Cellulitis of right thigh: Code(s): L03.115 - Cellulitis of right lower limb Status: Acute (2) Altered mental status: Qualifiers: Altered mental status type: delirium Qualified Code(s): R41.0 - Disorientation, unspecified Code(s): R41.82 - Altered mental status, unspecified Status: Acute (3) Anemia: Qualifiers: Anemia type: unspecified type Qualified Code(s): D64.9 - Anemia, unspecified Code(s): D64.9 - Anemia, unspecified Status: Chronic (4) Paroxysmal atrial fibrillation: Code(s): I48.0 - Paroxysmal atrial fibrillation Status: Chronic (5) Frequent falls: Code(s): R29.6 - Repeated falls Status: Acute (6) Essential hypertension: Code(s): I10 - Essential (primary) hypertension Status: Chronic (7) Lower extremity edema: Code(s): R60.0 - Localized edema Status: Chronic (8) Generalized weakness: Code(s): R53.1 - Weakness Status: Acute (9) Rheumatoid arthritis: Qualifiers: Rheumatoid arthritis location: unspecified site Rheumatoid factor presence: unspecified presence Qualified Code(s): M06.9 - Rheumatoid arthritis, unspecified Code(s): M06.9 - Rheumatoid arthritis, unspecified Status: Chronic (10) Hypothyroidism: Qualifiers: Hypothyroidism type: unspecified Qualified Code(s): E03.9 - Hypothyroidism, unspecified Code(s): E03.9 - Hypothyroidism, unspecified Status: Chronic (11) Hyperlipidemia: Qualifiers: Hyperlipidemia type: unspecified Qualified Code(s): E78.5 - Hyperlipidemia, unspecified Code(s): E78.5 - Hyperlipidemia, unspecified Status: Acute DS: Summary Hospital Course Reason for hospitalization: AMS Hospital Course: Yamini Muñoz is a 80 year old female with a past medical history of 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 The patient is usually alert and oriented able to carry a conversation and interact with staff. Nursing staff found documentation from the longterm that the patient had been vomiting for 2 days. The patient had evidence of dried emesis to her mouth and teeth. She had a CT scan performed in the ER which was unremarkable for acute process. She was found have right lower extremity cellulitis and was started on Keflex, her leg does not look bad now, her erythema is minimum , she refers nausea every time she takes Keflex for instance we will switch her to cefdinir. Her delirium was thought to be secondary to polypharmacy and the underlying infection, she did not received her [place] and baclofen while in the hospital and she is doing great, this morning she is alert and oriented,talkative and denies any pain, we will continue to hold these medications. The rest of her home medications will be resumed, she is on Pradaxa for paroxysmal A. fib and that will be resumed , her AC was placed on hold in the hospital but I could not find evidence of active bleeding she denies melena or hematochezia, her Hb has remained stable with only minimal variation. Status at Discharge Cognitive/behavioral status at discharge: Alert and oriented. Overall status at discharge: patient is progressing back to baseline Time Spent with Patient Time attestation: Total time spent providing and/or coordinating discharge services: Time spent: Greater than 30 minutes Exam Narrative: Exam Narrative: General: Patient resting supine in bed. Comfortable appearing alert and oriented. HEENT: Normocephalic, EOMI, oral mucosa moist. Cardiovascular: Rat
[2020-04-09] MEDS: FUROSEMIDE INJ 40 MG/4 ML VIAL 20 MG IV PUSH (11:42)
[2020-04-09] MEDS: ACYCLOVIR 400 MG TABLET PO (11:42)
[2020-04-09] MEDS: NEBIVOLOL HCL 5 MG TABLET 10 MG PO (11:44)
[2020-04-09] MEDS: predniSONE 10 MG TABLET PO (11:45)
[2020-04-09] MEDS: PANTOPRAZOLE SODIUM IV 40 MG VIAL IV PUSH (11:45)
[2020-04-09] MEDS: CEFDINIR 300 MG CAPSULE PO (11:47)
[2020-04-09 14:00] VITALS: BP 163/77; PULSE 86; RESP 16; TEMP 36.8; O2SAT 95
== END 2020-04-09 14:25 | DRG 603 ==
LOC: ANHED 20:55 → ANH3MEDSUR 21:58
PROVIDERS: Family Medicine; Admitting Provider Internal Medicine; Emergency Provider Emergency Medicine; PCP Internal Medicine; Visit Provider Physician Assistant
DX: L03.115 Cellulitis of right lower limb (principal); Z20.828 Contact with and (suspected) exposure to other viral communicable diseases; R41.0 Disorientation, unspecified; T50.915A Adverse effect of multiple unspecified drugs, medicaments and biological substances, initial encounter; D64.9 Anemia, unspecified; I48.0 Paroxysmal atrial fibrillation; R60.0 Localized edema; R53.1 Weakness; R29.6 Repeated falls; M06.9 Rheumatoid arthritis, unspecified; G89.29 Other chronic pain; I12.9 Hypertensive chronic kidney disease with stage 1 through stage 4 chronic kidney disease, or unspecified chronic kidney disease; N18.30 Chronic kidney disease, stage 3 unspecified; R11.10 Vomiting, unspecified; E03.9 Hypothyroidism, unspecified; E78.5 Hyperlipidemia, unspecified; Z28.21 Immunization not carried out because of patient refusal; Z79.01 Long term (current) use of anticoagulants; Z79.52 Long term (current) use of systemic steroids; Z79.899 Other long term (current) drug therapy; Z93.3 Colostomy status
CPT/HCPCS: 36415; 36600; 70450; 71045; 74176; 80048; 80053; 81003; 82805; 83605; 83735; 83880; 84484; 85025; 85027; 85610; 85730; 87040; 87635; 92610; 93005; 94640; 96361; 96365; 96366; 96367; 96375; 97110; 97161; 97165; 97530; 97535; 99285; A9270; C9113; C9803; G0378; J0690; J1450; J1940; J3480; J7030; J7512; U0003

== ENCOUNTER 2020-04-13 14:56 | Inpatient (IN) | payer MEDICARE, SELFPAY ==
[2020-04-13] VITALS (52 sets, daily range): BP systolic 89–140; BP diastolic 42–92; PULSE 75–93; RESP 11–22; TEMP 37.1–37.3; O2SAT 58–100; BMI 34.8
--- NOTE | ~2020-04-13 | CT_ITS ---
EXAMINATION: CT knee RT wo con DATE: 04/16/2020 09:21 INDICATION: Medial tibial condyle fracture. TECHNIQUE: Computed tomography (CT) of the right knee was performed without intravenous contrast. Aut omated exposure control and iterative reconstruction technique were employed. The dose-length product was 473.02 mGy-cm. COMPARISON: Right knee radiographs 04/15/2020 FINDINGS: There is a comminuted fracture of proximal tibia. There is a transverse component involving the proximal tibial metaphysis with mild impaction. Fracture lines extend to the anterior aspects of the medial and lateral tibial plateaus and intercondylar eminence. There is up to 1 mm depression of the anterior articular surface of the lateral tibial condyle. There is mild tricompartmental osteoar thritis. There is a large lipohemarthrosis. There is extensive subcutaneous edema. IMPRESSION: 1. Comminuted fracture of proximal tibia. 2. Mild right knee osteoarthritis. 3. Large lipohemarthrosis. Reviewed, dictated and finalized at location A. PRESSURE OPERATOR
--- NOTE | ~2020-04-13 | XR_ITS ---
EXAMINATION: XR knee RT 2V DATE: 04/15/2020 13:40 INDICATION: Right knee pain. TECHNIQUE: 2 views of right knee were obtained. COMPARISON: None. FINDINGS: Bone alignment is normal. There is a transverse sclerotic line in medial tibial condyle, li isabel a stress fracture. There is mild osteoarthritis of medial and patellofemoral compartments. There is a moderate-sized knee joint effusion. IMPRESSION: 1. Stress fracture of medial tibial condyle. 2. Mild right knee osteoarthritis. 3. Moderate-sized right knee joint effusion. Reviewed, dictated and finalized at location B. N PROG COORD
--- NOTE | ~2020-04-13 | XR_ITS ---
EXAMINATION: XR barium swallow modified EXAM DATE: 04/15/2020 10:52 INDICATION: Witnessed Choking Episode while taking meds (pills). Dysphagia. TECHNIQUE: Modified barium esophagram was performed by myself to administered fluoroscopy, in conjun ction with speech pathologist who administered barium in varying consistencies as per speech patholog ist documentation. This was recorded on tape. The DAP for this procedure was 2.1 Gycm2. FINDINGS: Oral stage: Adequate function. Pharyngeal phase: Adequate function. Laryngeal penetration: None. Aspiration: None. Laryngeal sensitivity: Present. Patient was unable to swallow a barium tablet. IMPRESSION: Patient tolerated oral feedings in the upright position. Please refer to speech patholo gist findings and specific feeding recommendations. Reviewed, dictated and finalized at location A. NISTRATIVE COORDINATOR IMPRESSION: Patient tolerated oral feedings in the upright position. Please r efer to speech pathologist findings and specific feeding recommendations.
--- NOTE | ~2020-04-13 | XR_ITS ---
EXAMINATION: XR chest 1V portable DATE: 04/13/2020 16:56 INDICATION: Weakness. TECHNIQUE: A single frontal view of the chest was obtained. COMPARISON: Chest single view 04/04/2020, 02/01/2020, CT abdomen and pelvis 04/04/2020, chest CT 0 FINDINGS: There is chronic elevation of right hemidiaphragm. There are airspace opacities in right mi dlung zone and all left lung zones. No pleural effusion or pneumothorax. The heart size is normal. Th ere are changes of vertebroplasty in lower thoracic spine. There are multiple old healed bilateral ri b fractures. IMPRESSION: 1. Airspace opacities in right midlung zone and all left lung zones, likely predominantly atelectasis and chronic lung disease. Pneumonia cannot be excluded. Reviewed, dictated and finalized at location B. LOGY NURSE IMPRESSION: 1. Airspace opacities in right midlung zone and all left lung zones, likely pre dominantly atelectasis and chronic lung disease. Pneumonia cannot be excluded.
--- NOTE | ~2020-04-13 | US_ITS ---
EXAMINATION: US venous doppler LE EXAM DATE: 04/14/2020 10:59 INDICATION: Bilateral leg edema. TECHNIQUE: Multiple grayscale, color flow and Doppler images of the lower extremity deep venous syste ms bilaterally were obtained and reviewed. Comparison is made to prior examination from 12/26/2019. FINDINGS: Right side: The right common femoral, femoral and profunda veins demonstrate normal color flow, respi ratory variation, augmentation and compressibility. Compressibility, color flow confirmed within the right popliteal, posterior tibial, peroneal, and greater saphenous veins. Left side: The left common femoral, femoral and profunda veins demonstrate normal color flow, respira tory variation, augmentation and compressibility. Compressibility, color flow confirmed within the l eft popliteal, posterior tibial, peroneal, and greater saphenous veins. IMPRESSION: No lower extremity deep venous thrombosis bilaterally. Reviewed, dictated and finalized at location A. ENDER HELPER
--- NOTE | ~2020-04-13 | CT_ITS ---
EXAMINATION: CT brain wo con DATE: 04/13/2020 16:49 INDICATION: Increasing confusion and weakness TECHNIQUE: Computed tomography (CT) of the head was performed without intravenous contrast. Sagittal and coronal reconstructions were performed. The mA was adjusted according to patient size. Iterative reconstruction technique was employed. The dose-length product was 605.33 mGy-cm. COMPARISON: head CT dated 04/04/2020 FINDINGS: Small region of encephalomalacia consistent with chronic infarct at the left occipital lobe. No acute intracranial hemorrhage or acute infarction. 7 x 5 x 5 mm extra-axial calcified pleural-based mass o verlying the left frontal lobe consistent with meningioma. There is symmetric prominence of the sulci consistent with mild to moderateage-appropriate diffuse cerebral volume loss. Intervals are normal a nd symmetric. Moderate scattered periventricular and subcortical white matter hypoattenuation consist ent with chronic small vessel ischemic disease. Changes of bilateral intraocular lens replacement. Mu cosal thickening the left maxillary and bilateral ethmoid and sphenoid sinuses. Small amount of depen dently layering mucus in the bilateral sphenoid sinuses. Postoperative changes of bilateral antral wi ndow procedures with uncinectomies and left middle turbinectomy. Intracranial calcified cerebral athe rosclerosis is noted. IMPRESSION: 1. No acute intracranial process. 2. Chronic small left occipital infarct. 3. Age-related changes of brain including mild to moderate diffuse spondylosis and moderate scattered white matter hypoattenuation consistent with chronic small vessel ischemic disease. 3. Small left frontal meningioma. 4. Chronic sinus disease with changes of prior sinus surgery. Reviewed, dictated and finalized at location A. RVISOR DECORATING IMPRESSION: 1. No acute intracranial process. 2. Chronic small left occipital infarct. 3. Age-related changes of brain including mild to moderate diffuse spondylosis and moderate scattered white matter hypoattenuation consistent with chronic sma ll vessel ischemic disease. 3. Small left frontal meningioma. 4. Chronic sinus disease with changes of prior sinus surgery.
--- NOTE | 2020-04-13 15:30 | PC.NURSE ---
patient here with increasing confusion and weakness. see triage notes. resting on stretcher. on blister rust eradicator. straight cath done at bedside. tolerated well. no skin issues seen. urine is dark yellow with foul odor. advised patient to keep BP cuff on but is uncomfortable. assessments documented
--- NOTE | 2020-04-13 15:38 | ECG_ITS ---
Measurements Intervals [place] Rate: 81 P: 45 NV: 151 QRS: 8 QRSD: 78 T: 114 QT: 332 QTc: 387 Interpretive Statements SINUS RHYTHM ST-T WAVE ABNORMALITY IN HIGH LATERAL LEADS- CONSIDER ISCHEMIA BASELINE ARTIFACT- I, II, III, AVR, AVL, AVF, V2-V6 ABNORMAL ECG Electronically Signed On 04-13-2020 17:37:28 MANUFACTURING AREA MANAGER by Odilon Swift D.O.
--- NOTE | 2020-04-13 16:20 | PC.NURSE ---
patient refuses to keep her BP cuff on. keeps removing or crying out. no other complaints at this time. continues to be alert. oriented x2-3 at best. on monitor tech. still attempting to get IV access.
[2020-04-13 16:25] LABS: Glucose Point of Care 122 (65-105)
[2020-04-13 16:25] LABS: Alveolar/Arterial O2 Gradient 38.4 mmHg; Base Excess ABG -0.4 mEq/l (+/-2.0); Fractional Inspired Oxygen 21 %; HCO3 ABG 25.5 mEq/l (22.0-26.0); Oxygen Content ABG 12.6 %vol (16.0-22.0); Oxyhemoglobin 83.9 % THb (90.0-100.0); PCO2 ABG 47.5 mmHg (35.0-45.0); PO2 ABG 54.5 mmHg (80.0-100.0); Total Hemoglobin 10.7 g/dL (12.0-18.0); pH ABG 7.348 (7.350-7.450)
[2020-04-13 16:26] LABS: Add Urine Microscopic? YES; Appearance Urine Clear (Clear); Bilirubin Urine Negative (Negative); Blood Urine 2+ (Negative); Color Urine Yellow (Yellow); Glucose Urine UA Negative (Negative); Ketones Urine Negative (Negative); Leukocyte Esterase Ur Trace LEU/UL (Negative); Nitrate Urine Negative (Negative); Protein Urine Negative (Negative); RBC Urine 0-2 /hpf (0-2); Specific Grav Ur 1.012 (1.001-1.035); Squamous Epithelial Cell Urine Rare /hpf (Few); Urobilinogen Urine Negative mg/dL (<2.0); WBC Urine 0-3 /hpf
[2020-04-13 16:28] LABS: Basophils Percent Auto 0.2 % (0.2-1.2); Eosinophils Percent Auto 0.2 % (0-4.4); Hematocrit 34.2 % (37.0-47.0); Immature Granulocyte Absolute 0.11 K/mm3 (0.00-0.031); Immature Granulocyte Percent A 0.7 % (0-0.5); Lymphocytes Percent Auto 7.5 % (18.3-44.2); Mean Corpuscular HGB Conc 29.2 g/dl (32-36); Mean Corpuscular Hemoglobin 28.5 pg (26-34); Mean Corpuscular Volume 97.4 fl (80-100); Mean Platelet Volume 9.8 fl (7.4-10.4); Monocytes Absolute Auto 0.7 K/mm3 (0.1-0.6); Monocytes Percent Auto 4.4 % (2.6-8.5); Neutrophils Absolute Auto 13.8 K/mm3 (1.3-6.7); Nucleated Red Blood Cells Perc 0.1 % (0.0-0.2); Platelet Count Result 420 k/mm3 (150-375); Red Blood Count 3.51 M/mm3 (4.2-5.4); Red Cell Distribution Width 23.9 % (11.5-14.5); White Blood Count 15.9 K/mm3 (4.5-10.0)
[2020-04-13 16:28] LABS: Oxygen Saturation ABG 86.5 % (95.0-100.0)
[2020-04-13 16:29] LABS: Site Drawn LEFT RADIAL
[2020-04-13 16:30] LABS: Device ROOM AIR; Modified Allen's Test Pass
[2020-04-13 16:38] LABS: Alanine Aminotransferase 30 U/L (4-35); Albumin Level 3.6 g/dL (3.5-5.1); Alkaline Phosphatase 183 U/L (38-126); Anion Gap 10 mmol/L (8-16); Aspartate Amino Transferase 41 U/L (14-36); Bilirubin,Total 0.7 mg/dL (0.2-1.3); Blood Urea Nitrogen 26 mg/dL (7-17); Calcium 9.2 mg/dL (8.4-10.2); Carbon Dioxide 29 mmol/L (22-30); Chloride 95 mmol/L (98-107); Estimated CRCL calculation 18 ml/min; Estimated Glomerular Filt Rate 24; Glucose 136 mg/dL (65-105); Lactic Acid Reflex 1.6 mmol/L (0.7-2.1); Potassium 5.1 mmol/L (3.4-5.0); Sodium 134 mmol/L (137-145)
[2020-04-13 16:51] LABS: NT Pro B Type Natriuretic Pept 1350 PG/ML (5-100); Troponin I < 0.012 ng/mL (0.000-0.034)
--- NOTE | 2020-04-13 17:03 | ED.GENADULT ---
HPI - General Adult General Chief complaint: Altered Mental Status Stated complaint: Altered Mental Status Time Seen by Provider: 04/13/20 15:33 History of Present Illness HPI narrative: Patient is a 80-year-old female that presents emerged part with chief complaint of altered mental status. Patient recently was admitted to the hospital for lower extremity cellulitis and altered mental status. The patient has been back at the skilled nursing for the last several days and now has been acting more confused than normal. The patient's family reported that today she was saying that she was in the different place than normal. Patient denies fever denies chills denies vomiting denies diarrhea. Related Data Home Medications Medication Instructions Recorded Confirmed Bystolic 10 mg PO DAILY 04/25/19 04/04/20 Pradaxa 150 mg PO BID 04/25/19 04/04/20 fluconazole 150 mg PO DAILY 04/25/19 04/04/20 ipratropium-albuterol 3 ml INHALATION Q4H PRN 04/25/19 04/05/20 mesalamine with cleansing wipe 4 g SD HS PRN 04/25/19 04/04/20 methotrexate sodium 5 mg PO WEEKLY 04/25/19 04/04/20 promethazine 25 mg PO QID PRN 04/25/19 04/04/20 acyclovir 400 mg PO DAILY 04/26/19 04/04/20 folic acid 2 mg PO DAILY 04/26/19 04/04/20 gabapentin 100 mg PO BID 04/26/19 04/04/20 pantoprazole 40 mg PO QAM 04/26/19 04/04/20 prednisone 10 mg PO DAILY 04/26/19 04/04/20 bumetanide 0.5 mg PO DAILY 05/02/19 04/04/20 lidocaine [Lidoderm] 1 patch TRANSDERMAL DAILY PRN 06/14/19 04/04/20 duloxetine 30 mg PO DAILY 12/25/19 04/04/20 Orencia ClickJect 125 mg SUBCUT WEEKLY 12/26/19 04/04/20 Gaviscon 2 tablet PO PRN PRN 04/04/20 04/05/20 Saccharomyces boulardii [Florastor] 250 mg PO BID 04/04/20 04/04/20 Xtampza ER 18 mg PO Q12H 04/04/20 04/04/20 albuterol sulfate 2 puff INHALATION QID PRN 04/04/20 04/04/20 cyanocobalamin (vitamin B-12) 1,000 mcg PO DAILY 04/04/20 04/05/20 ferrous sulfate 325 mg PO BID 04/04/20 04/04/20 potassium chloride 10 meq PO BID 04/04/20 04/04/20 sucralfate 1,000 mg PO QID 04/04/20 04/04/20 Allergies Allergy/AdvReac Type Severity Reaction Status Date / Time codeine Allergy Unknown Nausea Verified 04/13/20 18:47 enalapril Allergy Unknown Nausea Verified 04/13/20 18:47 ezetimibe Allergy Unknown Dizziness Verified 04/13/20 18:47 metronidazole Allergy Unknown Unknown Verified 04/13/20 18:47 Bklxxdr-Uyk-Ipn Reductase Allergy Unknown Nausea Verified 04/13/20 18:47 Inhibitor latex Allergy Unknown Verified 04/13/20 18:47 Review of Systems Review of Systems: Narrative: CONSTITUTIONAL: Denies fever, chills, or sweats. EYES: Denies visual changes, redness, or discharge. ENT: Denies rhinorrhea, congestion, sore throat, or otalgia. CARDIOVASCULAR: Denies chest pain, palpitations, or edema. RESPIRATORY: Denies cough or dyspnea. GASTROINTESTINAL: Denies abdominal pain, nausea, vomiting, or diarrhea. GENITOURINARY: Denies dysuria or hematuria. SKIN: Denies rash or itching. MUSCULOSKELETAL: Denies back pain, joint pain, or myalgia. NEUROLOGIC: Denies headache, numbness, or weakness. PSYCHIATRIC: Denies anxiety or depression. All systems reviewed & are unremarkable except as noted in HPI and below PMFSH Past Medical History Medical History (Updated 04/13/20 @ 21:13 by Juliana Osuna NP) Acute kidney injury Altered mental state Arthritis B12 deficiency Bacteremia Citrobacter and Enterococcus bacteremia in April 2019. Bulging disc Chronic anemia Chronic kidney disease, stage 3 Baseline creatinine between 1.0 and 1.20. Chronic pain syndrome Secondary to rheumatoid arthritis. 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 Coronary artery disease Diverticulitis Perforated diverticulitis status post colostomy in 2014. Esophageal diverticulum Essential hypertension Gastroesophageal reflux disease GERD (gastroesophageal reflux disease) Hallucination History of CVA (cerebrovascular accident) Hyperlipidemia Hypokalemia Hypothyroidism Immunosuppr
--- NOTE | 2020-04-13 18:45 | PC.NURSE ---
discussed patient with charge nurse. patient needs IV access prior to transfer upstairs.
--- NOTE | 2020-04-13 21:07 | PM.IMHP ---
H&P: HPI History of Present Illness Date/Time: 04/13/20 21:07 Chief complaint: Altered Mental Status Narrative: Yamini Muñoz is a 80 year old female discharged from here on 04/09/20 and she had been here with altered mental status changes. She was treated for cellulitis and she was sent home on Keflex. The patient tells me that she went to [facility] for rehab. She does have chronic renal disease stage III. The patient does have chronic atrial fibrillation and her anticoagulation was resumed as a could not find any evidence of any bleed and she was stable at the time of discharge. To the emergency room today with altered mental status changes from [facility]. She had been more confused than normal. Patient was confused as to where she was today. No fever chills. She left here 4 days ago was 1.0 however she does have chronic renal failure and it looks like her baseline is anywhere from 1.1-1.7. Is been up to 2.4 in the past. Patient was not given any medications in the emergency room. Chest x-ray was read as airspace opacities and right mid lung zone and left lung zone. Likely atelectasis pneumonia cannot be ruled out. Chronic small left occipital infarct. Age-related changes of the brain including [id number] diffuse spondylosis and moderate scattered white matter hypoattenuation. Small left frontal meningioma. Chronic sinus disease with changes of prior sinus surgery. Patient is admitted on 04/13/2020 observation Review of Systems Review of Systems: All systems reviewed & are unremarkable except as noted in HPI and below Constitutional: Constitutional: Reports as per HPI and Reports no additional constitutional complaints Eyes: Eyes: Reports as per HPI and Reports no additional eye complaints ENT: Reports system reviewed and no additional complaints, except as documented and Reports Normal hearing present Cardiovascular: Cardiovascular: Reports no additional cardiovascular complaints Respiratory: Respiratory: Reports no additional respiratory complaints and Reports no additional respiratory complaints Gastrointestinal: Gastrointestinal: Reports as per HPI and Reports no additional gastrointestinal complaints Musculoskeletal: Musculoskeletal: Reports no additional musculoskeletal complaints Integumentary/Breasts: Skin/Breast: Reports system reviewed and no additional complaints, except as docu and Reports as per HPI Neurologic: Reports system reviewed and no additional complaints, except as documented, Reports as per HPI and Reports Normal hearing present Psychiatric: Psychiatric: Reports no additional psychiatric complaints and Reports as per HPI Endocrine: Endocrine: Reports no additional endocrine complaints Hematologic/Lymphatic: Hematologic/Lymphatic: Reports no additional hematologic/lymphatic complaints Allergic/Immunologic: Allergic/Immunologic: Reports no additional allergic/immunologic complaints [facility] Past Medical History Medical History (Updated 04/13/20 @ 21:13 by Juliana Osuna NP) Acute kidney injury Altered mental state Arthritis B12 deficiency Bacteremia Citrobacter and Enterococcus bacteremia in April 2019. Bulging disc Chronic anemia Chronic kidney disease, stage 3 Baseline creatinine between 1.0 and 1.20. Chronic pain syndrome Secondary to rheumatoid arthritis. 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 Coronary artery disease Diverticulitis Perforated diverticulitis status post colostomy in 2014. Esophageal diverticulum Essential hypertension Gastroesophageal reflux disease GERD (gastroesophageal reflux disease) Hallucination History of CVA (cerebrovascular accident) Hyperlipidemia Hypokalemia Hypothyroidism Immunosuppression due to drug therapy Kidney stones Osteoarthritis Osteoporosis Paroxysmal atrial fibrillation Pneumonia Rheumatoid arthritis Seasonal allergies UTI (urinary tract infection) Vertebral compression fracture T5 and
--- NOTE | 2020-04-13 21:38 | PC.NURSE ---
hospitalist TIMBER SUPERVISOR here to see patient. no change in condition. lethargic but arouses to voice. no change in condition. on property assessment monitor. refuses to wear BP cuff.
--- NOTE | 2020-04-13 22:15 | PC.NURSE ---
attempted to reposition patient in bed. refuses to move. states she is too sore and doesnt want anyone touching her legs. on monitor. BP cuff placed back on.
--- NOTE | 2020-04-13 22:41 | PC.NURSE ---
patient is being boarded in ED at this time. on monitor. no change in overall condition.
--- NOTE | 2020-04-13 22:54 | PC.NURSE ---
received room assignment. SBAR faxed and tubed to 3rd floor.
--- NOTE | 2020-04-13 23:15 | PC.NURSE ---
report given to RN on 3rd floor. will transfer to 341 via stretcher and indoor plant technician.
--- NOTE | 2020-04-13 23:20 | ADMGEN ---
This patient, Yamini Muñoz, was admitted to Medical Room 341-01. Patient/family oriented to hospital policies and general routines including ID bracelet, bed and alarms, visiting hours, pain management, procedures, bathroom and other care routines, personal items, smoking policy, room service/diet, and visiting hours. Information on how to activate the Rapid Response Team has been discussed. Patient/Family are encouraged to report perceived risks to care and to ask questions if they do not understand what they are told or what they should do.
[2020-04-13] MEDS: SODIUM CHLORIDE 0.9% IV 1,000 ML 75 ML IV CONT (23:35)
[2020-04-14] VITALS (12 sets, daily range): BP systolic 119–131; BP diastolic 51–68; PULSE 69–84; RESP 14–18; TEMP 36.5–36.8; O2SAT 97–100
[2020-04-14 00:22] LABS: Anion Gap 8 mmol/L (8-16); Blood Urea Nitrogen 31 mg/dL (7-17); Calcium 8.9 mg/dL (8.4-10.2); Carbon Dioxide 27 mmol/L (22-30); Chloride 100 mmol/L (98-107); Estimated Glomerular Filt Rate 27; Glucose 102 mg/dL (65-105); Sodium 135 mmol/L (137-145)
[2020-04-14] MEDS: ALBUTEROL SULFATE NEB 2.5 MG/0.5 ML INH 20 MG INHALATION (00:57)
[2020-04-14] MEDS: SODIUM POLYSTYRENE SULFONONATE 15 GM/60 ML BTL PO (02:36)
[2020-04-14 02:51] LABS: Basophils Percent Auto 0.1 % (0.2-1.2); Eosinophils Percent Auto 0.2 % (0-4.4); Hematocrit 28.9 % (37.0-47.0); Hemoglobin 8.6 g/dL (12.0-15.0); Immature Granulocyte Absolute 0.05 K/mm3 (0.00-0.031); Immature Granulocyte Percent A 0.3 % (0-0.5); Lymphocytes Absolute Auto 4.11 K/mm3 (0.9-3.2); Lymphocytes Percent Auto 26.1 % (18.3-44.2); Mean Corpuscular HGB Conc 29.8 g/dl (32-36); Mean Corpuscular Hemoglobin 28.2 pg (26-34); Mean Corpuscular Volume 94.8 fl (80-100); Mean Platelet Volume 9.6 fl (7.4-10.4); Monocytes Percent Auto 6.1 % (2.6-8.5); Neutrophils Absolute Auto 10.6 K/mm3 (1.3-6.7); Neutrophils Percent Auto 67.2 % (45.5-73.1); Platelet Count Result 346 k/mm3 (150-375); Red Blood Count 3.05 M/mm3 (4.2-5.4); Red Cell Distribution Width 23.8 % (11.5-14.5); White Blood Count 15.8 K/mm3 (4.5-10.0)
[2020-04-14 03:06] LABS: Alanine Aminotransferase 25 U/L (4-35); Alkaline Phosphatase 143 U/L (38-126); Anion Gap 8 mmol/L (8-16); Aspartate Amino Transferase 34 U/L (14-36); Bilirubin,Total 0.7 mg/dL (0.2-1.3); Blood Urea Nitrogen 30 mg/dL (7-17); Calcium 8.4 mg/dL (8.4-10.2); Carbon Dioxide 27 mmol/L (22-30); Chloride 96 mmol/L (98-107); Estimated Glomerular Filt Rate 27; Glucose 106 mg/dL (65-105); Lactate Dehydrogenase 479 U/L (313-618); Potassium 4.3 mmol/L (3.4-5.0); Sodium 131 mmol/L (137-145)
[2020-04-14 03:36] LABS: Hypochromasia 1+ (NORMAL); Large Platelets Present; Platelet Estimate Adequate (Adequate)
[2020-04-14 03:37] LABS: Ovalocytes 1+ (NORMAL); Stomatocytes 1+ (NORMAL)
[2020-04-14] MEDS: SUCRALFATE SUSP 100 MG/ML 10 ML UDC 1000 MG PO ×4 (05:48→20:13)
[2020-04-14] MEDS: FERROUS SULFATE 324 MG TABLET PO ×2 (09:24→16:39)
[2020-04-14] MEDS: PANTOPRAZOLE 40 MG TABLET PO (09:24)
[2020-04-14] MEDS: METHOTREXATE 2.5 MG TAB (*CHEMO) 5 MG PO (09:24)
[2020-04-14] MEDS: FOLIC ACID 1 MG TABLET 2 MG PO (09:24)
[2020-04-14] MEDS: DABIGATRAN ETEXILATE 150 MG CAPSULE PO ×2 (09:24→16:39)
[2020-04-14] MEDS: NEBIVOLOL HCL 5 MG TABLET 10 MG PO (09:24)
[2020-04-14] MEDS: DULoxetine HCL 30 MG CAPSULE.DR PO (09:24)
[2020-04-14] MEDS: GABAPENTIN 100 MG CAPSULE PO ×2 (09:24→16:39)
[2020-04-14] MEDS: predniSONE 10 MG TABLET PO (09:24)
[2020-04-14] MEDS: LIDOCAINE 5% PATCH 1 PATCH TRANSDERM (09:27)
--- NOTE | 2020-04-14 13:03 | PM.IMPN ---
Progress Note: A&P Assessment and Plan (1) Acute alteration in mental status: Code(s): R41.82 - Altered mental status, unspecified Status: Acute Assessment and Plan: Upon my evaluation, she is A&O x4. Head CT negative for acute intracranial process with evidence of chronic small left occipital infarct and small left frontal meningioma. I am uncertain what behaviors patient was exhibiting that demonstrated an alteration. At prior hospitalization, she had demonstrated confusion that was felt to be secondary to polypharmacy. Patient may have some underlying dementia. Monitor mental status closely hold any sedating medications. (2) Acute kidney injury: Code(s): N17.9 - Acute kidney failure, unspecified Status: Acute Assessment and Plan: Baseline creatinine appears variable. creatinine was 1.0 at time of discharge from last hospital stay 04/09. At presentation, creatinine was 2.0. Improved today to 1.8. Renally dose medications and avoid nephrotoxic agents. Monitor renal function closely. Gentle IV fluids initiated as pre renal etiology suspected, however patient is quite edematous therefore IV fluids discontinued. Closely monitor. plan to resume low-dose Bumex when clinically appropriate. (3) Anemia: Qualifiers: Anemia type: unspecified type Qualified Code(s): D64.9 - Anemia, unspecified Code(s): D64.9 - Anemia, unspecified Status: Chronic Assessment and Plan: At presentation, hemoglobin 10 and hematocrit 34.2. today, hemoglobin is 8.6 hematocrit 28.9, which appears consistent with her baseline. initial reading may have been hemoconcentrated secondary to dehydration. Monitor H&H closely. Transfuse as needed (4) Paroxysmal atrial fibrillation: Code(s): I48.0 - Paroxysmal atrial fibrillation Status: Chronic Assessment and Plan: rate is controlled and she is in sinus rhythm. Continue nebivolol and Pradaxa (5) Hypothyroidism: Qualifiers: Hypothyroidism type: unspecified Qualified Code(s): E03.9 - Hypothyroidism, unspecified Code(s): E03.9 - Hypothyroidism, unspecified Status: Chronic Assessment and Plan: TSH is within normal limits. Continue levothyroxine (6) Rheumatoid arthritis: Qualifiers: Rheumatoid arthritis location: unspecified site Rheumatoid factor presence: unspecified presence Qualified Code(s): M06.9 - Rheumatoid arthritis, unspecified Code(s): M06.9 - Rheumatoid arthritis, unspecified Status: Chronic Assessment and Plan: Chronic. No acute issues. Continue with methotrexate and low-dose prednisone. (7) Cellulitis of right thigh: Code(s): L03.115 - Cellulitis of right lower limb Status: Acute Assessment and Plan: patient recently hospitalized from 04/04- 04/09 for treatment of cellulitis. she completed a course of IV antibiotics. Upon evaluation, there does not appear to be any evidence of infection. She has what appears to be chronic discoloration of the lower extremities. Venous Doppler negative for DVT. Monitor area closely (8) Leukocytosis: Code(s): D72.829 - Elevated white blood cell count, unspecified Status: Acute Assessment and Plan: WBC 15.9 at presentation. Does not appear to be infectious etiology. UA normal, cellulitis has resolved, and CXR findings appear to be chronic and she has no acute respiratory symptoms. No fevers. May be secondary to steroids, although seems unlikely as she is on chronic low-dose. May be reactive. Monitor CBC with diff closely Blood cultures have been ordered and are pending Subjective Date/time seen: 04/14/20 13:03 Interval history: Date of service: 04/14/2020 Yamini Muñoz is an 80-year-old female with a history of chronic kidney disease stage 3, chronic anemia, CAD, perforated diverticuliti
--- NOTE | 2020-04-14 15:09 | PCSTNOTE ---
This patient was referred for a Bedside Swallow Evaluation due to history of her complaints swallowing pills, then coughing and choking, usually on pills. Denies difficulty swallowing food/liquid. This patient was seen last week at the request of her physician prior to discharge due to her complaints of swallowing pills. Therapist instructed the patient in the use of head flexion, using liquid to make sure pills are not stuck to her tongue, and/or using applesauce or pudding to assist with swallowing pills. She was also instructed in the use of several swallowing strengthening exercises to facilitate the swallowing of pills. Patient was re-admitted with other health issues however current chest x-ray revealed infiltrate/congestion in right mid-lobe and left lobes areas and aspiration could not be ruled out just from chest x-ray and patient report. A Bedside Swallow Evaluation was ordered. This therapist spoke with patient and with MISSY Sharpe, concerning patient's ability to eat and take pills today, and then Louann Hospitalist, concerning patient's visit last week and then my conversation with Annemarie and patient this afternoon. The decision was made to cancel the Bedside Swallow Evaluation and switch to Modified Barium Swallow study to rule out aspiration/silent aspiration. This will be scheduled in the morning when patient is more awake and alert.
[2020-04-15] VITALS: PULSE 73
[2020-04-15 03:47] VITALS: BP 137/63; PULSE 73; RESP 16; TEMP 36.2; O2SAT 96
[2020-04-15 04:00] VITALS: PULSE 68
[2020-04-15 05:54] LABS: Anion Gap 4 mmol/L (8-16); Blood Urea Nitrogen 25 mg/dL (7-17); Calcium 8.1 mg/dL (8.4-10.2); Carbon Dioxide 31 mmol/L (22-30); Chloride 101 mmol/L (98-107); Estimated Glomerular Filt Rate 39; Glucose 90 mg/dL (65-105); Potassium 3.6 mmol/L (3.4-5.0); Sodium 136 mmol/L (137-145)
[2020-04-15 05:55] LABS: Basophils Percent Auto 0.1 % (0.2-1.2); Eosinophils Percent Auto 0.4 % (0-4.4); Hematocrit 26.1 % (37.0-47.0); Hemoglobin 7.9 g/dL (12.0-15.0); Immature Granulocyte Absolute 0.05 K/mm3 (0.00-0.031); Immature Granulocyte Percent A 0.5 % (0-0.5); Lymphocytes Absolute Auto 1.87 K/mm3 (0.9-3.2); Lymphocytes Percent Auto 19.2 % (18.3-44.2); Mean Corpuscular HGB Conc 30.3 g/dl (32-36); Mean Corpuscular Hemoglobin 28.5 pg (26-34); Mean Corpuscular Volume 94.2 fl (80-100); Mean Platelet Volume 9.6 fl (7.4-10.4); Monocytes Absolute Auto 0.2 K/mm3 (0.1-0.6); Neutrophils Absolute Auto 7.6 K/mm3 (1.3-6.7); Neutrophils Percent Auto 77.8 % (45.5-73.1); Platelet Count Result 322 k/mm3 (150-375); Red Blood Count 2.77 M/mm3 (4.2-5.4); Red Cell Distribution Width 23.4 % (11.5-14.5); White Blood Count 9.7 K/mm3 (4.5-10.0)
[2020-04-15] MEDS: SUCRALFATE SUSP 100 MG/ML 10 ML UDC 1000 MG PO ×4 (06:02→22:08)
[2020-04-15] MEDS: FERROUS SULFATE 324 MG TABLET PO ×2 (08:38→17:04)
[2020-04-15] MEDS: LIDOCAINE 5% PATCH 1 PATCH TRANSDERM (08:38)
[2020-04-15] MEDS: DULoxetine HCL 30 MG CAPSULE.DR PO (08:39)
[2020-04-15] MEDS: DABIGATRAN ETEXILATE 150 MG CAPSULE PO ×2 (08:39→17:05)
[2020-04-15 08:40] VITALS: PULSE 68
[2020-04-15] MEDS: FOLIC ACID 1 MG TABLET 2 MG PO (08:40)
[2020-04-15] MEDS: NEBIVOLOL HCL 5 MG TABLET 10 MG PO (08:40)
[2020-04-15] MEDS: PANTOPRAZOLE 40 MG TABLET PO (08:40)
[2020-04-15] MEDS: predniSONE 10 MG TABLET PO (08:40)
[2020-04-15] MEDS: GABAPENTIN 100 MG CAPSULE PO ×2 (08:40→17:13)
--- NOTE | 2020-04-15 10:52 | PCSTNOTE ---
Please refer to the Modified Barium Swallow Evaluation in the EMR.
[2020-04-15 14:45] VITALS: BP 125/77; PULSE 71; RESP 16; TEMP 36.8; O2SAT 100
--- NOTE | 2020-04-15 15:08 | PM.IMPN ---
Progress Note: A&P Assessment and Plan (1) Acute alteration in mental status: Code(s): R41.82 - Altered mental status, unspecified Status: Acute Assessment and Plan: Patient states that her felt she was confused and she was unable to state her appropriate location. Upon my evaluation, she is A&O x4. Head CT negative for acute intracranial process with evidence of chronic small left occipital infarct and small left frontal meningioma. At prior hospitalization, she had demonstrated confusion that was felt to be secondary to polypharmacy. Patient may have some underlying dementia. Monitor mental status closely hold any sedating medications. (2) Acute kidney injury: Code(s): N17.9 - Acute kidney failure, unspecified Status: Acute Assessment and Plan: Baseline creatinine appears variable. creatinine was 1.0 at time of discharge from last hospital stay 04/09. At presentation, creatinine was 2.0. Improved today to 1.3. Suspect pre-renal etiology. Renally dose medications and avoid nephrotoxic agents. Monitor renal function closely. Gentle IV fluids initiated as pre renal etiology suspected, however patient is quite edematous therefore IV fluids discontinued 04/14. Resume low dose Bumex as renal function is at baseline. (3) Anemia: Qualifiers: Anemia type: unspecified type Qualified Code(s): D64.9 - Anemia, unspecified Code(s): D64.9 - Anemia, unspecified Status: Chronic Assessment and Plan: At presentation, hemoglobin 10 and hematocrit 34.2, felt to be hemoconcentrated secondary to dehydration. Today, H&H is mildly decreased from baseline but remains stable. Monitor H&H closely. Transfuse as needed (4) Stress fracture: Code(s): M84.30XA - Stress fracture, unspecified site, initial encounter for fracture Status: Acute Assessment and Plan: Pastient complaining of severe right lower extremity pain surrounding the knee and just inferior. She is having difficulty weight bearing. Knee x-ray performed today showed stress fracture of the medial tibial condyle. Appreciate orthopedic input Analgesics as needed for pain Supportive care including ice and heat PT and OT evaluation appreciated upon clarification of weight-bearing status per orthopedics (5) Paroxysmal atrial fibrillation: Code(s): I48.0 - Paroxysmal atrial fibrillation Status: Chronic Assessment and Plan: Rate is controlled and she is in sinus rhythm. Continue nebivolol and Pradaxa (6) Hypothyroidism: Qualifiers: Hypothyroidism type: unspecified Qualified Code(s): E03.9 - Hypothyroidism, unspecified Code(s): E03.9 - Hypothyroidism, unspecified Status: Chronic Assessment and Plan: TSH is within normal limits. Continue levothyroxine (7) Rheumatoid arthritis: Qualifiers: Rheumatoid arthritis location: unspecified site Rheumatoid factor presence: unspecified presence Qualified Code(s): M06.9 - Rheumatoid arthritis, unspecified Code(s): M06.9 - Rheumatoid arthritis, unspecified Status: Chronic Assessment and Plan: Chronic. No acute issues. Continue with methotrexate and low-dose prednisone. (8) Leukocytosis: Code(s): D72.829 - Elevated white blood cell count, unspecified Status: Acute Assessment and Plan: Resolved. WBC 15.9 at presentation. Does not appear to be infectious etiology. UA normal, cellulitis has resolved, and CXR findings appear to be chronic and she has no acute respiratory symptoms. No fevers. May be secondary to steroids, although seems unlikely as she is on chronic low-dose. Suspect this was reactive. (9) Cellulitis of right thigh: Code(s): L03.115 - Cellulitis of right lower limb Status: Acute Assessment and Plan: Resolved. Patient recently hospitalized from 04/04-
[2020-04-15] MEDS: MENTHOL 10% / METHYL SALICYLATE 15% 57 GM TUBE 1 APPLIC TOPICAL (15:27)
[2020-04-15] MEDS: ACETAMINOPHEN 325 MG TABLET 650 MG PO (17:13)
[2020-04-15 19:54] LABS: SARS-CoV-2 RNA PCR Negative
[2020-04-15 20:37] VITALS: BP 128/62; PULSE 70; RESP 16; TEMP 36.6; O2SAT 95
[2020-04-16 06:00] VITALS: BP 146/75; PULSE 70; RESP 16; TEMP 36.1; O2SAT 96
[2020-04-16 06:03] LABS: Hematocrit 26.8 % (37.0-47.0); Hemoglobin 8.2 g/dL (12.0-15.0)
[2020-04-16] MEDS: SUCRALFATE SUSP 100 MG/ML 10 ML UDC 1000 MG PO ×4 (06:05→21:01)
[2020-04-16 06:29] LABS: Anion Gap 0 mmol/L (8-16); Blood Urea Nitrogen 19 mg/dL (7-17); Calcium 8.1 mg/dL (8.4-10.2); Carbon Dioxide 34 mmol/L (22-30); Chloride 102 mmol/L (98-107); Estimated Glomerular Filt Rate 53; Glucose 79 mg/dL (65-105); Potassium 3.5 mmol/L (3.4-5.0); Sodium 136 mmol/L (137-145)
[2020-04-16] MEDS: FERROUS SULFATE 324 MG TABLET PO ×2 (08:18→16:35)
[2020-04-16] MEDS: predniSONE 10 MG TABLET PO (08:18)
[2020-04-16] MEDS: BUMETANIDE 0.5 MG TABLET PO (08:18)
[2020-04-16] MEDS: LIDOCAINE 5% PATCH 1 PATCH TRANSDERM (08:19)
[2020-04-16] MEDS: GABAPENTIN 100 MG CAPSULE PO ×2 (08:19→16:35)
[2020-04-16 08:20] VITALS: PULSE 70
[2020-04-16] MEDS: PANTOPRAZOLE 40 MG TABLET PO (08:20)
[2020-04-16] MEDS: FOLIC ACID 1 MG TABLET 2 MG PO (08:20)
[2020-04-16] MEDS: DABIGATRAN ETEXILATE 150 MG CAPSULE PO ×2 (08:20→16:34)
[2020-04-16] MEDS: NEBIVOLOL HCL 5 MG TABLET 10 MG PO (08:20)
[2020-04-16] MEDS: DULoxetine HCL 30 MG CAPSULE.DR PO (08:20)
--- NOTE | 2020-04-16 09:54 | PM.CNOR ---
Assessment and Plan Assessment and plan (1) Fracture of proximal end of right tibia: Qualifiers: Encounter type: initial encounter Fracture type: closed Fracture morphology: unspecified fracture morphology Qualified Code(s): S82.101A - Unspecified fracture of upper end of right tibia, initial encounter for closed fracture Code(s): S82.101A - Unspecified fracture of upper end of right tibia, initial encounter for closed fracture Status: Acute Assessment and Plan: CT scan of the right knee reveals a comminuted fracture of the proximal tibia, mild right knee osteoarthritis and a large lipohemarthrosis. The fracture type and injury as well as radiographs discussed with the patient. Operative and nonoperative treatment options reviewed. The patient elects for non operative treatment. Risk of nonunion, malunion or late displacement discussed. Stiffness, pain and possible dysfunction of the joint discussed. Fracture precautions and activity restrictions reviewed. The patient verbalizes understanding. Patient to be fit with a knee immobilizer. Continue NWB RLE. Walker. PT/OT for training of NWB with knee immobilizer. May remove for bathing. Continue Ice. Continue Pain control. Will plan for follow up in 6 weeks as an outpatient in our clinic for repeat radiographs. Thank you for allowing us to assist in the care of this patient. (2) Stress fracture: Qualifiers: Encounter type: initial encounter Stress fracture site: tibia Laterality: right Qualified Code(s): M84.361A - Stress fracture, right tibia, initial encounter for fracture Code(s): M84.30XA - Stress fracture, unspecified site, initial encounter for fracture Status: Acute Assessment and Plan: Radiographs of the right knee revealed a possible stress fracture of the medial tibial condyle. CT scan requested for further evaluation. History of Present Illness HPI Consult date: 04/16/20 Consult reason: fracture ( Stress fracture of right medial tibial condyle) Chief complaint: acute kidney injury, altered mental status Narrative: 80 year old female with right knee pain. The patient was admitted secondary to altered mental status and an acute kidney injury. She was noted to have persistent right knee pain and inability to bear weight on the right lower extremity. Radiographs of the right knee reveal a stress fracture of medial tibial condyle, mild right knee osteoarthritis and a moderate-sized right knee joint effusion. The patient reports having first noticed her right knee pain several days ago while at her shelter facility. She reports having been slow to transfer from the bed to the wheelchair in a pivot fashion. Per the nurse, the patient previously reported that she almost fell during transfer and a WOUND SPECIALIST braced her fall with her knee causing extreme pain. The patient now tells me that she was slow to transfer from the bed to the wheelchair requiring a lot of assistance and the WOUND SPECIALIST used her knee and/or leg to pivot the patient into the chair causing abrupt pain. Unknown exact mechanism of injury. She has been nonambulatory since her admission to the hospital. Orthopedic consult requested after radiographs revealed a stress fracture of the medial tibial condyle. Review of Systems Constitutional: Constitutional: Reports no additional constitutional complaints, Denies chills, Denies fatigue, Denies fever(s), Denies headache(s) and Denies weakness Eyes: Eyes: Denies change in vision ENT: Reports Normal hearing present and Denies headache(s) Cardiovascular: Cardiovascular: Denies chest pain and Denies dyspnea Respiratory: Respiratory: Denies cough, Denies dyspnea and Denies wheezing Gastrointestinal: Gastrointestinal: Denies constipation, Denies diarrhea, Denies nausea and Denies vomiting Genitourinary: Genitourinary: Denies hematuria, Denies dysuria and Denies urinary urgency Musculoskeletal: Musculoskeletal: Reports a
[2020-04-16 13:05] VITALS: O2SAT 96
[2020-04-16 15:13] VITALS: BP 145/66; PULSE 66; RESP 16; TEMP 36.9; O2SAT 97
--- NOTE | 2020-04-16 15:25 | PM.IMPN ---
Progress Note: A&P Assessment and Plan (1) Acute alteration in mental status: Code(s): R41.82 - Altered mental status, unspecified Status: Acute Assessment and Plan: Patient states that her felt she was confused and she was unable to state her appropriate location. Upon my evaluation, she is A&O x4. Head CT negative for acute intracranial process with evidence of chronic small left occipital infarct and small left frontal meningioma. At prior hospitalization, she had demonstrated confusion that was felt to be secondary to polypharmacy. Patient may have some underlying dementia. Monitor mental status closely hold any sedating medications. (2) Acute kidney injury: Code(s): N17.9 - Acute kidney failure, unspecified Status: Acute Assessment and Plan: Baseline creatinine appears variable. creatinine was 1.0 at time of discharge from last hospital stay 04/09. At presentation, creatinine was 2.0. Suspect pre-renal etiology given improvement with gentle IV fluids. Creatinine is 1.0 today. Renally dose medications and avoid nephrotoxic agents. Monitor renal function closely. Low dose Bumex resumed as renal function is at baseline. (3) Anemia: Qualifiers: Anemia type: unspecified type Qualified Code(s): D64.9 - Anemia, unspecified Code(s): D64.9 - Anemia, unspecified Status: Chronic Assessment and Plan: At presentation, hemoglobin 10 and hematocrit 34.2, felt to be hemoconcentrated secondary to dehydration. H&H is remaining stable and consistent with baseline. Vital signs stable. Monitor H&H closely. Transfuse as needed (4) Fracture of proximal end of right tibia: Qualifiers: Encounter type: initial encounter Fracture type: closed Fracture morphology: unspecified fracture morphology Qualified Code(s): S82.101A - Unspecified fracture of upper end of right tibia, initial encounter for closed fracture Code(s): S82.101A - Unspecified fracture of upper end of right tibia, initial encounter for closed fracture Status: Acute Assessment and Plan: Knee x-ray showed stress fracture of medial tibial condyle. Follow up CT of knee showed comminuted fracture of proximal tibia with transverse component involving proximal tibial metaphysis mild impaction. She is complaining of knee pain and has difficulty weight bearing. Appears injury occurred during transfer at [facility] when she had a near fall. She has opted for conservative management. Orthopedics has been consulted input is appreciated. she has been fitted for a knee immobilizer today. Begin PT and OT. She is to be nonweightbearing of the right lower extremity and use a walker. Analgesics and supportive care (5) Paroxysmal atrial fibrillation: Code(s): I48.0 - Paroxysmal atrial fibrillation Status: Chronic Assessment and Plan: Rate is controlled and she is in sinus rhythm. Continue nebivolol and Pradaxa (6) Hypothyroidism: Qualifiers: Hypothyroidism type: unspecified Qualified Code(s): E03.9 - Hypothyroidism, unspecified Code(s): E03.9 - Hypothyroidism, unspecified Status: Chronic Assessment and Plan: TSH is within normal limits. Continue levothyroxine (7) Rheumatoid arthritis: Qualifiers: Rheumatoid arthritis location: unspecified site Rheumatoid factor presence: unspecified presence Qualified Code(s): M06.9 - Rheumatoid arthritis, unspecified Code(s): M06.9 - Rheumatoid arthritis, unspecified Status: Chronic Assessment and Plan: Chronic. No acute issues. Continue with methotrexate and low-dose prednisone. (8) Leukocytosis: Code(s): D72.829 - Elevated white blood cell count, unspecified Status: Acute Assessment and Plan: Resolved. WBC 15.9 at presentation. Does not appear to be infectious etiology.
[2020-04-16] MEDS: ACETAMINOPHEN 325 MG TABLET 650 MG PO ×2 (16:34→21:01)
[2020-04-16 21:03] VITALS: BP 145/72; PULSE 65; RESP 16; TEMP 36.3; O2SAT 96
[2020-04-17 05:40] VITALS: BP 158/78; PULSE 73; RESP 16; TEMP 36.4; O2SAT 97
[2020-04-17 05:47] LABS: Hematocrit 27.9 % (37.0-47.0); Hemoglobin 8.6 g/dL (12.0-15.0)
[2020-04-17] MEDS: SUCRALFATE SUSP 100 MG/ML 10 ML UDC 1000 MG PO ×3 (05:50→16:55)
[2020-04-17] MEDS: FERROUS SULFATE 324 MG TABLET PO ×2 (08:09→16:55)
[2020-04-17] MEDS: DULoxetine HCL 30 MG CAPSULE.DR PO (08:09)
[2020-04-17] MEDS: BUMETANIDE 0.5 MG TABLET PO (08:09)
[2020-04-17] MEDS: DABIGATRAN ETEXILATE 150 MG CAPSULE PO ×2 (08:09→16:55)
[2020-04-17] MEDS: predniSONE 10 MG TABLET PO (08:09)
[2020-04-17 08:10] VITALS: PULSE 73
[2020-04-17] MEDS: FOLIC ACID 1 MG TABLET 2 MG PO (08:10)
[2020-04-17] MEDS: PANTOPRAZOLE 40 MG TABLET PO (08:10)
[2020-04-17] MEDS: NEBIVOLOL HCL 5 MG TABLET 10 MG PO (08:10)
[2020-04-17] MEDS: GABAPENTIN 100 MG CAPSULE PO ×2 (08:10→16:55)
[2020-04-17] MEDS: HYDROcodone/acetaminophen (*CRX) 5-325 MG TABLET 1 TAB PO ×2 (10:36→16:57)
[2020-04-17] MEDS: ACYCLOVIR 400 MG TABLET PO (10:37)
[2020-04-17 13:48] VITALS: PULSE 69; RESP 18
[2020-04-17] MEDS: IPRATROPIUM BR 0.02% INH SOLN 0.5 MG/2.5 ML VIAL INHALATION (13:48)
[2020-04-17] MEDS: ALBUTEROL SULFATE NEB 2.5 MG/0.5 ML INH 0.5 MG INHALATION (13:48)
[2020-04-17 13:59] VITALS: PULSE 71; RESP 18
[2020-04-17 14:00] VITALS: BP 147/93; PULSE 88; RESP 14; TEMP 36.4; O2SAT 97
--- NOTE | 2020-04-17 14:13 | PM.PNORT ---
Progress Note: A&P Additional Plan RIGHT TIBILA PLATEAU FRACTURE WITH MINIMAL DISPLACEMENT. OK TO DC HOME IOF OK WITH PT AND MEDICINE. CONTINUE NWB FOR 12 WEEKS. F/U IN 6 WEEKS ORTHO OFFICE. Subjective Subjective Date/Time Seen: 04/17/20 14:13 Interval history: RIGHT TIB PLATEAU FRACTURE DOING WELL. GOOD PROGRESS WITH PT Exam Extrem: Other: VSS AFEBRILE CALF SOFT NON TENDER. PAIN WITH MINIMAL MOVEMENT OF KNEE NV INTACT Objective Data Vital Signs Vital Signs: Vital Signs - 24 hr 04/16/20 15:13 04/16/20 21:03 04/17/20 05:40 Temperature 36.9 C 36.3 C L 36.4 C Pulse Rate 66 65 73 Respiratory Rate 16 16 16 Blood Pressure 145/66 H 145/72 H 158/78 H Pulse Oximetry 97 96 97 04/17/20 08:10 04/17/20 13:48 04/17/20 13:59 Temperature Pulse Rate 73 69 71 Respiratory Rate 18 18 Blood Pressure Pulse Oximetry Intake/Output Intake/Output: Intake & Output 04/14/20 04/15/20 04/16/20 04/17/20 23:59 23:59 23:59 23:59 Intake Total 935 1200 1270 480 Output Total 400 150 Balance 535 1200 1270 330 Meds/Results Medications: Active Medications Generic Name Dose Route Start Last Admin Trade Name Freq PRN Reason Stop Dose Admin Acetaminophen 650 mg 04/15/20 15:26 04/16/20 21:01 Acetaminophen 325 Mg Tablet PO 650 mg Q4H PRN Administration Pain Hydrocodone Bitart/Acetaminophen 1 tab 04/17/20 09:15 04/17/20 10:36 Hydrocodone/Acetaminophen (*Crx) 5-325 Mg Tablet PO 1 tab Q6H PRN Administration Pain (Scale Score 4-6) Acyclovir 400 mg 04/17/20 11:00 04/17/20 10:37 Acyclovir 400 Mg Tablet PO 400 mg DAILY ANNA Administration Albuterol 0.5 mg 04/14/20 00:39 04/17/20 13:48 Albuterol Sulfate Neb 2.5 Mg/0.5 Ml Inh INHALATION 0.5 mg Q4H PRN Administration Shortness Of Breath Bumetanide 0.5 mg 04/16/20 09:00 04/17/20 08:09 Bumetanide 0.5 Mg Tablet PO 0.5 mg DAILY ANNA Administration Dabigatran 150 mg 04/14/20 09:00 04/17/20 08:09 Dabigatran Etexilate 150 Mg Capsule PO 150 mg BID ANNA Administration Duloxetine HCl 30 mg 04/14/20 09:00 04/17/20 08:09 Duloxetine Hcl 30 Mg Capsule.Dr PO 30 mg DAILY ANNA Administration Ferrous Sulfate 324 mg 04/14/20 08:00 04/17/20 08:09 Ferrous Sulfate 324 Mg Tablet PO 324 mg BIDWM ANNA Administration Folic Acid 2 mg 04/14/20 09:00 04/17/20 08:10 Folic Acid 1 Mg Tablet PO 2 mg DAILY ANNA Administration Gabapentin 100 mg 04/14/20 09:00 04/17/20 08:10 Gabapentin 100 Mg Capsule PO 100 mg BID ANNA Administration Ipratropium [place] 0.5 mg 04/14/20 00:01 04/17/20 13:48 Ipratropium Br 0.02% Inh Soln 0.5 Mg/2.5 Ml Vial INHALATION 0.5 mg Q4H PRN Administration Shortness Of Breath Lidocaine 1 patch 04/14/20 00:01 04/16/20 08:19 Lidocaine 5% Patch TRANSDERM 1 patch DAILY PRN Administration Pain Menthol/Methyl Salicylate 1 applic 04/15/20 15:04 04/15/20 15:27 Menthol 10% / Methyl Salicylate 15% 57 Gm Tube TOPICAL 1 applic BID PRN Administration Muscle/Joint Pain Methotrexate 5 mg 04/14/20 09:00 04/14/20 09:24 Methotrexate 2.5 Mg Tab (*Chemo) PO 5 mg We@0900 ANNA Administration Nebivolol 10 mg 04/14/20 09:00 04/17/20 08:10 Nebivolol Hcl 5 Mg Tablet PO 10 mg DAILY ANNA Administration Non-Formulary Medication 18 mg 04/14/20 00:15 04/14/20 01:39 Oxycodone Myristate [Xtampza Er] PO 05/14/20 00:16 Not Given Q12H [facility] Pantoprazole Sodium 40 mg 04/14/20 09:00 04/17/20 08:10 Pantoprazole 40 Mg Tablet PO 40 mg QAM ANNA Administration Prednisone 10 mg 04/14/20 08:00 04/17/20 08:09 Prednisone 10 Mg Tablet PO 10 mg DAILY@0800 ANNA Administration Sucralfate 1,000 mg 04/14/20 06:30 04/17/20 10:37 Sucralfate Susp 100 Mg/Ml 10 Ml Udc PO 1,000 mg ACHS ANNA Administration Radiology Results: ITS Impressions Head CT 04/13/20 16:50 IMPRESSION: 1. No acute intracranial pro
--- NOTE | 2020-04-17 16:10 | PM.DS ---
DS: Admitting Diagnosis Admitting Diagnosis Admitting Diagnosis: acute kidney injury, altered mental status DS: Discharge Diagnosis Discharge Diagnosis (1) Acute alteration in mental status: Code(s): R41.82 - Altered mental status, unspecified Status: Acute Assessment and Plan: Patient states that her felt she was confused and she was unable to state her appropriate location. She remained A&Ox4 throughout my evaluation. Head CT negative for acute intracranial process with evidence of chronic small left occipital infarct and small left frontal meningioma. At prior hospitalization, she had demonstrated confusion that was felt to be secondary to polypharmacy, and her medications were adjusted. Patient may have some underlying dementia. (2) Acute kidney injury: Code(s): N17.9 - Acute kidney failure, unspecified Status: Acute Assessment and Plan: Baseline creatinine appears variable. Creatinine was 1.0 at time of discharge from last hospital stay 04/09. At presentation, creatinine was 2.0. Suspect pre-renal etiology given improvement with gentle IV fluids. Creatinine returned to 1.0 at time of discharge. Low dose Bumex initially held and resumed upon improvement of renal function. (3) Anemia: Qualifiers: Anemia type: unspecified type Qualified Code(s): D64.9 - Anemia, unspecified Code(s): D64.9 - Anemia, unspecified Status: Chronic Assessment and Plan: At presentation, hemoglobin 10 and hematocrit 34.2, felt to be hemoconcentrated secondary to dehydration. H&H declined slightly following rehydration and remained consistent with baseline. Vital signs stable. (4) Fracture of proximal end of right tibia: Qualifiers: Encounter type: initial encounter Fracture type: closed Fracture morphology: unspecified fracture morphology Qualified Code(s): S82.101A - Unspecified fracture of upper end of right tibia, initial encounter for closed fracture Code(s): S82.101A - Unspecified fracture of upper end of right tibia, initial encounter for closed fracture Status: Acute Assessment and Plan: Complained of knee pain and difficulty weight-bearing. Appears injury occurred during transfer at [facility]. Knee x-ray showed stress fracture of medial tibial condyle. Follow up CT of knee showed comminuted fracture of proximal tibia with transverse component involving proximal tibial metaphysis mild impaction. She was seen by orthopedic surgery and opted for conservative management. She will continue with a knee immobilizer and remain non-weightbearing for 12 weeks. She will need follow up in 6 weeks. Vitamin D levels found to be insufficient and I have called in a prescription for PO Vitamin D 1000 IU daily to [facility]. She was evaluated by PT and OT and will continue therapy at [facility]. Her pain was well controlled on her home pain medication regimen. (5) Paroxysmal atrial fibrillation: Code(s): I48.0 - Paroxysmal atrial fibrillation Status: Chronic Assessment and Plan: Rate is controlled and she is in sinus rhythm. Continue nebivolol and Pradaxa (6) Hypothyroidism: Qualifiers: Hypothyroidism type: unspecified Qualified Code(s): E03.9 - Hypothyroidism, unspecified Code(s): E03.9 - Hypothyroidism, unspecified Status: Chronic Assessment and Plan: TSH is within normal limits. Continue levothyroxine (7) Rheumatoid arthritis: Qualifiers: Rheumatoid arthritis location: unspecified site Rheumatoid factor presence: unspecified presence Qualified Code(s): M06.9 - Rheumatoid arthritis, unspecified Code(s): M06.9 - Rheumatoid arthritis, unspecified Status: Chronic Assessment and Plan: Chronic. No acute issues. Continue with methotrexate and daily low-dose prednisone. (8) Leukocytosis: Code(s): D72.829 - Elevated white blood cell c
[2020-04-17 18:26] LABS: Vitamin D 25 Hydroxy < 12.8 ng/mL
== END 2020-04-17 19:30 | DRG 683 ==
LOC: ANHED 19:05 → ANH3MED 21:47
PROVIDERS: Family Medicine; Nurse Practitioner; Physician Assistant; Admitting Provider Student in an Organized Health Care Education/Training Program; Emergency Provider Emergency Medicine; PCP Internal Medicine; Visit Provider Internal Medicine
DX: N17.9 Acute kidney failure, unspecified (principal); S82.141A Displaced bicondylar fracture of right tibia, initial encounter for closed fracture; X58.XXXA Exposure to other specified factors, initial encounter; Z20.828 Contact with and (suspected) exposure to other viral communicable diseases; R41.82 Altered mental status, unspecified; I48.0 Paroxysmal atrial fibrillation; E03.9 Hypothyroidism, unspecified; D72.829 Elevated white blood cell count, unspecified; E86.0 Dehydration; D64.9 Anemia, unspecified; E87.5 Hyperkalemia; M06.9 Rheumatoid arthritis, unspecified; N18.30 Chronic kidney disease, stage 3 unspecified; G89.4 Chronic pain syndrome; I25.10 Atherosclerotic heart disease of native coronary artery without angina pectoris; K21.9 Gastro-esophageal reflux disease without esophagitis; Z86.73 Personal history of transient ischemic attack (TIA), and cerebral infarction without residual deficits; Z98.49 Cataract extraction status, unspecified eye; Z79.899 Other long term (current) drug therapy
CPT/HCPCS: 36415; 36600; 51701; 70450; 71045; 73560; 73700; 80048; 80053; 81001; 82306; 82805; 82948; 83605; 83615; 83880; 84443; 84484; 85014; 85018; 85025; 87635; 92611; 93005; 93970; 94640; 96360; 96361; 97162; 99285; A9270; C9803; G0378; J7030; J7512; L1830; U0003

== ENCOUNTER 2020-10-26 15:48 | Inpatient (IN) | payer MEDICARE, SELFPAY ==
[2020-10-26] VITALS (12 sets, daily range): BP systolic 129–153; BP diastolic 73–94; PULSE 66–84; RESP 15–24; TEMP 36.7–37.3; O2SAT 88–100; BMI 34.5
--- NOTE | ~2020-10-26 | XR_ITS ---
EXAMINATION: XR chest 1V portable DATE: 10/27/2020 07:56 INDICATION: Infiltrates. TECHNIQUE: A single frontal view of the chest was obtained. COMPARISON: Chest single view 10/26/2020, CT abdomen and pelvis 04/04/2020 FINDINGS: There is chronic elevation of right hemidiaphragm. There is mild atelectasis in right mid a nd lower lung zones. No pleural effusion or pneumothorax. The heart size is normal. There are promine nt paracardial fat pads. There are changes of vertebroplasty at T12. There are old healed bilateral r ib fractures. IMPRESSION: 1. Mild atelectasis in right mid and lower lung zones. 2. Chronic elevation of right hemidiaphragm. Reviewed, dictated and finalized at location B.
--- NOTE | ~2020-10-26 | XR_ITS ---
XR chest 1V portable 10/26/2020 17:36 Indication: Cough, shortness of breath and weakness. History of CHF. Procedure: AP portable chest Comparison: Comparison to multiple prior studies sequentially, with oldest reviewed study dated 01/2020. Findings: Cardiomegaly. Diffuse bilateral airspace disease, most likely edema. No significant effusio n or pneumothorax. There is atherosclerosis. Advanced osteoarthritis of the shoulders with probable r otator cuff tears. There is levoscoliosis centered at the thoracolumbar junction with vertebroplasty change in a lower thoracic vertebra. Impression: 1: Bilateral airspace disease, likely interstitial edema. Pneumonia less favored. 2: Cardiomegaly. Reviewed, dictated and finalized at location A. Impression: 1: Bilateral airspace disease, likely interstitial edema. Pneumonia less favore d. 2: Cardiomegaly.
--- NOTE | 2020-10-26 16:52 | ECG_ITS ---
Measurements Intervals [place] Rate: 78 P: 34 [place]: 139 QRS: 1 QRSD: 86 T: 127 QT: 342 QTc: 391 Interpretive Statements SINUS RHYTHM CONSIDER INFERIOR INFARCT, AGE INDETERMINATE ST-T WAVE ABNORMALITY IN HIGH LATERAL LEADS- CONSIDER ISCHEMIA BASELINE ARTIFACT- I, II, AVR, V1 ABNORMAL ECG Electronically Signed On 10-26-2020 20:26:40 CDT by Odilon Swift D.O.
[2020-10-26 17:14] LABS: Alveolar/Arterial O2 Gradient 43.2 mmHg; Base Excess ABG 5.1 mEq/l (+/-2.0); Carboxyhemoglobin 0.7 % THb (0-2.0); Fractional Inspired Oxygen 24 %; HCO3 ABG 30.5 mEq/l (22.0-26.0); Methemoglobin ABG 0.1 %THb (0-1.5); Oxygen Content ABG 16.7 %vol (16.0-22.0); Oxygen Saturation ABG 94.3 % (95.0-100.0); Oxyhemoglobin 93.3 % THb (90.0-100.0); PCO2 ABG 48.2 mmHg (35.0-45.0); PO2 ABG 70.6 mmHg (80.0-100.0); PO2 FiO2 Ratio Arterial Blood 2.94 %; Reduced Hemoglobin 5.9 %THb (0-5.0); Total Hemoglobin 12.7 g/dL (12.0-18.0); pH ABG 7.419 (7.350-7.450)
[2020-10-26 17:15] LABS: Device NASAL CANNULA; Modified Allen's Test Pass; Site Drawn LEFT RADIAL
[2020-10-26] MEDS: IPRATROPIUM BR 0.02% INH SOLN 0.5 MG/2.5 ML VIAL INHALATION ×2 (17:18→20:46)
[2020-10-26] MEDS: ALBUTEROL SULFATE NEB 2.5 MG/0.5 ML INH 5 MG INHALATION ×2 (17:18→20:45)
--- NOTE | 2020-10-26 17:40 | ED.GENADULT ---
HPI - General Adult General Chief complaint: Shortness of Breath/Dyspnea <Marito Christie PA-C - Last Filed: 10/26/20 19:42> Stated complaint: SOB <SIN Appiah Last Filed: 10/26/20 19:42> Time Seen by Provider: 10/26/20 16:51 <SIN Appiah Last Filed: 10/26/20 19:42> Source: patient, EMS, RN notes reviewed and old records reviewed <SIN Appiah Last Filed: 10/26/20 19:42> Mode of arrival: EMS <SIN Appiah Last Filed: 10/26/20 19:42> Limitations: no limitations <SIN Appiah Last Filed: 10/26/20 19:42> History of Present Illness HPI narrative: Patient is an 80-year-old female who presents with shortness of breath patient was at home where she lives she was found to be hypoxic by her home health nurse patient has had a cough of clear phlegm for the last 4 days has been attempting her nebulizer treatments with no improvement patient was placed on oxygen with improvement of her oxygenation patient denies any fever vomiting diarrhea. Patient notes she had her first Covid vaccine is scheduled for her second <SIN Appiah Last Filed: 10/26/20 19:42> Related Data Home medications: Home Medications Medication Instructions Recorded Confirmed Bystolic 10 mg PO DAILY 04/25/19 10/26/20 Pradaxa 150 mg PO BID 04/25/19 10/26/20 fluconazole 150 mg PO DAILY 04/25/19 10/26/20 ipratropium-albuterol 3 ml INHALATION Q4H PRN 04/25/19 10/26/20 methotrexate sodium 5 mg PO WEEKLY 04/25/19 10/26/20 promethazine 25 mg PO QID PRN 04/25/19 10/26/20 acyclovir 400 mg PO DAILY 04/26/19 10/26/20 folic acid 2 mg PO DAILY 04/26/19 10/26/20 gabapentin 100 mg PO BID 04/26/19 10/26/20 pantoprazole 40 mg PO QAM 04/26/19 04/14/20 prednisone 10 mg PO DAILY 04/26/19 10/26/20 bumetanide 0.5 mg PO DAILY 05/02/19 10/26/20 duloxetine 30 mg PO DAILY 12/25/19 10/26/20 Orencia ClickJect 125 mg SUBCUT WEEKLY 12/26/19 10/26/20 Gaviscon 2 tablet PO PRN PRN 04/04/20 10/26/20 Saccharomyces boulardii [Florastor] 250 mg PO BID 04/04/20 10/26/20 Xtampza ER 18 mg PO Q12H 04/04/20 04/14/20 cyanocobalamin (vitamin B-12) 1,000 mcg PO DAILY 04/04/20 10/26/20 ferrous sulfate 325 mg PO BID 04/04/20 10/26/20 potassium chloride 10 meq PO BID 04/04/20 10/26/20 acetaminophen 1,000 mg PO TID PRN 04/14/20 10/26/20 cholecalciferol (vitamin D3) 25 25 mcg PO DAILY 05/24/20 10/26/20 mcg (1,000 unit) capsule <Marito Christie PA-C - Last Filed: 10/26/20 19:42> Allergies/adverse reactions: Allergies Allergy/AdvReac Type Severity Reaction Status Date / Time codeine Allergy Unknown Nausea Verified 10/26/20 15:59 enalapril Allergy Unknown Nausea Verified 10/26/20 15:59 ezetimibe Allergy Unknown Dizziness Verified 10/26/20 15:59 metronidazole Allergy Unknown Unknown Verified 10/26/20 15:59 [id number] Reductase Allergy Unknown Nausea Verified 10/26/20 15:59 Inhibitor latex Allergy Unknown Verified 10/26/20 15:59 <Marito Christie PA-C - Last Filed: 10/26/20 19:42> Review of Systems Review of Systems: All systems reviewed & are unremarkable except as noted in HPI and below <Marito Christie PA-C - Last Filed: 10/26/20 19:42> [facility] [place] Past Medical History Medical History: Medical History Acute kidney injury Altered mental state Arthritis B12 deficiency Bacteremia Citrobacter and Enterococcus bacteremia in April 2019. Bulging disc CHF (congestive heart failure) Chronic anemia Chronic kidney disease, stage 3 Baseline creatinine between 1.0 and 1.20. Chronic pain syndrome Secondary to rheumatoid arthritis. 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 Coronary artery disease Depression Diverticulitis Perforated diverticulitis status post colostomy in 2015. Esophageal diverticulum Essential hypertension Fracture of proximal end of right tibia Gastroesophageal reflu
--- NOTE | 2020-10-26 18:40 | PC.NURSE ---
Phlebotomy at bedside to assist with lab draw
[2020-10-26 18:59] LABS: Basophils Percent Auto 0.2 % (0.2-1.2); Eosinophils Percent Auto 0.1 % (0-4.4); Hematocrit 38.5 % (37.0-47.0); Hemoglobin 11.7 g/dL (12.0-15.0); Immature Granulocyte Absolute 0.09 K/mm3 (0.00-0.031); Immature Granulocyte Percent A 0.6 % (0-0.5); Lymphocytes Absolute Auto 1.91 K/mm3 (0.9-3.2); Lymphocytes Percent Auto 12.7 % (18.3-44.2); Mean Corpuscular HGB Conc 30.4 g/dl (32-36); Mean Corpuscular Volume 111.9 fl (80-100); Mean Platelet Volume 10.2 fl (7.4-10.4); Monocytes Absolute Auto 0.4 K/mm3 (0.1-0.6); Monocytes Percent Auto 2.6 % (2.6-8.5); Neutrophils Absolute Auto 12.6 K/mm3 (1.3-6.7); Neutrophils Percent Auto 83.8 % (45.5-73.1); Platelet Count Result 221 k/mm3 (150-375); Red Blood Count 3.44 M/mm3 (4.2-5.4); Red Cell Distribution Width 17.7 % (11.5-14.5)
[2020-10-26 19:10] LABS: Lactic Acid Reflex 2.5 mmol/L (0.7-2.1)
[2020-10-26 19:11] LABS: Alanine Aminotransferase 19 U/L (4-35); Albumin Level 3.3 g/dL (3.5-5.1); Alkaline Phosphatase 74 U/L (38-126); Anion Gap 3 mmol/L (8-16); Aspartate Amino Transferase 18 U/L (14-36); Bilirubin,Total 0.4 mg/dL (0.2-1.3); Blood Urea Nitrogen 24 mg/dL (7-17); CRP 7.5 mg/dL (<1.0); Calcium 8.7 mg/dL (8.4-10.2); Carbon Dioxide 37 mmol/L (22-30); Chloride 99 mmol/L (98-107); Estimated Glomerular Filt Rate 60; Glucose 155 mg/dL (65-105); Potassium 4.1 mmol/L (3.4-5.0); Sodium 139 mmol/L (137-145)
[2020-10-26 19:15] LABS: INR 1.2; Partial Thromboplastin Time 37.5 SECONDS (22.3-36.8); Prothrombin Time 15.9 Seconds (11.1-14.7)
[2020-10-26 19:21] LABS: Troponin I < 0.012 ng/mL (0.000-0.034)
[2020-10-26] MEDS: SODIUM CHLORIDE 0.9% IV 500 ML 999 ML IV CONT (19:42)
--- NOTE | 2020-10-26 19:49 | PC.NURSE ---
Updated pt [id number].
[2020-10-26 20:41] LABS: Add Urine Microscopic? YES; Appearance Urine Clear (Clear); Bacteria Urine 1+ /hpf; Bilirubin Urine Negative (Negative); Blood Urine 1+ (Negative); Color Urine Straw (Yellow); Glucose Urine UA Negative (Negative); Ketones Urine Negative (Negative); Leukocyte Esterase Ur 3+ LEU/UL (Negative); Mucus Urine Rare /lpf; Nitrate Urine Negative (Negative); Protein Urine Negative (Negative); Specific Grav Ur 1.018 (1.001-1.035); Squamous Epithelial Cell Urine Rare /hpf (Few); Urobilinogen Urine Negative mg/dL (<2.0); WBC Urine >75 /hpf
--- NOTE | 2020-10-26 20:53 | PC.NURSE ---
delay in going to unit due to respiratory administering medications at this time. Pt will go to unit with tech upon completion.
--- NOTE | 2020-10-26 21:33 | ADMGEN ---
This patient, Yamini Muñoz, was admitted to 3 [facility] Surg Room 311-01. Patient/family oriented to hospital policies and general routines including ID bracelet, bed and alarms, visiting hours, pain management, procedures, bathroom and other care routines, personal items, smoking policy, room service/diet, and visiting hours. Information on how to activate the Rapid Response Team has been discussed. Patient/Family are encouraged to report perceived risks to care and to ask questions if they do not understand what they are told or what they should do.
[2020-10-26 21:57] LABS: Reflex Lactic Acid Yes or No Add Lactic
[2020-10-26 22:43] LABS: Lactic Acid 2.1 mmol/L (0.7-2.1)
[2020-10-26] MEDS: FAMOTIDINE 20 MG/2 ML VIAL IV PUSH (22:57)
--- NOTE | 2020-10-26 23:52 | PM.IMHP ---
H&P: HPI History of Present Illness Date/Time: 10/26/20 23:52 Chief Complaint: Shortness of breath Narrative: This is an 80-year-old female with past medical history significant for RA, recurrent urinary tract infection, chronic indwelling Spears catheter, bed ridden, COPD. Patient was brought to the emergency room after her home health nurse came to check on her and noticed the patient was having respiratory distress she had also a low pulse ox and she was taken to the emergency room upon arrival to emergency room patient was found to be saturating in the low 80s and required high-flow initially later on she was placed on nasal cannula 5 L and she did well on that. Preliminary workup was significant for a urine analysis with significant WBCs in the a chest x-ray was significant for infiltrates which are concerning for pulmonary edema. Patient states that she did not have any complaints she has been feeling in her usual state of health. Review of Systems Review of Systems: Narrative: Patient was brought to the emergency room after her home health nurse was checking on her and noticed the patient to be in respiratory distress a pulse ox was in the 80s Constitutional: Constitutional: Denies chills and Denies fever(s) Eyes: Eyes: Denies change in vision ENT: Denies nasal congestion, Denies nasal discharge and Denies nasal obstruction Cardiovascular: Cardiovascular: Denies irregular heart rhythm, Denies lightheadedness, Denies radiating jaw, neck or arm pain, Denies palpitations and Reports dyspnea Respiratory: Respiratory: Reports cough and Reports dyspnea Gastrointestinal: Gastrointestinal: Denies diarrhea, Denies nausea and Denies vomiting Genitourinary: Comments: Chronic indwelling Spears catheter Musculoskeletal: Comments: Bed ridden Integumentary/Breasts: Skin/Breast: Denies rash Neurologic: Reports system reviewed and no additional complaints, except as documented Psychiatric: Psychiatric: Reports no additional psychiatric complaints Endocrine: Endocrine: Reports no additional endocrine complaints Hematologic/Lymphatic: Hematologic/Lymphatic: Reports no additional hematologic/lymphatic complaints Allergic/Immunologic: Allergic/Immunologic: Reports no additional allergic/immunologic complaints [facility] Past Medical History Medical History Acute kidney injury Altered mental state Arthritis B12 deficiency Bacteremia Citrobacter and Enterococcus bacteremia in April 2019. Bulging disc CHF (congestive heart failure) Chronic anemia Chronic kidney disease, stage 3 Baseline creatinine between 1.0 and 1.20. Chronic pain syndrome Secondary to rheumatoid arthritis. 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 Coronary artery disease Depression Diverticulitis Perforated diverticulitis status post colostomy in 2015. Esophageal diverticulum Essential hypertension Fracture of proximal end of right tibia Gastroesophageal reflux disease GERD (gastroesophageal reflux disease) Hallucination History of CVA (cerebrovascular accident) History of DVT (deep vein thrombosis) Hyperlipidemia Hypokalemia Hypothyroidism Immunosuppression due to drug therapy Kidney stones Osteoarthritis Osteoporosis Paroxysmal atrial fibrillation Pneumonia Rheumatoid arthritis Seasonal allergies UTI (urinary tract infection) Vertebral compression fracture T5 and lumbar vertebral compression fractures. Surgical History Surgical History History of appendectomy History of bowel resection (~2014) With colostomy, secondary to perforated diverticulitis. History of cardiac catheterization History of cataract extraction History of cholecystectomy History of lumbar discectomy (~10/2003) L3-L4 microdiskectomy with decompression of L4-L5. History of oophorectomy (~1963) History of sinus surgery X2 History of tonsillectom
[2020-10-27] VITALS (17 sets, daily range): BP systolic 122–151; BP diastolic 59–95; PULSE 61–107; RESP 18–20; TEMP 36.3–37.4; O2SAT 93–99
[2020-10-27] MEDS: LACTATED RINGERS 1,000 ML 100 ML IV CONT ×2 (01:21→15:39)
[2020-10-27] MEDS: FUROSEMIDE INJ 40 MG/4 ML VIAL IV PUSH (01:24)
[2020-10-27] MEDS: ERTAPENEM 1 GM/NS 50 ML 1 GM/50 ML BAG IVPB ×2 (01:25→21:52)
[2020-10-27] MEDS: GABAPENTIN 100 MG CAPSULE PO ×3 (01:26→21:49)
[2020-10-27] MEDS: IPRATROPIUM BR 0.02% INH SOLN 0.5 MG/2.5 ML VIAL INHALATION ×4 (01:53→20:38)
[2020-10-27] MEDS: ALBUTEROL SULFATE NEB 2.5 MG/0.5 ML INH 5 MG INHALATION ×4 (01:53→20:38)
[2020-10-27 06:07] LABS: Basophils Percent Auto 0.1 % (0.2-1.2); Eosinophils Absolute Auto 0.1 K/mm3 (0-0.3); Eosinophils Percent Auto 0.6 % (0-4.4); Hematocrit 37.4 % (37.0-47.0); Hemoglobin 11.8 g/dL (12.0-15.0); Immature Granulocyte Absolute 0.07 K/mm3 (0.00-0.031); Immature Granulocyte Percent A 0.6 % (0-0.5); Lymphocytes Absolute Auto 1.35 K/mm3 (0.9-3.2); Lymphocytes Percent Auto 12.2 % (18.3-44.2); Mean Corpuscular HGB Conc 31.6 g/dl (32-36); Mean Corpuscular Hemoglobin 34.2 pg (26-34); Mean Corpuscular Volume 108.4 fl (80-100); Mean Platelet Volume 10.3 fl (7.4-10.4); Monocytes Absolute Auto 0.4 K/mm3 (0.1-0.6); Monocytes Percent Auto 3.2 % (2.6-8.5); Neutrophils Absolute Auto 9.3 K/mm3 (1.3-6.7); Neutrophils Percent Auto 83.3 % (45.5-73.1); Platelet Count Result 234 k/mm3 (150-375); Red Blood Count 3.45 M/mm3 (4.2-5.4); Red Cell Distribution Width 17.3 % (11.5-14.5); White Blood Count 11.1 K/mm3 (4.5-10.0)
[2020-10-27 06:15] LABS: Alanine Aminotransferase 20 U/L (4-35); Albumin Level 3.3 g/dL (3.5-5.1); Alkaline Phosphatase 74 U/L (38-126); Anion Gap 5 mmol/L (8-16); Aspartate Amino Transferase 19 U/L (14-36); Bilirubin,Total 0.5 mg/dL (0.2-1.3); Blood Urea Nitrogen 21 mg/dL (7-17); Calcium 8.8 mg/dL (8.4-10.2); Carbon Dioxide 36 mmol/L (22-30); Chloride 99 mmol/L (98-107); Estimated Glomerular Filt Rate 53; Glucose 129 mg/dL (65-105); Potassium 3.7 mmol/L (3.4-5.0); Sodium 140 mmol/L (137-145)
[2020-10-27 06:22] LABS: NT Pro B Type Natriuretic Pept 692 pg/mL (5-100)
[2020-10-27] MEDS: FOLIC ACID 1 MG TABLET 2 MG PO (09:36)
[2020-10-27] MEDS: SACCHAROMYCES BOULARDII 250 MG CAPSULE PO ×2 (09:36→16:48)
[2020-10-27] MEDS: POTASSIUM CHLORIDE 10 MEQ TABLET.ER PO ×2 (09:36→16:48)
[2020-10-27] MEDS: FERROUS SULFATE 324 MG TABLET PO ×2 (09:37→16:48)
[2020-10-27] MEDS: CYANOCOBALAMIN 1,000 MCG TABLET 1000 MCG PO (09:37)
[2020-10-27] MEDS: DULoxetine HCL 30 MG CAPSULE.DR PO (09:37)
[2020-10-27] MEDS: CHOLECALCIFEROL 1,000 UNITS TABLET 1000 UNITS PO (09:37)
[2020-10-27] MEDS: FAMOTIDINE 20 MG/2 ML VIAL IV PUSH ×2 (09:37→21:48)
[2020-10-27] MEDS: ACYCLOVIR 400 MG TABLET PO (09:37)
[2020-10-27] MEDS: predniSONE 10 MG TABLET PO (09:37)
[2020-10-27] MEDS: DABIGATRAN ETEXILATE 150 MG CAPSULE PO ×2 (09:37→16:48)
[2020-10-27] MEDS: BUMETANIDE 0.5 MG TABLET PO (09:37)
[2020-10-27] MEDS: NEBIVOLOL HCL 5 MG TABLET 10 MG PO (09:39)
--- NOTE | 2020-10-27 15:30 | PM.IMPN ---
Progress Note: A&P Assessment and Plan (1) Acute respiratory failure with hypoxia: Code(s): J96.01 - Acute respiratory failure with hypoxia Status: Acute Assessment and Plan: Patient is currently on 5 L by nasal cannula ABG reviewed Likely secondary to fluid overload Chest x-ray reviewed Will give Lasix a 1 time Repeat chest x-ray in a.m. Will obtain an echocardiogram A BNP has been added as well 10/27/20 15:30 Narrative: This is an 80-year-old female with past medical history significant for RA, recurrent urinary tract infection, chronic indwelling Spears catheter, bed ridden, COPD. Patient was brought to the emergency room after her home health nurse came to check on her and noticed the patient was having respiratory distress she had also a low pulse ox and she was taken to the emergency room upon arrival to emergency room patient was found to be saturating in the low 80s and required high-flow initially later on she was placed on nasal cannula 5 L and she did well on that. Preliminary workup was significant for a urine analysis with significant WBCs in the a chest x-ray was significant for infiltrates which are concerning for pulmonary edema. Patient states that she did not have any complaints she has been feeling in her usual state of health. 10/27 patient with pneumonia being treated with ceftriaxone and azithromycin, patient suspected to have COVID-19 being isolated pending COVID test, patient clinically symptoms are improved patient currently requiring only 1 L of O2, will continue to monitor and further recommendation to follow once clinically stable will have a PT OT evaluate the patient (2) Pneumonia: Code(s): J18.9 - Pneumonia, unspecified organism Status: Acute Assessment and Plan: On further review on evaluation of chest x-ray more in line with fluid overload/pulmonary edema Will repeat chest x-ray in the morning after Lasix (3) Anasarca: Code(s): R60.1 - Generalized edema Status: Acute Assessment and Plan: Will do echocardiogram Lasix 40 mg IV x1 at this time repeat as needed (4) Generalized weakness: Code(s): R53.1 - Weakness Status: Acute Assessment and Plan: Patient is chronically ill very low functional status over all (5) Rheumatoid arthritis: Qualifiers: Rheumatoid arthritis location: unspecified site Rheumatoid factor presence: unspecified presence Qualified Code(s): M06.9 - Rheumatoid arthritis, unspecified Code(s): M06.9 - Rheumatoid arthritis, unspecified Status: Chronic Assessment and Plan: Patient is on methotrexate, Orencia. (6) Paroxysmal atrial fibrillation: Code(s): I48.0 - Paroxysmal atrial fibrillation Status: Chronic Assessment and Plan: Rate controlled and anticoagulated on Pradaxa (7) Essential hypertension: Code(s): I10 - Essential (primary) hypertension Status: Chronic Assessment and Plan: Continue Bystolic Continue to monitor (8) Chronic kidney disease, stage 3: Code(s): N18.3 - Chronic kidney disease, stage 3 (moderate) Status: Chronic Assessment and Plan: Continue to monitor BUN and creatinine Preliminary workup shows a creatinine of 1 Subjective Date/time seen: 10/27/20 15:30 Narrative: This is an 80-year-old female with past medical history significant for RA, recurrent urinary tract infection, chronic indwelling Spears catheter, bed ridden, COPD. Patient was brought to the emergency room after her home health nurse came to check on her and noticed the patient was having respiratory distress she had also a low pulse ox and she was taken to the emergency room upon arrival to emergency room patient was found to be saturating in the low 80s and required high-flow initially later on she was placed on nasal cannula 5 L and she did well on that. Preliminary workup was significant for a urine analysis with significant WBCs in the
[2020-10-27] MEDS: ACETAMINOPHEN 500 MG TABLET 1000 MG PO (21:49)
--- NOTE | 2020-10-27 22:52 | PHAR ---
PHARMACY VERIFIED HOME MED: *USE FROM HOME* XTAMPZA ER 18 MG CAPSULE TAKE 1 CAPSULE BY MOUTH EVERY 12 HOURS
[2020-10-28] VITALS (16 sets, daily range): BP systolic 117–157; BP diastolic 60–71; PULSE 71–99; RESP 16–20; TEMP 36.5–36.7; O2SAT 94–100
[2020-10-28] MEDS: LACTATED RINGERS 1,000 ML 100 ML IV CONT ×2 (00:07→14:16)
[2020-10-28] MEDS: IPRATROPIUM BR 0.02% INH SOLN 0.5 MG/2.5 ML VIAL INHALATION ×4 (01:58→20:13)
[2020-10-28] MEDS: ALBUTEROL SULFATE NEB 2.5 MG/0.5 ML INH 5 MG INHALATION ×4 (01:58→20:12)
[2020-10-28 06:21] LABS: Hematocrit 33.7 % (37.0-47.0); Hemoglobin 10.4 g/dL (12.0-15.0); Mean Corpuscular HGB Conc 30.9 g/dl (32-36); Mean Corpuscular Hemoglobin 33.4 pg (26-34); Mean Corpuscular Volume 108.4 fl (80-100); Platelet Count Result 193 k/mm3 (150-375); Red Blood Count 3.11 M/mm3 (4.2-5.4); Red Cell Distribution Width 17.5 % (11.5-14.5)
[2020-10-28 06:38] LABS: Estimated Glomerular Filt Rate > 60
[2020-10-28] MEDS: POTASSIUM CHLORIDE 10 MEQ TABLET.ER PO ×2 (08:16→17:08)
[2020-10-28] MEDS: ACYCLOVIR 400 MG TABLET PO (08:16)
[2020-10-28] MEDS: DABIGATRAN ETEXILATE 150 MG CAPSULE PO ×2 (08:16→17:08)
[2020-10-28] MEDS: FERROUS SULFATE 324 MG TABLET PO ×2 (08:16→17:08)
[2020-10-28] MEDS: DULoxetine HCL 30 MG CAPSULE.DR PO (08:17)
[2020-10-28] MEDS: CHOLECALCIFEROL 1,000 UNITS TABLET 1000 UNITS PO (08:17)
[2020-10-28] MEDS: FOLIC ACID 1 MG TABLET 2 MG PO (08:17)
[2020-10-28] MEDS: FAMOTIDINE 20 MG/2 ML VIAL IV PUSH ×2 (08:17→21:42)
[2020-10-28] MEDS: GABAPENTIN 100 MG CAPSULE PO ×2 (08:17→21:42)
[2020-10-28] MEDS: CYANOCOBALAMIN 1,000 MCG TABLET 1000 MCG PO (08:17)
[2020-10-28] MEDS: SACCHAROMYCES BOULARDII 250 MG CAPSULE PO ×2 (08:17→17:08)
[2020-10-28] MEDS: predniSONE 10 MG TABLET PO (08:18)
[2020-10-28] MEDS: BUMETANIDE 0.5 MG TABLET PO (08:18)
[2020-10-28] MEDS: NEBIVOLOL HCL 5 MG TABLET 10 MG PO (08:18)
--- NOTE | 2020-10-28 13:03 | PM.IMPN ---
Progress Note: A&P Assessment and Plan (1) Acute respiratory failure with hypoxia: Code(s): J96.01 - Acute respiratory failure with hypoxia Status: Acute Assessment and Plan: Patient is currently on 5 L by nasal cannula ABG reviewed Likely secondary to fluid overload Chest x-ray reviewed Will give Lasix a 1 time Repeat chest x-ray in a.m. Will obtain an echocardiogram A BNP has been added as well 10/28/20 13:03 Narrative: This is an 80-year-old female with past medical history significant for RA, recurrent urinary tract infection, chronic indwelling Spears catheter, bed ridden, COPD. Patient was brought to the emergency room after her home health nurse came to check on her and noticed the patient was having respiratory distress she had also a low pulse ox and she was taken to the emergency room upon arrival to emergency room patient was found to be saturating in the low 80s and required high-flow initially later on she was placed on nasal cannula 5 L and she did well on that. Preliminary workup was significant for a urine analysis with significant WBCs in the a chest x-ray was significant for infiltrates which are concerning for pulmonary edema. Patient states that she did not have any complaints she has been feeling in her usual state of health. 10/27 patient with pneumonia being treated with ceftriaxone and azithromycin, patient suspected to have COVID-19 being isolated pending COVID test, patient clinically symptoms are improved patient currently requiring only 1 L of O2, will continue to monitor and further recommendation to follow once clinically stable will have a PT OT evaluate the patient. 10/28 patient COVID test is still pending, patient states is feeling much not as short of breath denies any cough fever or chills, will continue present management will follow-up on COVID-19 test and further recommendation to follow (2) Pneumonia: Code(s): J18.9 - Pneumonia, unspecified organism Status: Acute Assessment and Plan: On further review on evaluation of chest x-ray more in line with fluid overload/pulmonary edema Will repeat chest x-ray in the morning after Lasix (3) Anasarca: Code(s): R60.1 - Generalized edema Status: Acute Assessment and Plan: Will do echocardiogram Lasix 40 mg IV x1 at this time repeat as needed (4) Generalized weakness: Code(s): R53.1 - Weakness Status: Acute Assessment and Plan: Patient is chronically ill very low functional status over all (5) Rheumatoid arthritis: Qualifiers: Rheumatoid arthritis location: unspecified site Rheumatoid factor presence: unspecified presence Qualified Code(s): M06.9 - Rheumatoid arthritis, unspecified Code(s): M06.9 - Rheumatoid arthritis, unspecified Status: Chronic Assessment and Plan: Patient is on methotrexate, Orencia. (6) Paroxysmal atrial fibrillation: Code(s): I48.0 - Paroxysmal atrial fibrillation Status: Chronic Assessment and Plan: Rate controlled and anticoagulated on Pradaxa (7) Essential hypertension: Code(s): I10 - Essential (primary) hypertension Status: Chronic Assessment and Plan: Continue Bystolic Continue to monitor (8) Chronic kidney disease, stage 3: Code(s): N18.3 - Chronic kidney disease, stage 3 (moderate) Status: Chronic Assessment and Plan: Continue to monitor BUN and creatinine Preliminary workup shows a creatinine of 1 Subjective Date/time seen: 10/28/20 13:03 Narrative: This is an 80-year-old female with past medical history significant for RA, recurrent urinary tract infection, chronic indwelling Spears catheter, bed ridden, COPD. Patient was brought to the emergency room after her home health nurse came to check on her and noticed the patient was having respiratory distress she had also a low pulse ox and she was taken to the emergency room upon arrival to emergency room pa
[2020-10-28] MEDS: ACETAMINOPHEN 500 MG TABLET 1000 MG PO (14:16)
[2020-10-28 17:40] LABS: SARS-CoV-2 RNA PCR Negative
[2020-10-28] MEDS: ERTAPENEM 1 GM/NS 50 ML 1 GM/50 ML BAG IVPB (21:42)
[2020-10-29] VITALS (9 sets, daily range): BP systolic 143–152; BP diastolic 83–95; PULSE 83–88; RESP 16–20; TEMP 36.9; O2SAT 96–97
--- NOTE | 2020-10-29 | ECHO_ITS ---
Patient Info Name: Yamini Muñoz Age: 80 years : 1940 Gender: Female Ht: 58 in Wt: 173 lbs BSA: 1.83 m2 HR: 89 bpm BP: 144 / 95 mmHg Technical Quality: Good Exam Date: 10/29/2020 11:11 AM Exam Location: [facility] Pulmonary Exam Room: 311 Patient Status: Inpatient Admit Date: 10/26/2020 Staff Ordering Physician: Eliana Denny MD [employer]: Ronit Pacheco RDCS Attending Provider: Eliana Denny MD Referring Physician: Eduin CHEN; Exam Type: CA echo doppler color flow Study Info Indications - anasarca Complete two-dimensional, color flow and Doppler transthoracic echocardiogram is performed. Summary 1. Complete two-dimensional, color flow and Doppler transthoracic echocardiogram is performed. 2. Left ventricular chamber dimension is normal. 3. Left ventricular systolic function is normal, estimated at 65-70%. 4. There is mildly increased left ventricular wall thickness. 5. The left ventricular diastolic function is grade I diastolic dysfunction. 6. E/e' 15 is elevated. 7. There is mild mitral valve regurgitation. 8. There is trace tricuspid valve regurgitation. 9. No pulmonary hypertension, estimated pulmonary arterial systolic pressure is 35 mmHg. Left Ventricle E/e' 15 is elevated. Left ventricular chamber dimension is normal. Left ventricular systolic function is normal, estimated at 65-70%. There is mildly increased left ventricular wall thickness. The left ventricular diastolic function is grade I diastolic dysfunction. Right Ventricle Right ventricular chamber dimension is normal. Right ventricular systolic function is normal. Left Atria Left atrial chamber dimension is normal. Right Atria Right atrial chamber dimension is normal. Aortic Valve The aortic valve is trileaflet. There is no aortic valve stenosis. There is no aortic valve regurgitation. Pulmonic Valve There is no pulmonic regurgitation. Mitral Valve There is no mitral valve stenosis. There is mild mitral valve regurgitation. Tricuspid Valve There is trace tricuspid valve regurgitation. No pulmonary hypertension, estimated pulmonary arterial systolic pressure is 35 mmHg. Pericardium/Pleural There is no pericardial effusion. Inferior Vena Cava Normal inferior vena cava with >50% collapse upon inspiration consistent with normal right atrial pressure, 5 mmHg. Aorta The aortic root size at the sinus of Valsalva is normal. Left Ventricular Outflow Tract Name Value Normal LVOT 2D LVOT Diameter 2.0 cm LVOT Doppler LVOT Peak Gradient 5 mmHg LVOT Mean Gradient 3 mmHg LVOT VTI 23 cm LVOT VTI/AV VTI Ratio 1.0 LVOT Stroke Volume 73 ml LVOT CO 16.8 l/min LVOT CI 9.1 l/min/m2 Pulmonic Valve Name Value Normal
[2020-10-29] MEDS: ALBUTEROL SULFATE NEB 2.5 MG/0.5 ML INH 5 MG INHALATION ×3 (01:55→14:24)
[2020-10-29] MEDS: IPRATROPIUM BR 0.02% INH SOLN 0.5 MG/2.5 ML VIAL INHALATION ×3 (01:55→14:24)
[2020-10-29] MEDS: LACTATED RINGERS 1,000 ML 100 ML IV CONT (03:24)
[2020-10-29 05:56] LABS: Mean Corpuscular HGB Conc 32.3 g/dl (32-36); Mean Corpuscular Volume 105.4 fl (80-100); Mean Platelet Volume 10.3 fl (7.4-10.4); Platelet Count Result 231 k/mm3 (150-375); Red Blood Count 2.94 M/mm3 (4.2-5.4); Red Cell Distribution Width 17.2 % (11.5-14.5); White Blood Count 8.4 K/mm3 (4.5-10.0)
[2020-10-29] MEDS: FOLIC ACID 1 MG TABLET 2 MG PO (08:05)
[2020-10-29] MEDS: BUMETANIDE 0.5 MG TABLET PO (08:05)
[2020-10-29] MEDS: FAMOTIDINE 20 MG/2 ML VIAL IV PUSH (08:05)
[2020-10-29] MEDS: CYANOCOBALAMIN 1,000 MCG TABLET 1000 MCG PO (08:05)
[2020-10-29] MEDS: POTASSIUM CHLORIDE 10 MEQ TABLET.ER PO (08:06)
[2020-10-29] MEDS: FERROUS SULFATE 324 MG TABLET PO (08:06)
[2020-10-29] MEDS: NEBIVOLOL HCL 5 MG TABLET 10 MG PO (08:06)
[2020-10-29] MEDS: SACCHAROMYCES BOULARDII 250 MG CAPSULE PO (08:06)
[2020-10-29] MEDS: predniSONE 10 MG TABLET PO (08:06)
[2020-10-29] MEDS: DULoxetine HCL 30 MG CAPSULE.DR PO (08:08)
[2020-10-29] MEDS: DABIGATRAN ETEXILATE 150 MG CAPSULE PO (08:09)
[2020-10-29] MEDS: CHOLECALCIFEROL 1,000 UNITS TABLET 1000 UNITS PO (08:09)
[2020-10-29] MEDS: GABAPENTIN 100 MG CAPSULE PO (08:09)
[2020-10-29] MEDS: ACYCLOVIR 400 MG TABLET PO (08:09)
--- NOTE | 2020-10-29 13:10 | PM.DS ---
DS: Admitting Diagnosis Admitting Diagnosis Admitting Diagnosis: Chief Complaint: Shortness of breath DS: Discharge Diagnosis Discharge Diagnosis (1) Acute respiratory failure with hypoxia: Code(s): J96.01 - Acute respiratory failure with hypoxia Status: Acute Assessment and Plan: Patient is currently on 5 L by nasal cannula ABG reviewed Likely secondary to fluid overload Chest x-ray reviewed Will give Lasix a 1 time Repeat chest x-ray in a.m. Will obtain an echocardiogram A BNP has been added as well 10/28/20 13:03 Narrative: This is an 80-year-old female with past medical history significant for RA, recurrent urinary tract infection, chronic indwelling Spears catheter, bed ridden, COPD. Patient was brought to the emergency room after her home health nurse came to check on her and noticed the patient was having respiratory distress she had also a low pulse ox and she was taken to the emergency room upon arrival to emergency room patient was found to be saturating in the low 80s and required high-flow initially later on she was placed on nasal cannula 5 L and she did well on that. Preliminary workup was significant for a urine analysis with significant WBCs in the a chest x-ray was significant for infiltrates which are concerning for pulmonary edema. Patient states that she did not have any complaints she has been feeling in her usual state of health. 10/27 patient with pneumonia being treated with ceftriaxone and azithromycin, patient suspected to have COVID-19 being isolated pending COVID test, patient clinically symptoms are improved patient currently requiring only 1 L of O2, will continue to monitor and further recommendation to follow once clinically stable will have a PT OT evaluate the patient. 10/28 patient COVID test is still pending, patient states is feeling much not as short of breath denies any cough fever or chills, will continue present management will follow-up on COVID-19 test and further recommendation to follow (2) Pneumonia: Code(s): J18.9 - Pneumonia, unspecified organism Status: Acute Assessment and Plan: On further review on evaluation of chest x-ray more in line with fluid overload/pulmonary edema Will repeat chest x-ray in the morning after Lasix (3) Anasarca: Code(s): R60.1 - Generalized edema Status: Acute Assessment and Plan: Will do echocardiogram Lasix 40 mg IV x1 at this time repeat as needed (4) Generalized weakness: Code(s): R53.1 - Weakness Status: Acute Assessment and Plan: Patient is chronically ill very low functional status over all (5) Rheumatoid arthritis: Qualifiers: Rheumatoid arthritis location: unspecified site Rheumatoid factor presence: unspecified presence Qualified Code(s): M06.9 - Rheumatoid arthritis, unspecified Code(s): M06.9 - Rheumatoid arthritis, unspecified Status: Chronic Assessment and Plan: Patient is on methotrexate, Orencia. (6) Paroxysmal atrial fibrillation: Code(s): I48.0 - Paroxysmal atrial fibrillation Status: Chronic Assessment and Plan: Rate controlled and anticoagulated on Pradaxa (7) Essential hypertension: Code(s): I10 - Essential (primary) hypertension Status: Chronic Assessment and Plan: Continue Bystolic Continue to monitor (8) Chronic kidney disease, stage 3: Code(s): N18.3 - Chronic kidney disease, stage 3 (moderate) Status: Chronic Assessment and Plan: Continue to monitor BUN and creatinine Preliminary workup shows a creatinine of 1 DS: Summary Hospital Course Reason for hospitalization: Chief Complaint: Shortness of breath Narrative: This is an 80-year-old female with past medical history significant for RA, recurrent urinary tract infection, chronic indwelling Spears catheter, bed ridden, COPD. Patient was brought to the emergency room after her home health nurse came to check o
== END 2020-10-29 16:35 | disposition home health service (06) | DRG 193 ==
LOC: ANHED 19:42 → ANH3MEDSUR 10-27 14:23
PROVIDERS: Emergency Medicine Emergency Medical Services; Admitting Provider Internal Medicine; Emergency Provider General Practice; PCP Internal Medicine; Visit Provider Family Medicine
DX: J18.9 Pneumonia, unspecified organism (principal); J96.01 Acute respiratory failure with hypoxia; I50.33 Acute on chronic diastolic (congestive) heart failure; I13.0 Hypertensive heart and chronic kidney disease with heart failure and stage 1 through stage 4 chronic kidney disease, or unspecified chronic kidney disease; J44.0 Chronic obstructive pulmonary disease with (acute) lower respiratory infection; Z20.822 Contact with and (suspected) exposure to COVID-19; M06.9 Rheumatoid arthritis, unspecified; I48.0 Paroxysmal atrial fibrillation; N18.30 Chronic kidney disease, stage 3 unspecified; M19.90 Unspecified osteoarthritis, unspecified site; G89.4 Chronic pain syndrome; I25.10 Atherosclerotic heart disease of native coronary artery without angina pectoris; M81.0 Age-related osteoporosis without current pathological fracture; K21.9 Gastro-esophageal reflux disease without esophagitis; Z66 Do not resuscitate; E66.9 Obesity, unspecified; Z68.36 Body mass index [BMI] 36.0-36.9, adult; Z86.73 Personal history of transient ischemic attack (TIA), and cerebral infarction without residual deficits; Z90.49 Acquired absence of other specified parts of digestive tract; Z98.42 Cataract extraction status, left eye; Z98.41 Cataract extraction status, right eye; Z90.721 Acquired absence of ovaries, unilateral; Z86.718 Personal history of other venous thrombosis and embolism; Z79.01 Long term (current) use of anticoagulants
CPT/HCPCS: 36415; 36600; 71045; 80053; 81001; 82375; 82565; 82805; 83050; 83605; 83880; 84484; 85025; 85027; 85610; 85730; 86140; 87040; 87086; 87088; 93005; 93306; 94640; 96374; 99285; A9270; C9803; J1335; J1940; J2543; J3370; J7040; J7120; J7512; U0003; U0005

== ENCOUNTER 2020-11-28 21:04 | Emergency (ER) | payer MEDICARE, SELFPAY ==
[2020-11-28] VITALS (15 sets, daily range): BP systolic 121–176; BP diastolic 81–100; PULSE 79–97; RESP 16–23; TEMP 36.2; O2SAT 94–100
--- NOTE | ~2020-11-28 | CT_ITS ---
EXAMINATION: CT cervical spine wo con DATE: 11/28/2020 22:00 INDICATION: Head injury TECHNIQUE: Computed tomography (CT) of the cervical spine was performed without intravenous contrast. The dose-length product (DLP) was 280.15 mGy-cm. Automated exposure control and iterative reconstruc tion technique were employed. COMPARISON: 01/06/2020 FINDINGS: There are 3 mm of chronic anterolisthesis of C3 on C4 and C4 on C5. There is unchanged ronaldo re loss of intervertebral disc space height from C3-4 through C7-T1. The odontoid is intact. The prev ertebral soft tissues are normal. There is no fracture. There is severe multilevel facet and uncovert ebral joint osteoarthritis throughout the cervical spine. There are age-indeterminate burst fractures of T4 and T5. IMPRESSION: 1. Severe cervical spondylosis without acute findings or significant interval change. 2. Age indeterminate burst fractures of T4 and T5. Reviewed, dictated and finalized at location B. IMPRESSION: 1. Severe cervical spondylosis without acute findings or significant interval c hange. 2. Age indeterminate burst fractures of T4 and T5.
--- NOTE | ~2020-11-28 | CT_ITS ---
EXAMINATION: CT brain wo con DATE: 11/28/2020 22:00 INDICATION: Head injury. TECHNIQUE: Computed tomography (CT) of the head was performed without intravenous contrast. The mA wa s adjusted according to patient size. Iterative reconstruction technique was employed. The dose-lengt h product was 280.15 mGy-cm. COMPARISON: Head CT 04/13/2020 FINDINGS: There are scattered areas of low attenuation in the cerebral white matter. There is an old infarct in left occipital lobe. There is no intracranial hemorrhage, acute infarction, or abnormal in tracranial mass lesion. The ventricles are normal in size. There are likely changes of ocular lens re placement surgeries. There is mucosal thickening in the paranasal sinuses. The mastoid air cells are normal. IMPRESSION: 1. Old infarct in left occipital lobe. 2. Stable extensive nonspecific cerebral white matter disease, which likely represents chronic small vessel ischemic disease. Reviewed, dictated and finalized at location A. IMPRESSION: 1. Old infarct in left occipital lobe. 2. Stable extensive nonspecific cerebral white matter disease, which likely rep resents chronic small vessel ischemic disease.
--- NOTE | 2020-11-28 21:44 | ED.FALL ---
HPI - Fall General Chief Complaint: Fall Stated Complaint: Fall out of maverick, head injury Time Seen by Provider: 11/28/20 21:09 Source: patient, EMS and RN notes reviewed Mode of arrival: EMS Limitations: no limitations History of Present Illness HPI Narrative: Patient is 80 years old white female slid out of the Maverick while transferring her from the wheelchair to a recliner. Went down slowly to the floor, bumped her head on the floor slightly. No loss of consciousness, denying any pain or any injuries. Patient on Pradaxa for atrial fibrillation, history of rheumatoid arthritis. Related Data Home Medications Medication Instructions Recorded Confirmed Bystolic 10 mg PO DAILY 04/25/19 10/26/20 Pradaxa 150 mg PO BID 04/25/19 10/26/20 fluconazole 150 mg PO DAILY 04/25/19 10/26/20 ipratropium-albuterol 3 ml INHALATION Q4H PRN 04/25/19 10/26/20 methotrexate sodium 5 mg PO WEEKLY 04/25/19 10/26/20 acyclovir 400 mg PO DAILY 04/26/19 10/26/20 folic acid 2 mg PO DAILY 04/26/19 10/26/20 gabapentin 100 mg PO BID 04/26/19 10/26/20 pantoprazole 40 mg PO QAM 04/26/19 10/27/20 prednisone 10 mg PO DAILY 04/26/19 10/26/20 bumetanide 0.5 mg PO DAILY 05/02/19 10/26/20 duloxetine 30 mg PO DAILY 12/25/19 10/26/20 Orencia ClickJect 125 mg SUBCUT WEEKLY 12/26/19 10/26/20 Xtampza ER 18 mg PO Q12H 04/04/20 10/27/20 cyanocobalamin (vitamin B-12) 1,000 mcg PO DAILY 04/04/20 10/26/20 ferrous sulfate 325 mg PO BID 04/04/20 10/26/20 potassium chloride 10 meq PO BID 04/04/20 10/26/20 cholecalciferol (vitamin D3) 25 25 mcg PO DAILY 05/24/20 10/26/20 mcg (1,000 unit) capsule Allergies Allergy/AdvReac Type Severity Reaction Status Date / Time codeine Allergy Unknown Nausea Verified 11/28/20 21:08 enalapril Allergy Unknown Nausea Verified 11/28/20 21:08 ezetimibe Allergy Unknown Dizziness Verified 11/28/20 21:08 metronidazole Allergy Unknown Unknown Verified 11/28/20 21:08 Kidmnjz-Tao-Hgv Reductase Allergy Unknown Nausea Verified 11/28/20 21:08 Inhibitor latex Allergy Unknown Verified 11/28/20 21:08 Review of Systems Review of Systems: Narrative: CONSTITUTIONAL: Denies fever, chills, or sweats. EYES: Denies visual changes, redness, or discharge. ENT: Denies rhinorrhea, congestion, sore throat, or otalgia. CARDIOVASCULAR: Denies chest pain, palpitations, or edema. RESPIRATORY: Denies cough or dyspnea. GASTROINTESTINAL: Denies abdominal pain, nausea, vomiting, or diarrhea. GENITOURINARY: Denies dysuria or hematuria. SKIN: Denies rash or itching. MUSCULOSKELETAL: Denies back pain, joint pain, or myalgia. NEUROLOGIC: Denies headache, numbness, or weakness. PSYCHIATRIC: Denies anxiety or depression. [facility] Past Medical History Medical History Acute kidney injury Altered mental state Arthritis B12 deficiency Bacteremia Citrobacter and Enterococcus bacteremia in April 2019. Bulging disc CHF (congestive heart failure) Chronic anemia Chronic kidney disease, stage 3 Baseline creatinine between 1.0 and 1.20. Chronic pain syndrome Secondary to rheumatoid arthritis. 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 Coronary artery disease Depression Diverticulitis Perforated diverticulitis status post colostomy in 2014. Esophageal diverticulum Essential hypertension Fracture of proximal end of right tibia Gastroesophageal reflux disease GERD (gastroesophageal reflux disease) Hallucination History of CVA (cerebrovascular accident) History of DVT (deep vein thrombosis) Hyperlipidemia Hypokalemia Hypothyroidism Immunosuppression due to drug therapy Kidney stones Osteoarthritis Osteoporosis Paroxysmal atrial fibrillation Pneumonia Rheumatoid arthritis Seasonal allergies UTI (urinary tract infection) Vertebral compression fracture T5 and lumbar vertebral compression fractures. Surgical History Surgical History History of
--- NOTE | 2020-11-28 21:47 | PC.NURSE ---
Patient taken to CT.
--- NOTE | 2020-11-28 23:39 | PC.NURSE ---
Patient's colostomy and dinero drained upon request. Patient informed of approx ETA of EMS to arrive to take her home. Patient offers no complaints at this time. Call light within reach.
[2020-11-29 01:57] VITALS: BP 160/87; PULSE 80; RESP 20; TEMP 36.6; O2SAT 97
== END 2020-11-29 01:59 | disposition home or self-care (01) ==
PROVIDERS: Emergency Provider Emergency Medicine; PCP Internal Medicine
DX: S09.90XA Unspecified injury of head, initial encounter (principal); M06.9 Rheumatoid arthritis, unspecified; I48.0 Paroxysmal atrial fibrillation; Z79.02 Long term (current) use of antithrombotics/antiplatelets; I13.0 Hypertensive heart and chronic kidney disease with heart failure and stage 1 through stage 4 chronic kidney disease, or unspecified chronic kidney disease; N18.30 Chronic kidney disease, stage 3 unspecified; I50.9 Heart failure, unspecified; I25.10 Atherosclerotic heart disease of native coronary artery without angina pectoris; K21.9 Gastro-esophageal reflux disease without esophagitis; Z86.73 Personal history of transient ischemic attack (TIA), and cerebral infarction without residual deficits; Z86.718 Personal history of other venous thrombosis and embolism; E78.5 Hyperlipidemia, unspecified; E03.9 Hypothyroidism, unspecified; M19.90 Unspecified osteoarthritis, unspecified site; Z87.442 Personal history of urinary calculi; E53.8 Deficiency of other specified B group vitamins; Z98.49 Cataract extraction status, unspecified eye; Z66 Do not resuscitate; W17.89XA Other fall from one level to another, initial encounter; R90.82 White matter disease, unspecified; M47.812 Spondylosis without myelopathy or radiculopathy, cervical region
CPT/HCPCS: 70450; 72125; 99284

== ENCOUNTER 2021-01-26 21:33 | Emergency (ER) | payer MEDICARE, SELFPAY ==
--- NOTE | ~2021-01-26 | XR_ITS ---
XR chest 2V DATE: 01/26/2021 22:20 INDICATION: Low oxygen saturation TECHNIQUE: AP and lateral views COMPARISON: 10/27/2020 portable AP chest 01/10/2020 portable AP chest FINDINGS: Cardiomegaly. Aortic calcification. Mild infiltrate or atelectasis in the right mid and both lower lung zones. There is chronic elevation of the right leaf of the diaphragm. There is diffuse osteopenia. There are multiple fracture deformities of the thoracic spine, vertebrop lasty at a lower thoracic vertebral body. Severe bilateral chronic rotator cuff atrophy and prominent glenohumeral osteoarthritis. Old rib frac tures. IMPRESSION: Mild infiltrate or atelectasis in the right mid and both lower lung zones Cardiomegaly Aortic atherosclerosis Chronic elevation right leaf of diaphragm Reviewed, dictated and finalized at location A.
--- NOTE | 2021-01-26 21:40 | ECG_ITS ---
Measurements Intervals [place] Rate: 91 P: -4 [place]: 136 QRS: -7 QRSD: 91 T: 109 QT: 317 QTc: 391 Interpretive Statements SINUS RHYTHM CONSIDER INFERIOR INFARCT, AGE INDETERMINATE ST-T WAVE ABNORMALITY IN HIGH LATERAL LEADS- CONSIDER ISCHEMIA BASELINE ARTIFACT- I, III, AVR, AVL, AVF, V4-V6 ABNORMAL ECG Electronically Signed On 01-27-2021 5:49:24 CDT by Odilon Swift D.O.
[2021-01-26 21:41] VITALS: BP 151/90; PULSE 92; RESP 18; TEMP 36.4; O2SAT 99
[2021-01-26 22:30] LABS: Basophils Percent Auto 0.2 % (0.2-1.2); Eosinophils Percent Auto 0.1 % (0-4.4); Hematocrit 42.4 % (37.0-47.0); Hemoglobin 12.9 g/dL (12.0-15.0); Immature Granulocyte Absolute 0.09 K/mm3 (0.00-0.031); Immature Granulocyte Percent A 0.6 % (0-0.5); Lymphocytes Absolute Auto 2.53 K/mm3 (0.9-3.2); Lymphocytes Percent Auto 17.5 % (18.3-44.2); Mean Corpuscular HGB Conc 30.4 g/dl (32-36); Mean Corpuscular Hemoglobin 34.4 pg (26-34); Mean Corpuscular Volume 113.1 fl (80-100); Mean Platelet Volume 10.2 fl (7.4-10.4); Monocytes Absolute Auto 0.4 K/mm3 (0.1-0.6); Neutrophils Absolute Auto 11.4 K/mm3 (1.3-6.7); Neutrophils Percent Auto 78.6 % (45.5-73.1); Platelet Count Result 205 k/mm3 (150-375); Red Blood Count 3.75 M/mm3 (4.2-5.4); Red Cell Distribution Width 16.9 % (11.5-14.5); White Blood Count 14.5 K/mm3 (4.5-10.0)
[2021-01-26 22:40] LABS: Anion Gap 9 mmol/L (8-16); Blood Urea Nitrogen 29 mg/dL (7-17); Calcium 8.8 mg/dL (8.4-10.2); Carbon Dioxide 28 mmol/L (22-30); Chloride 95 mmol/L (98-107); Estimated Glomerular Filt Rate 53; Glucose 196 mg/dL (65-110); Potassium 4.3 mmol/L (3.4-5.0); Sodium 132 mmol/L (137-145)
[2021-01-27 00:09] VITALS: BP 115/81; PULSE 86; TEMP 36.4; O2SAT 97
[2021-01-27 01:07] VITALS: BP 149/82; PULSE 84; RESP 20; O2SAT 97
[2021-01-27 01:08] VITALS: BP 149/82; PULSE 81; RESP 17; O2SAT 95
--- NOTE | 2021-01-27 01:08 | ED.GENADULT ---
HPI - General Adult General Chief complaint: Weakness Stated complaint: low spo2, fatigue Time Seen by Provider: 01/27/21 00:59 Source: patient Mode of arrival: EMS Limitations: no limitations History of Present Illness HPI narrative: Patient is an 80-year-old female complaining of low oxygen saturation at home, when I checked it it was 91% , but was asymptomatic at that time and still no symptoms upon arrival to the emergency room. Patient denies any chest pain, shortness of breath, cough, fever or chills. Patient states that her lower extremity edema and discoloration of her foot is nothing new, usually it is positional. Related Data Home Medications Medication Instructions Recorded Confirmed Bystolic 10 mg PO DAILY 04/25/19 10/26/20 Pradaxa 150 mg PO BID 04/25/19 10/26/20 fluconazole 150 mg PO DAILY 04/25/19 10/26/20 ipratropium-albuterol 3 ml INHALATION Q4H PRN 04/25/19 10/26/20 methotrexate sodium 5 mg PO WEEKLY 04/25/19 10/26/20 acyclovir 400 mg PO DAILY 04/26/19 10/26/20 folic acid 2 mg PO DAILY 04/26/19 10/26/20 gabapentin 100 mg PO BID 04/26/19 10/26/20 pantoprazole 40 mg PO QAM 04/26/19 10/27/20 prednisone 10 mg PO DAILY 04/26/19 10/26/20 bumetanide 0.5 mg PO DAILY 05/02/19 10/26/20 duloxetine 30 mg PO DAILY 12/25/19 10/26/20 Orencia ClickJect 125 mg SUBCUT WEEKLY 12/26/19 10/26/20 Xtampza ER 18 mg PO Q12H 04/04/20 10/27/20 cyanocobalamin (vitamin B-12) 1,000 mcg PO DAILY 04/04/20 10/26/20 ferrous sulfate 325 mg PO BID 04/04/20 10/26/20 potassium chloride 10 meq PO BID 04/04/20 10/26/20 cholecalciferol (vitamin D3) 25 25 mcg PO DAILY 05/24/20 10/26/20 mcg (1,000 unit) capsule Allergies Allergy/AdvReac Type Severity Reaction Status Date / Time codeine Allergy Unknown Nausea Verified 11/28/20 21:08 enalapril Allergy Unknown Nausea Verified 11/28/20 21:08 ezetimibe Allergy Unknown Dizziness Verified 11/28/20 21:08 metronidazole Allergy Unknown Unknown Verified 11/28/20 21:08 Wzgpvpb-Wnk-Lkn Reductase Allergy Unknown Nausea Verified 11/28/20 21:08 Inhibitor latex Allergy Unknown Verified 11/28/20 21:08 Review of Systems Review of Systems: All systems reviewed & are unremarkable except as noted in HPI and below Constitutional: Constitutional: Denies body ache(s), Denies chills, Denies excessive sweating, Denies fatigue, Denies fever(s), Denies headache(s), Denies lethargy, Denies malaise, Denies weakness and Denies weight loss Eyes: Eyes: Denies blurry vision, Denies change in vision and Denies loss of vision ENT: Denies dizziness, Denies ear discharge, Denies headache(s), Denies lip swelling, Denies epistaxis, Denies nasal congestion, Denies neck pain, Denies throat swelling and Denies tongue swelling Cardiovascular: Cardiovascular: Denies chest pain, Denies chest pain at rest, Denies chest pain with activity, Denies diaphoresis, Denies rapid heart rate, Denies edema, Denies irregular heart rhythm, Denies lightheadedness, Denies palpitations, Denies dyspnea and Denies dyspnea on exertion Respiratory: Respiratory: Denies chest congestion, Denies cough, Denies hemoptysis, Denies dyspnea and Denies dyspnea on exertion Gastrointestinal: Gastrointestinal: Denies abdominal pain, Denies melena, Denies hematochezia, Denies diarrhea, Denies nausea, Denies vomiting and Denies hematemesis Musculoskeletal: Musculoskeletal: Denies abnormal gait, Denies deformity, Denies joint swelling, Denies limited range of motion, Denies neck pain and Denies numbness Neurologic: Denies Abnormal speech present, Denies abnormal gait, Denies confusion, Denies dizziness, Denies headache(s), Denies focal weakness, Denies loss of vision, Denies numbness, Denies Other visual disturbances, Denies Sensory deficit (Neuro) and Denies weakness Psychiatric: Psychiatric: Denies confusion, Denies depression, Denies auditory hallucinations, Denies homicidal ideation and Denies suicidal ideation Endocrine: Endocrine: Denies cold intolerance, Denies excess
[2021-01-27 01:09] VITALS: PULSE 82; O2SAT 95
[2021-01-27 01:54] VITALS: BP 133/69; PULSE 69; RESP 19; O2SAT 95
[2021-01-27 03:17] VITALS: BP 159/101; PULSE 75; RESP 15; O2SAT 96
--- NOTE | 2021-01-27 03:22 | PC.NURSE ---
Assumed care of pt at this time, report taken from Susana LOUIS. Pt sleeping on stretcher, lights dimmed. Pt awaiting transport via ambulance to home.
--- NOTE | 2021-01-27 04:31 | PC.NURSE ---
[facility] arrived to transport pt home. Report given. called and informed of pts departure from ED. Pt upright A&Ox3 on stretcher during transport out of ED.
== END 2021-01-27 04:31 | disposition home or self-care (01) ==
PROVIDERS: Emergency Medicine; Emergency Provider Emergency Medicine; PCP Internal Medicine
DX: J44.9 Chronic obstructive pulmonary disease, unspecified (principal); N18.30 Chronic kidney disease, stage 3 unspecified; M19.90 Unspecified osteoarthritis, unspecified site; I13.0 Hypertensive heart and chronic kidney disease with heart failure and stage 1 through stage 4 chronic kidney disease, or unspecified chronic kidney disease; K21.9 Gastro-esophageal reflux disease without esophagitis; I50.9 Heart failure, unspecified; F32.9 Major depressive disorder, single episode, unspecified; E03.9 Hypothyroidism, unspecified; I48.91 Unspecified atrial fibrillation; I25.10 Atherosclerotic heart disease of native coronary artery without angina pectoris
CPT/HCPCS: 36415; 71046; 80048; 85025; 93005; 99284

== ENCOUNTER 2021-07-30 11:31 | Inpatient (IN) | payer MEDICARE, SELFPAY ==
[2021-07-30] VITALS (27 sets, daily range): BP systolic 58–134; BP diastolic 35–63; PULSE 73–95; RESP 12–25; TEMP 36.1–38.1; O2SAT 88–100; BMI 34.9
--- NOTE | ~2021-07-30 | XR_ITS ---
EXAMINATION: XR abdomen obstructive series EXAM DATE: 08/01/2021 09:06 INDICATION: Distended abdomen pain discomfort. TECHNIQUE: Frontal upright projection of the upper abdomen, frontal projection of the lower abdomen f or interpretation. Comparison is made to prior examination from 01/08/2020. FINDINGS: There is paucity of bowel gas, nonspecific but nonobstructive bowel gas pattern. No free i ntraperitoneal air. There is a right-sided femoral venous catheter. Moderate thoracolumbar scoliosis and advanced spondylosis. Treated T12 compression or burst fracture. Cardiomegaly and small pleural e ffusions. IMPRESSION: Paucity of bowel gas, nonspecific pattern. Small pleural effusions. Reviewed, dictated and finalized at location B. STANT OFFICE MANAGER
--- NOTE | ~2021-07-30 | XR_ITS ---
EXAMINATION: XR barium swallow modified DATE: 08/07/2021 12:35 INDICATION: Esophagitis. TECHNIQUE: The patient was given barium-containing material of multiple consistencies to swallow by t jojo speech pathologist while I performed fluoroscopy. Fluoroscopy exposure time was 1.2 minutes. The n umber of fluoroscopy images saved to the PACS was 1. Dose-area product was 1.443 Gy-cm^2. FINDINGS: There is reduced tongue base retraction and reduced pharyngeal squeeze with vallecular residue. IMPRESSION: 1. No laryngeal penetration or aspiration. 2. Please refer to the speech therapy report for recommendations. Reviewed, dictated and finalized at location A. R SECURITY SYSTEMS ENGINEER
--- NOTE | ~2021-07-30 | XR_ITS ---
EXAMINATION: XR chest 1V portable DATE: 08/04/2021 12:56 INDICATION: Shortness of breath. TECHNIQUE: A single frontal view of the chest was obtained. COMPARISON: Chest single view 08/02/2021, CT abdomen and pelvis 08/03/2021 FINDINGS: There are small pleural effusions. There are airspace opacities in the mid and lower lung z ones. No pneumothorax. The heart size is normal. There are changes of vertebroplasty in lower thoraci c spine. IMPRESSION: 1. Stable small pleural effusions. 2. Airspace opacities in the mid and lower lung zones with improvement on the left, consistent with a telectasis versus pneumonia. Reviewed, dictated and finalized at location A. NICAL ADJUSTER IMPRESSION: 1. Stable small pleural effusions. 2. Airspace opacities in the mid and lower lung zones with improvement on the l eft, consistent with atelectasis versus pneumonia.
--- NOTE | ~2021-07-30 | CT_ITS ---
EXAMINATION: CT abdomen pelvis wo con DATE: 08/03/2021 08:53 INDICATION: Abdominal pain. TECHNIQUE: Computed tomography (CT) of the abdomen and pelvis was performed without intravenous contr ast. Automated exposure control and iterative reconstruction technique were employed. The dose-length product was 1384.58 mGy-cm. COMPARISON: CT abdomen and pelvis 04/04/2020, chest CT 01/09/20 FINDINGS: The visualized portions of the lung bases demonstrate moderate-sized right and small left p leural effusions. There is dependent atelectasis in the lungs. On the left, the atelectasis is out of proportion to the size of the pleural effusion. Calcified pulmonary nodules and calcified hilar and mediastinal lymph nodes are consistent with old granulomatous disease. The heart size is normal. Ther e are coronary artery calcifications. No pericardial effusion. There is diffuse hepatic steatosis. Th e gallbladder, spleen, pancreas, and adrenal glands are normal. There is cortical thinning of the kid neys. There are cysts in the kidneys measuring up to 2.8 cm the left. There are two 1-2 mm stones in right kidney. There are 2 stones in left kidney measuring up to 4 mm. There is an end colostomy in le ft abdomen with parastomal hernia containing nonobstructed small bowel. The appendix is not visualize d. There is a ventral hernia containing fat. There is a right groin catheter with tip in right director of math al iliac vein. There is a Spears catheter in the bladder. There are no pathologically enlarged lymph n odes. There is no free intraperitoneal fluid. There is lumbar dextroscoliosis and severe spondylosis. There is a chronic burst fracture of L1 with changes of vertebroplasty. There is chronic height loss of multiple vertebral bodies. There is a hemangioma in L2 vertebral body. IMPRESSION: 1. Moderate-sized right and small left pleural effusions. 2. Dependent atelectasis in the lungs. Atelectasis in left lung is out of proportion to the size of t he pleural effusion. 3. Diffuse hepatic steatosis. 4. Parastomal hernia containing nonobstructed small bowel. Reviewed, dictated and finalized at location A. OGICAL TECHNICAL OFFICER IMPRESSION: 1. Moderate-sized right and small left pleural effusions. 2. Dependent atelectasis in the lungs. Atelectasis in left lung is out of propo rtion to the size of the pleural effusion. 3. Diffuse hepatic steatosis. 4. Parastomal hernia containing nonobstructed small bowel.
--- NOTE | ~2021-07-30 | CT_ITS ---
EXAMINATION: CT brain wo con EXAM DATE: 07/31/2021 10:36 INDICATION: Encephalopathy, on Pradaxa, presented with AMS. Encephalopathy, confusion. TECHNIQUE: Spiral CT of the head was performed without contrast. Axial, coronal and sagittal images were reviewed. The dose-length product (DLP) for this examination was 605.33 mGy-cm. The exposure w as tailored according to patient size, and iterative reconstruction (ASIR) was used as additional dos e reduction technique. Comparison is made to prior examination from 11/28/2020. FINDINGS: There is no acute intraparenchymal hemorrhage. No evidence of intraparenchymal brain mass lesion. No evidence of acute infarction. Please note that initial head CT has limited sensitivity f or small or acute infarctions. There is small old left occipitoparietal lobe infarction. There is m oderate to severe periventricular and subcortical hypodensity, nonspecific but probably related to sm all vessel ischemic disease. There is moderate prominence of the sulci and ventricles related to ce rebral atrophy. There is intracranial carotid arteriosclerosis. There are no extra-axial collectio ns. There is no mass effect or midline shift. The orbits are unremarkable. Soft tissue is unremark able. Mild ethmoid and mild to moderate sphenoid mucoperiosteal thickening. Mastoid air cells are ae rated. Probable small calcified left frontal region meningioma. IMPRESSION: 1. Small old left parieto-occipital lobe infarction. 2. Chronic age related findings. Reviewed, dictated and finalized at location A. LE ATTACHER
--- NOTE | ~2021-07-30 | XR_ITS ---
EXAMINATION: XR chest 1V portable EXAM DATE: 07/30/2021 12:36 INDICATION: Shortness of breath; low O2, lethargy, pna . TECHNIQUE: Portable AP frontal chest x-ray was obtained. Comparison is made to prior examination from 01/26/2021. FINDINGS: Chronic left pleural blunting. No confluent consolidation, pneumothorax or pleural effusion suspected. Cardiomediastinal silhouette is normal. The bones are osteopenic. There are bony degener ative changes. Old rib fractures. IMPRESSION: 1. No acute cardiopulmonary findings or interval change. Reviewed, dictated and finalized at location A. R ANALYST
--- NOTE | ~2021-07-30 | XR_ITS ---
EXAMINATION: XR chest 1V portable DATE: 08/02/2021 08:46 INDICATION: Respiratory distress. TECHNIQUE: A single frontal view of the chest was obtained. COMPARISON: Chest single view 07/30/2021, CT abdomen and pelvis 04/04/2020 FINDINGS: There are airspace opacities in right perihilar region and right midlung zone. There are ai rspace opacities throughout left lower lobe. There is a small right pleural effusion. No pneumothorax . The heart size is normal. There is a prominent left paracardial fat pad. There are changes of verte broplasty in T12. IMPRESSION: 1. Worsened airspace opacities involving right perihilar region and right midlung zone, consistent wi th pneumonia versus pulmonary edema. 2. Worsened airspace opacities in left lower lobe, consistent with pneumonia versus lobar collapse. 3. Worsened small right pleural effusion. Reviewed, dictated and finalized at location A. MER IMPRESSION: 1. Worsened airspace opacities involving right perihilar region and right midlu ng zone, consistent with pneumonia versus pulmonary edema. 2. Worsened airspace opacities in left lower lobe, consistent with pneumonia ve rsus lobar collapse. 3. Worsened small right pleural effusion.
--- NOTE | ~2021-07-30 | XR_ITS ---
EXAMINATION: XR abdomen/kub 1V DATE: 08/07/2021 12:21 INDICATION: Minimal stool output. TECHNIQUE: A supine view of the abdomen on 2 radiographs was obtained. COMPARISON: Abdomen radiographs 08/01/2021 FINDINGS: There are no dilated loops of bowel. There is a small volume of stool in the colon. A right groin catheter is noted. There are changes of vertebroplasty in T12. IMPRESSION: 1. Normal bowel gas pattern. Reviewed, dictated and finalized at location A. ICER
--- NOTE | 2021-07-30 11:42 | ECG_ITS ---
Measurements Intervals [place] Rate: 88 P: 10 [place]: 136 QRS: 3 QRSD: 86 T: 153 QT: 332 QTc: 403 Interpretive Statements SINUS RHYTHM LEFT VENTRICULAR HYPERTROPHY WITH ST-T CHANGE CONSIDER INFERIOR INFARCT, AGE INDETERMINATE ST-T WAVE ABNORMALITY IN HIGH LATERAL LEADS- CONSIDER ISCHEMIA BASELINE ARTIFACT- I, II, AVR, V3, V5 ABNORMAL ECG Electronically Signed On 07-30-2021 14:14:35 ROOF DESIGNER by Odilon Swift D.O.
[2021-07-30 12:12] LABS: Basophils Percent Auto 0.3 % (0.2-1.2); Eosinophils Absolute Auto 0.1 K/mm3 (0-0.3); Eosinophils Percent Auto 0.6 % (0-4.4); Hematocrit 40.3 % (37.0-47.0); Hemoglobin 12.1 g/dL (12.0-15.0); Immature Granulocyte Absolute 0.06 K/mm3 (0.00-0.031); Immature Granulocyte Percent A 0.5 % (0-0.5); Lymphocytes Absolute Auto 3.15 K/mm3 (0.9-3.2); Lymphocytes Percent Auto 24.8 % (18.3-44.2); Mean Corpuscular Hemoglobin 32.9 pg (26-34); Mean Corpuscular Volume 109.5 fl (80-100); Mean Platelet Volume 10.3 fl (7.4-10.4); Monocytes Absolute Auto 0.3 K/mm3 (0.1-0.6); Monocytes Percent Auto 2.2 % (2.6-8.5); Neutrophils Absolute Auto 9.1 K/mm3 (1.3-6.7); Neutrophils Percent Auto 71.6 % (45.5-73.1); Platelet Count Result 169 k/mm3 (150-375); Red Blood Count 3.68 M/mm3 (4.2-5.4); Red Cell Distribution Width 16.8 % (11.5-14.5); White Blood Count 12.7 K/mm3 (4.5-10.0)
[2021-07-30 12:22] LABS: INR 1.7; Prothrombin Time 19.3 Seconds (11.1-14.7)
--- NOTE | 2021-07-30 12:22 | ED.GENADULT ---
HPI - General Adult General Chief complaint: Shortness of Breath/Dyspnea Stated complaint: lethargy, dsypnea, altered Time Seen by Provider: 07/30/21 11:50 Source: patient, EMS, RN notes reviewed and old records reviewed Mode of arrival: EMS Limitations: clinical condition History of Present Illness HPI narrative: 81-year-old female presents to the emergency department for evaluation of worsening shortness of breath. Patient has been at home being treated for a pneumonia. Patient completed a course of doxycycline on the . Patient is on a 20-day course of Keflex. Patient is unable to give much information due to clinical condition. But patient denies any chest pain. Patient does report cough and shortness of breath. Patient is ill appearing upon arrival to the emergency department. At home patient was 78%. Patient was 80% on room air when switching the oxygen. Patient is now resting comfortably on 4 L and is saturating at 90%. Related Data Home Medications Medication Instructions Recorded Confirmed Pradaxa 150 mg PO BID 04/25/19 10/26/20 acyclovir 400 mg PO DAILY 04/26/19 10/26/20 folic acid 2 mg PO DAILY 04/26/19 10/26/20 pantoprazole 40 mg PO QAM 04/26/19 10/27/20 bumetanide 0.5 mg PO DAILY 05/02/19 10/26/20 duloxetine 30 mg PO DAILY 12/25/19 10/26/20 Xtampza ER 18 mg PO Q12H 04/04/20 10/27/20 cyanocobalamin (vitamin B-12) 1,000 mcg PO DAILY 04/04/20 10/26/20 ferrous sulfate 325 mg PO BID 04/04/20 10/26/20 potassium chloride 10 meq PO BID 04/04/20 10/26/20 cholecalciferol (vitamin D3) 25 25 mcg PO DAILY 05/24/20 10/26/20 mcg (1,000 unit) capsule gabapentin 200 mg PO HS 07/30/21 nebivolol mg 07/30/21 prednisone 10 mg PO TID 07/30/21 Allergies Allergy/AdvReac Type Severity Reaction Status Date / Time metronidazole Allergy Unknown Unknown Verified 07/14/21 11:18 latex Allergy Unknown Verified 07/14/21 11:18 codeine AdvReac Unknown Nausea Verified 07/30/21 12:23 enalapril AdvReac Unknown Nausea Verified 07/30/21 12:23 ezetimibe AdvReac Unknown Dizziness Verified 07/30/21 12:23 Napduvr-MBB-TeJ Reductase AdvReac Unknown Nausea Verified 07/30/21 12:23 Inhibitor [Jhsqtwr-Pjs-Irp Reductase Inhibitor] Review of Systems Review of Systems: CONSTITUTIONAL: Fevers and chills EYES: Denies visual changes, redness, or discharge. ENT: Denies rhinorrhea, congestion, sore throat, or otalgia. CARDIOVASCULAR: Denies chest pain, palpitations, or edema. RESPIRATORY: Cough and shortness of breath GASTROINTESTINAL: Denies abdominal pain, nausea, vomiting, or diarrhea. GENITOURINARY: Denies dysuria or hematuria. SKIN: Denies rash or itching. MUSCULOSKELETAL: Denies back pain, joint pain, or myalgia. NEUROLOGIC: Denies headache, numbness, or weakness. [facility] Past Medical History Medical History Acute kidney injury Age-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 Bulging disc CHF (congestive heart failure) Chronic anemia Chronic kidney disease, stage 3 Baseline creatinine between 1.0 and 1.20. Chronic pain syndrome Secondary to rheumatoid arthritis. 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 Coronary artery disease Depression Diverticulitis Perforated diverticulitis status post colostomy in 2014. Esophageal diverticulum Essential hypertension Fracture of proximal end of right tibia Gastroesophageal reflux disease GERD (gastroesophageal reflux disease) Hallucination History of CVA (cerebrovascular accident) History of DVT (deep vein thrombosis) Hyperlipidemia Hyperparathyroidism Hypokalemia Hypothyroidism Immunosuppression due to drug therapy Kidney stones Osteoarthritis Osteoporosis Paroxysmal atrial fibrillation Pneumonia Rheumatoid arthritis Rheumatoid arthritis with rheumatoid factor of m
[2021-07-30 12:23] LABS: Partial Thromboplastin Time 66.7 SECONDS (22.3-36.8)
[2021-07-30 12:25] LABS: Alanine Aminotransferase 34 U/L (4-35); Albumin Level 3.2 g/dL (3.5-5.1); Alkaline Phosphatase 76 U/L (38-126); Anion Gap 7 mmol/L (8-16); Aspartate Amino Transferase 31 U/L (14-36); Bilirubin,Total 0.9 mg/dL (0.2-1.3); Blood Urea Nitrogen 25 mg/dL (7-17); Calcium 8.4 mg/dL (8.4-10.2); Carbon Dioxide 34 mmol/L (22-30); Chloride 100 mmol/L (98-107); Estimated CRCL calculation 37 ml/min; Estimated Glomerular Filt Rate 48; Glucose 119 mg/dL (65-110); Potassium 4.6 mmol/L (3.4-5.0); Sodium 141 mmol/L (137-145)
[2021-07-30 12:31] LABS: Lactic Acid Reflex 1.4 mmol/L (0.7-2.1)
[2021-07-30 12:39] LABS: NT Pro B Type Natriuretic Pept 2240 pg/mL (5-100); Troponin I 0.108 ng/mL (0.000-0.034)
[2021-07-30 14:01] LABS: Add Urine Microscopic? YES; Amorphous Sediment Urine Few; Appearance Urine Cloudy (Clear); Bacteria Urine Trace /hpf; Bilirubin Urine Negative (Negative); Blood Urine 3+ (Negative); Color Urine Yellow (Yellow); Glucose Urine UA Negative (Negative); Hyaline Casts Urine 20-29 /lpf; Ketones Urine Negative (Negative); Leukocyte Esterase Ur 3+ LEU/UL (Negative); Mucus Urine Heavy /lpf; Nitrate Urine Positive (Negative); Protein Urine 1+ mg/dL (Negative); RBC Urine >75 /hpf (0-2); Specific Grav Ur 1.015 (1.001-1.035); Urobilinogen Urine Negative mg/dL (<2.0); WBC Clumps Urine Present /HPF; WBC Urine >75 /hpf
[2021-07-30] MEDS: FUROSEMIDE INJ 40 MG/4 ML VIAL IV PUSH (14:30)
[2021-07-30 14:32] LABS: SARS-CoV-2 RNA PCR Negative
[2021-07-30] MEDS: ONDANSETRON INJ 4 MG/2 ML VIAL IV PUSH (15:15)
--- NOTE | 2021-07-30 15:28 | PC.NURSE ---
Report received by MISSY Damon at 1523. All questions answered and plan of care reviewed. Patient to go to IMU room 202.
--- NOTE | 2021-07-30 15:55 | PM.IMHP ---
H&P: HPI History of Present Illness Date/Time: Patient requires inpatient monitoring with expected length of stay to exceed 2 midnights for management of care. 07/30/21 15:55 Chief Complaint: Shortness of breath Narrative: Ms. Muñoz is an 81-year-old female who presented emergency room with complaints of increasing shortness of breath and weakness. Patient states she has also been quite lethargic over the last few days. Patient has a known history of CVA, DVT, dyslipidemia, hypothyroidism, paroxysmal atrial fibrillation, and frequent urinary tract infections. Patient does have a chronic Spears catheter and this was recently changed by home health. Patient states that she has been feeling increasingly weaker over the last few days and she was recently diagnosed with pneumonia which she took 14 days of antibiotics for, which was doxycycline. Patient states she also took 20 days of antibiotics for urinary tract infection, which was Keflex. Patient states she does have a hospital bed at home and lives with family that takes care of her. Patient denies any chest pain, orthopnea, PND, lightheadedness, dizziness, syncopal, or near syncopal episodes. Patient states she does have chronic swelling to upper and lower extremities. Patient states that she is unable to tell if she has any urinary problems secondary to the fact that she has a Spears catheter chronically in place. Upon evaluation in emergency room patient was noted to have a urinary tract infection. Patient was also noted to have O2 saturations of 78% on room air. Patient was also noted to have an elevated BNP as well as an elevated troponin. Patient denies any chest discomfort. Review of Systems Review of Systems: A 12 point review of systems was completed patient all pertinent positive and negative per HPI the remainder are unremarkable. [facility] Past Medical History Medical History Acute kidney injury Age-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 Bulging disc CHF (congestive heart failure) Chronic anemia Chronic kidney disease, stage 3 Baseline creatinine between 1.0 and 1.20. Chronic pain syndrome Secondary to rheumatoid arthritis. 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 Coronary artery disease Depression Diverticulitis Perforated diverticulitis status post colostomy in 2014. Esophageal diverticulum Essential hypertension Fracture of proximal end of right tibia Gastroesophageal reflux disease GERD (gastroesophageal reflux disease) Hallucination History of CVA (cerebrovascular accident) History of DVT (deep vein thrombosis) Hyperlipidemia Hyperparathyroidism Hypokalemia Hypothyroidism Immunosuppression due to drug therapy Kidney stones Osteoarthritis Osteoporosis Paroxysmal atrial fibrillation Pneumonia Rheumatoid arthritis Rheumatoid arthritis with rheumatoid factor of multiple sites without organ or systems involvement Seasonal allergies UTI (urinary tract infection) Vertebral compression fracture T5 and lumbar vertebral compression fractures. Surgical History Surgical History History of appendectomy History of bowel resection (~2014) With colostomy, secondary to perforated diverticulitis. History of cardiac catheterization History of cataract extraction History of cholecystectomy History of lumbar discectomy (~10/2003) L3-L4 microdiskectomy with decompression of L4-L5. History of oophorectomy (~1963) History of sinus surgery X2 History of tonsillectomy Family History Family History Father Heart disease Throat cancer Sibling Kidney stones High cholesterol Social History Social History (Reviewed 07/14/21 @ 12:47 by Hernan Romero,
--- NOTE | 2021-07-30 16:20 | ADMGEN ---
This patient, Yamini Muñoz, was admitted to IMU Room 202-01 at 1550. Patient/family oriented to hospital policies and general routines including ID bracelet, bed and alarms, visiting hours, pain management, procedures, bathroom and other care routines, personal items, smoking policy, room service/diet, and visiting hours. Information on how to activate the Rapid Response Team has been discussed. Patient/Family are encouraged to report perceived risks to care and to ask questions if they do not understand what they are told or what they should do.
--- NOTE | 2021-07-30 16:54 | PC.NURSE ---
RADHA preformed for hypotension at 1654. SVI showed 49.2% change (patient fluid responsive).
[2021-07-30] MEDS: SODIUM CHLORIDE 0.9% IV 500 ML IV CONT (17:44)
[2021-07-30 18:15] LABS: Lactic Acid Reflex 2.2 mmol/L (0.7-2.1)
[2021-07-30 18:35] LABS: Troponin I 0.257 ng/mL (0.000-0.034)
--- NOTE | 2021-07-30 19:54 | PC.NURSE ---
Updated Crystal DIRECTOR FINANCIAL PLANNING with critical troponin, elevated Lactic Acid and continued hypotension at 1900. DIRECTOR FINANCIAL PLANNING to see patient. New orders received.
--- NOTE | 2021-07-30 20:15 | PC.NURSE ---
This patient, Yamini Muñoz, was received from [[id number] ] on 07/30/21 at 2015. Patient/family oriented to unit policies and routines
--- NOTE | 2021-07-30 20:21 | PC.NURSE ---
This patient, Yamini Muñoz, was transferred to ICU-2 on 07/30/21 at 2009. Personal belongings sent with patient. Report given to Marisol LOUIS. Appropriate documentation sent with patient. just left the hospital and is aware of the transfer.
[2021-07-30 20:57] LABS: Reflex Lactic Acid Yes or No Add Lactic
[2021-07-30] MEDS: NOREPINEPHRINE 8 MG/D5W 250 ML 8 MG/250 ML BAG 9.38 MG IV CONT ×2 (21:14→21:35)
[2021-07-30] MEDS: CENTRAL LINE FLUSH 10 ML IV PUSH (21:36)
[2021-07-30 22:11] LABS: Lactic Acid 2.5 mmol/L (0.7-2.1)
[2021-07-30 22:29] LABS: Troponin I 0.224 ng/mL (0.000-0.034)
--- NOTE | 2021-07-30 22:31 | P.PCNBED_ITS ---
Procedures Central Line Placement Right Femoral: Central Line Date: 07/30/21 Central Line Time: 21:20 Discussed w/ the patient/family/POA,the placement of a central venous catheter, including its clinical necessity/indication & associated potential risks, benifits and alternatives.: Yes The patient/family/POA understand(s) and acknowledge(s) the need to proceed with central venous catheter insertion as an important element of the patient's clinical management.: Yes Performed Emergently - Given emergent patient condition, temporal constraints may have precluded informed consent.: Yes Time Out Performed: Yes Patient Position: trendelenburg Patient placed on monitor/pulse ox: Yes Provider Prep: mask, sterile gown, sterile gloves, Max. sterile barrier precautions and cap Central line prep: 2% Chlorhexidine scrub Local anesthesia used: lidocaine 1% Amount of anesthesia used (ml): 3 Sterile US Technique with sterile gel/sterile probe covers: Yes Central line lumen inserted: triple Tristanian: 7 Length (cm): 16 Depth of Insertion (cm): 16 Post Procedure: sutured in place, good blood return, all ports aspirated, flushed, capped, transparent dressing, antimicrobial product and aseptic te chnique maintained throughout procedure Patient tolerated procedure: well Complications: none
[2021-07-30] MEDS: SODIUM CHLORIDE 0.9% IV 500 ML 999 ML IV CONT (23:40)
[2021-07-31] VITALS (24 sets, daily range): BP systolic 74–130; BP diastolic 34–71; PULSE 74–92; RESP 16–26; TEMP 36.7–37.9; O2SAT 93–100
[2021-07-31] MEDS: CENTRAL LINE FLUSH 10 ML IV PUSH ×5 (05:48→17:05)
[2021-07-31 05:56] LABS: Lactic Acid Reflex 1.3 mmol/L (0.7-2.1)
[2021-07-31 08:05] LABS: Basophils Absolute Auto 0.1 K/mm3 (0.0-0.1); Basophils Percent Auto 0.4 % (0.2-1.2); Eosinophils Absolute Auto 0.1 K/mm3 (0-0.3); Eosinophils Percent Auto 0.4 % (0-4.4); Hematocrit 34.8 % (37.0-47.0); Hemoglobin 10.7 g/dL (12.0-15.0); Immature Granulocyte Absolute 0.11 K/mm3 (0.00-0.031); Immature Granulocyte Percent A 0.9 % (0-0.5); Lymphocytes Percent Auto 5.6 % (18.3-44.2); Mean Corpuscular HGB Conc 30.7 g/dl (32-36); Mean Corpuscular Hemoglobin 33.2 pg (26-34); Mean Corpuscular Volume 108.1 fl (80-100); Mean Platelet Volume 10.3 fl (7.4-10.4); Monocytes Absolute Auto 0.3 K/mm3 (0.1-0.6); Monocytes Percent Auto 2.1 % (2.6-8.5); Neutrophils Absolute Auto 11.4 K/mm3 (1.3-6.7); Neutrophils Percent Auto 90.6 % (45.5-73.1); Platelet Count Result 163 k/mm3 (150-375); Red Blood Count 3.22 M/mm3 (4.2-5.4); Red Cell Distribution Width 16.3 % (11.5-14.5); White Blood Count 12.6 K/mm3 (4.5-10.0)
[2021-07-31 08:14] LABS: Lactic Acid Reflex 1.2 mmol/L (0.7-2.1)
[2021-07-31] MEDS: hetaSTARCH 6%/NACL 500 ML 250 ML IV CONT (08:17)
[2021-07-31] MEDS: ALBUMIN HUMAN 25% 25 GM/100 ML 100 ML IVPB ×3 (08:18→19:36)
[2021-07-31 08:28] LABS: Ammonia < 9 umol/L (9-30)
[2021-07-31 08:32] LABS: Troponin I 0.198 ng/mL (0.000-0.034)
[2021-07-31 08:49] LABS: Alanine Aminotransferase 56 U/L (4-35); Albumin Level 2.5 g/dL (3.5-5.1); Alkaline Phosphatase 72 U/L (38-126); Anion Gap 2 mmol/L (8-16); Aspartate Amino Transferase 55 U/L (14-36); Bilirubin,Total 1.4 mg/dL (0.2-1.3); Blood Urea Nitrogen 23 mg/dL (7-17); CRP 29.4 mg/dL (<1.0); Calcium 7.6 mg/dL (8.4-10.2); Carbon Dioxide 33 mmol/L (22-30); Chloride 100 mmol/L (98-107); Creatine Kinase 149 U/L (30-135); Estimated CRCL calculation 26 ml/min; Estimated Glomerular Filt Rate 33; Glucose 127 mg/dL (65-110); Magnesium 1.6 mg/dL (1.6-2.3); Phosphorus 4.7 mg/dL (2.5-4.5); Potassium 3.5 mmol/L (3.4-5.0); Sodium 135 mmol/L (137-145)
--- NOTE | 2021-07-31 09:13 | WPDCNINT ---
Assessment and Plan Assessment and plan (1) Septic shock: Code(s): A41.9 - Sepsis, unspecified organism; R65.21 - Severe sepsis with septic shock Status: Acute Assessment and Plan: Patient presented with hypotension, altered mental status, leukocytosis, lactic acidosis, UA was positive for UTI -patient was given 1-1/2 L of IV fluid bolus despite which her blood pressures were remained low, right femoral CVC was inserted on 07/30 -patient started on Levophed, will maintain mean arterial pressures greater than 65-70 mmHg for adequate end organ perfusion -lactic acid has normalized, renal function is increased and so has her LFTs and total bili. -patient started on cefepime, imipenem and vancomycin on 07/30/2021, will discontinue cefepime -blood and urine cultures have been obtained and pending (2) Acute worsening of stage 3 chronic kidney disease: Code(s): N18.30 - Chronic kidney disease, stage 3 unspecified Status: Acute Assessment and Plan: Elevation in creatinine, likely related to hypoperfusion -patient currently on Levophed, maintain adequate mean arterial pressures for improved end organ perfusion -monitor renal function, electrolytes and urine output (3) Elevated troponin: Code(s): R77.8 - Other specified abnormalities of plasma proteins Status: Acute Assessment and Plan: Elevated troponins which are trending down, likely related to type 2 infarct -patient is unable to provide history regarding chest pain -EKG showed some ST-T changes -could be related to septic shock, hypotension -will have Cardiology evaluate the patient (4) DVT prophylaxis: Code(s): Z29.9 - Encounter for prophylactic measures, unspecified Status: Acute Assessment and Plan: Patient has been on Pradaxa unable to swallow at this time, multiple bruising noted on upper extremity -will give Lovenox SQ (5) Encephalopathy: Code(s): G93.40 - Encephalopathy, unspecified Status: Acute Assessment and Plan: Presented with altered mental status from home, could be multifactorial, secondary to septic shock, hypotension, infection -ammonia levels are within normal limits -will check CT scan given patient Pradaxa to rule out any bleed Additional Plan Will update family Code status: DNR Critical care time spent: 49 minutes This dictation may have been done utilizing a voice recognition system. Attempts have been made to correct errors. However, there may be uncorrected grammatical, spelling, and recognition errors present. Due to a high probability of clinically significant, life threatening deterioration, the patient required my highest level of preparedness to intervene emergently and I personally spent this critical care time directly and personally managing the patient. This critical care time included obtaining a history; examining the patient; pulse oximetry; ordering and review of studies; arranging urgent treatment with development of a management plan; evaluation of patient's response to treatment; frequent reassessment; and discussions with other providers. It was exclusive of separately billable procedures and treating other patients and teaching time. Please see Assessment and Plan section and the rest of the note for further information on patient assessment and treatment Union Laborer Consult Note Consult date: 07/31/21 Time Seen: 07:04 Reason for consult: Septic shock, UTI, elevated troponin HPI: Yamini Muñoz is a 81 year old female with significant past medical history CHF, chronic kidney disease stage 3, chronic pain syndrome from rheumatoid arthritis, chronic collapse of left lower lobe, history of perforated diverticulitis status post colostomy essential hypertension, GERD, history of CVA, history of DVT, paroxysmal atrial fibrillation on Pradaxa, hypothyroidism, recent pneumonia, history of UTIs presented the ED on 07/30/2021 with complaints of weakness and shortness of
--- NOTE | 2021-07-31 11:15 | PM.IMPN ---
Progress Note: A&P Assessment and Plan (1) Septic shock: Code(s): A41.9 - Sepsis, unspecified organism; R65.21 - Severe sepsis with septic shock Status: Acute Assessment and Plan: 2/2 uti management per icu team (2) Acute worsening of stage 3 chronic kidney disease: Code(s): N18.30 - Chronic kidney disease, stage 3 unspecified Status: Acute Assessment and Plan: Elevation in creatinine, likely related to hypoperfusion -management per icu team (3) Elevated troponin: Code(s): R77.8 - Other specified abnormalities of plasma proteins Status: Acute Assessment and Plan: Elevated troponins which are trending down, likely related to type 2 infarct (4) DVT prophylaxis: Code(s): Z29.9 - Encounter for prophylactic measures, unspecified Status: Acute Assessment and Plan: Patient has been on Pradaxa unable to swallow at this time -will give Lovenox SQ (5) Encephalopathy: Code(s): G93.40 - Encephalopathy, unspecified Status: Acute Assessment and Plan: Presented with altered mental status from home, could be multifactorial, secondary to septic shock, hypotension, infection - per icu team Subjective Date/time seen: 07/31/21 11:15 no new issues patient still icu status Exam Narrative: General: Patient opens her eyes to name but does not answer questions, in no acute distress HEENT: Dry oral mucosa, pupils equal and reactive sclera is injected Neck: Supple, no lymphadenopathy Respiratory: Clear to auscultation with decreased breath sounds at bases, patient has transmitted upper respiratory sounds Cardiac: Regular rate and rhythm, S1-S2 normal Abdomen: Soft, nontender, nondistended, colostomy in place, hypoactive bowel sounds. Anasarca Extremities: Bilateral upper extremity significant bruising noted with pitting edema and weeping. Bilateral lower extremity pitting edema edema up to the thighs. Neuro: Patient does open her eyes to name, does not answer any questions, Skin: Significant bruising of bilateral upper extremity, weeping from a poor extremities noted Psych: Unable to assess Objective Data Vital Signs Vital Signs: Vital Signs - 24 hr 07/30/21 11:35 07/30/21 11:41 07/30/21 13:42 Temperature 100.6 F H Pulse Rate 95 86 Respiratory Rate 12 18 Blood Pressure 105/56 L Pulse Oximetry 88 L 97 100 07/30/21 14:24 07/30/21 14:27 07/30/21 15:08 Temperature 99.9 F H Pulse Rate 87 87 88 Respiratory Rate 20 20 17 Blood Pressure 118/61 118/61 134/52 L Pulse Oximetry 99 99 99 07/30/21 15:16 07/30/21 16:00 07/30/21 16:29 Temperature 99.9 F H 97.0 F L Pulse Rate 85 Respiratory Rate 20 Blood Pressure 86/45 L 58/36 L Pulse Oximetry 97 07/30/21 16:36 07/30/21 16:38 07/30/21 16:59 Temperature Pulse Rate Respiratory Rate Blood Pressure 69/49 L 65/37 L 77/50 L Pulse Oximetry 07/30/21 17:04 07/30/21 17:10 07/30/21 17:33 Temperature Pulse Rate Respiratory Rate Blood Pressure 65/47 L 68/38 L 79/49 L Pulse Oximetry 07/30/21 17:40 07/30/21 18:00 07/30/21 18:37 Temperature Pulse Rate 73 Respiratory Rate Blood Pressure 84/62 L 88/40 L Pulse Oximetry 07/30/21 18:47 07/30/21 19:02 07/30/21 20:00 Temperature 97.6 F Pulse Rate 77 Respiratory Rate 24 H Blood Pressure 88/46 L 87/35 L 88/39 L Pulse Oximetry 95 07/30/21 20:15 07/30/21 21:14 07/30/21 21:35 Temperature 98 F Pulse Rate 78 77 77 Respiratory Rate 25 H Blood Pressure 92/48 L 91/47 L 91/47 L Pulse Oximetry 95 07/30/21 22:00 07/30/21 23:52 07/30/21 23:53 Temperature 100 F H Pulse Rate 76 79 81 Respiratory Rate 16 25 H Blood Pressure 112/63 115/57 L 115/57 L Pulse Oximetry 100 99 07/31/21 00:00 07/31/21 02:00 07/31/21 04:00 Temperature Pulse Rate 77 82 92 Respiratory Rate 16 26 H Blood Pressure 91/50 L 91/48 L Pulse Oximetry 100 100 99 07/31/21 05
--- NOTE | 2021-07-31 11:53 | PM.CNCAR ---
Assessment and Plan Additional Plan This is an 81-year-old woman with the flat low level troponin elevation she presented to the hospital with a picture of septic shock, presumably urosepsis and is being treated appropriately with antibiotics and pressure support. There is no clinical evidence that her presentation is that of an acute coronary syndrome. Her who has been with her around the clock does not indicate she was reporting any acute chest pain event. ECG shows some T-wave inversion in the lateral leads. The T-waves are inverted in these leads at baseline it is slightly more exaggerated which I would not find surprising given her hemodynamic instability yesterday. This patient is not a candidate for ischemia workup and that would not be appropriate in this setting. At this point I would only recommend aggressive supportive care that is already being provided as long as the family wishes to continue aggressive measures like this. Shan Woodall MD [facility] History of Present Illness History of Present Illness Consult date/time: 07/31/21 11:53 Consult reason: Other (Troponinemia) Reason For Visit: CHF, UTI, Hypoxia, Elevated Troponin Narrative: This is a 81-year-old woman I am seeing at the request of the hospitalist's today because of elevation of troponin level. The patient is hospitalized in ICU room 2. She is obtunded and not capable of providing any history. Her is with her unfortunately is able to provide very good history. The chart was also reviewed in detail. This is obviously a very unfortunate chronically ill woman who appears to have developed a significant urinary infection probably related to the need of an ongoing indwelling Spears catheter. She appears to have become septic and entered the hospital with a picture of septic shock she became hypotensive yesterday evening on the floor was placed Levophed in place in the ICU for more aggressive management. She is on broad-spectrum antibiotics as well at this time. Patient's electrocardiogram shows sinus mechanism with some T-wave inversion in the lateral leads. Compared to previous EKG the only significant change is T-waves in 1 and aVL are slightly more deeply inverted. Troponin levels were sampled for reasons that are not clear. She has had 5 troponin levels done that are between 0.1 and 0.2. There is no significant elevation of the level that has been seen. This patient apparently is chronically ill with and debilitated with chronic rheumatoid arthritis, history of previous stroke, CVA, DVT and pulmonary embolism. Cardiac parr she has a history of atrial fibrillation and is currently in sinus rhythm. She is systemically anticoagulated with dabigatran as an outpatient. Because of the troponin level I was asked to see her in consultation. Yesterday when she was hypotensive systolic blood pressures were down in the 70s. The patient is is in the room and states that he provides [id number] care for this lady in his home with hospital beds and the combination of family members and visiting healthcare workers to assist with her care. Review of Systems Review of Systems: ROS unobtainable: Yes unobtainable due to medical condition PMFSH Past Medical History Medical History Acute kidney injury Age-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 Bulging disc CHF (congestive heart failure) Chronic anemia Chronic kidney disease, stage 3 Baseline creatinine between 1.0 and 1.20. Chronic pain syndrome Secondary to rheumatoid arthritis. 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 Coronary artery disease Depression Diverticulitis Perforated diverticulitis status post colostomy in 2014. Esophageal diverticulum Essential hypertension Fract
[2021-07-31] MEDS: ENOXAPARIN 40 MG/0.4 ML SYRINGE SUB-Q (12:40)
[2021-07-31] MEDS: NOREPINEPHRINE 8 MG/D5W 250 ML 8 MG/250 ML BAG 7.5 MG IV CONT (18:20)
[2021-08-01] VITALS (30 sets, daily range): BP systolic 93–151; BP diastolic 44–62; PULSE 60–92; RESP 18–33; TEMP 36–37; O2SAT 91–100
--- NOTE | 2021-08-01 | ECHO_ITS ---
Patient Info Name: Yamini Muñoz Age: 81 years : 1940 Gender: Female Ht: 62 in Wt: 200 lbs BSA: 2.04 m2 HR: 61 bpm BP: 97 / 52 mmHg Heart Rhythm: Sinus Rhythm Technical Quality: Fair Exam Date: 08/01/2021 7:26 AM Exam Location: [facility] Pulmonary Patient Status: Inpatient Admit Date: 07/30/2021 Staff Ordering Physician: Amanda Dumotn APRN Pipe Organ Installer: Matilda Mcwilliams RDCS Attending Provider: Rolly Castro MD Referring Physician: Tim CHÁVEZ; Exam Type: CA echo dop color flow w con Study Info Indications - elevated troponin Complete two-dimensional, color flow and Doppler transthoracic echocardiogram is performed with contrast to opacify the left ventricle and to improve the deliniation of the left ventricle endocardial borders. Contrast/Agitated Saline Contrast/Ag. Saline: Definity Amount: 2.00 ml Administered By: Matilda Mcwilliams RDCS Existing IV Access: Yes IV Access Condition: patent with no signs of infiltration Summary 1. Left ventricular systolic function is hyperdynamic, estimated at >70%. 2. The left ventricular diastolic function is grade II diastolic dysfunction. 3. Right ventricular chamber dimension is normal. 4. Left atrial chamber dimension is mildly enlarged. 5. There is mild aortic valve sclerosis. 6. There is mild mitral valve regurgitation. Left Ventricle Left ventricular chamber dimension is normal. Left ventricular systolic function is hyperdynamic, estimated at >70%. The left ventricular diastolic function is grade II diastolic dysfunction. Right Ventricle Right ventricular chamber dimension is normal. Left Atria Left atrial chamber dimension is mildly enlarged. Right Atria Right atrial chamber dimension is normal. Aortic Valve The aortic valve is trileaflet. There is mild aortic valve sclerosis. Pulmonic Valve The pulmonic valve is normal. Mitral Valve The mitral valve has normal leaflets. There is mild mitral valve regurgitation. Tricuspid Valve The tricuspid valve leaflets are normal. There is mild tricuspid valve regurgitation. Pericardium/Pleural The pericardium appears normal. Aorta The aortic root size at the sinus of Valsalva is normal. Left Ventricular Outflow Tract Name Value Normal LVOT 2D LVOT Diameter 1.96 cm LVOT Doppler LVOT Peak Gradient 5 mmHg LVOT Mean Gradient 2 mmHg LVOT VTI 23.83 cm LVOT VTI/AV VTI Ratio 0.78 LVOT Stroke Volume 71.90 ml LVOT CO 4.28 l/min LVOT CI 2.10 L/min/m2 Pulmonic Valve Name Value Normal RVOT Doppler RVOT Peak Gradient 2 mmHg
[2021-08-01] MEDS: ALBUMIN HUMAN 25% 25 GM/100 ML 100 ML IVPB ×4 (01:46→19:57)
[2021-08-01 04:47] LABS: Basophils Percent Auto 0.3 % (0.2-1.2); Eosinophils Absolute Auto 0.2 K/mm3 (0-0.3); Eosinophils Percent Auto 3.2 % (0-4.4); Hematocrit 25.3 % (37.0-47.0); Hemoglobin 7.7 g/dL (12.0-15.0); Immature Granulocyte Absolute 0.04 K/mm3 (0.00-0.031); Immature Granulocyte Percent A 0.5 % (0-0.5); Lymphocytes Absolute Auto 1.07 K/mm3 (0.9-3.2); Lymphocytes Percent Auto 14.3 % (18.3-44.2); Mean Corpuscular HGB Conc 30.4 g/dl (32-36); Mean Corpuscular Volume 108.6 fl (80-100); Mean Platelet Volume 9.4 fl (7.4-10.4); Monocytes Absolute Auto 0.2 K/mm3 (0.1-0.6); Monocytes Percent Auto 3.2 % (2.6-8.5); Neutrophils Absolute Auto 5.9 K/mm3 (1.3-6.7); Neutrophils Percent Auto 78.5 % (45.5-73.1); Platelet Count Result 104 k/mm3 (150-375); Red Blood Count 2.33 M/mm3 (4.2-5.4); Red Cell Distribution Width 16.3 % (11.5-14.5); White Blood Count 7.5 K/mm3 (4.5-10.0)
[2021-08-01 05:00] LABS: INR 2.1; Prothrombin Time 23.2 Seconds (11.1-14.7)
[2021-08-01 05:02] LABS: Partial Thromboplastin Time 75.9 SECONDS (22.3-36.8)
[2021-08-01 05:09] LABS: Lactic Acid Reflex 0.9 mmol/L (0.7-2.1)
[2021-08-01 05:20] LABS: Alanine Aminotransferase 29 U/L (4-35); Alkaline Phosphatase 41 U/L (38-126); Ammonia < 9 umol/L (9-30); Anion Gap 5 mmol/L (8-16); Aspartate Amino Transferase 28 U/L (14-36); Blood Urea Nitrogen 18 mg/dL (7-17); CRP 26.2 mg/dL (<1.0); Calcium 7.5 mg/dL (8.4-10.2); Carbon Dioxide 35 mmol/L (22-30); Chloride 99 mmol/L (98-107); Estimated CRCL calculation 33 ml/min; Estimated Glomerular Filt Rate 43; Glucose 156 mg/dL (65-110); Lipase 43 U/L (23-300); Magnesium 1.5 mg/dL (1.6-2.3); Phosphorus 3.1 mg/dL (2.5-4.5); Potassium 2.5 mmol/L (3.4-5.0); Sodium 139 mmol/L (137-145)
[2021-08-01] MEDS: KCL 40 MEQ/WATER 100 ML 100 ML 25 ML IVPB ×2 (05:45→20:05)
[2021-08-01] MEDS: MAGNESIUM SULF 4 GM/WATER100ML 4 GM/100 ML BAG IVPB (05:45)
[2021-08-01 07:39] LABS: Iron 32 ug/dL (37-170)
[2021-08-01 07:48] LABS: Percent Iron Saturation 12 % (20-50)
--- NOTE | 2021-08-01 07:48 | WPDINTPN ---
Progress Note: A&P Assessment and Plan (1) Anemia: Qualifiers: Anemia type: unspecified type Qualified Code(s): D64.9 - Anemia, unspecified Code(s): D64.9 - Anemia, unspecified Status: Chronic Assessment and Plan: Patient dropped hemoglobin to 7.5 this morning (12.6 on 07/31), possibly related to GI bleed which could be ulcers -dark stools in her ostomy -stool for occult blood has been ordered -check iron panel -started patient on Protonix infusion -GI has been consulted (2) Septic shock: Code(s): A41.9 - Sepsis, unspecified organism; R65.21 - Severe sepsis with septic shock Status: Acute Assessment and Plan: Patient presented with hypotension, altered mental status, leukocytosis, lactic acidosis, UA was positive for UTI -patient was given 1-1/2 L of IV fluid bolus despite which her blood pressures were remained low, right femoral CVC was inserted on 07/30 -patient started on Levophed, will maintain mean arterial pressures greater than 65-70 mmHg for adequate end organ perfusion -lactic acid has normalized, renal function has improved, LFTs and total bili are within normal limitsi. -continue imipenem (07/30) and vancomycin on 07/30, - discontinued cefepime on 07/31/2021 -07/30 urine cultures growing Pseudomonas, sensitivities pending -07/30 blood cultures pending (3) Acute worsening of stage 3 chronic kidney disease: Code(s): N18.30 - Chronic kidney disease, stage 3 unspecified Status: Acute Assessment and Plan: Elevation in creatinine, likely related to hypoperfusion -patient currently on Levophed, maintain adequate mean arterial pressures for improved end organ perfusion -creatinine down to 1.2 this morning, lactic acid is normal -monitor renal function, electrolytes and urine output (4) Elevated troponin: Code(s): R77.8 - Other specified abnormalities of plasma proteins Status: Acute Assessment and Plan: Elevated troponins which are trending down, likely related to type 2 infarct -patient is unable to provide history regarding chest pain -EKG showed some ST-T changes -could be related to septic shock, hypotension -appreciate cardiology evaluation and recommendation, patient not a candidate for ischemia workup (5) DVT prophylaxis: Code(s): Z29.9 - Encounter for prophylactic measures, unspecified Status: Acute Assessment and Plan: Patient has been on Pradaxa unable to swallow at this time, multiple bruising noted on upper extremity -hold Lovenox as patient dropped her hemoglobin and his melena in her ostomy (6) Encephalopathy: Code(s): G93.40 - Encephalopathy, unspecified Status: Acute Assessment and Plan: RESOLVED Presented with altered mental status from home, could be multifactorial, secondary to septic shock, hypotension, infection -ammonia levels are within normal limits -will check CT scan given patient Pradaxa to rule out any bleed Additional Plan Will update family Code status: DNR Critical care time spent: 49 minutes This dictation may have been done utilizing a voice recognition system. Attempts have been made to correct errors. However, there may be uncorrected grammatical, spelling, and recognition errors present. Due to a high probability of clinically significant, life threatening deterioration, the patient required my highest level of preparedness to intervene emergently and I personally spent this critical care time directly and personally managing the patient. This critical care time included obtaining a history; examining the patient; pulse oximetry; ordering and review of studies; arranging urgent treatment with development of a management plan; evaluation of patient's response to treatment; frequent reassessment; and discussions with other providers. It was exclusive of separately billable procedures and treating other patients and teaching time. Please see Assessment and Plan section a
[2021-08-01] MEDS: PERFLUTREN LIPID MICROSPHERES 1.5 ML VIAL DILUTED TO 10 ML TOTAL VOLUME IV PUSH (08:26)
--- NOTE | 2021-08-01 08:27 | IVDEFINITY ---
Prior to administration of IV Definity the patient was educated on the risks and benefits of the imaging enhancing agent including potential adverse side effects. The patient verbalized understanding. Allergies were verified. No exclusion criteria were identified and at least one of the following inclusion criteria were met: 1) physician request, 2) patient technically difficult to image (per the [place] [employer] guidelines of two or more segments not discernable within the apical view), or 3) questionable left ventricular function. ?
[2021-08-01] MEDS: PANTOPRAZOLE SODIUM IV 40 MG VIAL IV PUSH (09:14)
[2021-08-01 09:36] LABS: IFOB Positive Control Positive; Immunochemical Fecal Occult Bl Positive (N)
[2021-08-01 12:24] LABS: Potassium 3.2 mmol/L (3.4-5.0)
[2021-08-01] MEDS: CENTRAL LINE FLUSH 10 ML IV PUSH ×3 (14:18→20:02)
--- NOTE | 2021-08-01 14:18 | PM.IMPN ---
Progress Note: A&P Assessment and Plan (1) Anemia: Qualifiers: Anemia type: unspecified type Qualified Code(s): D64.9 - Anemia, unspecified Code(s): D64.9 - Anemia, unspecified Status: Chronic Assessment and Plan: Patient dropped hemoglobin to 7.5 this morning (12.6 on 07/31), possibly related to GI bleed which could be ulcers -dark stools in her ostomy -monitor and transfuse as needed (2) Septic shock: Code(s): A41.9 - Sepsis, unspecified organism; R65.21 - Severe sepsis with septic shock Status: Acute Assessment and Plan: Patient presented with hypotension, altered mental status, leukocytosis, lactic acidosis, UA was positive for UTI -improving, still on pressors -continue imipenem (07/30) and vancomycin on 07/30, - discontinued cefepime on 07/31/2021 -07/30 urine cultures growing Pseudomonas, pansensitive -07/30 blood cultures pending (3) Acute worsening of stage 3 chronic kidney disease: Code(s): N18.30 - Chronic kidney disease, stage 3 unspecified Status: Acute Assessment and Plan: Elevation in creatinine, likely related to hypoperfusion -patient currently on Levophed, maintain adequate mean arterial pressures for improved end organ perfusion -trend creatinine and monitor electrolytes (4) Elevated troponin: Code(s): R77.8 - Other specified abnormalities of plasma proteins Status: Acute Assessment and Plan: Elevated troponins which are trending down, likely related to type 2 infarct -patient is unable to provide history regarding chest pain -EKG showed some ST-T changes -could be related to septic shock, hypotension -appreciate cardiology evaluation and recommendation (5) DVT prophylaxis: Code(s): Z29.9 - Encounter for prophylactic measures, unspecified Status: Acute Assessment and Plan: Patient has been on Pradaxa unable to swallow at this time, multiple bruising noted on upper extremity -hold Lovenox as patient dropped her hemoglobin and his melena in her ostomy (6) Encephalopathy: Code(s): G93.40 - Encephalopathy, unspecified Status: Acute Assessment and Plan: Improved Subjective Date/time seen: 08/01/21 14:18 The patient is more alert today and answering questions. Denies chest pain. Does have some mild shortness of breath and is on oxygen. Review of Systems Review of Systems: 10 point ROS negative except as stated in HPI / Subjective Exam Narrative: General: alert and oriented Psych: appropriate mood nad affect Eyes: PERRLA Neck: Trachea midline, no new lesions Skin: no changes Lungs: CTA Cardiac: Normal S1,S2, no MGR ABD: soft, nd, nt, nbs Ext: no new lesions, no cce Vasc: Pulses intact Objective Data Vital Signs Vital Signs: Vital Signs - 24 hr 07/31/21 15:35 07/31/21 16:00 07/31/21 16:57 Temperature 98.6 F Pulse Rate 85 85 86 Respiratory Rate 23 H Blood Pressure 120/66 118/61 125/61 Pulse Oximetry 99 07/31/21 18:00 07/31/21 18:20 07/31/21 19:00 Temperature Pulse Rate 82 86 86 Respiratory Rate 22 H Blood Pressure 117/59 L 125/61 115/57 L Pulse Oximetry 93 07/31/21 20:00 07/31/21 20:02 07/31/21 20:33 Temperature 98.2 F Pulse Rate 80 80 78 Respiratory Rate 26 H Blood Pressure 74/40 L 87/39 L 102/45 L Pulse Oximetry 100 07/31/21 21:22 07/31/21 21:59 07/31/21 22:00 Temperature Pulse Rate 76 74 74 Respiratory Rate 19 Blood Pressure 99/54 L 117/59 L Pulse Oximetry 100 08/01/21 00:00 08/01/21 01:00 08/01/21 02:00 Temperature 96.8 F L Pulse Rate 67 63 Respiratory Rate 20 18 Blood Pressure 110/47 L 118/52 L Pulse Oximetry 98 94 100 08/01/21 03:10 08/01/21 04:00 08/01/21 05:07 Temperature 97.3 F L Pulse Rate 70 64 61 Respiratory Rate 20 Blood Pressure 128/60 116/61 126/57 L Pulse Oximetry 100 08/01/21 05:39 08/01/21 06:00 08/01/21 08:00 Temperature 97.5 F L Pulse Rate 62 61 60 R
--- NOTE | 2021-08-01 16:20 | WPDGICN ---
Assessment and Plan Assessment and plan (1) Melena: Code(s): K92.1 - Melena Status: Acute Assessment and Plan: will proceed with egd tomorrow, wonder if she could have ulcer, esophagitis, etc continue with protonix iv and monitor for more signs of bleeding (2) Septic shock: Code(s): A41.9 - Sepsis, unspecified organism; R65.21 - Severe sepsis with septic shock Status: Acute Assessment and Plan: on antibiotics, previous admission with complicated uti and bacteremia on levophed by icu team (3) Acute blood loss anemia: Code(s): D62 - Acute posthemorrhagic anemia Status: Acute Assessment and Plan: transfuse if hb<7, on iv protonix (4) Acute UTI: Code(s): N39.0 - Urinary tract infection, site not specified Status: Acute Assessment and Plan: complicated with retirement use of dinero catheter she is also immunocompromised from RA medication (5) Rheumatoid arthritis with rheumatoid factor of multiple sites without organ or systems involvement: Onset Date: ~1984 Code(s): M05.79 - Rheumatoid arthritis with rheumatoid factor of multiple sites without organ or systems involvement Status: Acute (6) Immunosuppression due to drug therapy: Code(s): Z79.899 - Other retirement (current) drug therapy Status: Acute GI Consult Note Consult date/time: 08/01/21 16:20 Reason for consult: melena, acute blood loss anemia HPI: Yamini Muñoz is a 81 year old female with multiple comorbidities including recurrent UTI infection, diverticulitis that required colostomy about 6 years ago in [place], RA on immunosuppresive treatment, GERD on ppi (last EGD in 2018 with flores esophagitis by her regular GI physician in [facility])- I met her in 2019 when she was admitted for bacteremia due to UTI and also had GERD symptoms. She also has chronic partial collapse of the left lower lobe, CVA, DVT, paroxysmal atrial fibrillation on Pradaxa. She came to hospital 2 days ago with progressive weakness and shortness of breath along with altered mental status. She had been recently treated for pneumonia and UTI (she has a chronic Dinero catheter which was recently changed by home health. After admission she was found to be hypotensive that did not responded to fluids, right femoral central line was inserted and started on Levophed. Hb was 12 dropped to 7.7 and noted liquid dark stool in ostomy. INR 2 (she is on pradaxa). She says that has been taking pain killers at home because RA. Also had flat elevated troponins and had cardiology evaluation. Review of Systems Constitutional: Constitutional: Reports weakness Eyes: Eyes: Denies blurry vision ENT: Reports Normal hearing present Cardiovascular: Cardiovascular: Denies chest pain Respiratory: Respiratory: Denies cough Gastrointestinal: Gastrointestinal: Reports melena Genitourinary: Genitourinary: Reports dysuria Comments: dinero in place Musculoskeletal: Musculoskeletal: Reports arthralgias Integumentary/Breasts: Skin/Breast: Reports system reviewed and no additional complaints, except as docu Neurologic: Denies headache(s) Psychiatric: Psychiatric: Reports anxiety Hematologic/Lymphatic: Hematologic/Lymphatic: Reports easy bruising PMFSH Past Medical History Medical History (Updated 08/01/21 @ 16:32 by Rob Peralta MD) Acute blood loss anemia Acute kidney injury Age-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 Bulging disc CHF (congestive heart failure) Chronic anemia Chronic kidney disease, stage 3 Baseline creatinine between 1.0 and 1.20. Chronic pain syndrome Secondary to rheumatoid arthritis. 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 Coronary artery disease Depression Diverticulitis Perforated diverticulitis status
[2021-08-01] MEDS: MORPHINE SULFATE (*CRX) 2 MG/ML INJ 1 MG IV PUSH ×2 (17:30→20:03)
[2021-08-01] MEDS: NOREPINEPHRINE 8 MG/D5W 250 ML 8 MG/250 ML BAG 7.5 MG IV CONT ×2 (17:31→20:16)
[2021-08-01 17:41] LABS: Hematocrit 24.9 % (37.0-47.0); Hemoglobin 7.7 g/dL (12.0-15.0); Mean Corpuscular HGB Conc 30.9 g/dl (32-36); Mean Corpuscular Hemoglobin 32.9 pg (26-34); Mean Corpuscular Volume 106.4 fl (80-100); Mean Platelet Volume 10.5 fl (7.4-10.4); Platelet Count Result 105 k/mm3 (150-375); Red Blood Count 2.34 M/mm3 (4.2-5.4); Red Cell Distribution Width 16.2 % (11.5-14.5)
--- NOTE | 2021-08-01 17:50 | PC.NURSE ---
Spoke with patient and (POA) regarding Codeine Allergy and they confirmed it only causes mild Nausea and agreed she is willing to take Morphine because of her severe pain. Gave patient Morphine and monitored closely. Patient denied any Nausea or adverse effects.
[2021-08-01] MEDS: FUROSEMIDE INJ 40 MG/4 ML VIAL 20 MG IV PUSH (21:52)
[2021-08-01] MEDS: IPRATROPIUM BR 0.02% INH SOLN 0.5 MG/2.5 ML VIAL (22:14)
[2021-08-01] MEDS: ALBUTEROL SULFATE NEB 2.5 MG/0.5 ML INH (22:15)
[2021-08-02] VITALS (26 sets, daily range): BP systolic 110–161; BP diastolic 50–93; PULSE 72–110; RESP 17–91; TEMP 36.3–36.7; O2SAT 93–100
[2021-08-02] MEDS: ALBUMIN HUMAN 25% 25 GM/100 ML 100 ML IVPB (02:38)
[2021-08-02 04:52] LABS: Basophils Percent Auto 0.1 % (0.2-1.2); Eosinophils Absolute Auto 0.2 K/mm3 (0-0.3); Eosinophils Percent Auto 2.8 % (0-4.4); Hematocrit 24.3 % (37.0-47.0); Hemoglobin 7.5 g/dL (12.0-15.0); Immature Granulocyte Absolute 0.04 K/mm3 (0.00-0.031); Immature Granulocyte Percent A 0.5 % (0-0.5); Lymphocytes Absolute Auto 0.88 K/mm3 (0.9-3.2); Lymphocytes Percent Auto 11.1 % (18.3-44.2); Mean Corpuscular HGB Conc 30.9 g/dl (32-36); Mean Corpuscular Hemoglobin 32.6 pg (26-34); Mean Corpuscular Volume 105.7 fl (80-100); Mean Platelet Volume 10.5 fl (7.4-10.4); Monocytes Absolute Auto 0.3 K/mm3 (0.1-0.6); Monocytes Percent Auto 3.7 % (2.6-8.5); Neutrophils Absolute Auto 6.5 K/mm3 (1.3-6.7); Neutrophils Percent Auto 81.8 % (45.5-73.1); Platelet Count Result 99 k/mm3 (150-375); Red Cell Distribution Width 16.1 % (11.5-14.5); White Blood Count 7.9 K/mm3 (4.5-10.0)
[2021-08-02] MEDS: CENTRAL LINE FLUSH 10 ML IV PUSH ×4 (05:17→21:15)
[2021-08-02 05:28] LABS: Alanine Aminotransferase 18 U/L (4-35); Albumin Level 3.7 g/dL (3.5-5.1); Alkaline Phosphatase 37 U/L (38-126); Ammonia < 9 umol/L (9-30); Anion Gap 8 mmol/L (8-16); Aspartate Amino Transferase 19 U/L (14-36); Bilirubin,Total 1.2 mg/dL (0.2-1.3); Blood Urea Nitrogen 13 mg/dL (7-17); Calcium 7.9 mg/dL (8.4-10.2); Carbon Dioxide 33 mmol/L (22-30); Chloride 96 mmol/L (98-107); Estimated CRCL calculation 44 ml/min; Estimated Glomerular Filt Rate 60; Glucose 160 mg/dL (65-110); Lactic Acid Reflex 1.1 mmol/L (0.7-2.1); Lipase 137 U/L (23-300); Magnesium 2.1 mg/dL (1.6-2.3); Phosphorus 2.6 mg/dL (2.5-4.5); Potassium 3.4 mmol/L (3.4-5.0); Sodium 137 mmol/L (137-145)
--- NOTE | 2021-08-02 08:25 | WPDINTPN ---
Progress Note: A&P Assessment and Plan (1) Respiratory distress: Code(s): R06.03 - Acute respiratory distress Status: Acute Assessment and Plan: Patient appears tachypneic and with increased work of breathing this morning Could be secondary pulmonary edema. Patient denies any history of smoking. He does have overall Volume overload as evidenced from anasarca Check BNP and chest x-ray Lasix 40 mg IV BiPAP for now for increased breathing-patient denies any nausea vomiting at this time (2) Septic shock: Code(s): A41.9 - Sepsis, unspecified organism; R65.21 - Severe sepsis with septic shock Status: Acute Assessment and Plan: Patient presented with hypotension, altered mental status, leukocytosis, lactic acidosis, UA was positive for UTI -patient was given 1-1/2 L of IV fluid bolus despite which her blood pressures were remained low, right femoral CVC was inserted on 07/30 -patient started on Levophed, will maintain mean arterial pressures greater than 65-70 mmHg for adequate end organ perfusion -lactic acid has normalized, renal function has improved, LFTs and total bili are within normal limitsi. -Levophed was weaned off early this morning -urine is growing out Pseudomonas which is pansensitive -continue imipenem (07/30) but will discontinue vancomycin which was started on 07/30, - discontinued cefepime on 07/31/2021 -07/30 blood cultures are negative till now (3) Anemia: Qualifiers: Anemia type: unspecified type Qualified Code(s): D64.9 - Anemia, unspecified Code(s): D64.9 - Anemia, unspecified Status: Chronic Assessment and Plan: Patient dropped hemoglobin to 7.7 08/01 possibly related to GI bleed which could be ulcers -dark stools in her ostomy which were positive for r occult blood -Iron panel shows low iron saturation and low iron level. Will check ferritin level -patient was started patient on Protonix infusion -GI has been consulted and plan for EGD -monitor hemoglobin and transfuse as needed (4) Acute worsening of stage 3 chronic kidney disease: Code(s): N18.30 - Chronic kidney disease, stage 3 unspecified Status: Acute Assessment and Plan: Elevation in creatinine, likely related to hypoperfusion Creatinine improved after volume resuscitation and vasopressor support. Today 0.9 Urine output has improved Continue to monitor renal function, electrolytes and urine output (5) Elevated troponin: Code(s): R77.8 - Other specified abnormalities of plasma proteins Status: Acute Assessment and Plan: Elevated troponins which are trending down, likely related to type 2 infarct -patient at this time denies any chest pain -EKG showed some nonspecific ST-T changes -Secondary to septic shock, hypotension -appreciate cardiology evaluation and recommendation, patient not a candidate for ischemia workup at this time (6) Encephalopathy: Code(s): G93.40 - Encephalopathy, unspecified Status: Acute Assessment and Plan: RESOLVED Presented with altered mental status from home, could be multifactorial, secondary to septic shock, hypotension, infection -ammonia levels are within normal limits -head CT scan was negative except old CVA and chronic age-related changes (7) Anasarca: Code(s): R60.1 - Generalized edema Status: Acute Assessment and Plan: Compression stockings on legs Lasix as above (8) Chronic pain: Code(s): G89.29 - Other chronic pain Status: Acute Assessment and Plan: Patient does have chronic pain from her arthritis and is on chronic long-acting of opioids I will start patient on IV morphine p.r.n. at this time and slowly escalate depending on her response (9) Electrolyte abnormality: Code(s): E87.8 - Other disorders of electrolyte and fluid balance, not elsewhere classified Status: Acute Assessment and Plan: Replace low potassium and calcium (10) DV
[2021-08-02] MEDS: ALBUTEROL SULFATE NEB 2.5 MG/0.5 ML INH INHALATION ×3 (08:54→20:31)
[2021-08-02 09:02] LABS: NT Pro B Type Natriuretic Pept 8640 pg/mL (5-100)
[2021-08-02] MEDS: FUROSEMIDE INJ 40 MG/4 ML VIAL IV PUSH (09:09)
[2021-08-02] MEDS: KCL 40 MEQ/WATER 100 ML 100 ML 25 ML IVPB (09:16)
[2021-08-02] MEDS: CALCIUM GLUC 1,000 MG/NS 50 ML 1,000 MG/50 ML BAG 100 MG IVPB (09:26)
[2021-08-02] MEDS: MORPHINE SULFATE (*CRX) 2 MG/ML INJ IV PUSH ×2 (09:31→13:43)
--- NOTE | 2021-08-02 11:30 | PCPTNOTE ---
Spoke with Dr. Sandoval about patient being at her baseline levels. Dr. Sandoval agreeable to DC orders at this time.
--- NOTE | 2021-08-02 11:52 | PCOTNOTE ---
Spoke with Dr. Sandoval about patient being at her baseline levels. Dr. Sandoval agreeable to DC occupational therapy orders at this time.
--- NOTE | 2021-08-02 14:10 | PCSTNOTE ---
Please refer to the Bedside Swallow Evaluation in the EMR. Please note, silent aspiration cannot be ruled out at bedside.
--- NOTE | 2021-08-02 15:31 | PM.IMPN ---
Progress Note: A&P Assessment and Plan (1) Anemia: Qualifiers: Anemia type: unspecified type Qualified Code(s): D64.9 - Anemia, unspecified Code(s): D64.9 - Anemia, unspecified Status: Chronic Assessment and Plan: Patient hb is 7.5, continue to monitor (2) Septic shock: Code(s): A41.9 - Sepsis, unspecified organism; R65.21 - Severe sepsis with septic shock Status: Acute Assessment and Plan: Patient presented with hypotension, altered mental status, leukocytosis, lactic acidosis, UA was positive for UTI -improving, still on pressors -continue imipenem (07/30) and vancomycin on 07/30, - discontinued cefepime on 07/31/2021 -07/30 urine cultures growing Pseudomonas - continue current care, pt is DNR, pt is poor prognosis (3) Acute worsening of stage 3 chronic kidney disease: Code(s): N18.30 - Chronic kidney disease, stage 3 unspecified Status: Acute Assessment and Plan: Elevation in creatinine, likely related to hypoperfusion -patient currently on Levophed (4) Elevated troponin: Code(s): R77.8 - Other specified abnormalities of plasma proteins Status: Acute Assessment and Plan: Elevated troponins which are trending down, likely related to type 2 infarct -patient is unable to provide history regarding chest pain -could be related to septic shock, hypotension (5) DVT prophylaxis: Code(s): Z29.9 - Encounter for prophylactic measures, unspecified Status: Acute Assessment and Plan: -hold Lovenox as patient dropped her hemoglobin and his melena in her ostomy (6) Encephalopathy: Code(s): G93.40 - Encephalopathy, unspecified Status: Acute Assessment and Plan: -Improved Subjective Date/time seen: 08/02/21 15:31 Interval history: 81-year-old female who presented emergency room with complaints of increasing shortness of breath and weakness. Patient states she has also been quite lethargic over the last few days. Patient has a known history of CVA, DVT, dyslipidemia, hypothyroidism, paroxysmal atrial fibrillation, and frequent urinary tract infections. Pt is admitted to icu for septic shock, uti, pneumonia and CHF. Continue current care, pt is poor prognosis, family aware. Pt is DNR. Review of Systems Review of Systems: All systems reviewed & are unremarkable except as noted in HPI and below Exam Narrative: General: Elderly lady states she is in pain, chronically ill appearing Eyes: PERRLA Neck: Trachea midline Lungs: lungs are clear to auscultation Cardiac: Normal S1,S2, no MGR ABDo: soft, NT Ext: no new lesions Objective Data Vital Signs Vital Signs: Vital Signs - 24 hr 08/01/21 16:00 08/01/21 17:31 08/01/21 18:00 Temperature 36.3 C L Pulse Rate 63 72 71 Respiratory Rate 29 H Blood Pressure 111/56 L 122/55 L Pulse Oximetry 99 08/01/21 19:15 08/01/21 20:00 08/01/21 20:16 Temperature Pulse Rate 64 72 74 Respiratory Rate 24 H Blood Pressure 121/51 L 112/48 L Pulse Oximetry 100 91 08/01/21 21:00 08/01/21 21:02 08/01/21 21:40 Temperature 36.4 C L Pulse Rate 90 90 92 Respiratory Rate 28 H Blood Pressure 146/62 H 146/62 H 151/62 H Pulse Oximetry 92 08/01/21 22:00 08/01/21 22:14 08/01/21 22:27 Temperature Pulse Rate 86 84 75 Respiratory Rate 30 H 27 H Blood Pressure Pulse Oximetry 08/01/21 23:49 08/01/21 23:55 08/02/21 00:00 Temperature 37.0 C Pulse Rate 89 88 Respiratory Rate 33 H Blood Pressure 137/56 L Pulse Oximetry 100 98 08/02/21 00:33 08/02/21 02:00 08/02/21 03:00 Temperature Pulse Rate 86 72 92 Respiratory Rate 22 H Blood Pressure 132/69 116/52 L 161/93 H Pulse Oximetry 99 08/02/21 04:00 08/02/21 05:58 08/02/21 06:00 Temperature 36.3 C L Pulse Rate 72 77 78 Respiratory Rate 22 H 28 H Blood Pressure 110/50 L 110/59 L Pulse Oximetry 100 100 08/02/21 08:00 08/02/21 08:35 03/0
[2021-08-02] MEDS: MORPHINE SULFATE (*CRX) 4 MG/ML INJ IV PUSH ×2 (16:35→20:27)
[2021-08-02 17:17] LABS: Hematocrit 26.8 % (37.0-47.0); Hemoglobin 8.5 g/dL (12.0-15.0); Immature Platelet Fraction Pct 6.3 % (0.9-11.2); Mean Corpuscular HGB Conc 31.7 g/dl (32-36); Mean Corpuscular Hemoglobin 33.1 pg (26-34); Mean Corpuscular Volume 104.3 fl (80-100); Platelet Count Result 120 k/mm3 (150-375); Red Blood Count 2.57 M/mm3 (4.2-5.4); Red Cell Distribution Width 16.1 % (11.5-14.5); White Blood Count 8.6 K/mm3 (4.5-10.0)
--- NOTE | 2021-08-02 17:29 | WPDGIPROGNO ---
Progress Note: A&P Assessment and Plan (1) Melena: Code(s): K92.1 - Melena Status: Acute Assessment and Plan: hb stable mid 7's since she had more respiratory distress this morning, decided to cancel egd. noted less dark stool in ostomy continue with iv protonix will reassess tomorrow, she is high risk to undergo anesthesia- egd only if more obvious bleeding or drop of hb (2) Acute blood loss anemia: Code(s): D62 - Acute posthemorrhagic anemia Status: Acute Assessment and Plan: continue to monitor iv protonix (3) Respiratory distress: Code(s): R06.03 - Acute respiratory distress Status: Acute Assessment and Plan: improved after medical treatment, probably component of pulmonary edema (4) Septic shock: Code(s): A41.9 - Sepsis, unspecified organism; R65.21 - Severe sepsis with septic shock Status: Acute Assessment and Plan: resolved, not longer on levophed on iv abx (5) Acute UTI: Code(s): N39.0 - Urinary tract infection, site not specified Status: Acute Assessment and Plan: source of sepsis Subjective Date/time seen: 08/02/21 17:29 Interval history: this morning she had more shortness of breath and was placed on bipad and given lasix- eventually respiratory status improved. She was weaned off levophed. Still frail appearance. Review of Systems Review of Systems: All systems reviewed & are unremarkable except as noted in HPI and below Exam Const: General: no acute distress Other: c/o diffuse pain, frail elderly, using oxygen by NC HENMT: General nose exam: Normal nares present Eyes: Sclera: sclerae normal Neck: Neck: supple Resp: Auscultation: rhonchi (few) and wheezes inspiratory wheezes Cardio: Rate: regular rate GI: GI Palp: Yes Soft to palpation and No Tenderness to palpation present (GI) Auscultation: normal bowel sounds Other: colostomy with less dark liquid stool in bag Urinary Catheter: Urinary Catheter: patent and draining Skin: Other: bruising of bilateral upper extremity Neuro: Speech: normal speech Extrem: General: pedal edema Psych: Affect: Anxious affect present Objective Data Vital Signs Vital Signs: Vital Signs - 24 hr 08/01/21 17:31 08/01/21 18:00 08/01/21 19:15 Temperature Pulse Rate 72 71 64 Respiratory Rate 24 H Blood Pressure 122/55 L 121/51 L Pulse Oximetry 100 08/01/21 20:00 08/01/21 20:16 08/01/21 21:00 Temperature 97.5 F L Pulse Rate 72 74 90 Respiratory Rate 28 H Blood Pressure 112/48 L 146/62 H Pulse Oximetry 91 92 08/01/21 21:02 08/01/21 21:40 08/01/21 22:00 Temperature Pulse Rate 90 92 86 Respiratory Rate Blood Pressure 146/62 H 151/62 H Pulse Oximetry 08/01/21 22:14 08/01/21 22:27 08/01/21 23:49 Temperature Pulse Rate 84 75 Respiratory Rate 30 H 27 H Blood Pressure Pulse Oximetry 100 08/01/21 23:55 08/02/21 00:00 08/02/21 00:33 Temperature 98.6 F Pulse Rate 89 88 86 Respiratory Rate 33 H Blood Pressure 137/56 L 132/69 Pulse Oximetry 98 08/02/21 02:00 08/02/21 03:00 08/02/21 04:00 Temperature 97.3 F L Pulse Rate 72 92 72 Respiratory Rate 22 H 22 H Blood Pressure 116/52 L 161/93 H 110/50 L Pulse Oximetry 99 100 08/02/21 05:58 08/02/21 06:00 08/02/21 08:00 Temperature 97.4 F L Pulse Rate 77 78 90 Respiratory Rate 28 H 91 H Blood Pressure 110/59 L 161/76 H Pulse Oximetry 100 93 08/02/21 08:35 08/02/21 09:09 08/02/21 09:19 Temperature Pulse Rate 87 75 78 Respiratory Rate 22 H 24 H 26 H Blood Pressure Pulse Oximetry 96 08/02/21 10:00 08/02/21 11:50 08/02/21 12:00 Temperature 97.4 F L 97.5 F L Pulse Rate 81 85 Respiratory Rate 21 H 27 H Blood Pressure 119/53 L 125/58 L Pulse Oximetry 99 100 99 08/02/21 13:30 08/02/21 14:00 08/02/21 14:49 Temperature Pulse Rate 85 88 Respiratory Rate 19 22 H Blood Pressure 124/60 Pulse Oximet
[2021-08-03] VITALS (16 sets, daily range): BP systolic 120–160; BP diastolic 43–81; PULSE 97–110; RESP 15–25; TEMP 36.5–37.1; O2SAT 94–100
[2021-08-03] MEDS: ALBUTEROL SULFATE NEB 2.5 MG/0.5 ML INH INHALATION ×3 (02:45→20:45)
[2021-08-03] MEDS: MORPHINE SULFATE (*CRX) 4 MG/ML INJ IV PUSH ×3 (03:41→17:28)
[2021-08-03] MEDS: CENTRAL LINE FLUSH 10 ML IV PUSH ×4 (05:01→20:06)
[2021-08-03 05:18] LABS: Lactic Acid Reflex 1.6 mmol/L (0.7-2.1)
[2021-08-03 05:19] LABS: Alanine Aminotransferase 16 U/L (4-35); Albumin Level 3.5 g/dL (3.5-5.1); Alkaline Phosphatase 51 U/L (38-126); Anion Gap 7 mmol/L (8-16); Aspartate Amino Transferase 19 U/L (14-36); Blood Urea Nitrogen 11 mg/dL (7-17); Calcium 8.3 mg/dL (8.4-10.2); Carbon Dioxide 38 mmol/L (22-30); Chloride 91 mmol/L (98-107); Estimated CRCL calculation 44 ml/min; Estimated Glomerular Filt Rate 60; Glucose 121 mg/dL (65-110); Magnesium 1.6 mg/dL (1.6-2.3); Phosphorus 1.8 mg/dL (2.5-4.5); Sodium 136 mmol/L (137-145)
[2021-08-03 05:48] LABS: Basophils Percent Auto 0.1 % (0.2-1.2); Eosinophils Absolute Auto 0.3 K/mm3 (0-0.3); Eosinophils Percent Auto 3.5 % (0-4.4); Hematocrit 27.9 % (37.0-47.0); Hemoglobin 8.5 g/dL (12.0-15.0); Immature Granulocyte Absolute 0.06 K/mm3 (0.00-0.031); Immature Granulocyte Percent A 0.7 % (0-0.5); Immature Platelet Fraction Pct 6.1 % (0.9-11.2); Lymphocytes Absolute Auto 0.96 K/mm3 (0.9-3.2); Lymphocytes Percent Auto 11.1 % (18.3-44.2); Mean Corpuscular HGB Conc 30.5 g/dl (32-36); Mean Corpuscular Hemoglobin 32.7 pg (26-34); Mean Corpuscular Volume 107.3 fl (80-100); Mean Platelet Volume 10.9 fl (7.4-10.4); Monocytes Absolute Auto 0.5 K/mm3 (0.1-0.6); Monocytes Percent Auto 5.6 % (2.6-8.5); Neutrophils Absolute Auto 6.8 K/mm3 (1.3-6.7); Nucleated Red Blood Cells Perc 0.3 % (0.0-0.2); Platelet Count Result 145 k/mm3 (150-375); Red Cell Distribution Width 16.6 % (11.5-14.5); White Blood Count 8.6 K/mm3 (4.5-10.0)
--- NOTE | 2021-08-03 07:55 | WPDCDIQUERY2 ---
CDI Query Clarification Request -08/02 Encephalopathy, unspecified -Documented: Presented with altered mental status from home, could be multifactorial, secondary to septic shock, hypotension, infection -ammonia levels are within normal limits -head CT scan was negative except old CVA and chronic age-related changes For coding purpose, please clarify if there, or is possibly a more specific diagnosis for the above findings, or unable to determine <Zita Abreu - Last Filed: 08/03/21 08:05> Provider Comments Encephalopathy secondary to sepsis and UTI <Tami Belcher MD - Last Filed: 08/03/21 17:40>
[2021-08-03] MEDS: MORPHINE SULFATE (*CRX) 2 MG/ML INJ IV PUSH ×2 (08:23→15:39)
--- NOTE | 2021-08-03 08:24 | WPDINTPN ---
Progress Note: A&P Assessment and Plan (1) Abdominal pain: Code(s): R10.9 - Unspecified abdominal pain Status: Acute Assessment and Plan: patient complains of abdominal pain today is mostly consider around epigastric area. Her LFTs are unremarkable and lipase was checked yesterday and was in normal range EGD Is still pending I will check CT abdomen pelvis without contrast at this time (2) Anemia: Qualifiers: Anemia type: unspecified type Qualified Code(s): D64.9 - Anemia, unspecified Code(s): D64.9 - Anemia, unspecified Status: Chronic Assessment and Plan: Patient dropped hemoglobin to 7.7 08/01 possibly related to GI bleed which could be ulcers -dark stools in her ostomy which were positive for occult blood -Iron panel shows low iron saturation and low iron level. ferritin level in normal range -patient was started patient on Protonix infusion -GI following -08/02 EGD was postponed due to concerns with her respiratory status -08/03 hemoglobin 8.5. hemoglobin has been stable over last 24-48 hours and she has not required any transfusion (3) Respiratory distress: Code(s): R06.03 - Acute respiratory distress Status: Acute Assessment and Plan: 08/02 Patient appeared tachypneic and with increased work of breathing this morning Could be secondary pulmonary edema. Patient denies any history of smoking. He does have overall Volume overload as evidenced from anasarca chest x-ray showed pulmonary congestion and atelectasis. BNP was elevated she was given dose of Lasix and was on BiPAP for few hours improved today as she is on nasal cannula and not in any respiratory distress (4) Septic shock: Code(s): A41.9 - Sepsis, unspecified organism; R65.21 - Severe sepsis with septic shock Status: Acute Assessment and Plan: Patient presented with hypotension, altered mental status, leukocytosis, lactic acidosis, UA was positive for UTI -patient was given 1-1/2 L of IV fluid bolus despite which her blood pressures were remained low, right femoral CVC was inserted on 07/30 -patient started on Levophed, will maintain mean arterial pressures greater than 65-70 mmHg for adequate end organ perfusion -lactic acid has normalized, renal function has improved, LFTs and total bili are within normal limitsi. -Levophed was weaned off early this morning -urine is growing out Pseudomonas which is pansensitive -continue imipenem (07/30) but will discontinue vancomycin which was started on 07/30, - discontinued cefepime on 07/31/2021 -07/30 blood cultures are negative till now (5) Acute worsening of stage 3 chronic kidney disease: Code(s): N18.30 - Chronic kidney disease, stage 3 unspecified Status: Acute Assessment and Plan: Elevation in creatinine, likely related to hypoperfusion Creatinine improved after volume resuscitation and vasopressor support. 08/02 received Lasix for volume overload Urine output has improved Continue to monitor renal function, electrolytes and urine output (6) Elevated troponin: Code(s): R77.8 - Other specified abnormalities of plasma proteins Status: Acute Assessment and Plan: Elevated troponins which are trending down, likely related to type 2 infarct -patient at this time denies any chest pain -EKG showed some nonspecific ST-T changes -Secondary to septic shock, hypotension -appreciate cardiology evaluation and recommendation, patient not a candidate for ischemia workup at this time (7) Encephalopathy: Code(s): G93.40 - Encephalopathy, unspecified Status: Acute Assessment and Plan: RESOLVED Presented with altered mental status from home, could be multifactorial, secondary to septic shock, hypotension, infection -ammonia levels are within normal limits -head CT scan was negative except old CVA and chronic age-related changes - suspected component of delirium (8) Anasarca: Code(s):
[2021-08-03] MEDS: HYDROCORTISONE SODIUM SUCCINATE 100 MG/2 ML VIAL 50 MG IV PUSH (08:38)
[2021-08-03] MEDS: POTASSIUM PHOS,M-BASIC-D-BASIC 20 MMOL in SODIUM CHLORIDE 0.9% IV 250 ML 64.17 MMOL IVPB (09:08)
[2021-08-03] MEDS: MAGNESIUM SULF 2 GM/WATER 50ML 2 GM/50 ML BAG IVPB (09:44)
--- NOTE | 2021-08-03 12:08 | PM.IMPN ---
Progress Note: A&P Assessment and Plan (1) Anemia: Qualifiers: Anemia type: unspecified type Qualified Code(s): D64.9 - Anemia, unspecified Code(s): D64.9 - Anemia, unspecified Status: Chronic Assessment and Plan: Patient hb is 8.5, continue to monitor possible GI bleed Continue iv protonix scheduled (2) Septic shock: Code(s): A41.9 - Sepsis, unspecified organism; R65.21 - Severe sepsis with septic shock Status: Acute Assessment and Plan: Patient presented with hypotension, altered mental status, leukocytosis, lactic acidosis, UA was positive for UTI -pt is off levophed can be moved to medical floor -continue imipenem (07/30) and vancomycin on 07/30, - discontinued cefepime on 07/31/2021 -07/30 urine cultures growing Pseudomonas - continue current care, pt is DNR, pt is poor prognosis DNR / DNI (3) Acute worsening of stage 3 chronic kidney disease: Code(s): N18.30 - Chronic kidney disease, stage 3 unspecified Status: Acute Assessment and Plan: Creat has improved (4) Elevated troponin: Code(s): R77.8 - Other specified abnormalities of plasma proteins Status: Acute Assessment and Plan: Elevated troponins which are trending down, likely related to type 2 infarct -patient is unable to provide history regarding chest pain -could be related to septic shock, hypotension (5) DVT prophylaxis: Code(s): Z29.9 - Encounter for prophylactic measures, unspecified Status: Acute Assessment and Plan: -hold Lovenox as patient dropped her hemoglobin and his melena in her ostomy (6) Encephalopathy: Code(s): G93.40 - Encephalopathy, unspecified Status: Acute Assessment and Plan: -ongoing, pts prognosis is poor, family to decide on hospice care currently pt is DNR/ DNI Subjective Date/time seen: 08/03/21 12:08 Interval history: 81-year-old female who presented emergency room with complaints of increasing shortness of breath and weakness. Patient states she has also been quite lethargic over the last few days. Patient has a known history of CVA, DVT, dyslipidemia, hypothyroidism, paroxysmal atrial fibrillation, and frequent urinary tract infections. Pt is admitted to icu for septic shock, possible GI bleed, uti, pneumonia and CHF. Continue current care, pt is poor prognosis, family aware. Pt is DNR. Pt appears confused complains of pain. Pt will move on to medical floor today. Son is to discuss with hospice nurse. Review of Systems Review of Systems: All systems reviewed & are unremarkable except as noted in HPI and below Exam Narrative: General: Elderly lady states she is in pain, chronically ill appearing frail Eyes: PERRLA Neck: Trachea midline Lungs: lungs are clear to auscultation Cardiac: Normal S1,S2, no MGR ABDO: soft, NT Ext: no new lesions Objective Data Vital Signs Vital Signs: Vital Signs - 24 hr 08/02/21 13:30 08/02/21 14:00 08/02/21 14:49 Temperature Pulse Rate 85 88 Respiratory Rate 19 22 H Blood Pressure 124/60 Pulse Oximetry 97 99 08/02/21 14:58 08/02/21 16:00 08/02/21 18:00 Temperature 36.7 C 36.7 C Pulse Rate 85 89 99 Respiratory Rate 17 24 H 23 H Blood Pressure 116/57 L 141/67 H Pulse Oximetry 99 99 08/02/21 20:00 08/02/21 20:31 08/02/21 20:39 Temperature 36.6 C Pulse Rate 99 101 H 102 H Respiratory Rate 25 H 23 H 24 H Blood Pressure 142/73 H Pulse Oximetry 95 98 08/02/21 21:15 08/02/21 22:00 08/02/21 23:20 Temperature 36.6 C Pulse Rate 110 H 101 H Respiratory Rate 22 H Blood Pressure 143/69 H Pulse Oximetry 95 96 08/03/21 00:00 08/03/21 01:17 08/03/21 02:00 Temperature 36.6 C 36.6 C Pulse Rate 107 H 104 H Respiratory Rate 24 H 25 H Blood Pressure 140/67 125/63 Pulse Oximetry 98 100 08/03/21 02:42 08/03/21 02:47 08/03/21 04:00 Temperature 37.1 C Pulse Rate 101 H 100 97 Respiratory Rate 1
--- NOTE | 2021-08-03 12:33 | PC.NURSE ---
This patient, Yamini Muñoz, was received from ICU on 08/03/21 at 1233. Patient/family oriented to unit policies and routines
--- NOTE | 2021-08-03 12:40 | PC.NURSE ---
This patient, Yamini Muñoz, was transferred to [ 251] on 08/03/21 at 1240. Personal belongings sent with patient. Report given to [Janice ]. Appropriate documentation sent with patient.
[2021-08-03] MEDS: KCL 40 MEQ/WATER 100 ML 100 ML 25 ML IVPB (13:17)
[2021-08-03 14:18] LABS: Pneumococcal Antigen Urine Not Detected (Not Detected)
--- NOTE | 2021-08-03 14:36 | PCSTNOTE ---
The patient treatment was not able to be completed on 08/03/21] due to decreased responsiveness. Will remain on caseload one more day and then discharge if patient remains unable to actively participate in direct swallowing tasks. Hospice is also being considered at this time.
--- NOTE | 2021-08-03 16:03 | WPDGIPROGNO ---
Progress Note: A&P Assessment and Plan (1) Melena: Code(s): K92.1 - Melena Status: Acute Assessment and Plan: no more signs of bleeding and h/h has been stable she is too frail and high risk for anesthesia, no plan for endoscopy unless more obvious bleeding or drop of hb continue with iv protonix ok to start diet (2) Acute blood loss anemia: Code(s): D62 - Acute posthemorrhagic anemia Status: Acute Assessment and Plan: continue to monitor, hb has been stable green dark stool in ostomy iv protonix (3) Respiratory distress: Code(s): R06.03 - Acute respiratory distress Status: Acute Assessment and Plan: improved and was moved to floor, probably component of pulmonary edema (4) Septic shock: Code(s): A41.9 - Sepsis, unspecified organism; R65.21 - Severe sepsis with septic shock Status: Acute Assessment and Plan: resolved on iv abx (5) Acute UTI: Code(s): N39.0 - Urinary tract infection, site not specified Status: Acute Assessment and Plan: source of sepsis Subjective Date/time seen: 08/03/21 16:03 Interval history: she was moved to regular floor, doing well, dark green stool in ostomy. No changes. Review of Systems Review of Systems: All systems reviewed & are unremarkable except as noted in HPI and below Exam Const: General: no acute distress Other: frail elderly, using oxygen by [place] HENMT: General nose exam: Normal nares present Eyes: Sclera: sclerae normal Neck: Neck: supple Resp: Auscultation: rhonchi (few) Cardio: Rate: regular rate GI: GI Palp: Yes Soft to palpation and No Tenderness to palpation present (GI) Auscultation: normal bowel sounds Other: colostomy with less dark liquid stool in bag Urinary Catheter: Urinary Catheter: patent and draining Skin: Other: bruising of bilateral upper extremity Neuro: Speech: normal speech Extrem: General: pedal edema Psych: Affect: Anxious affect present Objective Data Vital Signs Vital Signs: Vital Signs - 24 hr 08/02/21 18:00 08/02/21 20:00 08/02/21 20:31 Temperature 98.1 F 97.9 F Pulse Rate 99 99 101 H Respiratory Rate 23 H 25 H 23 H Blood Pressure 141/67 H 142/73 H Pulse Oximetry 99 95 98 08/02/21 20:39 08/02/21 21:15 08/02/21 22:00 Temperature 97.9 F Pulse Rate 102 H 110 H Respiratory Rate 24 H 22 H Blood Pressure 143/69 H Pulse Oximetry 95 08/02/21 23:20 08/03/21 00:00 08/03/21 01:17 Temperature 98 F 98 F Pulse Rate 101 H 107 H Respiratory Rate 24 H Blood Pressure 140/67 Pulse Oximetry 96 98 08/03/21 02:00 08/03/21 02:42 08/03/21 02:47 Temperature Pulse Rate 104 H 101 H 100 Respiratory Rate 25 H 15 19 Blood Pressure 125/63 Pulse Oximetry 100 08/03/21 04:00 08/03/21 06:00 08/03/21 08:00 Temperature 98.8 F 98.3 F Pulse Rate 97 102 H 105 H Respiratory Rate 18 18 24 H Blood Pressure 120/43 L 136/75 160/73 H Pulse Oximetry 98 99 95 08/03/21 08:15 08/03/21 08:28 08/03/21 10:00 Temperature Pulse Rate 108 H 106 H 98 Respiratory Rate 22 H 21 H 18 Blood Pressure 122/61 Pulse Oximetry 94 Intake/Output Intake/Output: Intake & Output 07/31/21 08/01/21 08/02/21 08/03/21 23:59 23:59 23:59 23:59 Intake Total 1200 2900 1784 1306.667 Output Total 2525 1435 3625 1250 Balance -1325 1465 -1841 56.667 Meds/Results Medications: Active Medications Generic Name Dose Route Start Last Admin Trade Name Burkeq PRN Reason Stop Dose Admin Albuterol 2.5 mg 08/02/21 08:00 08/03/21 08:15 Albuterol Sulfate Neb 2.5 Mg/0.5 Ml Inh INHALATION 2.5 mg Q6HRT ANNA Administration Dabigatran 150 mg 07/31/21 09:00 07/31/21 19:13 Dabigatran Etexilate 150 Mg Capsule PO Not Given BID ANNA Enoxaparin Sodium 40 mg 07/31/21 09:00 07/31/21 12:40 Enoxaparin 40 Mg/0.4 Ml Syringe SUB-Q 40 mg DAILY ANNA Administration Gabapentin 200 mg 07/31/21 21:00 07/31/21 19:51
[2021-08-03 17:06] LABS: Hematocrit 28.3 % (37.0-47.0); Hemoglobin 8.9 g/dL (12.0-15.0); Mean Corpuscular HGB Conc 31.4 g/dl (32-36); Mean Corpuscular Volume 101.8 fl (80-100); Mean Platelet Volume 10.8 fl (7.4-10.4); Platelet Count Result 171 k/mm3 (150-375); Red Blood Count 2.78 M/mm3 (4.2-5.4); Red Cell Distribution Width 16.7 % (11.5-14.5); White Blood Count 10.4 K/mm3 (4.5-10.0)
[2021-08-03] MEDS: PANTOPRAZOLE SODIUM IV 40 MG VIAL IV PUSH (20:05)
[2021-08-04] VITALS (16 sets, daily range): BP systolic 106–162; BP diastolic 71–78; PULSE 81–104; RESP 18–21; TEMP 36.2–36.7; O2SAT 93–100
[2021-08-04] MEDS: ALBUTEROL SULFATE NEB 2.5 MG/0.5 ML INH INHALATION ×4 (02:10→20:03)
[2021-08-04 05:38] LABS: Basophils Percent Auto 0.1 % (0.2-1.2); Eosinophils Absolute Auto 0.1 K/mm3 (0-0.3); Eosinophils Percent Auto 0.6 % (0-4.4); Hematocrit 26.4 % (37.0-47.0); Hemoglobin 8.3 g/dL (12.0-15.0); Immature Granulocyte Absolute 0.08 K/mm3 (0.00-0.031); Immature Granulocyte Percent A 0.9 % (0-0.5); Lymphocytes Absolute Auto 1.82 K/mm3 (0.9-3.2); Lymphocytes Percent Auto 19.4 % (18.3-44.2); Mean Corpuscular HGB Conc 31.4 g/dl (32-36); Mean Corpuscular Hemoglobin 32.8 pg (26-34); Mean Corpuscular Volume 104.3 fl (80-100); Mean Platelet Volume 10.3 fl (7.4-10.4); Monocytes Absolute Auto 0.6 K/mm3 (0.1-0.6); Monocytes Percent Auto 6.6 % (2.6-8.5); Neutrophils Absolute Auto 6.8 K/mm3 (1.3-6.7); Neutrophils Percent Auto 72.4 % (45.5-73.1); Nucleated Red Blood Cells Perc 0.3 % (0.0-0.2); Platelet Count Result 183 k/mm3 (150-375); Red Blood Count 2.53 M/mm3 (4.2-5.4); Red Cell Distribution Width 17.1 % (11.5-14.5); White Blood Count 9.4 K/mm3 (4.5-10.0)
[2021-08-04] MEDS: CENTRAL LINE FLUSH 10 ML IV PUSH ×4 (05:49→20:27)
[2021-08-04 06:00] LABS: Alanine Aminotransferase 17 U/L (4-35); Albumin Level 3.3 g/dL (3.5-5.1); Alkaline Phosphatase 58 U/L (38-126); Anion Gap 7 mmol/L (8-16); Aspartate Amino Transferase 25 U/L (14-36); Bilirubin,Total 2.1 mg/dL (0.2-1.3); Blood Urea Nitrogen 13 mg/dL (7-17); Calcium 8.3 mg/dL (8.4-10.2); Carbon Dioxide 35 mmol/L (22-30); Chloride 95 mmol/L (98-107); Estimated CRCL calculation 38 ml/min; Estimated Glomerular Filt Rate 53; Glucose 94 mg/dL (65-110); Magnesium 2.2 mg/dL (1.6-2.3); Phosphorus 2.2 mg/dL (2.5-4.5); Potassium 3.9 mmol/L (3.4-5.0); Sodium 137 mmol/L (137-145)
[2021-08-04] MEDS: MORPHINE SULFATE (*CRX) 2 MG/ML INJ IV PUSH ×2 (07:30→12:51)
[2021-08-04] MEDS: HYDROCORTISONE SODIUM SUCCINATE 100 MG/2 ML VIAL 50 MG IV PUSH (09:06)
[2021-08-04] MEDS: PANTOPRAZOLE SODIUM IV 40 MG VIAL IV PUSH ×2 (09:07→20:27)
--- NOTE | 2021-08-04 09:31 | PM.IMPN ---
Progress Note: A&P Assessment and Plan (1) Anemia: Qualifiers: Anemia type: unspecified type Qualified Code(s): D64.9 - Anemia, unspecified Code(s): D64.9 - Anemia, unspecified Status: Chronic Assessment and Plan: Hemoglobin currently stable. Range of between 8.3-8.9. Continue iv protonix scheduled Monitor for signs and symptoms of a GI bleed Patient denies any melena or hematochezia in ostomy output Gastroenterology was consulted for melena. Patient was not a good candidate for an EGD, therefore conservative management with IV Protonix. Patient's last EGD performed was in 2018 in [place], she was found to have Taime esophagitis Hold anticoagulation, Hb was 12 upon admission dropped to 7.7 and noted liquid dark stool in ostomy. INR 2 (2) Septic shock: Code(s): A41.9 - Sepsis, unspecified organism; R65.21 - Severe sepsis with septic shock Status: Acute Assessment and Plan: Patient presented with hypotension, altered mental status, leukocytosis, lactic acidosis, UA was positive for UTI -pt is off levophed can be moved to medical floor -continue imipenem (07/30) and vancomycin on 07/30, - discontinued cefepime on 07/31/2021 -07/30 urine cultures growing Pseudomonas - continue current care, pt is DNR, pt is poor prognosis DNR / DNI (3) Acute worsening of stage 3 chronic kidney disease: Code(s): N18.30 - Chronic kidney disease, stage 3 unspecified Status: Acute Assessment and Plan: Resolved, continue to monitor renal function Chronic Spears catheter (4) Elevated troponin: Code(s): R77.8 - Other specified abnormalities of plasma proteins Status: Acute Assessment and Plan: Elevated troponins which down trended, likely related to type 2 infarct -patient was unable to provide a history upon admission. Patient currently denies chest pain or shortness for breath Elevated troponin may be related to septic shock, hypotension, mild MAGGIE upon admission, or demand ischemia Cardiology was consulted due to the elevation of troponin, the patient was not a candidate for cardiac intervention. Provide aggressive supportive care (5) DVT prophylaxis: Code(s): Z29.9 - Encounter for prophylactic measures, unspecified Status: Acute Assessment and Plan: -hold Lovenox as patient dropped her hemoglobin and his melena in her ostomy Hold Pradaxa patient has a history of paroxysmal AFib SCDs (6) Encephalopathy: Code(s): G93.40 - Encephalopathy, unspecified Status: Acute Assessment and Plan: -ongoing, pts prognosis is poor, family to decide on hospice care currently pt is DNR/ DNI (7) Immunosuppression due to drug therapy: Code(s): Z79.899 - Other long-term (current) drug therapy Status: Acute Assessment and Plan: Patient is on immunosuppressive drug therapy due to rheumatoid arthritis. Subjective Date/time seen: 08/04/21 09:31 Patient is alert and oriented with minimal cognition and understanding. Discussed end of life care or home health. Patient reported she was not interested in either. She is a DNR/DNI. Family discussion continues about hospice care. Discussed medications the patient is currently on and IV antibiotics. Patient's current ostomy output is brown stool liquid stool. She denies any acute abdominal pain. Patient was able to work with speech therapy today and increased her diet to mechanical minced, stage 5 diet with thickened liquids. Review of Systems Review of Systems: All systems reviewed & are unremarkable except as noted in HPI and below Exam Narrative: General: No acute distress. Chronically ill and frail appearing, physically disabled Mental Status: Awake, alert and oriented, minimal comprehension Skin: Skin in warm, dry and intact without rashes or lesions. Head: Normocephalic and atraumatic. Eyes: Conjunctivae are clear without exudates or hemorrhage. Sclera i
--- NOTE | 2021-08-04 14:32 | PC.NURSE ---
On 08/04/21, the student, [Sai Trinh], provided care and completed [facility] documentation on this patient. I have reviewed the student's documentation and agree with the findings.
--- NOTE | 2021-08-04 15:11 | WPDGIPROGNO ---
Progress Note: A&P Assessment and Plan (1) Melena: Code(s): K92.1 - Melena Status: Acute Assessment and Plan: stool is green, no melena no more signs of bleeding and h/h has been stable continue conservative approach for now, I do not think that she will be able to tolerate anesthesia with EGD continue with iv protonix special diet to prevent aspiration by speech recommendations (2) Acute blood loss anemia: Code(s): D62 - Acute posthemorrhagic anemia Status: Acute Assessment and Plan: hb lowe but stable green dark stool in ostomy iv protonix (3) Respiratory distress: Code(s): R06.03 - Acute respiratory distress Status: Acute Assessment and Plan: still some rhonchi, by primary (4) Septic shock: Code(s): A41.9 - Sepsis, unspecified organism; R65.21 - Severe sepsis with septic shock Status: Acute Assessment and Plan: resolved on iv abx (5) Acute UTI: Code(s): N39.0 - Urinary tract infection, site not specified Status: Acute Assessment and Plan: source of sepsis Subjective Date/time seen: 08/04/21 15:11 Interval history: she is just feeling tired, feeling like sleeping more, also complaining of abdominal discomfort. Ostomy bag with dark green liquid stool and hb stable Review of Systems Review of Systems: All systems reviewed & are unremarkable except as noted in HPI and below Exam Const: General: no acute distress Other: frail elderly, using oxygen by NC HENMT: General nose exam: Normal nares present Eyes: Sclera: sclerae normal Neck: Neck: supple Resp: Auscultation: rhonchi (few) Cardio: Rate: regular rate GI: GI Palp: Yes Soft to palpation and No Tenderness to palpation present (GI) Auscultation: normal bowel sounds Other: colostomy with dark green liquid stool in bag Urinary Catheter: Urinary Catheter: patent and draining Skin: Other: bruising of bilateral upper extremity Neuro: Speech: normal speech Extrem: General: edema bilateral Psych: Affect: Anxious affect present Objective Data Vital Signs Vital Signs: Vital Signs - 24 hr 08/03/21 16:00 08/03/21 20:00 08/03/21 20:35 Temperature 97.7 F Pulse Rate 110 H Respiratory Rate 18 Blood Pressure 144/81 H Pulse Oximetry 94 94 95 08/03/21 20:45 08/03/21 20:55 08/04/21 00:00 Temperature 97.9 F Pulse Rate 100 99 104 H Respiratory Rate 21 H 20 20 Blood Pressure 134/78 Pulse Oximetry 96 08/04/21 02:11 08/04/21 02:22 08/04/21 04:59 Temperature 97.2 F L Pulse Rate 96 92 104 H Respiratory Rate 20 20 21 H Blood Pressure 162/71 H Pulse Oximetry 96 08/04/21 07:59 08/04/21 08:00 08/04/21 08:15 Temperature 97.8 F Pulse Rate 96 88 Respiratory Rate 20 20 Blood Pressure 148/71 H Pulse Oximetry 98 97 08/04/21 08:25 08/04/21 08:26 08/04/21 14:00 Temperature 98.1 F Pulse Rate 90 100 Respiratory Rate 20 20 Blood Pressure 146/71 H Pulse Oximetry 97 100 08/04/21 14:15 08/04/21 14:25 Temperature Pulse Rate 81 83 Respiratory Rate 20 20 Blood Pressure Pulse Oximetry Intake/Output Intake/Output: Intake & Output 08/01/21 08/02/21 08/03/21 08/04/21 23:59 23:59 23:59 23:59 Intake Total 2900 1784 1406.667 420 Output Total 1435 3625 1600 325 Balance 1465 -1151 -193.333 95 Meds/Results Medications: Active Medications Generic Name Dose Route Start Last Admin Trade Name Freq PRN Reason Stop Dose Admin Albuterol 2.5 mg 08/02/21 08:00 08/04/21 14:27 Albuterol Sulfate Neb 2.5 Mg/0.5 Ml Inh INHALATION 2.5 mg Q6HRT ANNA Administration Dabigatran 150 mg 07/31/21 09:00 07/31/21 19:13 Dabigatran Etexilate 150 Mg Capsule PO Not Given BID ANNA Enoxaparin Sodium 40 mg 07/31/21 09:00 07/31/21 12:40 Enoxaparin 40 Mg/0.4 Ml Syringe SUB-Q 40 mg DAILY ANNA Administration Gabapentin 200 mg 07/31/21 21:00 07/31/21 19:51 Gabapentin 100 Mg Capsule P
[2021-08-04] MEDS: MORPHINE SULFATE (*CRX) 4 MG/ML INJ IV PUSH ×2 (15:47→20:37)
[2021-08-04 16:17] LABS: Hemoglobin 8.8 g/dL (12.0-15.0); Mean Corpuscular HGB Conc 31.4 g/dl (32-36); Mean Corpuscular Volume 104.9 fl (80-100); Mean Platelet Volume 9.8 fl (7.4-10.4); Platelet Count Result 184 k/mm3 (150-375); Red Blood Count 2.67 M/mm3 (4.2-5.4); Red Cell Distribution Width 17.5 % (11.5-14.5)
--- NOTE | 2021-08-04 22:08 | PCRCNOTE ---
Pt has been refusing BiPAP. Machine was not moved to [address] [place] [address] with pt when she moved from ICU. Hospice discussions continuing with family.
[2021-08-04 22:23] LABS: Legionella pneumophila Ag Ur Not Detected (Not Detected)
[2021-08-05] VITALS (13 sets, daily range): BP systolic 115–144; BP diastolic 79–90; PULSE 99–111; RESP 18–20; TEMP 36.2–36.7; O2SAT 92–98; BMI 33.0
[2021-08-05] MEDS: MORPHINE SULFATE (*CRX) 2 MG/ML INJ IV PUSH (00:26)
[2021-08-05] MEDS: ALBUTEROL SULFATE NEB 2.5 MG/0.5 ML INH INHALATION ×4 (02:04→20:10)
[2021-08-05] MEDS: MORPHINE SULFATE (*CRX) 4 MG/ML INJ IV PUSH ×5 (04:58→21:06)
[2021-08-05] MEDS: CENTRAL LINE FLUSH 10 ML IV PUSH ×4 (05:01→21:01)
[2021-08-05 05:17] LABS: Basophils Percent Auto 0.2 % (0.2-1.2); Eosinophils Percent Auto 0.3 % (0-4.4); Hematocrit 28.1 % (37.0-47.0); Hemoglobin 8.7 g/dL (12.0-15.0); Immature Granulocyte Absolute 0.11 K/mm3 (0.00-0.031); Immature Granulocyte Percent A 1.2 % (0-0.5); Lymphocytes Absolute Auto 1.88 K/mm3 (0.9-3.2); Lymphocytes Percent Auto 20.3 % (18.3-44.2); Mean Corpuscular Hemoglobin 32.7 pg (26-34); Mean Corpuscular Volume 105.6 fl (80-100); Monocytes Absolute Auto 0.8 K/mm3 (0.1-0.6); Monocytes Percent Auto 8.3 % (2.6-8.5); Neutrophils Absolute Auto 6.5 K/mm3 (1.3-6.7); Neutrophils Percent Auto 69.7 % (45.5-73.1); Nucleated Red Blood Cells Perc 0.4 % (0.0-0.2); Platelet Count Result 222 k/mm3 (150-375); Red Blood Count 2.66 M/mm3 (4.2-5.4); Red Cell Distribution Width 18.1 % (11.5-14.5); White Blood Count 9.3 K/mm3 (4.5-10.0)
[2021-08-05 05:40] LABS: Alanine Aminotransferase 17 U/L (4-35); Albumin Level 3.4 g/dL (3.5-5.1); Alkaline Phosphatase 61 U/L (38-126); Anion Gap 11 mmol/L (8-16); Aspartate Amino Transferase 27 U/L (14-36); Bilirubin,Total 2.4 mg/dL (0.2-1.3); Blood Urea Nitrogen 17 mg/dL (7-17); Calcium 8.2 mg/dL (8.4-10.2); Carbon Dioxide 31 mmol/L (22-30); Chloride 97 mmol/L (98-107); Estimated CRCL calculation 47 ml/min; Estimated Glomerular Filt Rate > 60; Glucose 88 mg/dL (65-110); Magnesium 2.1 mg/dL (1.6-2.3); Phosphorus 2.7 mg/dL (2.5-4.5); Potassium 3.8 mmol/L (3.4-5.0); Sodium 139 mmol/L (137-145)
--- NOTE | 2021-08-05 09:01 | PM.IMPN ---
Progress Note: A&P Assessment and Plan (1) Anemia: Qualifiers: Anemia type: unspecified type Qualified Code(s): D64.9 - Anemia, unspecified Code(s): D64.9 - Anemia, unspecified Status: Chronic Assessment and Plan: -Hemoglobin currently stable. Range of between 8.3-8.9. -Continue iv protonix scheduled -Monitor for signs and symptoms of a GI bleed -Patient denies any melena or hematochezia in ostomy output however on admission there was apparently dark liquid stool noted -Gastroenterology was consulted for melena. Patient was not a good candidate for an EGD, therefore conservative management with IV Protonix. Patient's last EGD performed was in 2018 in [place], she was found to have Tamie esophagitis -Hold anticoagulation, Hb was 12 upon admission dropped to 7.7 on 08/01/21. INR 2. -Continue close monitoring (2) Septic shock: Code(s): A41.9 - Sepsis, unspecified organism; R65.21 - Severe sepsis with septic shock Status: Acute Assessment and Plan: Patient presented with hypotension, altered mental status, leukocytosis, lactic acidosis, UA was positive for UTI -pt is off levophed and was moved to medical floor -continue imipenem (07/30) and vancomycin (07/30) -discontinued cefepime on 07/31/2021 -07/30 urine cultures growing Pseudomonas, sensitive to Imipenem - continue current care, pt is DNR, pt is poor prognosis DNR / DNI (3) Acute worsening of stage 3 chronic kidney disease: Code(s): N18.30 - Chronic kidney disease, stage 3 unspecified Status: Acute Assessment and Plan: -Resolved, continue to monitor renal function -Chronic Spears catheter (4) Elevated troponin: Code(s): R77.8 - Other specified abnormalities of plasma proteins Status: Acute Assessment and Plan: Elevated troponins which down trended, likely related to type 2 infarct -patient was unable to provide a history upon admission. Patient currently denies chest pain or shortness for breath -Elevated troponin may be related to septic shock, hypotension, mild MAGGIE upon admission, or demand ischemia -Cardiology was consulted due to the elevation of troponin, the patient was not a candidate for cardiac intervention. Provide aggressive supportive care (5) DVT prophylaxis: Code(s): Z29.9 - Encounter for prophylactic measures, unspecified Status: Acute Assessment and Plan: -hold Lovenox as patient dropped her hemoglobin and had melena in her ostomy -Hold Pradaxa, patient has a history of paroxysmal AFib -SCDs (6) Encephalopathy: Code(s): G93.40 - Encephalopathy, unspecified Status: Acute Assessment and Plan: -ongoing, pts prognosis is poor, family to decide on hospice care currently pt is DNR/ DNI (7) Immunosuppression due to drug therapy: Code(s): Z79.899 - Other shelter (current) drug therapy Status: Acute Assessment and Plan: -Patient is on immunosuppressive drug therapy due to rheumatoid arthritis. Additional Plan Code status: 08/02 (Per Nichole Prince NP): I spoke to patient and again confirmed that she requests to be DNR and DNI. Does not want resuscitation or CPR in the event of cardiac arrest and does not want to go on ventilator for respiratory failure. She verbalized understanding that she will if she does not receive CPR and/or intubation in the event of cardiac arrest and respiratory failure. Later she told her nurse and healthcare administrator that she was done with this chronic pain and wanted to go home and she was ready to . a hospice referral was made. I also spoke to patient's son at bedside who is a physician and updated him with patient's current status, course and current treatment plan. Answered all his questions. Patient again today states that she does not want to live with this chronic pain and would like to go home and peacefully.
[2021-08-05] MEDS: PANTOPRAZOLE SODIUM IV 40 MG VIAL IV PUSH ×2 (09:27→20:57)
[2021-08-05] MEDS: HYDROCORTISONE SODIUM SUCCINATE 100 MG/2 ML VIAL 50 MG IV PUSH (09:27)
--- NOTE | 2021-08-05 14:05 | WPDGIPROGNO ---
Progress Note: A&P Assessment and Plan (1) Melena: Code(s): K92.1 - Melena Status: Acute Assessment and Plan: resolved, ileostomy bag is ok no more signs of bleeding and h/h has been stable continue conservative approach and high risk for anesthesia- patient is DNR continue with iv protonix special diet to prevent aspiration by speech recommendations will follow from [place], call if questions (2) Acute blood loss anemia: Code(s): D62 - Acute posthemorrhagic anemia Status: Acute Assessment and Plan: hb lowe but stable green dark stool in ostomy iv protonix (3) Respiratory distress: Code(s): R06.03 - Acute respiratory distress Status: Acute Assessment and Plan: at baseline, she is frail (4) Septic shock: Code(s): A41.9 - Sepsis, unspecified organism; R65.21 - Severe sepsis with septic shock Status: Acute Assessment and Plan: resolved on iv abx (5) Acute UTI: Code(s): N39.0 - Urinary tract infection, site not specified Status: Acute Assessment and Plan: source of sepsis Subjective Date/time seen: 08/05/21 14:05 Interval history: she did not sleep last night, just having pain everywhere. She eat and denies nausea, no more signs of bleeding. Review of Systems Review of Systems: All systems reviewed & are unremarkable except as noted in HPI and below Exam Const: General: no acute distress Other: frail elderly, using oxygen by NC HENMT: General nose exam: Normal nares present Eyes: Sclera: sclerae normal Neck: Neck: supple Resp: Auscultation: rhonchi (few) Cardio: Rate: regular rate GI: GI Palp: Yes Soft to palpation and No Tenderness to palpation present (GI) Auscultation: normal bowel sounds Other: colostomy with dark green liquid stool in bag Urinary Catheter: Urinary Catheter: patent and draining Skin: Other: bruising of bilateral upper extremity Neuro: Speech: normal speech Extrem: General: edema bilateral Psych: Affect: Anxious affect present Objective Data Vital Signs Vital Signs: Vital Signs - 24 hr 08/04/21 14:15 08/04/21 14:25 08/04/21 20:00 Temperature Pulse Rate 81 83 Respiratory Rate 20 20 Blood Pressure Pulse Oximetry 99 08/04/21 20:06 08/04/21 20:18 08/04/21 20:33 Temperature 97.4 F L Pulse Rate 99 95 102 H Respiratory Rate 20 20 18 Blood Pressure 106/78 Pulse Oximetry 93 99 08/05/21 02:07 08/05/21 02:12 08/05/21 05:42 Temperature 97.2 F L Pulse Rate 101 H 99 106 H Respiratory Rate 18 18 18 Blood Pressure 144/79 H Pulse Oximetry 96 08/05/21 08:06 08/05/21 08:07 08/05/21 08:12 Temperature Pulse Rate 99 102 H Respiratory Rate 18 18 Blood Pressure Pulse Oximetry 92 Intake/Output Intake/Output: Intake & Output 08/02/21 08/03/21 08/04/21 08/05/21 23:59 23:59 23:59 23:59 Intake Total 1784 1406.667 670 505 Output Total 3625 1600 650 200 Balance -1841 -193.333 20 305 Meds/Results Medications: Active Medications Generic Name Dose Route Start Last Admin Trade Name Freq PRN Reason Stop Dose Admin Albuterol 2.5 mg 08/02/21 08:00 08/05/21 14:04 Albuterol Sulfate Neb 2.5 Mg/0.5 Ml Inh INHALATION 2.5 mg Q6HRT ANNA Administration Dabigatran 150 mg 07/31/21 09:00 07/31/21 19:13 Dabigatran Etexilate 150 Mg Capsule PO Not Given BID ANNA Enoxaparin Sodium 40 mg 07/31/21 09:00 07/31/21 12:40 Enoxaparin 40 Mg/0.4 Ml Syringe SUB-Q 40 mg DAILY ANNA Administration Gabapentin 200 mg 07/31/21 21:00 07/31/21 19:51 Gabapentin 100 Mg Capsule PO Not Given HS ANNA Gabapentin 100 mg 07/31/21 09:00 07/31/21 13:37 Gabapentin 100 Mg Capsule PO Not Given DAILY ANNA Hydrocortisone Sodium Succinate 50 mg 08/03/21 09:00 08/05/21 09:27 Hydrocortisone Sodium Succinate 100 Mg/2 Ml Vial IV PUSH 50 mg QAM ANNA Administration Imipenem/Cilastatin Sodium 250 100 mls @ 300 mls/hr
--- NOTE | 2021-08-05 15:52 | PCSTNOTE ---
Nursing reports patient has been tolerating her current diet and liquid consistencies well and has no additional complaints. Will discharge from ST services.
[2021-08-06] VITALS (12 sets, daily range): BP systolic 110–134; BP diastolic 75–84; PULSE 94–106; RESP 14–21; TEMP 36.4–37.1; O2SAT 92–100
[2021-08-06] MEDS: MORPHINE SULFATE (*CRX) 4 MG/ML INJ IV PUSH ×8 (00:09→21:00)
[2021-08-06] MEDS: ALBUTEROL SULFATE NEB 2.5 MG/0.5 ML INH INHALATION ×4 (02:48→20:10)
[2021-08-06] MEDS: CENTRAL LINE FLUSH 10 ML IV PUSH ×3 (05:48→20:28)
[2021-08-06] MEDS: PANTOPRAZOLE SODIUM IV 40 MG VIAL IV PUSH ×2 (08:34→20:28)
[2021-08-06] MEDS: HYDROCORTISONE SODIUM SUCCINATE 100 MG/2 ML VIAL 50 MG IV PUSH (08:34)
--- NOTE | 2021-08-06 09:50 | PM.IMPN ---
Progress Note: A&P Assessment and Plan (1) Anemia: Qualifiers: Anemia type: unspecified type Qualified Code(s): D64.9 - Anemia, unspecified Code(s): D64.9 - Anemia, unspecified Status: Chronic Assessment and Plan: -Hemoglobin currently stable. Range of between 8.3-8.9. -Continue iv protonix scheduled , will transition to oral Protonix upon discharge -Monitor for signs and symptoms of a GI bleed -Patient denies any melena or hematochezia in ostomy output however on admission there was apparently dark liquid stool noted -Gastroenterology was consulted for melena. Patient was not a good candidate for an EGD, therefore conservative management with IV Protonix. Patient's last EGD performed was in 2018 in [place], she was found to have Tamie esophagitis -Hold anticoagulation, Hb was 12 upon admission dropped to 7.7 on 08/01/21. INR 2. -Continue close monitoring (2) Septic shock: Code(s): A41.9 - Sepsis, unspecified organism; R65.21 - Severe sepsis with septic shock Status: Acute Assessment and Plan: Patient presented with hypotension, altered mental status, leukocytosis, lactic acidosis, UA was positive for UTI -pt is off levophed and was moved to medical floor -stop imipenem (07/30) and vancomycin (07/30) -discontinued cefepime on 07/31/2021 -07/30 urine cultures growing Pseudomonas, sensitive to Imipenem and ciprofloxacin. Patient was placed on Imipenem initially due to NPO status. Total IV antibiotic therapy with Imipenem, 8 days. Patient is able have oral intake. Will switch antibiotic to ciprofloxacin oral on 08/06/21, culture and sensitivity report reviewed. No leukocytosis - continue current care, pt is DNR, pt is poor prognosis DNR / DNI (3) Acute worsening of stage 3 chronic kidney disease: Code(s): N18.30 - Chronic kidney disease, stage 3 unspecified Status: Acute Assessment and Plan: -Resolved, continue to monitor renal function -Chronic Spears catheter (4) Elevated troponin: Code(s): R77.8 - Other specified abnormalities of plasma proteins Status: Acute Assessment and Plan: Elevated troponins which down trended, likely related to type 2 infarct -patient was unable to provide a history upon admission. Patient currently denies chest pain or shortness for breath -Elevated troponin may be related to septic shock, hypotension, mild MAGGIE upon admission, or demand ischemia -Cardiology was consulted due to the elevation of troponin, the patient was not a candidate for cardiac intervention. Provide aggressive supportive care. Cardiology signed off on July 31, 2021. 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 Subjective Date/time seen: 08/06/21 09:51 Patient is alert and oriented this morning. Patient reports to the nursing staff she no longer wants to be in pain. However she is concerned about initiating hospice or having the discussion with her family. However she was strongly encouraged to begin this conversation with both of her sons. She reports that 1 son works at [employer] is a physician and the other 1 is an business attorney. Discussed with the patient that she is a poor prognosis and how we can improve her
[2021-08-06] MEDS: ALTEPLASE 2 MG VIAL (CATHFLO) IV PUSH ×2 (10:07→12:27)
[2021-08-06] MEDS: CIPROFLOXACIN 500 MG TAB PO ×2 (10:28→20:28)
[2021-08-06 21:23] LABS: Hematocrit 30.3 % (37.0-47.0); Hemoglobin 8.6 g/dL (12.0-15.0); Mean Corpuscular HGB Conc 28.4 g/dl (32-36); Mean Corpuscular Hemoglobin 32.1 pg (26-34); Mean Corpuscular Volume 113.1 fl (80-100); Mean Platelet Volume 10.1 fl (7.4-10.4); Platelet Count Result 288 k/mm3 (150-375); Red Blood Count 2.68 M/mm3 (4.2-5.4); Red Cell Distribution Width 19.2 % (11.5-14.5); White Blood Count 12.1 K/mm3 (4.5-10.0)
[2021-08-06 21:37] LABS: Anisocytosis 3+ (NORMAL); Hypochromasia 1+ (NORMAL); Platelet Estimate Adequate (Adequate)
[2021-08-06 21:38] LABS: Atypical Lymphocytes Present
[2021-08-06 21:44] LABS: Anion Gap 10 mmol/L (8-16); Blood Urea Nitrogen 22 mg/dL (7-17); Calcium 8.5 mg/dL (8.4-10.2); Carbon Dioxide 35 mmol/L (22-30); Chloride 96 mmol/L (98-107); Estimated CRCL calculation 36 ml/min; Estimated Glomerular Filt Rate 48; Glucose 40 mg/dL (65-110); Potassium 3.7 mmol/L (3.4-5.0); Sodium 141 mmol/L (137-145)
--- NOTE | 2021-08-06 21:45 | PC.NURSE ---
critical glucose called at 2145 from labs drawn this am. glucose was 40. spot checked pt's glucose and it was 98
[2021-08-06 22:19] LABS: Glucose Point of Care 98 mg/dl (65-105)
[2021-08-07] VITALS (14 sets, daily range): BP systolic 119–129; BP diastolic 72–77; PULSE 94–102; RESP 18–23; TEMP 35.7–36.4; O2SAT 92–97
[2021-08-07] MEDS: MORPHINE SULFATE (*CRX) 4 MG/ML INJ IV PUSH ×3 (00:28→10:48)
[2021-08-07] MEDS: ALBUTEROL SULFATE NEB 2.5 MG/0.5 ML INH INHALATION ×4 (02:48→20:12)
[2021-08-07] MEDS: CENTRAL LINE FLUSH 10 ML IV PUSH ×3 (06:08→20:15)
[2021-08-07 06:56] LABS: Glucose Point of Care 101 mg/dl (65-105)
[2021-08-07] MEDS: predniSONE 10 MG TABLET PO (08:26)
[2021-08-07] MEDS: CIPROFLOXACIN 500 MG TAB PO ×2 (08:26→20:14)
[2021-08-07] MEDS: GABAPENTIN 100 MG CAPSULE PO (08:26)
[2021-08-07] MEDS: PANTOPRAZOLE SODIUM IV 40 MG VIAL IV PUSH (08:26)
--- NOTE | 2021-08-07 09:38 | PM.IMPN ---
Progress Note: A&P Assessment and Plan (1) Anemia: Qualifiers: Anemia type: unspecified type Qualified Code(s): D64.9 - Anemia, unspecified Code(s): D64.9 - Anemia, unspecified Status: Chronic Assessment and Plan: -Hemoglobin currently stable. Range of between 8.3-8.9. -Continue iv protonix scheduled , will transition to oral Protonix upon discharge -Monitor for signs and symptoms of a GI bleed -Patient denies any melena or hematochezia in ostomy output however on admission there was apparently dark liquid stool noted -Gastroenterology was consulted for melena. Patient was not a good candidate for an EGD, therefore conservative management with IV Protonix. Patient's last EGD performed was in 2017 in [place], she was found to have Tamie esophagitis -Hold anticoagulation, Hb was 12 upon admission dropped to 7.7 on 08/01/21. INR 2. -Continue close monitoring (2) Septic shock: Code(s): A41.9 - Sepsis, unspecified organism; R65.21 - Severe sepsis with septic shock Status: Acute Assessment and Plan: 07/30 urine cultures growing Pseudomonas, sensitive to Imipenem and ciprofloxacin. Patient was placed on Imipenem initially due to NPO status. Total IV antibiotic therapy with Imipenem, 8 days. Patient is able have oral intake. Will switch antibiotic to ciprofloxacin oral on 08/06/21 stop date 08/09/21. culture and sensitivity report reviewed. No leukocytosis - continue current care, pt is DNR, pt is poor prognosis DNR / DNI (3) Acute worsening of stage 3 chronic kidney disease: Code(s): N18.30 - Chronic kidney disease, stage 3 unspecified Status: Acute Assessment and Plan: -Resolved, continue to monitor renal function -Chronic Spears catheter (4) Elevated troponin: Code(s): R77.8 - Other specified abnormalities of plasma proteins Status: Acute Assessment and Plan: Elevated troponins which down trended, likely related to type 2 infarct -patient was unable to provide a history upon admission. Patient currently denies chest pain or shortness for breath -Elevated troponin may be related to septic shock, hypotension, mild MAGGIE upon admission, or demand ischemia -Cardiology was consulted due to the elevation of troponin, the patient was not a candidate for cardiac intervention. Provide aggressive supportive care. Cardiology signed off on July 31, 2021. (5) DVT prophylaxis: Code(s): Z29.9 - Encounter for prophylactic measures, unspecified Status: Acute Assessment and Plan: -hold Lovenox as patient dropped her hemoglobin and had melena in her ostomy -Hold Pradaxa, patient has a history of paroxysmal AFib -SCDs (6) Encephalopathy: Code(s): G93.40 - Encephalopathy, unspecified Status: Acute Assessment and Plan: -improvement, pts prognosis is poor, family to decide on hospice care currently pt is DNR/ DNI (7) Immunosuppression due to drug therapy: Code(s): Z79.899 - Other group home (current) drug therapy Status: Acute Assessment and Plan: -Patient is on immunosuppressive drug therapy due to rheumatoid arthritis. Subjective Date/time seen: 08/07/21 09:38 Patient is alert and oriented this morning. Transition most medications to oral. IV Protonix continues. Will transition to oral tomorrow morning. Patient continues to complain that she is in pain. Home medications resumed at a decreased dose. Patient is currently at baseline and has a possibility of being discharged later on this week. Pending clinical course. No acute events overnight reported by the RN. EHR reviewed, patient appears to have minimal output of her ostomy. Ordered a KUB for further eval Review of Systems Review of Systems: All systems reviewed & are unremarkable except as noted in HPI and below ROS unobtainable: Yes unobtainable due to medical condition and unobt
--- NOTE | 2021-08-07 12:49 | PCSTNOTE ---
Please refer to the Modified Barium Swallow Evaluation in the EMR.
[2021-08-07] MEDS: fentaNYL (*CRX) 25 MCG PATCH TRANSDERM (12:51)
[2021-08-07] MEDS: oxyCODONE HCL (*CRX) 5 MG TAB IR PO ×2 (15:58→20:20)
[2021-08-07] MEDS: ALTEPLASE 2 MG VIAL (CATHFLO) IV PUSH (17:08)
[2021-08-07] MEDS: GABAPENTIN 100 MG CAPSULE 200 MG PO (20:12)
[2021-08-08] VITALS (13 sets, daily range): BP systolic 110–127; BP diastolic 57–72; PULSE 82–107; RESP 16–24; TEMP 36.1–36.9; O2SAT 92–98
[2021-08-08] MEDS: ALBUTEROL SULFATE NEB 2.5 MG/0.5 ML INH INHALATION ×4 (02:25→19:59)
[2021-08-08] MEDS: CENTRAL LINE FLUSH 10 ML IV PUSH ×2 (05:16→13:02)
[2021-08-08 05:39] LABS: Basophils Percent Auto 0.1 % (0.2-1.2); Eosinophils Absolute Auto 0.1 K/mm3 (0-0.3); Eosinophils Percent Auto 0.6 % (0-4.4); Hemoglobin 8.1 g/dL (12.0-15.0); Immature Granulocyte Percent A 1.2 % (0-0.5); Lymphocytes Absolute Auto 1.49 K/mm3 (0.9-3.2); Lymphocytes Percent Auto 17.6 % (18.3-44.2); Mean Corpuscular HGB Conc 31.2 g/dl (32-36); Mean Corpuscular Hemoglobin 32.1 pg (26-34); Mean Corpuscular Volume 103.2 fl (80-100); Mean Platelet Volume 9.9 fl (7.4-10.4); Monocytes Absolute Auto 0.7 K/mm3 (0.1-0.6); Monocytes Percent Auto 8.4 % (2.6-8.5); Neutrophils Absolute Auto 6.1 K/mm3 (1.3-6.7); Neutrophils Percent Auto 72.1 % (45.5-73.1); Nucleated Red Blood Cells Perc 0.2 % (0.0-0.2); Platelet Count Result 311 k/mm3 (150-375); Red Blood Count 2.52 M/mm3 (4.2-5.4); Red Cell Distribution Width 18.6 % (11.5-14.5); White Blood Count 8.5 K/mm3 (4.5-10.0)
[2021-08-08 05:44] LABS: Alanine Aminotransferase 22 U/L (4-35); Albumin Level 3.1 g/dL (3.5-5.1); Alkaline Phosphatase 67 U/L (38-126); Anion Gap 7 mmol/L (8-16); Aspartate Amino Transferase 37 U/L (14-36); Bilirubin,Total 2.1 mg/dL (0.2-1.3); Blood Urea Nitrogen 26 mg/dL (7-17); Calcium 8.2 mg/dL (8.4-10.2); Carbon Dioxide 33 mmol/L (22-30); Chloride 97 mmol/L (98-107); Estimated CRCL calculation 36 ml/min; Estimated Glomerular Filt Rate 48; Glucose 88 mg/dL (65-110); Magnesium 1.9 mg/dL (1.6-2.3); Potassium 3.6 mmol/L (3.4-5.0); Sodium 137 mmol/L (137-145)
[2021-08-08] MEDS: PANTOPRAZOLE SODIUM IV 40 MG VIAL IV PUSH (08:21)
[2021-08-08] MEDS: FERROUS SULFATE 324 MG TABLET PO ×2 (08:21→17:36)
[2021-08-08] MEDS: CIPROFLOXACIN 500 MG TAB PO (08:21)
[2021-08-08] MEDS: predniSONE 10 MG TABLET PO (08:22)
[2021-08-08] MEDS: GABAPENTIN 100 MG CAPSULE PO (08:22)
--- NOTE | 2021-08-08 09:45 | PM.DS ---
DS: Admitting Diagnosis Discharge Date 08/08/21 0945 Admitting Diagnosis Anemia/septic shock/encephalopathy DS: Discharge Diagnosis Discharge Diagnosis (1) Anemia: Qualifiers: Anemia type: unspecified type Qualified Code(s): D64.9 - Anemia, unspecified Code(s): D64.9 - Anemia, unspecified Status: Chronic Assessment and Plan: -Hemoglobin currently stable. Range of between 8.3-8.9. -Continue iv protonix scheduled , will transition to oral Protonix upon discharge -Monitor for signs and symptoms of a GI bleed -No melena present in stool that is in the ostomy bag -Gastroenterology was consulted for melena. Patient was not a good candidate for an EGD, therefore conservative management with IV Protonix. Patient's last EGD performed was in 2017 in [place], she was found to have Tamie esophagitis -Hold anticoagulation, Hb was 12 upon admission dropped to 7.7 on 08/01/21. INR 2. -Continue close monitoring -Restated Iron supplements at this time -Anemia labs iron 32, TIBC 261, % sat 12, Ferritin 235 (2) Septic shock: Code(s): A41.9 - Sepsis, unspecified organism; R65.21 - Severe sepsis with septic shock Status: Acute Assessment and Plan: 07/30 urine cultures growing Pseudomonas, sensitive to Imipenem and ciprofloxacin. Patient was placed on Imipenem initially due to NPO status. Total IV antibiotic therapy with Imipenem, 8 days. Patient is able have oral intake. Will switch antibiotic to ciprofloxacin oral on 08/06/21 stop date 08/09/21. culture and sensitivity report reviewed. No leukocytosis - continue current care, pt is DNR, pt is poor prognosis DNR / DNI (3) Acute UTI: Code(s): N39.0 - Urinary tract infection, site not specified Status: Acute Assessment and Plan: See above (4) Acute worsening of stage 3 chronic kidney disease: Code(s): N18.30 - Chronic kidney disease, stage 3 unspecified Status: Acute Assessment and Plan: -Resolved, continue to monitor renal function -Chronic Spears catheter -resume bumex (5) Elevated troponin: Code(s): R77.8 - Other specified abnormalities of plasma proteins Status: Acute Assessment and Plan: Elevated troponins which down trended, likely related to type 2 infarct -patient was unable to provide a history upon admission. Patient currently denies chest pain or shortness for breath -Elevated troponin may be related to septic shock, hypotension, mild MAGGIE upon admission, or demand ischemia -Cardiology was consulted due to the elevation of troponin, the patient was not a candidate for cardiac intervention. Provide aggressive supportive care. Cardiology signed off on July 31, 2021. (6) DVT prophylaxis: Code(s): Z29.9 - Encounter for prophylactic measures, unspecified Status: Acute Assessment and Plan: -hold Lovenox as patient dropped her hemoglobin and had melena in her ostomy -Hold Pradaxa, patient has a history of paroxysmal AFib -SCDs (7) Encephalopathy: Code(s): G93.40 - Encephalopathy, unspecified Status: Acute Assessment and Plan: -improvement, pts prognosis is poor, family to decide on hospice care currently pt is DNR/ DNI (8) Immunosuppression due to drug therapy: Code(s): Z79.899 - Other fisher lobster (current) drug therapy Status: Acute Assessment and Plan: -Patient is on immunosuppressive drug therapy due to rheumatoid arthritis. DS: Summary Hospital Course Hospital Course: Ms. Muñoz is an 81-year-old female with a past medical history of CVA, DVT, dyslipidemia, hypothyroidism, AFib, Frequent UTI who presented to the emergency room with complaints of increased shortness of breath and weakness. Patient was noted have a saturation of 70% on room air when she arrived. BNP was elevated along with troponin is. Patient was started on IV antibiotics consists
--- NOTE | 2021-08-08 10:59 | PM.IMPN ---
Progress Note: A&P Assessment and Plan (1) Anemia: Qualifiers: Anemia type: unspecified type Qualified Code(s): D64.9 - Anemia, unspecified Code(s): D64.9 - Anemia, unspecified Status: Chronic Assessment and Plan: -Hemoglobin currently stable. Range of between 8.3-8.9. -Continue iv protonix scheduled , will transition to oral Protonix upon discharge -Monitor for signs and symptoms of a GI bleed -No melena present in stool that is in the ostomy bag -Gastroenterology was consulted for melena. Patient was not a good candidate for an EGD, therefore conservative management with IV Protonix. Patient's last EGD performed was in 2018 in [place], she was found to have Tamie esophagitis -Hold anticoagulation, Hb was 12 upon admission dropped to 7.7 on 08/01/21. INR 2. -Continue close monitoring -Restated Iron supplements at this time -Anemia labs iron 32, TIBC 261, % sat 12, Ferritin 235 (2) Septic shock: Code(s): A41.9 - Sepsis, unspecified organism; R65.21 - Severe sepsis with septic shock Status: Acute Assessment and Plan: 07/30 urine cultures growing Pseudomonas, sensitive to Imipenem and ciprofloxacin. Patient was placed on Imipenem initially due to NPO status. Total IV antibiotic therapy with Imipenem, 8 days. Patient is able have oral intake. Will switch antibiotic to ciprofloxacin oral on 08/06/21 stop date 08/09/21. culture and sensitivity report reviewed. No leukocytosis - continue current care, pt is DNR, pt is poor prognosis DNR / DNI (3) Acute worsening of stage 3 chronic kidney disease: Code(s): N18.30 - Chronic kidney disease, stage 3 unspecified Status: Acute Assessment and Plan: -Resolved, continue to monitor renal function -Chronic Spears catheter -resume bumex (4) Elevated troponin: Code(s): R77.8 - Other specified abnormalities of plasma proteins Status: Acute Assessment and Plan: Elevated troponins which down trended, likely related to type 2 infarct -patient was unable to provide a history upon admission. Patient currently denies chest pain or shortness for breath -Elevated troponin may be related to septic shock, hypotension, mild MAGGIE upon admission, or demand ischemia -Cardiology was consulted due to the elevation of troponin, the patient was not a candidate for cardiac intervention. Provide aggressive supportive care. Cardiology signed off on July 31, 2021. (5) DVT prophylaxis: Code(s): Z29.9 - Encounter for prophylactic measures, unspecified Status: Acute Assessment and Plan: -hold Lovenox as patient dropped her hemoglobin and had melena in her ostomy -Hold Pradaxa, patient has a history of paroxysmal AFib -SCDs (6) Encephalopathy: Code(s): G93.40 - Encephalopathy, unspecified Status: Acute Assessment and Plan: -improvement, pts prognosis is poor, family to decide on hospice care currently pt is DNR/ DNI (7) Immunosuppression due to drug therapy: Code(s): Z79.899 - Other prison (current) drug therapy Status: Acute Assessment and Plan: -Patient is on immunosuppressive drug therapy due to rheumatoid arthritis. Time Spent With Patient Time with patient: Greater than 35 minutes Subjective Date/time seen: 08/08/21 0945 Interval history: Date/time seen: 08/07/21 09:38 Patient is alert and oriented this morning. Transition most medications to oral. IV Protonix continues. Will transition to oral tomorrow morning. Patient continues to complain that she is in pain. Home medications resumed at a decreased dose. Patient is currently at baseline and has a possibility of being discharged later on this week. Pending clinical course. No acute events overnight reported by the RN. EHR reviewed, patient appears to have minimal output of her ostomy. Ordered a KUB for further eval Date/Time 08/08/21 09
--- NOTE | 2021-08-08 11:42 | PCNFU ---
Nutrition Follow-Up Complete: Swallowing Difficulties as related risk of aspiration as evidenced by modified diet orders. goal: Adequate Intake of at least 75% of meals/supplements Patient is progressing towards goal. We will continue current goal. Pt current nutrition is Soft and Bite Sized, Level 6 with Ensure Enlive BID. Last recorded weight is 85.6 kg, up from 81.9 kg on admit. Bowel Motility:ostomy Labs Reviewed:Cr 1.10,GFR 48, BUN 26, Hgb 8.1,Hct 26.0 Meds Noted:Albuterol, Cipro, Protonix, Prednisone, Ferrous Sulfate Skin: WNL Additional Notes: Patient had MBS on 08/07-recommending upgrade to soft and bite sized, Level 6 with thin liquids. Oral Intake this morning, 50% of meal. Diet supplements of Ensure Enlive BID providing and additional 250 kcals and 20 gms protein. Agree with diet orders. Monitoring: RD will monitor every 5 days.
[2021-08-08] MEDS: BUMETANIDE INJ 1 MG/4 ML VIAL IV PUSH (13:02)
[2021-08-08 15:02] LABS: EDCOVIDSCREEN Negative (Negative)
[2021-08-08] MEDS: oxyCODONE HCL (*CRX) 5 MG TAB IR PO (17:36)
== END 2021-08-08 20:30 | DRG 871 ==
LOC: ANHED 14:32 → ANHIMU 14:42 → ANHICU 20:23 → ANH2MED 08-03 12:26
PROVIDERS: Emergency Medicine; Internal Medicine; Nurse Practitioner Adult Health; Nurse Practitioner Family; Physician Assistant; Admitting Provider Internal Medicine; Emergency Provider Emergency Medicine; PCP Internal Medicine; Visit Provider Nurse Practitioner
DX: A41.9 Sepsis, unspecified organism (principal); J18.9 Pneumonia, unspecified organism; R65.21 Severe sepsis with septic shock; G93.41 Metabolic encephalopathy; Z66 Do not resuscitate; I21.A1 Myocardial infarction type 2; I13.0 Hypertensive heart and chronic kidney disease with heart failure and stage 1 through stage 4 chronic kidney disease, or unspecified chronic kidney disease; N39.0 Urinary tract infection, site not specified; L03.119 Cellulitis of unspecified part of limb; K92.1 Melena; Z20.822 Contact with and (suspected) exposure to COVID-19; D62 Acute posthemorrhagic anemia; M81.0 Age-related osteoporosis without current pathological fracture; M19.90 Unspecified osteoarthritis, unspecified site; E53.8 Deficiency of other specified B group vitamins; N18.30 Chronic kidney disease, stage 3 unspecified; I50.9 Heart failure, unspecified; M06.9 Rheumatoid arthritis, unspecified; I25.10 Atherosclerotic heart disease of native coronary artery without angina pectoris; F32.A Depression, unspecified; K21.9 Gastro-esophageal reflux disease without esophagitis; Z86.73 Personal history of transient ischemic attack (TIA), and cerebral infarction without residual deficits; Z86.718 Personal history of other venous thrombosis and embolism; E78.5 Hyperlipidemia, unspecified; E21.3 Hyperparathyroidism, unspecified; E03.9 Hypothyroidism, unspecified; I48.0 Paroxysmal atrial fibrillation; G89.4 Chronic pain syndrome; Z93.3 Colostomy status; B96.5 Pseudomonas (aeruginosa) (mallei) (pseudomallei) as the cause of diseases classified elsewhere; R06.03 Acute respiratory distress; E87.8 Other disorders of electrolyte and fluid balance, not elsewhere classified; E87.6 Hypokalemia; R10.13 Epigastric pain; E83.42 Hypomagnesemia; Z79.899 Other long term (current) drug therapy
CPT/HCPCS: 36415; 70450; 71045; 74018; 74019; 74176; 80048; 80053; 81001; 82140; 82274; 82550; 82728; 82948; 83540; 83550; 83605; 83690; 83735; 83880; 84100; 84132; 84484; 85025; 85027; 85055; 85610; 85730; 86140; 87040; 87077; 87086; 87088; 87186; 87426; 87449; 87899; 92526; 92610; 92611; 93005; 94002; 94640; 94660; 96365; 97165; 99285; A9270; C1729; C1751; C8929; C9113; C9803; J0131; J0610; J0692; J0743; J1650; J1720; J1940; J2270; J2405; J2543; J2997; J3370; J3475; J3480; J7030; J7040; J7050; J7060; J7512; P9047; Q9957; U0003; U0005

== ENCOUNTER 2021-08-12 13:17 | Inpatient (IN) | payer MEDICARE, SELFPAY ==
[2021-08-12] VITALS (22 sets, daily range): BP systolic 74–129; BP diastolic 43–74; PULSE 66–84; RESP 12–29; TEMP 36.1–36.6; O2SAT 93–100; BMI 29.3
--- NOTE | ~2021-08-12 | XR_ITS ---
EXAMINATION: XR chest 1V portable DATE: 08/12/2021 14:16 INDICATION: Dyspnea. TECHNIQUE: A single frontal view of the chest was obtained. COMPARISON: Chest single view 08/04/2021, CT abdomen and pelvis 08/03/2021 FINDINGS: There are small pleural effusions. There are airspace opacities at the lung bases. No pneum othorax. The heart size is normal. There are changes of vertebroplasty in T12. IMPRESSION: 1. Stable small pleural effusions. 2. Airspace opacities at the lung bases with worsening on the right, consistent with atelectasis vers us pneumonia. Reviewed, dictated and finalized at location A. OMER SUPPLY CHAIN ANALYST IMPRESSION: 1. Stable small pleural effusions. 2. Airspace opacities at the lung bases with worsening on the right, consistent with atelectasis versus pneumonia.
--- NOTE | 2021-08-12 13:28 | ECG_ITS ---
Measurements Intervals [place] Rate: 79 P: 34 FL: 144 QRS: 36 QRSD: 88 T: 15 QT: 361 QTc: 416 Interpretive Statements SINUS RHYTHM BASELINE ARTIFACT LOW QRS VOLTAGE IN PRECORDIAL LEADS [QRS DEFLECTION < 1.0 mV IN CHEST LEADS] NONSPECIFIC T-WAVE ABNORMALITY BORDERLINE ECG COMPARED TO ECG 07/30/2021 12:28:53 NO SIGNIFICANT CHANGES Electronically Signed On 08-12-2021 15:24:27 CRACKING STILL OPERATOR by Bogdan Dudley M.D.
[2021-08-12 13:42] LABS: Alveolar/Arterial O2 Gradient 406.3 mmHg; Base Excess ABG 1.1 mEq/l (+/-2.0); Fractional Inspired Oxygen 100 %; Oxygen Content ABG 15.1 %vol (16.0-22.0); Oxygen Saturation ABG 99.4 % (95.0-100.0); Oxyhemoglobin 98.3 % THb (90.0-100.0); PO2 ABG 241.9 mmHg (80.0-100.0); PO2 FiO2 Ratio Arterial Blood 2.42 %; Total Hemoglobin 10.5 g/dL (12.0-18.0)
[2021-08-12 13:44] LABS: pH ABG 7.269 (7.350-7.450)
[2021-08-12 13:44] LABS: Basophils Percent Auto 0.3 % (0.2-1.2); Eosinophils Absolute Auto 0.1 K/mm3 (0-0.3); Eosinophils Percent Auto 0.6 % (0-4.4); Hematocrit 31.8 % (37.0-47.0); Hemoglobin 9.4 g/dL (12.0-15.0); Immature Granulocyte Absolute 0.06 K/mm3 (0.00-0.031); Immature Granulocyte Percent A 0.4 % (0-0.5); Lymphocytes Absolute Auto 1.24 K/mm3 (0.9-3.2); Mean Corpuscular HGB Conc 29.6 g/dl (32-36); Mean Corpuscular Hemoglobin 32.6 pg (26-34); Mean Corpuscular Volume 110.4 fl (80-100); Monocytes Absolute Auto 0.2 K/mm3 (0.1-0.6); Monocytes Percent Auto 1.1 % (2.6-8.5); Neutrophils Absolute Auto 13.9 K/mm3 (1.3-6.7); Neutrophils Percent Auto 89.6 % (45.5-73.1); Nucleated Red Blood Cells Perc 0.1 % (0.0-0.2); Platelet Count Result 461 k/mm3 (150-375); Red Blood Count 2.88 M/mm3 (4.2-5.4); Red Cell Distribution Width 18.1 % (11.5-14.5); White Blood Count 15.5 K/mm3 (4.5-10.0)
[2021-08-12 13:45] LABS: Device NON-INVASIVE VENT; Modified Allen's Test Pass; PCO2 ABG 64.8 mmHg (35.0-45.0); Site Drawn RIGHT RADIAL
[2021-08-12 13:46] LABS: Non-Invasive Expiratory Pressure 5 CMH2O; Non-Invasive Inspiratory Pressure 10 CMH2O; Non-Invasive Vent Rate 16 /MIN
[2021-08-12 13:55] LABS: Lactic Acid Reflex 1.5 mmol/L (0.7-2.1)
[2021-08-12 13:58] LABS: Alanine Aminotransferase 40 U/L (4-35); Albumin Level 3.8 g/dL (3.5-5.1); Alkaline Phosphatase 80 U/L (38-126); Anion Gap 9 mmol/L (8-16); Aspartate Amino Transferase 43 U/L (14-36); Bilirubin,Total 1.9 mg/dL (0.2-1.3); Blood Urea Nitrogen 43 mg/dL (7-17); Carbon Dioxide 30 mmol/L (22-30); Chloride 91 mmol/L (98-107); Estimated CRCL calculation 16 ml/min; Estimated Glomerular Filt Rate 16; Potassium 4.8 mmol/L (3.4-5.0); Sodium 130 mmol/L (137-145)
[2021-08-12] MEDS: FUROSEMIDE INJ 40 MG/4 ML VIAL IV PUSH (14:02)
[2021-08-12 14:05] LABS: NT Pro B Type Natriuretic Pept 6220 pg/mL (5-100)
[2021-08-12 14:13] LABS: Band Neutrophils Percent 4 % (0-6); Eosinophils Absolute Manual 0.15 K/mm3 (0.02-0.5); Eosinophils Percent Manual 1 % (0-4); Lymphocytes Absolute Manual 0.93 K/mm3 (1.1-4.5); Monocytes Absolute Manual 0.15 K/mm3 (0.1-0.90); Monocytes Percent Manual 1 % (3-9); Neutrophils Absolute Manual 14.26 K/mm3 (1.7-7.2); Neutrophils Percent Manual 88 % (46-73); Total Cells Counted 100
[2021-08-12 14:14] LABS: Hypochromasia 1+ (NORMAL); Platelet Estimate Increased (Adequate)
[2021-08-12 14:15] LABS: Anisocytosis 2+ (NORMAL); Calcium 7.8 mg/dL (8.4-10.2); Glucose 125 mg/dL (65-110); Magnesium 1.7 mg/dL (1.6-2.3)
--- NOTE | 2021-08-12 14:27 | ED.SOB ---
HPI - SOB/Dyspnea General Chief Complaint: Shortness of Breath/Dyspnea Stated Complaint: sob/cpap Time Seen by Provider: 08/12/21 13:21 Source: patient, EMS, RN notes reviewed and old records reviewed History of Present Illness HPI Narrative: Patient was called with the nursing facility for unresponsiveness. When EMS arrived patient was alert but in respiratory distress and difficulty obtaining a room air O2 sat her crackles and started her on CPAP and transferred to the ER for evaluation. Patient is complaining of diffuse body aches and shortness of breath. There has not been recent fevers, cough, congestion. Related Data Home Medications Medication Instructions Recorded Confirmed Pradaxa 150 mg PO BID 04/25/19 08/12/21 acyclovir 400 mg PO DAILY 04/26/19 08/12/21 folic acid 1 mg PO BID 04/26/19 08/12/21 Xtampza ER 18 mg PO Q12H 04/04/20 08/12/21 cyanocobalamin (vitamin B-12) 1,000 mcg PO DAILY 04/04/20 08/12/21 potassium chloride 10 meq PO EVERY OTHER DAY 04/04/20 08/12/21 cholecalciferol (vitamin D3) 25 25 mcg PO DAILY 05/24/20 08/12/21 mcg (1,000 unit) capsule Orencia 125 mg SUBCUT DAILY 07/30/21 08/12/21 gabapentin 100 mg PO DAILY 07/30/21 08/12/21 gabapentin 200 mg PO HS 07/30/21 08/12/21 methotrexate sodium 10 mg PO WEEKLY 07/30/21 08/12/21 nebivolol 10 mg PO DAILY 07/30/21 08/12/21 cranberry 400 mg PO DAILY 08/12/21 08/12/21 ferrous sulfate 325 mg PO EVERY OTHER DAY 08/12/21 08/12/21 ipratropium-albuterol 3 ml INHALATION Q6H PRN 08/12/21 08/12/21 omeprazole 40 mg PO DAILY 08/12/21 08/12/21 ondansetron 4 mg PO Q6H PRN 08/12/21 08/12/21 prednisone 10 mg PO DAILY 08/12/21 08/12/21 Allergies Allergy/AdvReac Type Severity Reaction Status Date / Time metronidazole Allergy Unknown Unknown Verified 07/14/21 11:18 latex Allergy Unknown Verified 07/14/21 11:18 codeine AdvReac Unknown Nausea Verified 07/30/21 12:23 enalapril AdvReac Unknown Nausea Verified 07/30/21 12:23 ezetimibe AdvReac Unknown Dizziness Verified 07/30/21 12:23 Uubixaw-BMY-HzB Reductase AdvReac Unknown Nausea Verified 07/30/21 12:23 Inhibitor [Faawhuw-Vff-Hmw Reductase Inhibitor] Review of Systems Review of Systems: CONSTITUTIONAL: Denies fever, chills, or sweats. EYES: Denies visual changes, redness, or discharge. ENT: Denies rhinorrhea, congestion, sore throat, or otalgia. CARDIOVASCULAR: Denies chest pain, palpitations, or edema. RESPIRATORY: Shortness of breath GASTROINTESTINAL: Denies abdominal pain, nausea, vomiting, or diarrhea. GENITOURINARY: Denies dysuria or hematuria. SKIN: Denies rash or itching. MUSCULOSKELETAL: Denies back pain, joint pain NEUROLOGIC: Denies headache, numbness, dizziness, or weakness. PSYCHIATRIC: Denies anxiety or depression. All systems reviewed & are unremarkable except as noted in HPI and below PMFSH Past Medical History Medical History (Updated 08/12/21 @ 17:28 by Amanda Dumont APRN) Acute blood loss anemia Acute kidney injury Age-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 Bulging disc CHF (congestive heart failure) Chronic anemia Chronic kidney disease, stage 3 Baseline creatinine between 1.0 and 1.20. Chronic pain syndrome Secondary to rheumatoid arthritis. 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 Coronary artery disease Depression Diverticulitis Perforated diverticulitis status post colostomy in 2014. Esophageal diverticulum Essential hypertension Fracture of proximal end of right tibia Gastroesophageal reflux disease GERD (gastroesophageal reflux disease) Hallucination History of CVA (cerebrovascular accident) History of DVT (deep vein thrombosis) Hyperlipidemia Hyperparathyroidism (~2018) Hypokalemia Hypothyroidism Immunosuppression due to drug therapy Kidney stones Melena Osteoarthritis Osteoporosis Paroxysmal a
[2021-08-12] MEDS: IPRATROPIUM BR 0.02% INH SOLN 0.5 MG/2.5 ML VIAL INHALATION ×2 (14:39→19:20)
[2021-08-12] MEDS: ALBUTEROL SULFATE NEB 2.5 MG/0.5 ML INH 5 MG INHALATION ×2 (14:39→19:19)
--- NOTE | 2021-08-12 15:08 | PC.NURSE ---
@13:10 RT in room to reduce 02 as ABG O2 was 200.
--- NOTE | 2021-08-12 15:14 | PC.NURSE ---
Pt has a dinero but unaable to collect urine. Will replace dinero.
[2021-08-12] MEDS: methylPREDNISolone SOD SUCC 125 MG VIAL IV PUSH (15:17)
[2021-08-12 15:19] LABS: Alveolar/Arterial O2 Gradient 334.7 mmHg; Base Excess ABG -2.9 mEq/l (+/-2.0); Fractional Inspired Oxygen 70 %; Oxygen Content ABG 13.9 %vol (16.0-22.0); Oxygen Saturation ABG 96.4 % (95.0-100.0); Oxyhemoglobin 95.8 % THb (90.0-100.0); PCO2 ABG 59.7 mmHg (35.0-45.0); PO2 ABG 100.2 mmHg (80.0-100.0); PO2 FiO2 Ratio Arterial Blood 1.43 %; Total Hemoglobin 10.2 g/dL (12.0-18.0)
[2021-08-12 15:22] LABS: Device NON-INVASIVE VENT; Modified Allen's Test Pass; Site Drawn RIGHT RADIAL; pH ABG 7.239 (7.350-7.450)
[2021-08-12 15:23] LABS: Non-Invasive Expiratory Pressure 5 CMH2O; Non-Invasive Inspiratory Pressure 10 CMH2O; Non-Invasive Vent Rate 16 /MIN
[2021-08-12 16:18] LABS: SARS-CoV-2 RNA PCR Negative
--- NOTE | 2021-08-12 16:41 | PC.NURSE ---
Changed dinero cath and unable to obtain urine.
--- NOTE | 2021-08-12 17:19 | PM.IMHP ---
H&P: HPI History of Present Illness Date/Time: Patient requires inpatient monitoring with expected length of stay to exceed 2 midnights for management of care. 08/12/21 17:19 Chief Complaint: Shortness of breath Narrative: Ms. Muñoz is an 81-year-old female who presented to the emergency room with complaints of shortness of breath. Patient does reside in a alf and the staff as well as her states that patient was acting very lethargic and at times unresponsive this morning. Patient's spouse states that this morning at 1 point she did state she was having a large amount of chest pain. Patient states that she does recall this and states she had pain under her left breast. Patient states she does not recall having unresponsive episodes, but she does recall being very short of breath. EMS was notified and patient was placed on CPAP by EMS and transported to the hospital. Upon evaluation in emergency room patient was noted to be quite tachypneic and hypoxic. Patient was then placed on BiPAP and ABGs were performed. Patient denies any cough or sputum production. Patient states that she does have swelling, but this is a chronic condition for her. It is difficult to get a full review of systems of the patient secondary to the fact that she is wearing BiPAP at this time. Patient does have a known history of CVA, DVT, dyslipidemia, hypothyroidism, paroxysmal atrial fibrillation, and frequent urinary tract infections. Patient does have a chronic Spears catheter. Patient also is noted to have a colostomy bag and she states this is from being on her rheumatoid arthritis medication for so long that she ended up with perforated diverticulum. On 07/30/2021 patient was admitted to the hospital and prior to this patient had been living at home with her family and they had been caring for her, but [facility]. Review of Systems Review of Systems: A 12 point review of systems was attempted with patient, it is difficult to get a full review of systems on the patient secondary to the fact that she is wearing BiPAP. All pertinent positive and negative for per HPI the remainder are unremarkable. [facility] Past Medical History Medical History (Updated 08/12/21 @ 17:28 by Amanda Dumont APRN) Acute blood loss anemia Acute kidney injury Age-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 Bulging disc CHF (congestive heart failure) Chronic anemia Chronic kidney disease, stage 3 Baseline creatinine between 1.0 and 1.20. Chronic pain syndrome Secondary to rheumatoid arthritis. 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 Coronary artery disease Depression Diverticulitis Perforated diverticulitis status post colostomy in 2014. Esophageal diverticulum Essential hypertension Fracture of proximal end of right tibia Gastroesophageal reflux disease GERD (gastroesophageal reflux disease) Hallucination History of CVA (cerebrovascular accident) History of DVT (deep vein thrombosis) Hyperlipidemia Hyperparathyroidism (~2018) Hypokalemia Hypothyroidism Immunosuppression due to drug therapy Kidney stones Melena Osteoarthritis Osteoporosis Paroxysmal atrial fibrillation Pneumonia Rheumatoid arthritis Rheumatoid arthritis with rheumatoid factor of multiple sites without organ or systems involvement (~1984) Seasonal allergies UTI (urinary tract infection) Vertebral compression fracture T5 and lumbar vertebral compression fractures. Surgical History Surgical History History of appendectomy History of bowel resection (~2014) With colostomy, secondary to perforated diverticulitis. History of cardiac catheterization History of cataract extraction History of cholecystectomy History of lumbar discectomy
--- NOTE | 2021-08-12 17:41 | ADMGEN ---
This patient, Yamini Muñoz, was admitted to IMU Room 201-01 at 1700. Patient/family oriented to hospital policies and general routines including ID bracelet, bed and alarms, visiting hours, pain management, procedures, bathroom and other care routines, personal items, smoking policy, room service/diet, and visiting hours. Information on how to activate the Rapid Response Team has been discussed. Patient/Family are encouraged to report perceived risks to care and to ask questions if they do not understand what they are told or what they should do.
[2021-08-12 18:27] LABS: Troponin I < 0.012 ng/mL (0.000-0.034)
--- NOTE | 2021-08-12 18:40 | PC.NURSE ---
Patient's fdc paperwork reported that patient had on a Fentanyl patch. No patch was found on patient upon her arrival to [facility]. [facility] was called and was told that even patch was reported as being placed on patient, patient had refused.
--- NOTE | 2021-08-12 18:51 | PC.NURSE ---
Spoke with patient's grand-daughter and patient has been refusing fentanyl patch for sometime. Reviewed home medication list with grand-daughter and noticed that fentanyl patch was actually d/c'd from home medication list as of 08/11/2021. Fentanyl patch then removed from home medication list in this system.
[2021-08-12 19:34] LABS: Base Excess ABG -1.7 mEq/l (+/-2.0); Fractional Inspired Oxygen 70 %; HCO3 ABG 27.3 mEq/l (22.0-26.0); Oxygen Content ABG 13.6 %vol (16.0-22.0); Oxygen Saturation ABG 95.8 % (95.0-100.0); Oxyhemoglobin 95.9 % THb (90.0-100.0); PO2 FiO2 Ratio Arterial Blood 1.43 %
[2021-08-12 19:41] LABS: Device NON-INVASIVE VENT; Modified Allen's Test Pass; PCO2 ABG 72.7 mmHg (35.0-45.0); Site Drawn LEFT RADIAL; pH ABG 7.193 (7.350-7.450)
[2021-08-12 19:42] LABS: Non-Invasive Expiratory Pressure 7 CMH2O; Non-Invasive Inspiratory Pressure 14 CMH2O; Non-Invasive Vent Rate 12 /MIN
[2021-08-12 21:38] LABS: Troponin I < 0.012 ng/mL (0.000-0.034)
[2021-08-12 21:48] LABS: Alveolar/Arterial O2 Gradient 340.1 mmHg; Base Excess ABG -3.5 mEq/l (+/-2.0); Fractional Inspired Oxygen 70 %; HCO3 ABG 25.8 mEq/l (22.0-26.0); Oxygen Content ABG 13.8 %vol (16.0-22.0); Oxygen Saturation ABG 92.6 % (95.0-100.0); Oxyhemoglobin 92.9 % THb (90.0-100.0); PO2 ABG 81.9 mmHg (80.0-100.0); PO2 FiO2 Ratio Arterial Blood 1.17 %; Total Hemoglobin 10.5 g/dL (12.0-18.0)
[2021-08-12 21:50] LABS: pH ABG 7.174 (7.350-7.450)
[2021-08-12 21:51] LABS: PCO2 ABG 71.7 mmHg (35.0-45.0)
[2021-08-12 21:52] LABS: Device NON-INVASIVE VENT; Modified Allen's Test Pass; Site Drawn LEFT RADIAL
[2021-08-12 21:54] LABS: Non-Invasive Expiratory Pressure 6 CMH2O; Non-Invasive Inspiratory Pressure 18 CMH2O; Non-Invasive Vent Rate 20 /MIN
--- NOTE | 2021-08-12 22:41 | PC.NURSE ---
Patient's repeat ABGs drawn at 2149 have worsened. Spoke with Amanda Dumont NP about ABGs, LOC, B/P 74/43. Will call the family to establish if they want to switch to comfort measures or be more aggresive with care.
--- NOTE | 2021-08-12 22:44 | PC.NURSE ---
Spoke with Eduardo Muñoz () at 2205. Updated him with current ABGs, B/P 74/43, and decreased LOC. He is adamant that the patient's wishes are to be a DNR status. He is agreeable to switch to comfort measures. I also spoke with Katerin (daughter in law) who is a nurse, and updated her with above. She will talk to Alex and Cristhian (sons) and inform them of the situation. They are planning to come to the hospital. Amanda Dumont LAN ADMINISTRATOR also notified of above by Mitzy Reyes RN. See orders.
[2021-08-13] VITALS: PULSE 69; O2SAT 93
[2021-08-13 02:00] VITALS: PULSE 61
[2021-08-13 04:00] VITALS: PULSE 61; PULSE 64
[2021-08-13] MEDS: MORPHINE SULFATE (*CRX) 2 MG/ML INJ IV PUSH ×2 (04:29→13:12)
[2021-08-13] MEDS: LORazepam INJ (*CRX) 2 MG/ML VIAL IV PUSH (04:29)
--- NOTE | 2021-08-13 10:05 | PM.IMPN ---
Progress Note: A&P Assessment and Plan (1) Hypercarbia: Code(s): R06.89 - Other abnormalities of breathing Status: Acute Assessment and Plan: -Patient was placed on BiPAP at 10/5 with an FiO2 of 70%. ABGs were redrawn and patient continues to become more acidodic. -BiPAP settings were changed 14/7 with an FiO2 of 70%. -pt made comfort measures by family at bedside, bipap removed, has nasal cannula on (2) Chest pain: Code(s): R07.9 - Chest pain, unspecified Status: Acute Assessment and Plan: -Patient's chest discomfort could have been from hypoxia. -serial troponins drawn. -EKG that was performed in the emergency room shows no acute changes from previous EKG. -Pt made comfort measures, further interventions discontinued (3) Pneumonia: Qualifiers: Laterality: unspecified laterality Lung location: unspecified part of lung Pneumonia type: due to unspecified organism Qualified Code(s): J18.9 - Pneumonia, unspecified organism Code(s): J18.9 - Pneumonia, unspecified organism Status: Acute Assessment and Plan: -Patient's chest x-ray shows chronic small effusions with a new infiltrate to the right middle lobe. -Patient does have a leukocytosis, patient was initially tachycardic in the emergency room, and patient was tachypneic. -Patient did meet sepsis criteria and patient was appropriately started on antibiotics. -Patient never had hypotension so she did not meet severe sepsis criteria and did not need fluid bolus. -Patient's lactic acid was within normal limits a 1.5. -Pt made comfort measures, further interventions discontinued (4) Acute on chronic kidney failure: Code(s): N17.9 - Acute kidney failure, unspecified; N18.9 - Chronic kidney disease, unspecified Status: Acute Assessment and Plan: -Patient has acute on chronic kidney disease. -Patient's baseline creatinine appears to be 1.0-1.1. -Patient did receive IV Lasix in the emergency secondary to her anasarca. -Unsure if her acute on chronic kidney injury is secondary to cardiorenal syndrome. -Patient's BUN to creatinine ratio is greater than 20. -Pt made comfort measures, further interventions discontinued (5) Paroxysmal atrial fibrillation: Code(s): I48.0 - Paroxysmal atrial fibrillation Status: Chronic Assessment and Plan: -Patient remains in normal sinus rhythm at this point time. -Patient was on Pradaxa at home. -Pradaxa discontinued when patient was made comfort measures Additional Plan hospice consult placed Subjective Date/time seen: 08/13/21 07:05 Interval history: Ms. Muñoz is an 81-year-old female with history of history of CVA, DVT, dyslipidemia, hypothyroidism, paroxysmal atrial fibrillation, and frequent urinary tract infections, admitted for respiratory distress. Pt was placed on comfort measures last night. She was sleeping on exam today with family at bedside. She was not arousable for my exam. Review of Systems Review of Systems: ROS unobtainable: Yes unobtainable due to medical condition Exam Narrative: General: chronically ill appearing, sleeping, does not arouse to verbal or painful stimuli Eyes: no scleral icterus HEENT: NCAT, external ears normal, dry mucous membranes Respiratory: No respiratory distress, Lungs CTA bilaterally, no wheezing Cardiovascular: RRR, no murmur Abdominal: Soft, nontender, non distended, no rebound or guarding Musculoskeletal: 1+ edema BLE Neurological: unable to assess, pt is comfort measures, sleeping on exam Skin: Warm, dry Objective Data Vital Signs Vital Signs: Vital Signs - 24 hr 08/12/21 13:27 08/12/21 13:30 08/12/21 13:31 Temperature 97.8 F Pulse Rate 84 84 Respiratory Rate 12 Blood Pressure 129/60 Pulse Oximetry 100 100 08/12/21 13:46 08/12/21 13:50 08/12/21 14:39 Temperature Pulse Rate 80 79 77
[2021-08-13 10:31] VITALS: BP 67/24; PULSE 94; RESP 16; TEMP 35.6; O2SAT 77
[2021-08-13 16:38] VITALS: O2SAT 95
--- NOTE | 2021-08-14 06:21 | PM.DS ---
DS: Admitting Diagnosis Discharge Date 08/13/21 Admitting Diagnosis respiratory failure DS: Discharge Diagnosis Discharge Diagnosis (1) Hypercarbia: Code(s): R06.89 - Other abnormalities of breathing Status: Acute Assessment and Plan: -Patient was placed on BiPAP at 10/5 with an FiO2 of 70%. ABGs were redrawn and patient continues to become more acidodic. -BiPAP settings were changed 14/7 with an FiO2 of 70%. -pt continued to deteriorate, at that time rather than opt for mechanical ventilation, family at bedside opted for comfort measures, bipap removed (2) Chest pain: Qualifiers: Chest pain type: unspecified Qualified Code(s): R07.9 - Chest pain, unspecified Code(s): R07.9 - Chest pain, unspecified Status: Acute Assessment and Plan: -Patient's chest discomfort could have been from hypoxia. -serial troponins drawn. -EKG that was performed in the emergency room shows no acute changes from previous EKG. -Pt made comfort measures, further interventions discontinued (3) Pneumonia: Qualifiers: Laterality: unspecified laterality Lung location: unspecified part of lung Pneumonia type: due to unspecified organism Qualified Code(s): J18.9 - Pneumonia, unspecified organism Code(s): J18.9 - Pneumonia, unspecified organism Status: Acute Assessment and Plan: -Patient's chest x-ray shows chronic small effusions with a new infiltrate to the right middle lobe. -Patient does have a leukocytosis, patient was initially tachycardic in the emergency room, and patient was tachypneic. -Patient did meet sepsis criteria and patient was appropriately started on antibiotics. -Patient never had hypotension so she did not meet severe sepsis criteria and did not need fluid bolus. -Patient's lactic acid was within normal limits a 1.5. -Pt made comfort measures, further interventions discontinued (4) Acute on chronic kidney failure: Qualifiers: Acute renal failure type: unspecified Chronic kidney disease stage: unspecified stage Qualified Code(s): N17.9 - Acute kidney failure, unspecified; N18.9 - Chronic kidney disease, unspecified Code(s): N17.9 - Acute kidney failure, unspecified; N18.9 - Chronic kidney disease, unspecified Status: Acute Assessment and Plan: -Patient has acute on chronic kidney disease. -Patient's baseline creatinine appears to be 1.0-1.1. -Patient did receive IV Lasix in the emergency secondary to her anasarca. -Unsure if her acute on chronic kidney injury is secondary to cardiorenal syndrome. -Patient's BUN to creatinine ratio is greater than 20. -Pt made comfort measures, further interventions discontinued (5) Paroxysmal atrial fibrillation: Code(s): I48.0 - Paroxysmal atrial fibrillation Status: Chronic Assessment and Plan: -Patient remains in normal sinus rhythm at this point time. -Patient was on Pradaxa at home. -Pradaxa discontinued when patient was made comfort measures DS: Summary Hospital Course Reason for hospitalization: Ms. Muñoz is an 81-year-old female with history of history of CVA, DVT, dyslipidemia, hypothyroidism, paroxysmal atrial fibrillation, and frequent urinary tract infections, admitted for respiratory distress. Please see HPI for further details. Hospital Course: 81-year-old female with history of rheumatoid arthritis and osteoporosis and congestive heart failure was admitted on August 12 with dyspnea and chest discomfort and increasing lethargy. She was severely short of breath and placed on BiPAP. She had elevated troponins but no sign of acute coronary syndrome. She had new right middle lobe infiltrate and was treated initially with antibiotics. However because of worsening mental status and dyspnea it was felt that mechanical ventilation would be needed instead of BiPAP. Patient's and sons opted fo
[2021-08-15 18:37] LABS: Ionized Calcium 4.4 mg/dL (4.8-5.6)
== END 2021-08-13 17:05 | disposition hospice, home (50) | DRG 194 ==
LOC: ANHED 15:03 → ANHIMU 15:44 → ANH2MED 08-15 15:14 → ANHIMU 08-15 15:14
PROVIDERS: Internal Medicine; Nurse Practitioner Adult Health; Admitting Provider Internal Medicine; Emergency Provider Emergency Medicine; PCP Internal Medicine; Visit Provider Physician Assistant
DX: J18.9 Pneumonia, unspecified organism (principal); J44.0 Chronic obstructive pulmonary disease with (acute) lower respiratory infection; D84.9 Immunodeficiency, unspecified; E87.2 Acidosis; N17.9 Acute kidney failure, unspecified; I13.0 Hypertensive heart and chronic kidney disease with heart failure and stage 1 through stage 4 chronic kidney disease, or unspecified chronic kidney disease; Z51.5 Encounter for palliative care; Z66 Do not resuscitate; Z20.822 Contact with and (suspected) exposure to COVID-19; M19.90 Unspecified osteoarthritis, unspecified site; G89.4 Chronic pain syndrome; I25.10 Atherosclerotic heart disease of native coronary artery without angina pectoris; F32.A Depression, unspecified; K21.9 Gastro-esophageal reflux disease without esophagitis; Z86.73 Personal history of transient ischemic attack (TIA), and cerebral infarction without residual deficits; Z86.718 Personal history of other venous thrombosis and embolism; E78.5 Hyperlipidemia, unspecified; E21.3 Hyperparathyroidism, unspecified; E03.9 Hypothyroidism, unspecified; M81.0 Age-related osteoporosis without current pathological fracture; I48.0 Paroxysmal atrial fibrillation; M06.9 Rheumatoid arthritis, unspecified; R06.89 Other abnormalities of breathing; Z93.3 Colostomy status; Z87.440 Personal history of urinary (tract) infections; I50.9 Heart failure, unspecified; N18.9 Chronic kidney disease, unspecified
CPT/HCPCS: 36415; 36600; 71045; 80053; 82330; 82805; 83605; 83735; 83880; 84484; 85025; 87040; 93005; 94002; 94640; 96374; 96375; 99285; C9803; G0378; J0456; J0696; J1940; J2060; J2270; J2930; U0003; U0005

== ENCOUNTER 2021-08-13 17:00 | HOS | payer OTHER, MEDICARE, SELFPAY ==
--- NOTE | 2021-08-13 17:13 | PM.IMHP ---
H&P: HPI History of Present Illness Date/Time: 08/13/21 17:13 Chief Complaint: Dyspnea and chronic pain Narrative: 81-year-old female with history of rheumatoid arthritis and osteoporosis and congestive heart failure was admitted on August 12 with dyspnea and chest discomfort and increasing lethargy. She was severely short of breath and placed on BiPAP. She had elevated troponins but no sign of acute coronary syndrome. She had new right middle lobe infiltrate and was treated initially with antibiotics. However because of worsening mental status and dyspnea it was felt that mechanical ventilation would be needed instead of BiPAP. Patient's and sons opted for comfort care only at that point. Patient has been in chronic pain from her rheumatoid arthritis and osteoporosis. She takes OxyContin total of 36 mg daily with p.r.n. Oxy IR 20 mg. She resides in a fdc and is dependent for all ADLs. She last responded to her family by squeezing where hands at about 1:00 a.m. this morning. Since then she has not responded at all to verbal or tactile stimuli. Review of Systems Review of Systems: ROS unobtainable: Yes unobtainable due to medical condition [facility] Past Medical History Medical History (Updated 08/13/21 @ 17:15 by Pa Reese MD) Acute blood loss anemia Acute kidney injury Age-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 Bulging disc CHF (congestive heart failure) Chronic anemia Chronic kidney disease, stage 3 Baseline creatinine between 1.0 and 1.20. Chronic pain syndrome Secondary to rheumatoid arthritis. 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 Coronary artery disease Depression Diverticulitis Perforated diverticulitis status post colostomy in 2014. Esophageal diverticulum Essential hypertension Fracture of proximal end of right tibia Gastroesophageal reflux disease GERD (gastroesophageal reflux disease) Hallucination History of CVA (cerebrovascular accident) History of DVT (deep vein thrombosis) Hyperlipidemia Hyperparathyroidism (~2018) Hypokalemia Hypothyroidism Immunosuppression due to drug therapy Kidney stones Melena Osteoarthritis Osteoporosis Paroxysmal atrial fibrillation Pneumonia Rheumatoid arthritis Rheumatoid arthritis with rheumatoid factor of multiple sites without organ or systems involvement (~1984) Seasonal allergies UTI (urinary tract infection) Vertebral compression fracture T5 and lumbar vertebral compression fractures. Surgical History Surgical History History of appendectomy History of bowel resection (~2014) With colostomy, secondary to perforated diverticulitis. History of cardiac catheterization History of cataract extraction History of cholecystectomy History of lumbar discectomy (~10/2003) L3-L4 microdiskectomy with decompression of L4-L5. History of oophorectomy (~1963) History of sinus surgery X2 History of tonsillectomy Family History Family History Father Heart disease Throat cancer Sibling Kidney stones High cholesterol Social History Social History Social History: The patient lives in [place] with her . In January she was discharged to residential facility. She is currently at [facility]. She is a DNR. She is a lifelong nonsmoker and denies alcohol and illicit substance use. She designates her son Alex as her surrogate decision maker. She has 2 children Code status: DNR/DNI Smoking status: Never smoker Second hand tobacco smoke exposure: No Alcohol intake: never Substance use: never Substance use type: does not use Gender identity (if verbalized by the patient): Female Sexual Or
[2021-08-13 17:24] VITALS: BMI 35.9
[2021-08-13] MEDS: HYDROmorphone HCL/PF (*CRX) 50 MG in SODIUM CHLORIDE 0.9% IV 95 ML IV CONT (19:35)
[2021-08-13] MEDS: HYDROmorphone HCL INJ (*CRX) 1 MG/ML SYR 0.5 MG IV PUSH (19:43)
[2021-08-13 20:12] VITALS: O2SAT 88
[2021-08-13 20:35] VITALS: BP 108/78; PULSE 85; RESP 16; TEMP 36.5; O2SAT 95
[2021-08-13] MEDS: GLYCOPYRROLATE INJ (*SP) 0.2 MG/ML VIAL 0.1 MG IV PUSH (23:13)
[2021-08-14] VITALS (7 sets, daily range): BP systolic 89–128; BP diastolic 58–67; PULSE 92–98; RESP 14–24; TEMP 36–36.7; O2SAT 78–93
--- NOTE | 2021-08-14 03:03 | PC.NURSE ---
Daylight Savings Time For Daylight Savings Time Ending in the Fall - Clocks are moved back. For Daylight Savings Time Beginning in the Spring - Clocks are moved ahead. For [facility], the time of change occurs at 0200 hrs. Time is taken from the bartender server. This entry on the patient's chart recognizes the change in time reflected during documentation. Example: 2 entries for vital signs may be charted for 0200 hrs.
[2021-08-14] MEDS: GLYCOPYRROLATE INJ (*SP) 0.2 MG/ML VIAL 0.1 MG IV PUSH ×4 (03:57→20:26)
[2021-08-14] MEDS: LORazepam INJ (*CRX) 2 MG/ML VIAL 1 MG IV PUSH (06:32)
--- NOTE | 2021-08-14 14:39 | PM.IMPN ---
Progress Note: A&P Assessment and Plan (1) Palliative care by specialist: Code(s): Z51.5 - Encounter for palliative care Status: Acute Assessment and Plan: Meet inpatient hospice criteria due to requiring continuous IV narcotic for control of dyspnea and discomfort Hydromorphone 0.25 milligrams/hour and 0.5 mg every 2 hours as needed for pain or dyspnea Remainder palliative regimen as ordered Discussed with two granddaughters at bedside (2) Chest pain: Qualifiers: Chest pain type: unspecified Qualified Code(s): R07.9 - Chest pain, unspecified Code(s): R07.9 - Chest pain, unspecified Status: Acute (3) Acute on chronic kidney failure: Qualifiers: Acute renal failure type: unspecified Chronic kidney disease stage: unspecified stage Qualified Code(s): N17.9 - Acute kidney failure, unspecified; N18.9 - Chronic kidney disease, unspecified Code(s): N17.9 - Acute kidney failure, unspecified; N18.9 - Chronic kidney disease, unspecified Status: Acute (4) Hypercarbia: Code(s): R06.89 - Other abnormalities of breathing Status: Acute (5) Anasarca: Code(s): R60.1 - Generalized edema Status: Acute (6) Chronic pain: Qualifiers: Chronic pain type: other chronic pain Qualified Code(s): G89.29 - Other chronic pain Code(s): G89.29 - Other chronic pain Status: Acute Subjective Date/time seen: 08/14/21 14:15 Interval history: 08/14/21 visit: Granddaughters at bedside. Other than glycopyrrolate, no breakthrough meds needed. Review of Systems Review of Systems: ROS unobtainable: Yes unobtainable due to medical condition Objective Data Vital Signs Vital Signs: Vital Signs - 24 hr 08/13/21 20:12 08/13/21 20:35 08/14/21 06:00 Temperature 97.7 F 96.8 F L Pulse Rate 85 95 Respiratory Rate 16 14 Blood Pressure 108/78 128/58 L Pulse Oximetry 88 L 95 88 L 08/14/21 08:13 Temperature Pulse Rate Respiratory Rate 14 Blood Pressure Pulse Oximetry 87 L Intake/Output Intake/Output: Intake & Output 08/11/21 08/12/21 08/13/2122 23:59 23:59 23:59 00:59 Output Total 100 Balance -100 Meds/Results Medications: Active Medications Generic Name Dose Route Start Last Admin Trade Name Freq PRN Reason Stop Dose Admin Artificial Tears 1 - 2 drop 08/13/21 18:05 Artificial Tears Ophth Soln 15 Ml Bottle EACH EYE Q12H PRN Dry Eye(s) Bisacodyl 10 mg 08/13/21 18:05 Bisacodyl 10 Mg Suppository RECTAL DAILY PRN Constipation Glycopyrrolate 0.1 mg 08/13/21 18:05 08/14/21 12:16 Glycopyrrolate Inj (*Sp) 0.2 Mg/Ml Vial IV PUSH 0.1 mg Q4H PRN Administration secretions Hydromorphone HCl 0.5 mg 08/13/21 18:15 08/13/21 19:43 Hydromorphone Hcl Inj (*Crx) 1 Mg/Ml Syr IV PUSH 0.5 mg Q2H PRN Administration Pain/SOB Hydromorphone HCl 50 mg/ 100 mls @ 0.5 mls/hr 08/13/21 18:20 08/13/21 19:35 Sodium Chloride IV CONT 0.25 mg/hr .Q24H ANNA 0.5 mls/hr Administration 0.25 MG/HR Lorazepam 1 mg 08/13/21 18:05 08/14/21 06:32 Lorazepam Inj (*Crx) 2 Mg/Ml Vial IV PUSH 1 mg Q4H PRN Administration RESTLESSNESS Prochlorperazine Edisylate 10 mg 08/13/21 18:05 Prochlorperazine Edisylate 10 Mg/2 Ml Vial IV PUSH Q6H PRN Nausea And Vomiting
[2021-08-14] MEDS: HYDROmorphone HCL/PF (*CRX) 50 MG in SODIUM CHLORIDE 0.9% IV 95 ML IV CONT (18:26)
[2021-08-15] MEDS: GLYCOPYRROLATE INJ (*SP) 0.2 MG/ML VIAL 0.1 MG IV PUSH (05:45)
--- NOTE | 2021-08-15 06:29 | PC.NURSE ---
THIS NURSE HAS SUCTIONED PATIENT X3 THIS SHIFT WITH SMALL TO MODERATE AMOUNT OF WEINSTEIN SECRETIONS. HAVE PATIENT WITH HOB ELEVATED TO ATTEMPT TO EASE CONGESTION.
[2021-08-15 08:00] VITALS: O2SAT 88
[2021-08-15 09:20] VITALS: BP 78/42; PULSE 84; RESP 14; TEMP 36.3; O2SAT 90
[2021-08-15 15:51] VITALS: PULSE 0; RESP 0
--- NOTE | 2021-08-17 15:36 | PM.DDS ---
Discharge Summary Date and Time Date of : 08/15/21 Time of : 12:27 Provider Pronounced By: Cara Hsu RN Probable Cause of Probable Cause of : hypercarbic respiratory failure due to TML pneumonia Summary Hospital Course: Admitted to inpatient hospice due to uncontrolled dyspnea. Medications titrated to comfort. Patient peacefully. Additional Data Confirmation of as documented by pronouncing clinician: Pupillary Reflex, Palpable Pulses, Response to Stimuli, Heart Tones and Breath Sounds Name of Provider Notified: Dr. 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
== END 2021-08-15 14:49 | disposition expired | DRG 951 ==
PROVIDERS: Admitting Provider Internal Medicine; PCP Internal Medicine; Visit Provider Internal Medicine
DX: Z51.5 Encounter for palliative care (principal); J96.92 Respiratory failure, unspecified with hypercapnia; J18.9 Pneumonia, unspecified organism; I13.0 Hypertensive heart and chronic kidney disease with heart failure and stage 1 through stage 4 chronic kidney disease, or unspecified chronic kidney disease; N17.9 Acute kidney failure, unspecified; M06.9 Rheumatoid arthritis, unspecified; M81.0 Age-related osteoporosis without current pathological fracture; R77.8 Other specified abnormalities of plasma proteins; Z79.899 Other long term (current) drug therapy; Z79.891 Long term (current) use of opiate analgesic; I50.9 Heart failure, unspecified; N18.30 Chronic kidney disease, stage 3 unspecified; G89.4 Chronic pain syndrome; F32.9 Major depressive disorder, single episode, unspecified; K21.9 Gastro-esophageal reflux disease without esophagitis; Z86.73 Personal history of transient ischemic attack (TIA), and cerebral infarction without residual deficits; Z86.718 Personal history of other venous thrombosis and embolism; I48.0 Paroxysmal atrial fibrillation; E03.9 Hypothyroidism, unspecified; E78.5 Hyperlipidemia, unspecified; E21.3 Hyperparathyroidism, unspecified; Z87.440 Personal history of urinary (tract) infections; Z79.52 Long term (current) use of systemic steroids; R07.9 Chest pain, unspecified; R60.1 Generalized edema
CPT/HCPCS: A9270; J1170; J2060